=== PATIENT | male | born 1960 | race Two or more races ===

== ENCOUNTER 2019-08-02 19:23 | Inpatient (IN) | payer OTHER ==
[~2019-08-02] VITALS: Ht 180.3 cm; Wt 71.7 kg
[2019-08-02 19:27] VITALS: BP 115/65
[2019-08-02] MEDS ORDERED: CALCIUM + VITA1 EAC1 PO (19:33)
[2019-08-02] MEDS ORDERED: DOCUSATE SODIU100 M2 ORAL (19:33)
[2019-08-02] MEDS ORDERED: ASPIRIN81 MG ORAL (19:33)
[2019-08-02] MEDS ORDERED: CRANBERRY450 M5 PO (19:33)
[2019-08-02] MEDS ORDERED: ATORVASTATIN CA20 MG ORAL (19:33)
[2019-08-02] MEDS ORDERED: UNISOM SLEEP AI25 MG PO (19:33)
--- NOTE | 2019-08-02 19:33 | NUR ---
ED Nurse Note: Patient was BIBA from [facility] due to fever and abd pain radiating to the left and right flank area x 2 days. Oral temp 99.7, other VSS at this time, AAO x4, skin is warm to touch. Patient has preassure ulcer on his right buttoks, presented with suprapubic catheter. Patient has bilateral lower extrimety amputation.
[2019-08-02] MEDS ORDERED: NORCO 10-325 T1 EACH ORAL (19:38)
[2019-08-02] MEDS ORDERED: DULCOLAX10 MG RC (19:38)
[2019-08-02] MEDS ORDERED: METOPROLOL TART50 MG ORAL (19:38)
[2019-08-02] MEDS ORDERED: MILK OF MA400 MG/51 ORAL (19:38)
[2019-08-02] MEDS ORDERED: FERROUS SULFAT325 M2 ORAL (19:38)
[2019-08-02] MEDS ORDERED: MULTIVITAMINS1 EAC8 ORAL (19:38)
[2019-08-02] MEDS ORDERED: OXYCODONE HCL20 M1 ORAL (19:38)
[2019-08-02] MEDS ORDERED: LISINOPRIL20 MG ORAL (19:38)
[2019-08-02] MEDS ORDERED: LOPERAMIDE2 M1 PO (19:38)
[2019-08-02] MEDS ORDERED: VITAMIN C500 M1 ORAL (19:41)
[2019-08-02] MEDS ORDERED: VITAMIN C250 M1 ORAL (19:41)
[2019-08-02] MEDS ORDERED: PANTOPRAZOLE SO40 MG ORAL (19:41)
[2019-08-02] MEDS ORDERED: TYLENOL325 M1 PO (19:41)
[2019-08-02] MEDS ORDERED: Acetaminophen 500mg (ES) tab ORAL ONE (19:45)
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
[2019-08-02] MEDS ORDERED: Zosyn 3.375gm inj ONE (19:57)
[2019-08-02 20:05] LABS: BASOPHILS % (AUTO) 0.3 % (0.0-2.0); EOSINOPHILS % (AUTO) 0.6 % (0.0-3.0); HEMATOCRIT 28.5 % (42.0-52.0); HEMOGLOBIN 9.4 G/DL (14.2-18.0); LYMPHOCYTES % (AUTO) 15.2 % (20.0-45.0); MEAN CORPUSCULAR VOLUME 81 FL (80-99); MONOCYTES % (AUTO) 4.2 % (1.0-10.0); NEUTROPHILS % (AUTO) 79.7 % (45.0-75.0); PLATELET COUNT 287 K/UL (150-450); RED CELL DISTRIBUTION WIDTH 16.5 % (11.6-14.8)
[2019-08-02] MEDS ORDERED: Morphine Sulfate 4mg/ml Inj (IV USE ONLY) IVP ONE (20:15)
[2019-08-02 20:26] LABS: APPEARANCE,URINE VERY CLOUDY; BILIRUBIN, URINE NEGATIVE (NEGATIVE); COLOR,URINE YELLOW; GLUCOSE, URINE (UA) NEGATIVE (NEGATIVE); KETONES,URINE NEGATIVE (NEGATIVE); LEUKOCYTE ESTERASE ,URINE 3+ (NEGATIVE); NITRITE,URINE NEGATIVE (NEGATIVE); PH,URINE 6 (4.5-8.0); PROTEIN,URINE 2+ (NEGATIVE); UROBILINOGEN,URINE NORMAL MG/DL (0.0-1.0)
[2019-08-02 20:30] LABS: ANION GAP 10 mmol/L (5-15); BLOOD UREA NITROGEN 14 mg/dL (7-18); CALCIUM 8.8 MG/DL (8.5-10.1); CARBON DIOXIDE 28 MMOL/L (21-32); CHLORIDE 99 MMOL/L (98-107); CREATININE 0.8 MG/DL (0.55-1.30); POTASSIUM 4.2 MMOL/L (3.5-5.1); SODIUM 137 MMOL/L (136-145)
[2019-08-02 20:38] LABS: ALANINE AMINOTRANSFERASE 9 U/L (12-78); ALBUMIN 2.5 G/DL (3.4-5.0); ALBUMIN/GLOBULIN RATIO 0.5 (1.0-2.7); ALKALINE PHOSPHATASE 116 U/L (46-116); ASPARTATE AMINO TRANSFERASE 9 U/L (15-37); BILIRUBIN,TOTAL 0.4 MG/DL (0.2-1.0); PHOSPHORUS 3.8 MG/DL (2.5-4.9)
[2019-08-02] MEDS ORDERED: Mylanta II UD 30ml ORAL PRN (21:30)
[2019-08-02] MEDS ORDERED: LORazepam 1mg tab ORAL PRN (21:30)
[2019-08-02] MEDS ORDERED: Acetaminophen 650 MG SUPP RECTAL PRN ×2 (21:30)
[2019-08-02] MEDS ORDERED: Albuterol/Ipratropium 3ml neb HHN PRN (21:30)
[2019-08-02] MEDS ORDERED: Nitroglycerin Subl 0.4mg tab SL PRN (21:30)
[2019-08-02] MEDS ORDERED: Milk of Magnesia 30ml Ud ORAL PRN (21:30)
[2019-08-02] MEDS ORDERED: Miralax 17gm pkt ORAL PRN (21:30)
[2019-08-02] MEDS ORDERED: Metoclopramide 10mg/2ml Inj IVP PRN (21:30)
[2019-08-02] MEDS ORDERED: Methocarbamol 750mg tab ORAL PRN (21:33)
[2019-08-02] MEDS ORDERED: HydrALAZINE 25mg tab ORAL PRN (21:33)
[2019-08-02] MEDS: HYDROmorphone 1mg/ml Carpuject IVP PRN (21:40)
[2019-08-02] MEDS ORDERED: Hydromorphone 0.5mg/0.5ml inj IVP ONE (21:45)
[2019-08-02] MEDS ORDERED: Piperacillin/Tazobactam 3.375 GM in D5W 110 ML IV SCH (22:00)
--- NOTE | 2019-08-02 22:17 | Diagnostic Imaging Report ---
EXAM: XR Chest, 1 View CLINICAL HISTORY: FLANK TECHNIQUE: Frontal view of the chest. COMPARISON: No relevant prior studies available. FINDINGS: Lungs: No consolidation or mass. Pleural space: No acute findings Heart: No cardiomegaly. Mediastinum: Unremarkable. Bones/joints: No acute findings. Median sternotomy wires are in place. IMPRESSION: No acute cardiopulmonary process.
[2019-08-02 23:41] VITALS: BP 115/65
[2019-08-03] VITALS (7 sets, daily range): BP systolic 104–122; BP diastolic 51–75
--- NOTE | 2019-08-03 00:30 | NUR ---
NURSE NOTES: Pt transferred to the unit via gurney. Belonging checked with RN. Skin noted, s4 on R buttocks, cleaned and packed with guaze and covered with Opitfoam. picture uploaded. A/O x4, c/o pain at right back, aching 10/10. prn med will be given. ST on professor of apologetics. On room air with no sob. Abd soft and round. noted suprapubic catheter on LLQ. IV on R AC 20G, running NS at 75cc/hr. Bed in the lowest position. Side rails up x3. Will continue to monitor.
[2019-08-03] MEDS: HYDROcodone/Acetamin 5/325 tab ORAL PRN ×4 (01:10→20:20)
[2019-08-03] MEDS ORDERED: Piperacillin/Tazobactam 3.375 GM in NS 110 ML IVPB SCH (02:00)
--- NOTE | 2019-08-03 02:20 | NUR ---
ED Nurse Note: Patient was admited to Tele due to pyeloneohritis. Patient was transfered to the unit via gurney, by ACLS protocol, with all belongings. AAO x4, VSS at this time, skin is dry warm to touch.
[2019-08-03] MEDS: HYDROmorphone 1mg/ml Carpuject IVP PRN ×5 (04:05→22:40)
[2019-08-03 04:20] LABS: HEMATOCRIT 27.1 % (42.0-52.0); HEMOGLOBIN 8.3 G/DL (14.2-18.0); MEAN CORPUSCULAR VOLUME 86 FL (80-99); PLATELET COUNT 272 K/UL (150-450); RED BLOOD COUNT 3.17 M/UL (4.70-6.10); RED CELL DISTRIBUTION WIDTH 17.1 % (11.6-14.8); WHITE BLOOD COUNT 18.2 K/UL (4.8-10.8)
[2019-08-03 05:03] LABS: ALANINE AMINOTRANSFERASE 7 U/L (12-78); ALBUMIN 1.8 G/DL (3.4-5.0); ALBUMIN/GLOBULIN RATIO 0.3 (1.0-2.7); ALKALINE PHOSPHATASE 95 U/L (46-116); ANION GAP 8 mmol/L (5-15); ASPARTATE AMINO TRANSFERASE 13 U/L (15-37); BILIRUBIN,TOTAL 0.3 MG/DL (0.2-1.0); BLOOD UREA NITROGEN 11 mg/dL (7-18); CALCIUM 8.3 MG/DL (8.5-10.1); CARBON DIOXIDE 24 MMOL/L (21-32); CHLORIDE 104 MMOL/L (98-107); CREATININE 0.8 MG/DL (0.55-1.30); POTASSIUM 3.8 MMOL/L (3.5-5.1); SODIUM 136 MMOL/L (136-145)
--- NOTE | 2019-08-03 07:20 | NUR ---
HAND-OFF: Report given to RUBEN Bee. No acute distress noted at this time.
[2019-08-03] MEDS: Zosyn 3.375gm q8h **Extended infusion IVPB SCH ×6 (09:01→22:11)
[2019-08-03] MEDS: Docusate 100mg cap ORAL SCH ×2 (09:02→20:22)
[2019-08-03] MEDS: traMADol 50mg tab ORAL PRN (09:02)
[2019-08-03] MEDS: Enoxaparin 40mg Inj SUBQ SCH (09:03)
--- NOTE | 2019-08-03 09:58 | NUR ---
NURSE NOTES: Call placed to [facility] regarding abnormal labs: magnesium 1.7. Told by call-gasoline engine inspector that message will be relayed to . :Pt is currently in Sinus Rhythm with rate of 90 bpm per last rhythm strip.
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
--- NOTE | 2019-08-03 10:15 | NUR ---
NURSE NOTES: Dr. Cook covering for Dr. Tomlinson retuned call and ordered 2g of magnesium.
--- NOTE | 2019-08-03 10:30 | NUR ---
NURSE NOTES: Pt refused air mattress. Pt is A&O name, time, place, and situation, able to make needs known, no slurred speech noted, follows commands, able to use TV remote, can reposition self, assist in ADLs, answers questions appropriately. Pt educated on indications of air mattress for wound management, but pt refused. Charge nurse RUBEN Torres, also educated pt on indications rt mattress for wound management, but pt still refused. ZOIE Cook, notified of refusal and gave no new orders.
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
--- NOTE | 2019-08-03 11:46 | NUR ---
NURSE NOTES: Pt refused physical and occupational therapies. States he "doesn't need any",
--- NOTE | 2019-08-03 13:15 | NUR ---
NURSE NOTES: Dr. Friedman updated on patient WBC count of 18.2 and Lactic acid of 0.80. Will place orders for additional antibiotics after reviewing chart.
--- NOTE | 2019-08-03 13:18 | Infectious Diseases Prog Note ---
Assessment/Plan Assessment/Plan Full consult dictated: A) 1) sepsis, lactic acidosis, sirs, leukocytosis, fevers 2) pyelonephritis/uti, + ua, chest x-ray negative 3) sacral wound clean - unlikely sepsis source 4) pmh noted 5) allergies - nkda P) 1) zosyn and amikacin 2) check cultures 3) monitor labs 4) local wound care 5) thank you Subjective Allergies: Coded Allergies: No Known Allergies (Unverified , 08/02/19) Objective Vital Signs Last 24 Hour Vital Signs Date Time Temp Pulse Resp B/P (MAP) Pulse Ox O2 Delivery O2 Flow Rate FiO2 08/03/19 08:00 Room Air 08/03/19 08:00 99.3 81 18 119/68 (85) 97 08/03/19 07:41 98.1 08/03/19 07:40 90 08/03/19 06:35 100 19 96 Room Air 21 08/03/19 04:00 98.1 96 20 104/51 (68) 94 08/03/19 04:00 93 08/03/19 01:29 Room Air 08/03/19 00:30 98.4 103 20 121/57 (78) 96 08/03/19 00:20 99.8 87 20 115/65 97 Room Air 08/03/19 00:20 99.8 87 20 115/65 97 Room Air 08/03/19 00:00 95 08/02/19 23:41 99.8 87 20 115/65 97 Room Air 08/02/19 22:10 99.8 08/02/19 20:50 99.8 08/02/19 20:29 99.8 08/02/19 19:27 99.7 87 20 115/65 97 Room Air 08/02/19 19:27 104 20 Room Air 08/02/19 19:20 101.8 104 20 115/65 (82) 97 Room Air Height (Feet): 5 Height (Inches): 11.00 Weight (Pounds): 158 Microbiology Date/Time Source Procedure Growth Status 08/02/19 19:45 Urine,Clean Catch Urine Culture - Preliminary Resulted 08/02/19 20:40 Rectum Received Laboratory Tests Test 08/02/19 19:45 08/02/19 23:05 08/03/19 03:05 08/03/19 08:40 White Blood Count 16.0 K/UL (4.8-10.8) H 18.2 K/UL (4.8-10.8) H Red Blood Count 3.50 M/UL (4.70-6.10) L 3.17 M/UL (4.70-6.10) L Hemoglobin 9.4 G/DL (14.2-18.0) L 8.3 G/DL (14.2-18.0) L Hematocrit 28.5 % (42.0-52.0) L 27.1 % (42.0-52.0) L Mean Corpuscular Volume 81 FL (80-99) 86 FL (80-99) Mean Corpuscular Hemoglobin 26.8 PG (27.0-31.0) L 26.3 PG (27.0-31.0) L Mean Corpuscular Hemoglobin Concent 32.9 G/DL (32.0-36.0) 30.8 G/DL (32.0-36.0) L Red Cell Distribution Width 16.5 % (11.6-14.8) H 17.1 % (11.6-14.8) H Platelet Count 287 K/UL (150-450) 272 K/UL (150-450) Mean Platelet Volume 5.7 FL (6.5-10.1) L 5.6 FL (6.5-10.1) L Neutrophils (%) (Auto) 79.7 % (45.0-75.0) H % (45.0-75.0) Lymphocytes (%) (Auto) 15.2 % (20.0-45.0) L % (20.0-45.0) Monocytes (%) (Auto) 4.2 % (1.0-10.0) % (1.0-10.0) Eosinophils (%) (Auto) 0.6 % (0.0-3.0) % (0.0-3.0) Basophils (%) (Auto) 0.3 % (0.0-2.0) % (0.0-2.0) Urine Color Yellow Urine Appearance Very cloudy Urine pH 6 (4.5-8.0) Urine Specific [place] 1.015 (1.005-1.035) Urine Protein 2+ (NEGATIVE) H Urine Glucose (UA) Negative (NEGATIVE) Urine Ketones Negative (NEGATIVE) Urine Blood 2+ (NEGATIVE) H Urine Nitrite Negative (NEGATIVE) Urine Bilirubin Negative (NEGATIVE) Urine Urobilinogen Normal MG/DL (0.0-1.0) Urine Leukocyte Esterase 3+ (NEGATIVE) H Urine RBC 2-4 /HPF (0 - 0) H Urine WBC Tntc /HPF (0 - 0) H Urine Squamous Epithelial Cells Few /LPF (NONE/OCC) Urine Bacteria Many /HPF (NONE) H Sodium Level 137 MMOL/L (136-145) 136 MMOL/L (136-145) Potassium Level 4.2 MMOL/L (3.5-5.1) 3.8 MMOL/L (3.5-5.1) Chloride Level 99 MMOL/L (98-107) 104 MMOL/L (98-107) Carbon Dioxide Level 28 MMOL/L (21-32) 24 MMOL/L (21-32) Anion Gap 10 mmol/L (5-15) 8 mmol/L (5-15) Blood Urea Nitrogen 14 mg/dL (7-18) 11 mg/dL (7-18) Creatinine 0.8 MG/DL (0.55-1.30) 0.8 MG/DL (0.55-1.30) Estimat Glomerular Filtration Rate > 60 mL/min (>60) > 60 mL/min (>60) Glucose Level 118 MG/DL (74-106) H 104 MG/DL (74-106) Lactic Acid Level 2.40 mmol/L (0.4-2.0) H 3.20 mmol/L (0.66-2.22) H 0.80 mmol/L (0.4-2.0) Calcium Level 8.8 MG/DL (8.5-10.1) 8.3 MG/DL (8.5-10.1) L Phosphorus Level 3.8 MG/DL (2.5-4.9) Magnesium Level 1.7 MG/DL (1.8-2.4) L 1.7 MG/DL (1.8-2.4) L Total Bilirubin 0.4 MG/DL (0.2-1.0) 0.3 MG/DL (0.2-1.0) Aspartate Amino Transf (AST/SGOT) 9 U/L (15-37) L 13 U/L (15-37) L Alanine Aminotransferase (ALT/SGPT) 9 U/L (12-78) L 7 U/L (12-78) L Alkaline Phosphatase 116 U/L (46-116) 95 U/L (46-116) Troponin I 0.000 ng/mL (0.000-0.056) Pro-B-Type Natriuretic Peptide 509 pg/mL (0-125) H Total Protein 7.9 G/DL (6.4-8.2) 7.2 G/DL (6.4-8.2) Albumin 2.5 G/DL (3.4-5.0) L 1.8 G/DL (3.4-5.0) L Globulin 5.4 g/dL 5.4 g/dL Albumin/Globulin Ratio 0.5 (1.0-2.7) L 0.3 (1.0-2.7) L Thyroid Stimulating Hormone (TSH) 0.743 uiU/mL (0.358-3.740) Differential Total Cells Counted 100 Neutrophils % (Manual) 78 % (45-75) H Lymphocytes % (Manual) 18 % (20-45) L Monocytes % (Manual) 4 % (1-10) Eosinophils % (Manual) 0 % (0-3) Basophils % (Manual) 0 % (0-2) Band Neutrophils 0 % (0-8) Platelet Estimate Adequate Platelet Morphology Normal Anisocytosis 1+ Current Medications Medications (Trade) Dose Ordered Sig/Nayely Route PRN Reason Start Time Stop Time Status Last Admin Dose Admin Acetaminophen (Tylenol) 650 mg Q4H PRN ORAL Mild Pain (Pain Scale 1-3) 08/02/19 21:30 09/01/19 21:29 Acetaminophen (Tylenol) 650 mg Q4H PRN ORAL fever 08/02/19 21:30 09/01/19 21:29 Acetaminophen (Tylenol) 650 mg Q4H PRN RECTAL Mild Pain (Pain Scale 1-3) 08/02/19 21:30 09/01/19 21:29 Acetaminophen (Tylenol) 650 mg Q4H PRN RECTAL fever 08/02/19 21:30 09/01/19 21:29 Acetaminophen/ Hydrocodone Bitart ([place] 5/325) 1 tab Q6H PRN ORAL severe pain 08/02/19 21:30 08/09/19 21:29 08/03/19 07:11 Al Hydroxide/Mg Hydroxide (Mylanta II) 30 ml Q6H PRN ORAL dyspepsia 08/02/19 21:30 09/01/19 21:29 Albuterol/ Ipratropium (Albuterol/ Ipratropium) 3 ml Q6H PRN HHN Shortness of Breath 08/02/19 21:30 08/07/19 21:29 Bisacodyl (Dulcolax) 10 mg HSPRN PRN RECTAL Constipation 08/02/19 21:30 09/01/19 21:29 Dextrose (Dextrose 50%) 25 ml Q30M PRN IV Hypoglycemia 08/02/19 21:30 09/01/19 21:29 Dextrose (Dextrose 50%) 50 ml Q30M PRN IV Hypoglycemia 08/02/19 21:30 09/01/19 21:29 Diphenhydramine HCl (Benadryl) 25 mg Q6H PRN ORAL Itching/Pruritis 08/02/19 21:30 09/01/19 21:29 Docusate Sodium (Colace) 200 mg EVERY 12 HOURS ORAL 08/03/19 09:00 09/02/19 08:59 08/03/19 09:02 Enoxaparin Sodium (Lovenox) 40 mg DAILY SUBQ 08/03/19 09:00 09/02/19 08:59 08/03/19 09:03 Hydralazine HCl (Apresoline) 25 mg Q6H PRN ORAL hypertension see note 08/02/19 21:33 09/01/19 21:32 Hydromorphone HCl (Dilaudid) 1 mg Q4H PRN IVP breakthrough pain 08/03/19 11:45 08/09/19 21:29 Lorazepam (Ativan) 1 mg Q4H PRN ORAL For Anxiety 08/02/19 21:30 08/09/19 21:29 Magnesium Hydroxide (Mom) 30 ml HSPRN PRN ORAL Constipation 08/02/19 21:30 09/01/19 21:29 Methocarbamol (Robaxin) 750 mg Q6H PRN ORAL muscle spasm 08/02/19 21:33 09/01/19 21:32 Metoclopramide HCl (Reglan) 10 mg Q6H PRN IVP Nausea & Vomiting 08/02/19 21:30 09/01/19 21:29 Nitroglycerin (Ntg) 0.4 mg Q5M X 3 DOSES PRN SL Prn Chest Pain 08/02/19 21:30 09/01/19 21:29 Ondansetron HCl (Zofran) 4 mg Q6H PRN IVP Nausea & Vomiting 08/02/19 21:30 09/01/19 21:29 Pantoprazole (Protonix) 40 mg DAILY ORAL 08/03/19 09:00 09/02/19 08:59 08/03/19 09:02 Piperacillin Sod/ Tazobactam Sod 3.375 gm/Sodium Chloride 110 ml @ 27.5 mls/hr EVERY 8 HOURS IVPB 08/03/19 08:00 08/08/19 07:59 08/03/19 09:01 Polyethylene Glycol (Miralax) 17 gm HSPRN PRN ORAL Constipation 08/02/19 21:30 09/01/19 21:29 Prochlorperazine (Compazine) 10 mg Q6H PRN IVP Nausea & Vomiting 08/02/19 21:30 09/01/19 21:29 Sodium Chloride 1,000 ml @ 75 mls/hr [id number] IVLG 08/02/19 22:16 09/01/19 22:15 08/03/19 12:19 Temazepam (Restoril) 7.5 mg HSPRN PRN ORAL insomnia 08/02/19 21:45 08/09/19 21:44 Tramadol HCl (Ultram) 50 mg Q6H PRN ORAL moderate pain 08/02/19 21:30 08/09/19 21:29 08/03/19 09:02 Jose M Gonzales MD Aug 03, 2019 13:18
[2019-08-03] MEDS ORDERED: Amikacin Rx to dose MISC PRN (13:30)
--- NOTE | 2019-08-03 14:18 | NUR ---
PT Note PT gregg completed. Patient is at baseline level of function. Patient states, "I don't knee physical therapy." No f/u PT tx recommended at this time. Addendum: 08/03/19 at 1419 by ASHLIE COSTA PT Amended: Links added.
--- NOTE | 2019-08-03 15:15 | Cardiology Report ---
APPROVED REPORT EKG Measurement Heart [id number] 116P1 [id number] Sinus tachycardia Otherwise normal ECG
[2019-08-03] MEDS: Amikacin 1,000 MG in NS 110 ML IV SCH (15:30)
[2019-08-03] MEDS ORDERED: Tubing IV Secondary IV ONE (16:42)
[2019-08-03] MEDS ORDERED: NS 275ml ONE (16:42)
--- NOTE | 2019-08-03 17:45 | Consultation ---
DATE OF CONSULTATION: 08/03/2019 INFECTIOUS DISEASE CONSULTATION CONSULTING PHYSICIAN: Jose M Gonzales M.D. ATTENDING PHYSICIAN: Delta Tomlinson M.D. REFERRING PHYSICIAN: Frederick Cook M.D. REASON FOR CONSULTATION: Sepsis, pyelonephritis, UTI, leukocytosis, fevers, possible sacral wound infection. CHIEF COMPLAINT: The patient's chief complaint coming into the hospital is sepsis, pyelonephritis, fevers, leukocytosis, UTI. HISTORY OF PRESENT ILLNESS: This is a 58-year-old male who has history of bilateral leg amputation, paraplegia, sacral wound who has also suprapubic catheter. The patient comes in with elevated white count, fevers, elevated lactic acid level, and likely is septic. Likely source is UTI and pyelonephritis with sepsis. Infectious Disease consultation requested. The patient is on Zosyn. I am adding amikacin. Cultures pending. REVIEW OF SYSTEMS: CONSTITUTIONAL: The patient has weakness, but is alert and responsive. HEAD AND NECK: No head pain or neck pain. CARDIAC: No chest pain. GASTROINTESTINAL: No nausea, vomiting, or diarrhea. GENITOURINARY: He has suprapubic catheter. PULMONARY: No shortness of breath or cough. He came in with fevers. PAST MEDICAL HISTORY: The patient includes history of following. The patient has a past medical history of right BKA, left AKA, suprapubic catheter, weakness, paraplegia. The patient has history of CAD, history of COPD. No history of diabetes, hypertension. ALLERGIES: No known drug allergies. SOCIAL HISTORY: Negative for smoking, alcohol, drug abuse. FAMILY HISTORY: Noncontributory. MEDICATIONS: Upon reviewing the MAR, he is on following medications: Amikacin, Zosyn, enoxaparin, pantoprazole, docusate, IV fluids, sodium chloride. He is on albuterol treatment. He is on hydralazine, temazepam. He is on acetaminophen. He is on Compazine, Reglan, Zofran, lorazepam, nitroglycerin, IV fluids. Outside medications were noted and reconciliated. PHYSICAL EXAMINATION: VITAL SIGNS: Temperature is 99.3, pulse rate 81, respiratory rate 18, saturation 97%, blood pressure 119/68, T-max was 101.8, heart rate was as high is 104 on admission. GENERAL: Alert, responsive. He is oriented x3. HEAD AND NECK: Oral exam, no thrush. Eye exam, no icterus. Neck is supple. No JVD. Normocephalic. CARDIAC: Regular. No gallop or murmur. ABDOMEN: Soft. Positive bowel sounds. Nontender. LUNGS: Clear bilaterally. No rhonchi or rales. SKIN: No rash. MUSCULOSKELETAL: He has bilateral leg amputation. Leg exam, bilateral leg amputation. PERIPHERAL VASCULAR: Bilateral leg amputation. SKIN: Sacral wound looks clean. GENITOURINARY: He has suprapubic catheter. Urine is cloudy. LINE SITES: Without phlebitis. NEUROLOGIC: Nonfocal, but he is paraplegic. LABORATORY DATA: White count 18.2, hemoglobin 9.3. Creatinine 0.8. Urinalysis had 3+ leukocyte esterase, too many to count white blood cells. Cultures are pending. Chest x-ray was negative. ASSESSMENT AND PLAN: 1. The patient has sepsis, elevated lactic acid level. His lactic acid has been as high as 3.2. The patient has fevers, leukocytosis, SIRS criteria. The patient likely has pyelonephritis/UTI with sepsis and complicated UTI with fevers, leukocytosis. Continue Zosyn and amikacin for pyelonephritis, sepsis. Check cultures, laboratories. Chest x-ray is negative. Unlikely wound as source of sepsis, it looks fairly clean. Continue Zosyn and amikacin for sepsis and pyelonephritis pending cultures. 2. The patient has history of paraplegia. 3. Wound care per Surgery and protocol. 4. Weakness. 5. COPD. 6. CAD. 7. pmh noted 8. Left AKA, right BKA. 9. Continue treatment per primary consultants. 10. No known allergies. 11. Social history negative. 12. Family history noncontributory. 13. MAR was noted. 14. Case was discussed with RN. 15. Notes were reviewed and noted. Orders were entered. Jose M Gonzales M.D. DR: ALFREDITO JOB#: [id number] CC: CASSY
--- NOTE | 2019-08-03 19:20 | NUR ---
HAND-OFF: Report given to RUBEN Schmid.
--- NOTE | 2019-08-03 19:21 | NUR ---
NURSE NOTES: Report received from RUBEN Bee. Observed pt lying in the bed, awake, A/O x4, denies any pain at this time. SR on wood technologist. On room air with no sob. Abd soft and round. Noted suprapubic cath and urine bag. IV on R AC 20G, SL. Bed in the lowest position. Side rails up x3. Call light within reach. Will continue to monitor.
[2019-08-03] MEDS ORDERED: OXYCODONE HCL10 MG ORAL (19:49)
[2019-08-03] MEDS ORDERED: PRO-STAT LIQUID30 ML ORAL (19:49)
[2019-08-03] MEDS ORDERED: OXYCODONE HCL5 M2 ORAL (19:49)
[2019-08-03] MEDS: Metoprolol Tartrate 50mg tab ORAL SCH (20:22)
[2019-08-03] MEDS: Atorvastatin 20mg tab ORAL SCH (20:22)
--- NOTE | 2019-08-03 21:00 | NUR ---
NURSE NOTES: pt refused lipitor and colace 2100 meds, explained benefits and risks, and still refused. Will continue to monitor.
--- NOTE | 2019-08-03 22:30 | NUR ---
NURSE NOTES: pt c/o pain at the wound, radiating to back, 09/04. prn pain med given. urine bag emptied. VS WNL. Will continue to monitor.
[2019-08-04] VITALS: BP 147/75
--- NOTE | 2019-08-04 00:30 | NUR ---
NURSE NOTES: Observe pt sleeping in the bed, appears calm. SR on hazardous material technician. Will continue to monitor.
[2019-08-04] MEDS: HYDROmorphone 1mg/ml Carpuject IVP PRN ×2 (03:09→07:01)
[2019-08-04 03:35] LABS: HEMATOCRIT 26.9 % (42.0-52.0); HEMOGLOBIN 8.5 G/DL (14.2-18.0); MEAN CORPUSCULAR VOLUME 86 FL (80-99); PLATELET COUNT 274 K/UL (150-450); RED BLOOD COUNT 3.14 M/UL (4.70-6.10); RED CELL DISTRIBUTION WIDTH 17.9 % (11.6-14.8); WHITE BLOOD COUNT 18.1 K/UL (4.8-10.8)
[2019-08-04 03:49] LABS: ALANINE AMINOTRANSFERASE 10 U/L (12-78); ALBUMIN 2.4 G/DL (3.4-5.0); ALBUMIN/GLOBULIN RATIO 0.4 (1.0-2.7); ALKALINE PHOSPHATASE 118 U/L (46-116); ANION GAP 10 mmol/L (5-15); ASPARTATE AMINO TRANSFERASE 12 U/L (15-37); BILIRUBIN,TOTAL 0.4 MG/DL (0.2-1.0); BLOOD UREA NITROGEN 16 mg/dL (7-18); CALCIUM 8.6 MG/DL (8.5-10.1); CARBON DIOXIDE 26 MMOL/L (21-32); CHLORIDE 97 MMOL/L (98-107); CREATININE 0.8 MG/DL (0.55-1.30); POTASSIUM 5.3 MMOL/L (3.5-5.1); SODIUM 133 MMOL/L (136-145)
--- NOTE | 2019-08-04 04:00 | NUR ---
NURSE NOTES: Pt refused to take V/S. Per pt, "Not now. I want to sleep." Explained benefits and risks, still refused. SR on youth nutritional monitor noted.
[2019-08-04] MEDS: HYDROcodone/Acetamin 5/325 tab ORAL PRN ×3 (04:49→22:01)
[2019-08-04] MEDS: Zosyn 3.375gm q8h **Extended infusion IVPB SCH ×6 (05:58→21:51)
--- NOTE | 2019-08-04 07:10 | NUR ---
NURSE NOTES: Pt c/o flank pain. 08/05, aching. Took out dilaudid from pyxis and after scan the med, tried pull out the med from the seal. but the back part of the seal was popped after putting air in. Called pharmacy and was told okay to take another out. Brought the broken seal back to pharmacy and explained it to pharmacists.
--- NOTE | 2019-08-04 07:30 | NUR ---
HAND-OFF: Report given to RUBEN De Santiago. No acute distress noted.
--- NOTE | 2019-08-04 07:31 | NUR ---
NURSE NOTES: PT received from RUBEN Rice. PT received sleeping in bed, VS stable, on RA no respiratory distress noted. RUBEN Rice endorsed PT refused air mattress, AM CN aware of PT refusal. During morning rounds PT asking for PRN pain meds, but not currently due. Will continue to monitor PT and follow plan of care.
[2019-08-04 08:00] VITALS: BP 131/74
[2019-08-04] MEDS: Enoxaparin 40mg Inj SUBQ SCH (09:00)
[2019-08-04] MEDS ORDERED: Docusate 100mg cap ORAL SCH (09:00)
[2019-08-04] MEDS: Milk of Magnesia 30ml Ud ORAL SCH ×2 (09:00→09:41)
[2019-08-04] MEDS: traMADol 50mg tab ORAL PRN (09:40)
[2019-08-04] MEDS: Docusate 100mg cap ORAL SCH ×2 (09:41→20:08)
[2019-08-04] MEDS: Metoprolol Tartrate 50mg tab ORAL SCH ×2 (09:41→20:14)
[2019-08-04] MEDS: Ascorbic Acid 500mg tab ORAL SCH (09:41)
[2019-08-04] MEDS: Aspirin Baby 81mg ORAL SCH (09:45)
--- NOTE | 2019-08-04 10:03 | NUR ---
*-* INSURANCE *-* ALL AVAILABLE CLINICALS HAVE BEEN FAXED TO: WAYNE MAURER ([facility]) BAO: COLLEEN F: [phone]
--- NOTE | 2019-08-04 10:23 | NUR ---
NURSE NOTES: PT A/O x 3; not in a good mood, no signs of respiratory distress, VS stable, asking for pain meds, advised PT PRN pain meds Realitos / Dilaudid not due; gave PRN Tramadol; after PT ingested Tramadol, he said he didn't want pain meds especially not Tramadol since he gets nightmares when he take its. Advised of this side efx after asking for pain meds and after specifically given Tramadol, but PT still took it. Student RN Jacey present when given meds. PT refused mattress, Miko HYDE made aware, PT says it gives him anxiety; CN also made aware of situation. PT wants D/C and wants to sign AMA; Miko HYDE made aware of PT request also. Will continue to monitor PT and follow with plan of care.
[2019-08-04] MEDS ORDERED: Sodium Chloride 2,200 ML IVLG ONE (10:45)
--- NOTE | 2019-08-04 10:50 | NUR ---
NURSE NOTES: Tamera Chief Knowledge Officer here to do venous duplex on PT as ordered, PT refused, CN made aware that PT refused v-duplex. PT not cooperative. Will continue with plan of care and monitor PT further.
--- NOTE | 2019-08-04 11:05 | CDS Physician Query ---
PLEASE COMPLETE THE QUESTION BEFORE SIGNING Dear Dr. Gonzales Date: 08-04-19 CDS Name: Terri Mclain Phone No. [phone] Exercise your independent professional judgment when responding to the query. Questions asked do not imply a particular answer is desired or expected. We greatly appreciate your clarification on this issue. CLINICAL DOCUMENTATION STATES: pyelonephritis/uti, + ua, (pt has indwelling suprapubic catheter) Please respond to the following question: Is there a causal relationship between the pyelonephritis and the indwelling suprapubic catheter? PHYSICIAN RESPONSE: [x ] YES [ ] NO Condition Present on admission [ ] Yes [ ] No [ ]Clinically Undeterminable Please also document in your Progress Notes and/or Discharge summary and indicate if the condition was present on admission. Lucy SCHMITTD
--- NOTE | 2019-08-04 11:09 | NUR ---
NURSE NOTES: MD Joyce made rounds, made aware of PT situation and multiple refusals to procedure that is ordered. MD Joyce addressed issues, made ordered to change dosage to Dialudid from 1mg to 2mg Q4H, D/C Tramadol, add Oxy 15mg Q4H for severe pain. Will place orders per MD, will continue with plan of care and monitor PT.
--- NOTE | 2019-08-04 11:20 | Surgery Progress Note ---
Surgery Progress Note Subjective Additional Comments Patient seen and examined bedside. States he is doing well. States he wants to go back to [facility]. Continues to have leukocytosis. Lactic acidosis resolved. Patient noncompliant with all care plans. States he does not want air mattress. asks for IV Dilaudid. Objective Last 24 Hour Vital Signs Date Time Temp Pulse Resp B/P (MAP) Pulse Ox O2 Delivery O2 Flow Rate FiO2 08/04/19 10:22 97.7 08/04/19 09:41 74 131/74 08/04/19 09:00 Room Air 08/04/19 08:00 73 08/04/19 08:00 97.7 74 16 131/74 (93) 98 08/04/19 03:20 73 08/04/19 00:00 98.3 77 16 147/75 (99) 97 08/04/19 00:00 71 08/03/19 21:00 Room Air 08/03/19 20:22 80 122/68 08/03/19 20:00 81 08/03/19 20:00 98.1 80 16 122/68 (86) 96 08/03/19 16:00 96.8 89 18 120/75 (90) 97 08/03/19 16:00 83 08/03/19 15:17 96.6 08/03/19 14:03 96.6 08/03/19 12:00 99.6 85 20 112/69 (83) 97 08/03/19 11:41 87 I&O Intake and Output 08/03/19 08/04/19 19:00 07:00 Intake Total 1714.0 ml 1130.0 ml Output Total 1700 ml 950 ml Balance 14.0 ml 180.0 ml Intake Oral 480 ml 120 ml IV Total 1234.0 ml 1010.0 ml Output Urine Total 1700 ml 950 ml # Bowel Movements 1 1 Dressing: saturated Wound: clean Cardiovascular: RSR Respiratory: clear Abdomen: soft, flat, non-tender, present bowel sounds Extremities: other Laboratory Tests Test 08/04/19 03:00 White Blood Count 18.1 K/UL (4.8-10.8) H Red Blood Count 3.14 M/UL (4.70-6.10) L Hemoglobin 8.5 G/DL (14.2-18.0) L Hematocrit 26.9 % (42.0-52.0) L Mean Corpuscular Volume 86 FL (80-99) Mean Corpuscular Hemoglobin 27.0 PG (27.0-31.0) Mean Corpuscular Hemoglobin Concent 31.6 G/DL (32.0-36.0) L Red Cell Distribution Width 17.9 % (11.6-14.8) H Platelet Count 274 K/UL (150-450) Mean Platelet Volume 5.0 FL (6.5-10.1) L Neutrophils (%) (Auto) % (45.0-75.0) Lymphocytes (%) (Auto) % (20.0-45.0) Monocytes (%) (Auto) % (1.0-10.0) Eosinophils (%) (Auto) % (0.0-3.0) Basophils (%) (Auto) % (0.0-2.0) Differential Total Cells Counted 100 Neutrophils % (Manual) 77 % (45-75) H Lymphocytes % (Manual) 17 % (20-45) L Monocytes % (Manual) 6 % (1-10) Eosinophils % (Manual) 0 % (0-3) Basophils % (Manual) 0 % (0-2) Band Neutrophils 0 % (0-8) Platelet Estimate Adequate Platelet Morphology Normal Red Blood Cell Morphology Normal Sodium Level 133 MMOL/L (136-145) L Potassium Level 5.3 MMOL/L (3.5-5.1) H Chloride Level 97 MMOL/L (98-107) L Carbon Dioxide Level 26 MMOL/L (21-32) Anion Gap 10 mmol/L (5-15) Blood Urea Nitrogen 16 mg/dL (7-18) Creatinine 0.8 MG/DL (0.55-1.30) Estimat Glomerular Filtration Rate > 60 mL/min (>60) Glucose Level 110 MG/DL (74-106) H Calcium Level 8.6 MG/DL (8.5-10.1) Total Bilirubin 0.4 MG/DL (0.2-1.0) Aspartate Amino Transf (AST/SGOT) 12 U/L (15-37) L Alanine Aminotransferase (ALT/SGPT) 10 U/L (12-78) L Alkaline Phosphatase 118 U/L (46-116) H Total Protein 7.9 G/DL (6.4-8.2) Albumin 2.4 G/DL (3.4-5.0) L Globulin 5.5 g/dL Albumin/Globulin Ratio 0.4 (1.0-2.7) L Random Amikacin Level < 2.5 ug/mL Plan Problems: (1) Stage 4 decubitus ulcer Assessment & Plan: Patient presents with multiple decubitus ulcers requiring care and management. Patient identified to have a full-thickness stage IV sacral decubitus ulcer which has had debridement in the past. There is some granulation in the ulcer bed with 10 to 20% slough. Periwound is intact and okay. No signs of active infection. Bone is palpable. Seems to have been receiving care. Does have a layer of biofilm. Patient with bilateral lower extremity amputations. Amputation flap is well- healed without dehiscence or abnormality. Patient mainly wheelchair-bound at this time. Tx Plan: Cleanse Sacral wound with NS. Loosely pack wound with hydrogel moistened Kerlix gauze. Apply Moisture Barrier periwound. Cover with Optifoam drsg. Daily and prn. Off load AKA stump with pillow Apply Cavilon Skin Barrier to both heels. Cover each heel with Optifoam drsg. Change every 7 days and prn. Air Fluidized mattress. Reposition at least every 2hours or as tolerated. Off-load heels with pillow. An air mattress was ordered for the patient and patient refused. Patient states he does not want air mattress. She expressed understanding that he knows that can potentially worsen wound that he needs to offload pressure but states he does not want air mattress and states he will turn as much as possible but does not seem to do so. Unfortunately with such noncompliance can be difficult to allow wound healing and proper care. We will continue to remind patient importance of wound healing given the location and the decubitus he presents with. (2) Sepsis Assessment & Plan: Patient presented with leukocytosis, lactic acidosis, anemia. Wounds and likely etiology of sepsis. Patient with UTI. We will continue to manage and monitor wounds to ensure proper care Continue with IV antibiotics as per infectious disease Appreciate ID input Trend labs (3) UTI (urinary tract infection) Baron Crouch Aug 04, 2019 11:20
--- NOTE | 2019-08-04 11:57 | NUR ---
SIDE LASTERUPPER TRIMMER 58 YO MALE MARIAMA FROM [facility] TO ER CC PAIN AND FEVER TIMES 2 DAYS SI: PYELONEPHRITIS T. 101.8 HR 104 RR 20 B/P 115/65 WBC 18.2 LACTID ACID 3.20 BNP 507 CXR= NO ACUTE DISTRESS IS: ZOSYN IV TYLENOL PO MORPHINE SULFATE IV IV BOLUS NS X 1 LITER ADMITTED TO STEP DOWN @ 0020 STEP DOWN STATUS 08/04/19 SI: PYELONEPHRITIS T. 97.7 HR 74 RR 16 B/P 131/74 NA 133 K 5.3 ALK PHOS 118 IS: IVF NS 3% @ 20ML/HR AMIKACIN IV ZOSYN IV IVF NS @ 75ML/HR PROTONIX STEP DOWN STATUS Addendum: 08/04/19 at 1625 by DK ROMERO LVN LVN INTERQUAL CRITERIA MET
[2019-08-04 12:00] VITALS: BP 153/72
[2019-08-04] MEDS ORDERED: oxyCONTIN 10mg tab ORAL SCH (13:00)
--- NOTE | 2019-08-04 13:00 | NUR ---
NURSE NOTES: PT VS stable, no respiratory distress on RA, PT asking for PRN pain meds, provided PRN as scheduled/alotted. Wound care done, PT kept clean and dry, linens changed. Lunch provided. PT A/O x 3. Will continue to monitor PT.
--- NOTE | 2019-08-04 13:44 | NUR ---
RD ASSESSMENT & RECOMMENDATIONS SEE CARE ACTIVITY FOR COMPLETE ASSESSMENT DAILY ESTIMATED NEEDS: Needs based on Wound healing/ 70kg 25-30 kcals/kg 0765-2194 total kcals 1.5-2.0 g protein/kg 105-140 g total protein 25-30 mL/kg 7915-1673 total fluid mLs NUTRITION DIAGNOSIS: Increased kcal/prot/micronutrients needs R/T wound healing as evidenced by pt admitted w/ sacral stage 4 wound. CURRENT DIET:REGULAR PO DIET RECOMMENDATIONS: REGULAR, DOUBLE PROTEIN PORTIONS ADDITIONAL RECOMMENDATIONS: * Calibrated bedscale wt for accurate CBW * Wound healing: add MVI w/ mineral 1 tab QD, add Vit C 500mg BID : add ZnSO4 220mg QD x 10 days : Chay 1pkt BID -> pt refused * Monitor lytes, replete as needed (low Mag)
--- NOTE | 2019-08-04 14:10 | General Progress Note ---
Assessment/Plan Problem List: (1) Sepsis ICD Codes: A41.9 - Sepsis, unspecified organism SNOMED: 32943750 (2) UTI (urinary tract infection) ICD Codes: N39.0 - Urinary tract infection, site not specified SNOMED: 88409711 (3) Stage 4 decubitus ulcer ICD Codes: L89.94 - Pressure ulcer of unspecified site, stage 4 SNOMED: 036241326 Status: stable Assessment/Plan: 58 year old male with sepsis secondary to pyelonephritis/complicated UTI. 1. Sepsis secondary to pyelonephritis/complicated UTI. Zosyn and Amikacin ID consult with Dr. Hawk. Appreciated f/u urine and blood cultures VRE colonizer 2. stage 4 sacral wound. Doubt the source. Surgical consult wound care wound mattress - refusing Pain control with Dilaudid and oxycodone 3.history of paraplegia. Pain control 4. COPD Duonebs 5.CAD ASA, Atorvastatin, metoprolol, Hold Lisinopril 6 Left AKA, right BKA 7. Severe iron deficiency anemia- on PO iron at SNF.Continue same I spent 40 minutes during this encounter. 50% spent on counselling and care coordination Time of this note may not reflect time of encounter Subjective Date patient seen: Aug 04, 2019 ROS Limited/Unobtainable: No Constitutional: Denies: no symptoms, chills, diaphoresis, fever, malaise, weakness, other - pain in the R kidney HEENT: Denies: no symptoms, eye pain, blurred vision, tearing, double vision, ear pain, ear discharge, nose pain, nose congestion, throat pain, throat swelling, mouth pain, mouth swelling, other Cardiovascular: Denies: no symptoms, chest pain, edema, irregular heart rate, lightheadedness, palpitations, syncope, other Respiratory: Denies: no symptoms, cough, orthopnea, shortness of breath, SOB with excertion, SOB at rest, sputum, stridor, wheezing, other Gastrointestinal/Abdominal: Denies: no symptoms, abdomen distended, abdominal pain, black stools, tarry stools, blood in stool, constipated, diarrhea, difficulty swallowing, nausea, poor appetite, poor fluid intake, rectal bleeding , vomiting, other Genitourinary: Denies: no symptoms, burning, discharge, frequency, flank pain, hematuria, incontinence, pain, urgency, other Neurologic/Psychiatric: Denies: no symptoms, anxiety, depressed, emotional problems, headache, numbness, paresthesia, pre-existing deficit, seizure, tingling, tremors, weakness, other Endocrine: Denies: no symptoms, excessive sweating, flushing, intolerance to cold, intolerance to heat, increased hunger, increased thirst, increased urine, unexplained weight gain, unexplained weight loss, other Hematologic/Lymphatic: Denies: no symptoms, anemia, easy bleeding, easy bruising, other Allergies: Coded Allergies: No Known Allergies (Unverified , 08/02/19) Subjective seen and examined at bedside. comfortable without distress Refusing air mattress Asking every 2 hours for pain medications Giving staff a difficult time Objective Last 24 Hour Vital Signs Date Time Temp Pulse Resp B/P (MAP) Pulse Ox O2 Delivery O2 Flow Rate FiO2 08/04/19 12:20 97.7 08/04/19 12:00 97.3 75 16 153/72 (99) 98 08/04/19 12:00 67 08/04/19 10:22 97.7 08/04/19 09:41 74 131/74 08/04/19 09:00 Room Air 08/04/19 08:00 73 08/04/19 08:00 97.7 74 16 131/74 (93) 98 08/04/19 03:20 73 08/04/19 00:00 98.3 77 16 147/75 (99) 97 08/04/19 00:00 71 08/03/19 21:00 Room Air 08/03/19 20:22 80 122/68 08/03/19 20:00 81 08/03/19 20:00 98.1 80 16 122/68 (86) 96 08/03/19 16:00 96.8 89 18 120/75 (90) 97 08/03/19 16:00 83 08/03/19 15:17 96.6 Intake and Output 08/03/19 08/04/19 19:00 07:00 Intake Total 1714.0 ml 1130.0 ml Output Total 1700 ml 950 ml Balance 14.0 ml 180.0 ml Intake Oral 480 ml 120 ml IV Total 1234.0 ml 1010.0 ml Output Urine Total 1700 ml 950 ml # Bowel Movements 1 1 Laboratory Tests 08/04/19 03:00: White Blood Count 18.1H, Red Blood Count 3.14L, Hemoglobin 8.5L, Hematocrit 26.9L, Mean Corpuscular Volume 86, Mean Corpuscular Hemoglobin 27.0, Mean Corpuscular Hemoglobin Concent 31.6L, Red Cell Distribution Width 17.9H, Platelet Count 274, Mean Platelet Volume 5.0L, Neutrophils (%) (Auto) , Lymphocytes (%) (Auto) , Monocytes (%) (Auto) , Eosinophils (%) (Auto) , Basophils (%) (Auto) , Differential Total Cells Counted 100, Neutrophils % ( Manual) 77H, Lymphocytes % (Manual) 17L, Monocytes % (Manual) 6, Eosinophils % ( Manual) 0, Basophils % (Manual) 0, Band Neutrophils 0, Platelet Estimate Adequate, Platelet Morphology Normal, Red Blood Cell Morphology Normal, Sodium Level 133L, Potassium Level 5.3H, Chloride Level 97L, Carbon Dioxide Level 26, Anion Gap 10, Blood Urea Nitrogen 16, Creatinine 0.8, Estimat Glomerular Filtration Rate > 60, Glucose Level 110H, Calcium Level 8.6, Total Bilirubin 0.4 , Aspartate Amino Transf (AST/SGOT) 12L, Alanine Aminotransferase (ALT/SGPT) 10L , Alkaline Phosphatase 118H, Total Protein 7.9, Albumin 2.4L, Globulin 5.5, Albumin/Globulin Ratio 0.4L, Random Amikacin Level < 2.5 Height (Feet): 5 Height (Inches): 11.00 Weight (Pounds): 158 Objective GENERAL: Alert, responsive. He is oriented x3 HEENT: PERRL Neck: supple. No JVD. CARDIAC: Regular. No gallop or murmur. LUNGS: Clear bilaterally. No rhonchi or rales. ABDOMEN: Soft. Positive bowel sounds. Nontender. MUSCULOSKELETAL: He has bilateral leg amputation. Leg exam, bilateral BKA GENITOURINARY: He has suprapubic catheter. Urine is cloudy. NEUROLOGIC: Nonfocal, but he is paraplegic SKIN: No rash. clean sacral ulcers Frederick Cook M.D. Aug 04, 2019 14:10
--- NOTE | 2019-08-04 15:03 | NUR ---
NURSE NOTES:WOUND CARE NOTES:Pt presented on admission with full thickness pressure injury with undermining R buttocks/R ischium. Beefy red granulation at base of wound. Bone is palpable. No odor noted .(L)6cm x (W)6.5cm x (D)6.3cm ,undermining 10-2 by 8.2cm @1o'clock. No odor noted. Small amt serous exudate noted. Periwound without erythema or induration. No other skin concerns noted. Staff reported Pt decline APM/ANDREA mattress. This was confirmed by pt who stated that APM mattress gives pt anxiety. Pt educated of risks vs benefits to APM/ANDREA therapyis therapeutic for wound healing by relieving and off-loading pressure . Pt encouraged to frequently turn at least hourly or as tolerated . Pt observed to be able to freely reposition self in bed. Tx.Plan: Cleanse wound with Saline. Loosely pack wound with Hydrogel impregnated Kerlix packing. Apply Moisture Barrier periwound.Cover with Optifoam drsg Daily and prn. Encourage pt to reposition at least hourly.Assist as needed.
[2019-08-04] MEDS: Amikacin 1,000 MG in NS 110 ML IV SCH (15:09)
--- NOTE | 2019-08-04 15:15 | NUR ---
NURSE NOTES: PT is angry and argumentative about pain meds. Advised PT, tried to de-escalate, but still very argumentative. MARSHAL Torrse made aware. Will continue with plan of care for PT.
--- NOTE | 2019-08-04 15:30 | NUR ---
NURSE NOTES: PT had BM, cleaned, changed linens, redid wound care because it was soiled. Will continue with plan of care.
[2019-08-04 16:00] VITALS: BP 125/60
[2019-08-04] MEDS: oxyCODONE 15mg IR tab ORAL PRN (17:35)
--- NOTE | 2019-08-04 18:00 | NUR ---
NURSE NOTES: PT provided dinner, ate 75%, PT clean, linens are clean, PT provided PRN Oxy as requested. PT still aggravated over pain meds, VS stable, no S/S of respiratory distress. CN made aware, will continue to monitor PT, and follow plan of care.
--- NOTE | 2019-08-04 19:34 | NUR ---
HAND-OFF: Report given to RUBEN Bradford. PT asked for pain meds when doing hand-off. PT VS stable, no respiratory distress noted during hand-off report.
--- NOTE | 2019-08-04 19:35 | NUR ---
NURSE NOTES: Received report and pt from RUBEN De Santiago. Observed pt lying in the bed, awake, A/O x4, denies any pain at this time. SR on phototypesetting equipment monitor. On room air with no sob. Abd soft and round. Noted suprapubic cath and urine bag. IV on R AC 20G. Bed in the lowest position. Side rails up x3. Call light within reach. Will continue to monitor.
[2019-08-04 20:00] VITALS: BP 138/77
[2019-08-04] MEDS: Atorvastatin 20mg tab ORAL SCH (20:14)
--- NOTE | 2019-08-04 23:00 | NUR ---
NURSE NOTES: Pt's resting in bed, asleep with eyes closed. VS stable. Will continue to monitor.
[2019-08-05] VITALS: BP 128/77
[2019-08-05 04:00] VITALS: BP 124/74
[2019-08-05] MEDS: Zosyn 3.375gm q8h **Extended infusion IVPB SCH ×4 (05:49→14:38)
[2019-08-05] MEDS: HYDROcodone/Acetamin 5/325 tab ORAL PRN ×2 (05:49→18:00)
--- NOTE | 2019-08-05 06:47 | NUR ---
NURSE NOTES: Received report and pt from RUBEN De Santiago. Observed pt lying in the bed, awake, A/O x4, denies any pain at this time. SR on air sampling and monitoring. On room air with no sob. Abd soft and round. Noted suprapubic cath and urine bag. IV on R AC 20G. Bed in the lowest position. Side rails up x3. Call light within reach. Will continue to monitor.
--- NOTE | 2019-08-05 07:30 | NUR ---
NURSE NOTES: Received report from Damion Sheridan RN. Patient alert and oriented x 4, able to make needs known. On room air, respirations even and unlabored. Suprapubic catheter patent and draining well. Right AC 20g IV site infusing NS @ 75 cc/hr and Zosyn 3.375g @ 27.5 cc/hr, asymptomatic. Bed locked in lowest position with side rails up x 3. All needs attended to. Call light within reach. Will continue to monitor.
--- NOTE | 2019-08-05 07:31 | NUR ---
HAND-OFF: Report given to RUBEN Blake.
[2019-08-05 08:00] VITALS: BP 121/58
[2019-08-05] MEDS: Aspirin Baby 81mg ORAL SCH (08:55)
[2019-08-05] MEDS: Metoprolol Tartrate 50mg tab ORAL SCH ×2 (08:55→20:25)
[2019-08-05] MEDS: Ascorbic Acid 500mg tab ORAL SCH (08:55)
[2019-08-05] MEDS: Milk of Magnesia 30ml Ud ORAL SCH (09:00)
[2019-08-05] MEDS: Enoxaparin 40mg Inj SUBQ SCH (09:00)
[2019-08-05] MEDS: Docusate 100mg cap ORAL SCH ×2 (09:00→21:00)
--- NOTE | 2019-08-05 09:28 | General Progress Note ---
Assessment/Plan Problem List: (1) Sepsis ICD Codes: A41.9 - Sepsis, unspecified organism SNOMED: 01707283 (2) UTI (urinary tract infection) ICD Codes: N39.0 - Urinary tract infection, site not specified SNOMED: 49115167 (3) Stage 4 decubitus ulcer ICD Codes: L89.94 - Pressure ulcer of unspecified site, stage 4 SNOMED: 116352625 Status: stable Assessment/Plan: 58 year old male with sepsis secondary to pyelonephritis/complicated UTI. 1. Sepsis secondary to pyelonephritis/complicated UTI. Afebrile, WBC normalized. Down grade to med surge Zosyn and Amikacin ID consult with Dr. Hawk. 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 stage 4 sacral wound. Doubt the source. Surgical consult wound care wound mattress - refusing Pain control with Dilaudid and oxycodone 3.history of paraplegia. Pain control 4. COPD Duonebs 5.CAD ASA, Atorvastatin, metoprolol, Hold Lisinopril 6 Left AKA, right BKA 7. Severe iron deficiency anemia- on PO iron at SNF.Continue same I spent 40 minutes during this encounter. 50% spent on counselling and care coordination Time of this note may not reflect time of encounter Subjective Date patient seen: Aug 05, 2019 ROS Limited/Unobtainable: No Constitutional: Denies: no symptoms, chills, diaphoresis, fever, malaise, weakness, other HEENT: Denies: no symptoms, eye pain, blurred vision, tearing, double vision, ear pain, ear discharge, nose pain, nose congestion, throat pain, throat swelling, mouth pain, mouth swelling, other Cardiovascular: Denies: no symptoms, chest pain, edema, irregular heart rate, lightheadedness, palpitations, syncope, other Respiratory: Denies: no symptoms, cough, orthopnea, shortness of breath, SOB with excertion, SOB at rest, sputum, stridor, wheezing, other Gastrointestinal/Abdominal: Denies: no symptoms, abdomen distended, abdominal pain, black stools, tarry stools, blood in stool, constipated, diarrhea, difficulty swallowing, nausea, poor appetite, poor fluid intake, rectal bleeding , vomiting, other Genitourinary: Reports: flank pain; Denies: no symptoms, burning, discharge, frequency, hematuria, incontinence, pain, urgency, other Neurologic/Psychiatric: Denies: no symptoms, anxiety, depressed, emotional problems, headache, numbness, paresthesia, pre-existing deficit, seizure, tingling, tremors, weakness, other Endocrine: Denies: no symptoms, excessive sweating, flushing, intolerance to cold, intolerance to heat, increased hunger, increased thirst, increased urine, unexplained weight gain, unexplained weight loss, other Allergies: Coded Allergies: No Known Allergies (Unverified , 08/02/19) Subjective seen and examined at bedside. comfortable without distress Pain is under better control He is happy and pleased Objective Last 24 Hour Vital Signs Date Time Temp Pulse Resp B/P (MAP) Pulse Ox O2 Delivery O2 Flow Rate FiO2 08/05/19 08:55 63 121/58 08/05/19 08:46 96.8 08/05/19 08:00 96.8 63 18 121/58 (79) 97 08/05/19 04:00 66 08/05/19 04:00 98.0 80 18 124/74 (91) 98 08/05/19 00:00 63 08/05/19 00:00 97.8 80 18 128/77 (94) 98 08/04/19 21:00 Room Air 08/04/19 20:14 80 138/77 08/04/19 20:00 73 08/04/19 20:00 97.5 80 18 138/77 (97) 98 08/04/19 16:00 75 08/04/19 16:00 97.5 70 18 125/60 (81) 98 08/04/19 14:31 97.7 08/04/19 12:00 97.3 75 16 153/72 (99) 98 08/04/19 12:00 67 08/04/19 10:22 97.7 08/04/19 09:41 74 131/74 Intake and Output 08/04/19 08/05/19 19:00 07:00 Intake Total 512.0 ml 1262.0 ml Output Total 900 ml 1600 ml Balance -388.0 ml -338.0 ml Intake Oral 220 ml IV Total 512.0 ml 1042.0 ml Output Urine Total 900 ml 1600 ml # Bowel Movements 2 1 Height (Feet): 5 Height (Inches): 11.00 Weight (Pounds): 158 Objective GENERAL: Alert, responsive. He is oriented x3 HEENT: PERRL Neck: supple. No JVD. CARDIAC: Regular. No gallop or murmur. LUNGS: Clear bilaterally. No rhonchi or rales. ABDOMEN: Soft. Positive bowel sounds. Nontender. MUSCULOSKELETAL: He has bilateral leg amputation. Leg exam, bilateral BKA GENITOURINARY: He has suprapubic catheter. Urine is cloudy. NEUROLOGIC: Nonfocal, but he is paraplegic SKIN: No rash. clean sacral ulcers Freedrick Cook M.D. Aug 05, 2019 09:28
[2019-08-05 09:55] LABS: BASOPHILS % (AUTO) 0.8 % (0.0-2.0); EOSINOPHILS % (AUTO) 3.3 % (0.0-3.0); HEMATOCRIT 27.7 % (42.0-52.0); HEMOGLOBIN 8.4 G/DL (14.2-18.0); LYMPHOCYTES % (AUTO) 26.7 % (20.0-45.0); MEAN CORPUSCULAR VOLUME 86 FL (80-99); MONOCYTES % (AUTO) 5.3 % (1.0-10.0); NEUTROPHILS % (AUTO) 63.9 % (45.0-75.0); PLATELET COUNT 274 K/UL (150-450); RED BLOOD COUNT 3.24 M/UL (4.70-6.10); RED CELL DISTRIBUTION WIDTH 17.4 % (11.6-14.8); WHITE BLOOD COUNT 6.5 K/UL (4.8-10.8)
[2019-08-05 10:13] LABS: ALANINE AMINOTRANSFERASE 10 U/L (12-78); ALBUMIN 1.9 G/DL (3.4-5.0); ALBUMIN/GLOBULIN RATIO 0.4 (1.0-2.7); ALKALINE PHOSPHATASE 89 U/L (46-116); ANION GAP 7 mmol/L (5-15); ASPARTATE AMINO TRANSFERASE 12 U/L (15-37); BILIRUBIN,TOTAL 0.2 MG/DL (0.2-1.0); BLOOD UREA NITROGEN 9 mg/dL (7-18); CALCIUM 8.3 MG/DL (8.5-10.1); CARBON DIOXIDE 26 MMOL/L (21-32); CHLORIDE 106 MMOL/L (98-107); CREATININE 0.8 MG/DL (0.55-1.30); POTASSIUM 3.6 MMOL/L (3.5-5.1); SODIUM 139 MMOL/L (136-145)
[2019-08-05] MEDS: oxyCODONE 15mg IR tab ORAL PRN ×2 (10:29→22:22)
--- NOTE | 2019-08-05 10:54 | NUR ---
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 96.8 HR 63 RR 18 B/P 121/58 WBC 6.5 ALB 1.5 IS: AMIKACIN IV ZOSYN IV IVF NS @ 75ML/HR LOVENOX SUBC STEP DOWN STATUS
--- NOTE | 2019-08-05 11:12 | NUR ---
*-* INSURANCE *-* ALL AVAILABLE CLINICALS AND REVIEWS HAVE BEEN FAXED TO: [facility] (LOC[facility] WITHIN [facility]) BAO: COLLEEN F: [phone] Addendum: 08/06/19 at 1059 by LUCERO ALBERTS [facility] LINM:MAX P: [phone] F: [phone] REF# [id number]
--- NOTE | 2019-08-05 11:35 | Surgery Progress Note ---
Surgery Progress Note Subjective Additional Comments Patient seen and examined bedside. Leukocytosis resolved. Labs improved. Overall stable. No acute events. Objective Last 24 Hour Vital Signs Date Time Temp Pulse Resp B/P (MAP) Pulse Ox O2 Delivery O2 Flow Rate FiO2 08/05/19 08:55 63 121/58 08/05/19 08:46 96.8 08/05/19 08:00 96.8 63 18 121/58 (79) 97 08/05/19 07:57 66 08/05/19 04:00 66 08/05/19 04:00 98.0 80 18 124/74 (91) 98 08/05/19 00:00 63 08/05/19 00:00 97.8 80 18 128/77 (94) 98 08/04/19 21:00 Room Air 08/04/19 20:14 80 138/77 08/04/19 20:00 73 08/04/19 20:00 97.5 80 18 138/77 (97) 98 08/04/19 16:00 75 08/04/19 16:00 97.5 70 18 125/60 (81) 98 08/04/19 14:31 97.7 08/04/19 12:00 97.3 75 16 153/72 (99) 98 08/04/19 12:00 67 I&O Intake and Output 08/04/19 08/05/19 19:00 07:00 Intake Total 512.0 ml 1262.0 ml Output Total 900 ml 1600 ml Balance -388.0 ml -338.0 ml Intake Oral 220 ml IV Total 512.0 ml 1042.0 ml Output Urine Total 900 ml 1600 ml # Bowel Movements 2 1 Dressing: saturated Wound: clean Cardiovascular: RSR Respiratory: clear Abdomen: soft, non-tender, present bowel sounds, non-distended Extremities: other Laboratory Tests Test 08/05/19 09:35 White Blood Count 6.5 K/UL (4.8-10.8) # Red Blood Count 3.24 M/UL (4.70-6.10) L Hemoglobin 8.4 G/DL (14.2-18.0) L Hematocrit 27.7 % (42.0-52.0) L Mean Corpuscular Volume 86 FL (80-99) Mean Corpuscular Hemoglobin 25.9 PG (27.0-31.0) L Mean Corpuscular Hemoglobin Concent 30.3 G/DL (32.0-36.0) L Red Cell Distribution Width 17.4 % (11.6-14.8) H Platelet Count 274 K/UL (150-450) Mean Platelet Volume 6.0 FL (6.5-10.1) L Neutrophils (%) (Auto) 63.9 % (45.0-75.0) Lymphocytes (%) (Auto) 26.7 % (20.0-45.0) Monocytes (%) (Auto) 5.3 % (1.0-10.0) Eosinophils (%) (Auto) 3.3 % (0.0-3.0) H Basophils (%) (Auto) 0.8 % (0.0-2.0) Sodium Level 139 MMOL/L (136-145) Potassium Level 3.6 MMOL/L (3.5-5.1) Chloride Level 106 MMOL/L (98-107) Carbon Dioxide Level 26 MMOL/L (21-32) Anion Gap 7 mmol/L (5-15) Blood Urea Nitrogen 9 mg/dL (7-18) Creatinine 0.8 MG/DL (0.55-1.30) Estimat Glomerular Filtration Rate > 60 mL/min (>60) Glucose Level 117 MG/DL (74-106) H Calcium Level 8.3 MG/DL (8.5-10.1) L Total Bilirubin 0.2 MG/DL (0.2-1.0) Aspartate Amino Transf (AST/SGOT) 12 U/L (15-37) L Alanine Aminotransferase (ALT/SGPT) 10 U/L (12-78) L Alkaline Phosphatase 89 U/L (46-116) Total Protein 7.2 G/DL (6.4-8.2) Albumin 1.9 G/DL (3.4-5.0) L Globulin 5.3 g/dL Albumin/Globulin Ratio 0.4 (1.0-2.7) L Plan Problems: (1) Stage 4 decubitus ulcer Assessment & Plan: Patient presents with multiple decubitus ulcers requiring care and management. Patient identified to have a full-thickness stage IV sacral decubitus ulcer which has had debridement in the past. There is some granulation in the ulcer bed with 10 to 20% slough. Periwound is intact and okay. No signs of active infection. Bone is palpable. Seems to have been receiving care. Does have a layer of biofilm. Patient with bilateral lower extremity amputations. Amputation flap is well- healed without dehiscence or abnormality. Patient mainly wheelchair-bound at this time. Tx Plan: Cleanse Sacral wound with NS. Loosely pack wound with hydrogel moistened Kerlix gauze. Apply Moisture Barrier periwound. Cover with Optifoam drsg. Daily and prn. Off load AKA stump with pillow Apply Cavilon Skin Barrier to both heels. Cover each heel with Optifoam drsg. Change every 7 days and prn. Air Fluidized mattress. Reposition at least every 2hours or as tolerated. Off-load heels with pillow. An air mattress was ordered for the patient and patient refused. Patient states he does not want air mattress. She expressed understanding that he knows that can potentially worsen wound that he needs to offload pressure but states he does not want air mattress and states he will turn as much as possible but does not seem to do so. Unfortunately with such noncompliance can be difficult to allow wound healing and proper care. We will continue to remind patient importance of wound healing given the location and the decubitus he presents with. (2) Sepsis Assessment & Plan: Patient presented with leukocytosis, lactic acidosis, anemia. Wounds and likely etiology of sepsis. Patient with UTI. We will continue to manage and monitor wounds to ensure proper care Continue with IV antibiotics as per infectious disease Appreciate ID input Trend labs (3) UTI (urinary tract infection) Baron Crouch Aug 05, 2019 11:35
--- NOTE | 2019-08-05 11:56 | Infectious Diseases Prog Note ---
Assessment/Plan Assessment/Plan ASSESSMENT AND PLAN: 1. gram neg pyelonephritis/uti, sepsis, leukocytosis, fevers, vre colonization, chest x-ray negative - zosyn and amikacin - check urine cultures final - monitor labs and temperatures - clinically improved, leukocytosis and fevers resolved 2. The patient has history of paraplegia. 3. Wound care per Surgery and protocol. 4. Weakness. 5. COPD. 6. CAD. 7. pmh noted 8. Left AKA, right BKA. 9. Continue treatment per primary consultants. 10. No known allergies. 11. Social history negative. 12. Family history noncontributory. 13. MAR was noted. 14. Case was discussed with RN. 15. Notes were reviewed and noted. Orders were entered. Subjective Constitutional: Denies: fever HEENT: Denies: congestion Respiratory: Denies: shortness of breath Cardiovascular: Denies: chest pain Gastrointestinal/Abdominal: Denies: nausea, vomiting, diarrhea Genitourinary: Reports: other - + sp catheter Neurologic: Reports: weakness Psychiatric: Denies: depression Skin: Denies: rash Hematologic: Denies: bleeding Musculoskeletal: Denies: pain Allergies: Coded Allergies: No Known Allergies (Unverified , 08/02/19) Objective Vital Signs Last 24 Hour Vital Signs Date Time Temp Pulse Resp B/P (MAP) Pulse Ox O2 Delivery O2 Flow Rate FiO2 08/05/19 08:55 63 121/58 08/05/19 08:46 96.8 08/05/19 08:00 96.8 63 18 121/58 (79) 97 08/05/19 07:57 66 08/05/19 04:00 66 08/05/19 04:00 98.0 80 18 124/74 (91) 98 08/05/19 00:00 63 08/05/19 00:00 97.8 80 18 128/77 (94) 98 08/04/19 21:00 Room Air 08/04/19 20:14 80 138/77 08/04/19 20:00 73 08/04/19 20:00 97.5 80 18 138/77 (97) 98 08/04/19 16:00 75 08/04/19 16:00 97.5 70 18 125/60 (81) 98 08/04/19 14:31 97.7 08/04/19 12:00 97.3 75 16 153/72 (99) 98 08/04/19 12:00 67 Height (Feet): 5 Height (Inches): 11.00 Weight (Pounds): 158 General Appearance: no acute distress HEENT: normocephalic, atraumatic, anicteric, mucous membranes moist Respiratory/Chest: lungs clear, normal breath sounds, no respiratory distress, no accessory muscle use Cardiovascular: normal rate, regular rhythm, no gallop/murmur, no JVD Abdomen: normal bowel sounds, soft, non tender, no organomegaly, non distended Genitourinary: other - + sp catheter Extremities: other - bilateral leg amputation Skin: no rash Neurologic/Psychiatric: it senior analyst II-XII grossly normal, alert, responsive Lymphatic: no neck adenopathy Musculoskeletal: other - bilateral leg amputation Objective Chest x-ray - 08/05/19 - FINDINGS: Lungs: No consolidation or mass. Pleural space: No acute findings Heart: No cardiomegaly. Mediastinum: Unremarkable. Bones/joints: No acute findings. Median sternotomy wires are in place. IMPRESSION: No acute cardiopulmonary process. Microbiology Date/Time Source Procedure Growth Status 08/02/19 20:00 Blood Blood Culture - Preliminary NO GROWTH AFTER 48 HOURS Resulted 08/02/19 19:45 Blood Blood Culture - Preliminary NO GROWTH AFTER 48 HOURS Resulted 08/02/19 20:40 Nasal Nares MRSA Culture - Final NO METHICILLIN RESISTANT STAPH AUREUS... Complete 08/02/19 19:45 Urine,Clean Catch Urine Culture - Preliminary Gram Negative Bacillus 1 Gram Negative Bacillus 2 Resulted 08/02/19 20:45 Rectum - Final NO CARBAPENEM-RESISTANT ENTEROBACTERI... Complete 08/02/19 20:40 Rectum VRE Culture - Final Enterococcus Faecium - Vre Enterococcus Faecalis - Vre Complete Laboratory Tests Test 08/05/19 09:35 White Blood Count 6.5 K/UL (4.8-10.8) # Red Blood Count 3.24 M/UL (4.70-6.10) L Hemoglobin 8.4 G/DL (14.2-18.0) L Hematocrit 27.7 % (42.0-52.0) L Mean Corpuscular Volume 86 FL (80-99) Mean Corpuscular Hemoglobin 25.9 PG (27.0-31.0) L Mean Corpuscular Hemoglobin Concent 30.3 G/DL (32.0-36.0) L Red Cell Distribution Width 17.4 % (11.6-14.8) H Platelet Count 274 K/UL (150-450) Mean Platelet Volume 6.0 FL (6.5-10.1) L Neutrophils (%) (Auto) 63.9 % (45.0-75.0) Lymphocytes (%) (Auto) 26.7 % (20.0-45.0) Monocytes (%) (Auto) 5.3 % (1.0-10.0) Eosinophils (%) (Auto) 3.3 % (0.0-3.0) H Basophils (%) (Auto) 0.8 % (0.0-2.0) Sodium Level 139 MMOL/L (136-145) Potassium Level 3.6 MMOL/L (3.5-5.1) Chloride Level 106 MMOL/L (98-107) Carbon Dioxide Level 26 MMOL/L (21-32) Anion Gap 7 mmol/L (5-15) Blood Urea Nitrogen 9 mg/dL (7-18) Creatinine 0.8 MG/DL (0.55-1.30) Estimat Glomerular Filtration Rate > 60 mL/min (>60) Glucose Level 117 MG/DL (74-106) H Calcium Level 8.3 MG/DL (8.5-10.1) L Total Bilirubin 0.2 MG/DL (0.2-1.0) Aspartate Amino Transf (AST/SGOT) 12 U/L (15-37) L Alanine Aminotransferase (ALT/SGPT) 10 U/L (12-78) L Alkaline Phosphatase 89 U/L (46-116) Total Protein 7.2 G/DL (6.4-8.2) Albumin 1.9 G/DL (3.4-5.0) L Globulin 5.3 g/dL Albumin/Globulin Ratio 0.4 (1.0-2.7) L Current Medications Medications (Trade) Dose Ordered Sig/Nayely Route PRN Reason Start Time Stop Time Status Last Admin Dose Admin Acetaminophen (Tylenol) 650 mg Q4H PRN ORAL Mild Pain (Pain Scale 1-3) 08/02/19 21:30 09/01/19 21:29 Acetaminophen (Tylenol) 650 mg Q4H PRN ORAL fever 08/02/19 21:30 09/01/19 21:29 Acetaminophen (Tylenol) 650 mg Q4H PRN RECTAL Mild Pain (Pain Scale 1-3) 08/02/19 21:30 09/01/19 21:29 Acetaminophen (Tylenol) 650 mg Q4H PRN RECTAL fever 08/02/19 21:30 09/01/19 21:29 Acetaminophen/ Hydrocodone Bitart ([place] 5/325) 1 tab Q6H PRN ORAL severe pain 08/02/19 21:30 08/09/19 21:29 08/05/19 05:49 Al Hydroxide/Mg Hydroxide (Mylanta II) 30 ml Q6H PRN ORAL dyspepsia 08/02/19 21:30 09/01/19 21:29 Albuterol/ Ipratropium (Albuterol/ Ipratropium) 3 ml Q6H PRN HHN Shortness of Breath 08/02/19 21:30 08/07/19 21:29 Amikacin Protocol (Amikacin pharmacy to dose) 1 ea DAILY PRN MISC Per rx protocol 08/03/19 13:30 09/02/19 13:29 Amikacin Sulfate 1000 mg/Sodium Chloride 114 ml @ 114 mls/hr Q24H IV 08/03/19 15:00 08/10/19 14:59 08/04/19 15:09 Ascorbic Acid (Vitamin C) 500 mg DAILY ORAL 08/04/19 09:00 09/03/19 08:59 08/05/19 08:55 Aspirin (ASA) 81 mg DAILY ORAL 08/04/19 09:00 09/03/19 08:59 08/05/19 08:55 Atorvastatin Calcium (Lipitor) 20 mg BEDTIME ORAL 08/03/19 21:00 09/02/19 20:59 08/04/19 20:14 Bisacodyl (Dulcolax) 10 mg HSPRN PRN RECTAL Constipation 08/02/19 21:30 09/01/19 21:29 Dextrose (Dextrose 50%) 25 ml Q30M PRN IV Hypoglycemia 08/02/19 21:30 09/01/19 21:29 Dextrose (Dextrose 50%) 50 ml Q30M PRN IV Hypoglycemia 08/02/19 21:30 09/01/19 21:29 Diphenhydramine HCl (Benadryl) 25 mg Q6H PRN ORAL Itching/Pruritis 08/02/19 21:30 09/01/19 21:29 Docusate Sodium (Colace) 200 mg EVERY 12 HOURS ORAL 08/03/19 09:00 09/02/19 08:59 08/04/19 09:41 Enoxaparin Sodium (Lovenox) 40 mg DAILY SUBQ 08/03/19 09:00 09/02/19 08:59 08/03/19 09:03 Ferrous Sulfate (Feosol) 325 mg THREE TIMES A DAY ORAL 08/04/19 09:00 09/03/19 08:59 08/05/19 09:37 Hydralazine HCl (Apresoline) 25 mg Q6H PRN ORAL hypertension see note 08/02/19 21:33 09/01/19 21:32 Hydromorphone HCl (Dilaudid) 2 mg Q4H PRN IVP SEVERE BREAKTHROUGH PAIN 08/04/19 11:45 08/09/19 21:29 08/05/19 08:16 Lorazepam (Ativan) 1 mg Q4H PRN ORAL For Anxiety 08/02/19 21:30 08/09/19 21:29 Magnesium Hydroxide (Mom) 30 ml DAILY ORAL 08/04/19 09:00 09/03/19 08:59 Magnesium Hydroxide (Mom) 30 ml HSPRN PRN ORAL Constipation 08/02/19 21:30 09/01/19 21:29 Methocarbamol (Robaxin) 750 mg Q6H PRN ORAL muscle spasm 08/02/19 21:33 09/01/19 21:32 Metoclopramide HCl (Reglan) 10 mg Q6H PRN IVP Nausea & Vomiting 08/02/19 21:30 09/01/19 21:29 Metoprolol Tartrate (Lopressor) 50 mg EVERY 12 HOURS ORAL 08/03/19 21:00 09/02/19 20:59 08/05/19 08:55 Nitroglycerin (Ntg) 0.4 mg Q5M X 3 DOSES PRN SL Prn Chest Pain 08/02/19 21:30 09/01/19 21:29 Ondansetron HCl (Zofran) 4 mg Q6H PRN IVP Nausea & Vomiting 08/02/19 21:30 09/01/19 21:29 Oxycodone HCl (Roxicodone) 15 mg Q4H PRN ORAL MODERATE BREAKTHROUGH PAIN 08/04/19 11:15 08/11/19 11:14 08/05/19 10:29 Pantoprazole (Protonix) 40 mg DAILY ORAL 08/04/19 09:00 09/03/19 08:59 08/05/19 08:55 Piperacillin Sod/ Tazobactam Sod 3.375 gm/Sodium Chloride 110 ml @ 27.5 mls/hr EVERY 8 HOURS IVPB 08/03/19 08:00 08/08/19 07:59 08/05/19 05:49 Polyethylene Glycol (Miralax) 17 gm HSPRN PRN ORAL Constipation 08/02/19 21:30 09/01/19 21:29 Prochlorperazine (Compazine) 10 mg Q6H PRN IVP Nausea & Vomiting 08/02/19 21:30 09/01/19 21:29 Sodium Chloride 1,000 ml @ 75 mls/hr [id number] IVLG 08/02/19 22:16 09/01/19 22:15 08/05/19 04:02 Temazepam (Restoril) 7.5 mg HSPRN PRN ORAL insomnia 08/02/19 21:45 08/09/19 21:44 08/04/19 22:02 Jose M Gonzales MD Aug 05, 2019 11:56
[2019-08-05 12:00] VITALS: BP 156/77
[2019-08-05] MEDS: Amikacin 1,000 MG in NS 110 ML IV SCH (14:45)
[2019-08-05] MEDS ORDERED: LORazepam 1mg tab ORAL PRN (15:00)
[2019-08-05] MEDS ORDERED: Albuterol/Ipratropium 3ml neb HHN PRN (15:00)
[2019-08-05] MEDS ORDERED: Amikacin Rx to dose MISC PRN (15:00)
[2019-08-05] MEDS ORDERED: Methocarbamol 750mg tab ORAL PRN (15:00)
[2019-08-05] MEDS ORDERED: Acetaminophen 650 MG SUPP RECTAL PRN ×2 (15:00)
[2019-08-05] MEDS ORDERED: Metoclopramide 10mg/2ml Inj IVP PRN (15:00)
[2019-08-05] MEDS ORDERED: Nitroglycerin Subl 0.4mg tab SL PRN (15:00)
[2019-08-05] MEDS ORDERED: HydrALAZINE 25mg tab ORAL PRN (15:00)
--- NOTE | 2019-08-05 15:12 | NUR ---
TRANSFER TO FLOOR: Patient transferred to med-surg room 404-2, per Dr. Cook. Report given to Norbert Underwood RN. Belongings and medications given to receiving nurse.
--- NOTE | 2019-08-05 15:20 | NUR ---
NURSE NOTES: pt was transferred from [facility] by [facility]. Room air. AO x 4. IV on R AC 20g noted. C/O of pain /10 and offered norco, but pt said he'll wait for dilaudid. Vital sign T 97.8, NC 59, RR 17, BP 135/67, SpO2 98. Picture on the sacral and R buttocks stage IV taken. Orientation was given on the new unit. Belongings were accounted for. Side rails x2. Bed in the lowest, locked, and alarm on. Call light within reach. Will continue to monitor
[2019-08-05] MEDS ORDERED: Mylanta II UD 30ml ORAL PRN (15:30)
[2019-08-05 16:00] VITALS: BP 135/67
--- NOTE | 2019-08-05 19:22 | NUR ---
HAND-OFF: Report given to RUBEN Martin.
--- NOTE | 2019-08-05 19:38 | NUR ---
NURSE NOTES: Per Pharmacy Amikacin afternoon dose was not administered 08/05/2019, dose will be re timed for a later time.
--- NOTE | 2019-08-05 19:42 | NUR ---
NURSE NOTES: Received patient in bed, awake, alert, oriented, on room air, on regular diet, patient has a suprapubic catheter in place, IV site is clean dry and intact, no acute distress noted. Call light is within reach, bed is lowered, locked and alarm is on, will continue to monitor for comfort and safety.
[2019-08-05 20:00] VITALS: BP 155/80
[2019-08-05] MEDS ORDERED: Amikacin 1,000 MG in NS 110 ML IV ONE (20:00)
[2019-08-05] MEDS: Atorvastatin 20mg tab ORAL SCH (20:24)
[2019-08-05] MEDS ORDERED: Milk of Magnesia 30ml Ud ORAL PRN (21:00)
[2019-08-05] MEDS ORDERED: Miralax 17gm pkt ORAL PRN (21:00)
[2019-08-05] MEDS: Piperacillin/Tazobactam 3.375 GM in NS 110 ML IVPB SCH (22:23)
[2019-08-06] VITALS: BP 154/77
[2019-08-06 04:00] VITALS: BP 139/72
[2019-08-06] MEDS: Piperacillin/Tazobactam 3.375 GM in NS 110 ML IVPB SCH (05:23)
[2019-08-06] MEDS: HYDROcodone/Acetamin 5/325 tab ORAL PRN ×3 (05:47→21:01)
[2019-08-06 06:18] LABS: BASOPHILS % (AUTO) 0.6 % (0.0-2.0); EOSINOPHILS % (AUTO) 2.7 % (0.0-3.0); HEMATOCRIT 28.3 % (42.0-52.0); HEMOGLOBIN 8.5 G/DL (14.2-18.0); LYMPHOCYTES % (AUTO) 28.8 % (20.0-45.0); MEAN CORPUSCULAR VOLUME 86 FL (80-99); MONOCYTES % (AUTO) 5.7 % (1.0-10.0); NEUTROPHILS % (AUTO) 62.3 % (45.0-75.0); PLATELET COUNT 282 K/UL (150-450); RED BLOOD COUNT 3.31 M/UL (4.70-6.10); RED CELL DISTRIBUTION WIDTH 16.7 % (11.6-14.8); WHITE BLOOD COUNT 6.9 K/UL (4.8-10.8)
[2019-08-06 07:04] LABS: ANION GAP 8 mmol/L (5-15); CARBON DIOXIDE 27 MMOL/L (21-32); CHLORIDE 107 MMOL/L (98-107); POTASSIUM 3.5 MMOL/L (3.5-5.1); SODIUM 142 MMOL/L (136-145)
[2019-08-06 07:05] LABS: BLOOD UREA NITROGEN 4 mg/dL (7-18); CALCIUM 8.4 MG/DL (8.5-10.1); CREATININE 0.9 MG/DL (0.55-1.30)
--- NOTE | 2019-08-06 07:36 | NUR ---
HAND-OFF: Report given to Lalo MIRANDA.
--- NOTE | 2019-08-06 07:38 | NUR ---
NURSE NOTES: Received pt in bed, AAO x 4. Room air. No c/o of distress. IV on R FA 24 g intact and patent, running zosyn. Bed in the lowest, locked, and alarm on. Call light within reach. Will continue to monitor
[2019-08-06 08:00] VITALS: BP 147/63
[2019-08-06] MEDS: Docusate 100mg cap ORAL SCH ×3 (08:03→21:00)
[2019-08-06] MEDS: Enoxaparin 40mg Inj SUBQ SCH (08:12)
[2019-08-06] MEDS: Aspirin Baby 81mg ORAL SCH (08:13)
[2019-08-06] MEDS: Ascorbic Acid 500mg tab ORAL SCH (08:13)
[2019-08-06] MEDS: Metoprolol Tartrate 50mg tab ORAL SCH ×2 (08:13→20:59)
[2019-08-06] MEDS: Milk of Magnesia 30ml Ud ORAL SCH (08:14)
--- NOTE | 2019-08-06 09:32 | General Progress Note ---
Assessment/Plan Problem List: (1) Sepsis ICD Codes: A41.9 - Sepsis, unspecified organism SNOMED: 60665399 (2) UTI (urinary tract infection) ICD Codes: N39.0 - Urinary tract infection, site not specified SNOMED: 32351562 (3) Stage 4 decubitus ulcer ICD Codes: L89.94 - Pressure ulcer of unspecified site, stage 4 SNOMED: 848628066 Status: stable Assessment/Plan: 58 year old male with sepsis secondary to pyelonephritis/complicated UTI. 1. Sepsis secondary to pyelonephritis/complicated UTI. Afebrile, WBC normalized. Down grade to med surge Zosyn and Amikacin ID consult with Dr. Hawk. 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 stage 4 sacral wound. Doubt the source. Surgical consult wound care wound mattress - refusing Pain control with Dilaudid and oxycodone 3.history of paraplegia. Pain control 4. COPD Duonebs 5.CAD ASA, Atorvastatin, metoprolol, Hold Lisinopril 6 Left AKA, right BKA 7. Severe iron deficiency anemia- on PO iron at SNF.Continue same I spent 40 minutes during this encounter. 50% spent on counselling and care coordination Time of this note may not reflect time of encounter Subjective Allergies: Coded Allergies: No Known Allergies (Unverified , 08/02/19) Subjective seen and examined at bedside. comfortable without distress Pain is under better control He is happy and pleased Objective Last 24 Hour Vital Signs Date Time Temp Pulse Resp B/P (MAP) Pulse Ox O2 Delivery O2 Flow Rate FiO2 08/06/19 08:13 66 139/72 08/06/19 08:00 97.2 73 21 147/63 (91) 98 08/06/19 04:00 97.9 66 20 139/72 (94) 08/06/19 00:00 97.7 65 18 154/77 (102) 08/05/19 21:00 Room Air 08/05/19 20:25 72 155/80 08/05/19 20:00 98.3 72 18 155/80 (105) 08/05/19 16:00 97.8 59 17 135/67 (89) 98 08/05/19 12:51 96.8 08/05/19 12:00 59 18 156/77 (103) 98 08/05/19 12:00 Room Air 08/05/19 11:42 56 Intake and Output 08/05/19 08/06/19 19:00 07:00 Intake Total 1057.83 ml Output Total 800 ml Balance 257.83 ml Intake Oral 360 ml IV Total 697.83 ml Output Urine Total 800 ml # Bowel Movements 1 1 Laboratory Tests 08/05/19 09:35: White Blood Count 6.5#, Red Blood Count 3.24L, Hemoglobin 8.4L, Hematocrit 27.7L , Mean Corpuscular Volume 86, Mean Corpuscular Hemoglobin 25.9L, Mean Corpuscular Hemoglobin Concent 30.3L, Red Cell Distribution Width 17.4H, Platelet Count 274, Mean Platelet Volume 6.0L, Neutrophils (%) (Auto) 63.9, Lymphocytes (%) (Auto) 26.7, Monocytes (%) (Auto) 5.3, Eosinophils (%) (Auto) 3.3H, Basophils (%) (Auto) 0.8, Sodium Level 139, Potassium Level 3.6, Chloride Level 106, Carbon Dioxide Level 26, Anion Gap 7, Blood Urea Nitrogen 9, Creatinine 0.8, Estimat Glomerular Filtration Rate > 60, Glucose Level 117H, Calcium Level 8.3L, Total Bilirubin 0.2, Aspartate Amino Transf (AST/SGOT) 12L, Alanine Aminotransferase (ALT/SGPT) 10L, Alkaline Phosphatase 89, Total Protein 7.2, Albumin 1.9L, Globulin 5.3, Albumin/Globulin Ratio 0.4L 08/06/19 05:45: White Blood Count 6.9, Red Blood Count 3.31L, Hemoglobin 8.5L, Hematocrit 28.3L , Mean Corpuscular Volume 86, Mean Corpuscular Hemoglobin 25.6L, Mean Corpuscular Hemoglobin Concent 29.9L, Red Cell Distribution Width 16.7H, Platelet Count 282, Mean Platelet Volume 5.8L, Neutrophils (%) (Auto) 62.3, Lymphocytes (%) (Auto) 28.8, Monocytes (%) (Auto) 5.7, Eosinophils (%) (Auto) 2.7, Basophils (%) (Auto) 0.6, Sodium Level 142, Potassium Level 3.5, Chloride Level 107, Carbon Dioxide Level 27, Anion Gap 8, Blood Urea Nitrogen 4L, Creatinine 0.9, Estimat Glomerular Filtration Rate > 60, Glucose Level 89, Calcium Level 8.4L Height (Feet): 5 Height (Inches): 11.00 Weight (Pounds): 158 Objective GENERAL: Alert, responsive. He is oriented x3 HEENT: PERRL Neck: supple. No JVD. CARDIAC: Regular. No gallop or murmur. LUNGS: Clear bilaterally. No rhonchi or rales. ABDOMEN: Soft. Positive bowel sounds. Nontender. MUSCULOSKELETAL: He has bilateral leg amputation. Leg exam, bilateral BKA GENITOURINARY: He has suprapubic catheter. Urine is cloudy. NEUROLOGIC: Nonfocal, but he is paraplegic SKIN: No rash. clean sacral ulcers Frederick Cook M.D. Aug 06, 2019 09:32
[2019-08-06] MEDS: oxyCODONE 15mg IR tab ORAL PRN (10:20)
--- NOTE | 2019-08-06 10:49 | Surgery Progress Note ---
Surgery Progress Note Subjective Additional Comments no acute events comfortable stable Objective Last 24 Hour Vital Signs Date Time Temp Pulse Resp B/P (MAP) Pulse Ox O2 Delivery O2 Flow Rate FiO2 08/06/19 09:00 Room Air 08/06/19 08:13 66 139/72 08/06/19 08:00 97.2 73 21 147/63 (91) 98 08/06/19 04:00 97.9 66 20 139/72 (94) 08/06/19 00:00 97.7 65 18 154/77 (102) 08/05/19 21:00 Room Air 08/05/19 20:25 72 155/80 08/05/19 20:00 98.3 72 18 155/80 (105) 08/05/19 16:00 97.8 59 17 135/67 (89) 98 08/05/19 12:51 96.8 08/05/19 12:00 59 18 156/77 (103) 98 08/05/19 12:00 Room Air 08/05/19 11:42 56 I&O Intake and Output 08/05/19 08/06/19 19:00 07:00 Intake Total 1057.83 ml 102.5 ml Output Total 800 ml Balance 257.83 ml 102.5 ml Intake Oral 360 ml IV Total 697.83 ml 102.5 ml Output Urine Total 800 ml # Bowel Movements 1 1 Dressing: saturated Wound: other Drains: other Cardiovascular: RSR Respiratory: clear Abdomen: soft, non-tender, present bowel sounds Extremities: no cyanosis, other Laboratory Tests Test 08/06/19 05:45 White Blood Count 6.9 K/UL (4.8-10.8) Red Blood Count 3.31 M/UL (4.70-6.10) L Hemoglobin 8.5 G/DL (14.2-18.0) L Hematocrit 28.3 % (42.0-52.0) L Mean Corpuscular Volume 86 FL (80-99) Mean Corpuscular Hemoglobin 25.6 PG (27.0-31.0) L Mean Corpuscular Hemoglobin Concent 29.9 G/DL (32.0-36.0) L Red Cell Distribution Width 16.7 % (11.6-14.8) H Platelet Count 282 K/UL (150-450) Mean Platelet Volume 5.8 FL (6.5-10.1) L Neutrophils (%) (Auto) 62.3 % (45.0-75.0) Lymphocytes (%) (Auto) 28.8 % (20.0-45.0) Monocytes (%) (Auto) 5.7 % (1.0-10.0) Eosinophils (%) (Auto) 2.7 % (0.0-3.0) Basophils (%) (Auto) 0.6 % (0.0-2.0) Sodium Level 142 MMOL/L (136-145) Potassium Level 3.5 MMOL/L (3.5-5.1) Chloride Level 107 MMOL/L (98-107) Carbon Dioxide Level 27 MMOL/L (21-32) Anion Gap 8 mmol/L (5-15) Blood Urea Nitrogen 4 mg/dL (7-18) L Creatinine 0.9 MG/DL (0.55-1.30) Estimat Glomerular Filtration Rate > 60 mL/min (>60) Glucose Level 89 MG/DL (74-106) Calcium Level 8.4 MG/DL (8.5-10.1) L Plan Problems: (1) Stage 4 decubitus ulcer Assessment & Plan: Patient presents with multiple decubitus ulcers requiring care and management. Patient identified to have a full-thickness stage IV sacral decubitus ulcer which has had debridement in the past. There is some granulation in the ulcer bed with 10 to 20% slough. Periwound is intact and okay. No signs of active infection. Bone is palpable. Seems to have been receiving care. Does have a layer of biofilm. Patient with bilateral lower extremity amputations. Amputation flap is well- healed without dehiscence or abnormality. Patient mainly wheelchair-bound at this time. Tx Plan: Cleanse Sacral wound with NS. Loosely pack wound with hydrogel moistened Kerlix gauze. Apply Moisture Barrier periwound. Cover with Optifoam drsg. Daily and prn. Off load AKA stump with pillow Apply Cavilon Skin Barrier to both heels. Cover each heel with Optifoam drsg. Change every 7 days and prn. Air Fluidized mattress. Reposition at least every 2hours or as tolerated. Off-load heels with pillow. An air mattress was ordered for the patient and patient refused. Patient states he does not want air mattress. She expressed understanding that he knows that can potentially worsen wound that he needs to offload pressure but states he does not want air mattress and states he will turn as much as possible but does not seem to do so. Unfortunately with such noncompliance can be difficult to allow wound healing and proper care. We will continue to remind patient importance of wound healing given the location and the decubitus he presents with. (2) Sepsis Assessment & Plan: Patient presented with leukocytosis, lactic acidosis, anemia. Wounds and likely etiology of sepsis. Patient with UTI. We will continue to manage and monitor wounds to ensure proper care Continue with IV antibiotics as per infectious disease Appreciate ID input Trend labs (3) UTI (urinary tract infection) Baron Crouch Aug 06, 2019 10:49
--- NOTE | 2019-08-06 11:01 | NUR ---
*-* INSURANCE *-* ALL CLINICALS AND REVIEWS HAVE BEEN FAXED TO: WAYNE GORE:MAX P: [phone] F: [phone] REF# [id number]
[2019-08-06] MEDS ORDERED: MEROPENEM1 GM IV (11:42)
--- NOTE | 2019-08-06 11:42 | Discharge Summary ---
Discharge Summary Hospital Course Date of Admission Aug 02, 2019 at 23:32 Date of Discharge 08/06/19 Admitting Diagnosis pyelonephritis HPI Julio Cutler is a 58 year old male who was admitted on Aug 02, 2019 at 23:32 for Pyelonephritis Consultations ID: Dr. Hawk Surgery: Dr. Crouch Procedures EKG, CXR, Hospital Course 58 year old male with sepsis secondary to pyelonephritis/complicated UTI. 1. Sepsis secondary to pyelonephritis/complicated UTI. Afebrile, WBC normalized. Down grade to med surge Zosyn and Amikacin, now switched to Meropenem 1g Q 8hr ID consult with Dr. Hawk. 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 stage 4 sacral wound. Doubt the source. Surgical consult wound care wound mattress - refusing Pain control with Dilaudid and oxycodone 3.history of paraplegia. Pain control 4. COPD Duonebs 5.CAD ASA, Atorvastatin, metoprolol, Hold Lisinopril 6 Left AKA, right BKA 7. Severe iron deficiency anemia- on PO iron at SNF.Continue same I spent 35 minutes during this encounter. Patient will be discharged back to SNF where he will continue IV Meropenem 1g every 8 hours for 7 more days. Needs daily CMP while on IV meropenem. Discharge Medications New Medications: Meropenem (Meropenem) 1 Gm Vial 1 GM IV Q8HR for 7 Days, #10 VIAL Continued Medications: Acetaminophen (Tylenol) 325 Mg Capsule 650 MG PO Q6HR PRN for MILD PAIN/TEMP > 101, CAP Amino Acids/Protein Hydrolys (Pro-Stat Liquid) 30 Ml Liquid.pkt 30 ML ORAL TWICE A DAY, ML SUGAR-FREE FORMULATION Ascorbic Acid (Vitamin C) 250 Mg Tab.chew 250 MG ORAL BID for SUPPLEMENT, #30 TAB 0 Refills Ascorbic Acid* (Vitamin C*) 500 Mg Tablet 500 MG ORAL DAILY for wound healing, #30 TAB 0 Refills Aspirin* (Aspirin*) 81 Mg Tab.chew 81 MG ORAL DAILY, TAB Atorvastatin Calcium* (Atorvastatin Calcium*) 20 Mg Tablet 20 MG ORAL BEDTIME, TAB Bisacodyl (Dulcolax) 10 Mg Supp.rect 10 MG RC for CONSTIPATION, SUPP IF MILK OF MAGNESIA INEFFECTIVE Calcium Carbonate/Vitamin D3 (Calcium + Vitamin D Tablet) 1 Each Tablet 1 EACH PO, TAB Cranberry Fruit (Cranberry) 450 Mg Tablet 450 MG PO, TAB Docusate Sodium (Docusate Sodium) 100 Mg Tablet 100 MG ORAL DAILY, #30 TAB 0 Refills HOLD FOR WITH DIARRHEA Doxylamine Succinate (Unisom Sleep Aid) 25 Mg Tablet 25 MG PO QHS PRN for INSOMNIA, TAB Ferrous Sulfate (Ferrous Sulfate) 325 Mg Tablet.dr 325 MG ORAL, #30 TAB 0 Refills Hydrocodone Bit/Acetaminophen 10-325* (Rippey 10-325*) 1 Each Tablet 1 TAB ORAL Q4H PRN for Moderate Pain (Pain Scale 4-6), #10 TAB 0 Refills PRN PAIN Lisinopril (Lisinopril*) 20 Mg Tablet 20 MG ORAL DAILY for HTN, TAB HOLD FOR SBP<110, DBP<60, HR<60 Loperamide Hcl (Loperamide) 2 Mg Tablet 2 MG PO EVERY 6 HOURS PRN for LOOSE BOWEL MOVEMENT, TAB Magnesium Hydroxide* (Milk Of Magnesia*) 400 Mg/5 Ml Oral.susp 30 ML ORAL DAILY PRN for Constipation, ML Metoprolol Tartrate* (Metoprolol Tartrate*) 50 Mg Tablet 50 MG ORAL EVERY 12 HOURS, TAB 0 Refills Multivitamin With Minerals (Multivitamins With Minerals*) 1 Each Tablet 1 TAB ORAL DAILY, TAB Oxycodone Hcl* (Oxycodone Hcl*) 10 Mg Tablet 10 MG ORAL Q4H PRN for MODERATE TO SEVERE PAIN, #10 TAB 0 Refills Oxycodone Hcl* (Oxycodone Hcl*) 5 Mg Capsule 10 MG ORAL Q4H PRN for Severe Pain (Pain Scale 7-10), CAP 0 Refills Pantoprazole* (Pantoprazole*) 40 Mg Tablet.dr 40 MG ORAL DAILY, TAB TAKE IN THE MORNING Discharge Condition Upon Discharge: stable Discharge Disposition Patient was discharged to SNF Discharge Diagnoses: (1) UTI due to extended-spectrum beta lactamase (ESBL) producing Escherichia coli (2) Severe protein-calorie malnutrition (3) Stage 4 decubitus ulcer (4) UTI (urinary tract infection) (5) Sepsis Frederick Cook M.D. Aug 06, 2019 11:42
--- NOTE | 2019-08-06 11:43 | Infectious Diseases Prog Note ---
Assessment/Plan Assessment/Plan ASSESSMENT AND PLAN: 1. esbl e.coli/morganella pyelonephritis/uti, sepsis, leukocytosis, fevers, vre colonization, chest x-ray negative - meropenem x 1 week - check urine cultures final - monitor labs and temperatures - clinically improved, leukocytosis and fevers resolved - stable ID standpoint for discharge, d/w Dr. Cook 2. The patient has history of paraplegia. 3. Wound care per Surgery and protocol. 4. Weakness. 5. COPD. 6. CAD. 7. pmh noted 8. Left AKA, right BKA. 9. Continue treatment per primary consultants. 10. No known allergies. 11. Social history negative. 12. Family history noncontributory. 13. MAR was noted. 14. Case was discussed with RN. 15. Notes were reviewed and noted. Orders were entered. Subjective Constitutional: Denies: fever HEENT: Denies: congestion Respiratory: Denies: shortness of breath Cardiovascular: Denies: chest pain Gastrointestinal/Abdominal: Denies: nausea, vomiting Genitourinary: Denies: dysuria Neurologic: Denies: headache Allergies: Coded Allergies: No Known Allergies (Unverified , 08/02/19) Objective Vital Signs Last 24 Hour Vital Signs Date Time Temp Pulse Resp B/P (MAP) Pulse Ox O2 Delivery O2 Flow Rate FiO2 08/06/19 09:00 Room Air 08/06/19 08:13 66 139/72 08/06/19 08:00 97.2 73 21 147/63 (91) 98 08/06/19 04:00 97.9 66 20 139/72 (94) 08/06/19 00:00 97.7 65 18 154/77 (102) 08/05/19 21:00 Room Air 08/05/19 20:25 72 155/80 08/05/19 20:00 98.3 72 18 155/80 (105) 08/05/19 16:00 97.8 59 17 135/67 (89) 98 08/05/19 12:51 96.8 08/05/19 12:00 59 18 156/77 (103) 98 08/05/19 12:00 Room Air Height (Feet): 5 Height (Inches): 11.00 Weight (Pounds): 158 General Appearance: no acute distress HEENT: normocephalic, atraumatic, anicteric Respiratory/Chest: lungs clear, normal breath sounds, no respiratory distress Cardiovascular: normal rate, regular rhythm, no gallop/murmur Abdomen: normal bowel sounds, soft, non tender, no organomegaly Objective Chest x-ray - 08/05/19 - FINDINGS: Lungs: No consolidation or mass. Pleural space: No acute findings Heart: No cardiomegaly. Mediastinum: Unremarkable. Bones/joints: No acute findings. Median sternotomy wires are in place. IMPRESSION: No acute cardiopulmonary process. Laboratory Tests Test 08/06/19 05:45 White Blood Count 6.9 K/UL (4.8-10.8) Red Blood Count 3.31 M/UL (4.70-6.10) L Hemoglobin 8.5 G/DL (14.2-18.0) L Hematocrit 28.3 % (42.0-52.0) L Mean Corpuscular Volume 86 FL (80-99) Mean Corpuscular Hemoglobin 25.6 PG (27.0-31.0) L Mean Corpuscular Hemoglobin Concent 29.9 G/DL (32.0-36.0) L Red Cell Distribution Width 16.7 % (11.6-14.8) H Platelet Count 282 K/UL (150-450) Mean Platelet Volume 5.8 FL (6.5-10.1) L Neutrophils (%) (Auto) 62.3 % (45.0-75.0) Lymphocytes (%) (Auto) 28.8 % (20.0-45.0) Monocytes (%) (Auto) 5.7 % (1.0-10.0) Eosinophils (%) (Auto) 2.7 % (0.0-3.0) Basophils (%) (Auto) 0.6 % (0.0-2.0) Sodium Level 142 MMOL/L (136-145) Potassium Level 3.5 MMOL/L (3.5-5.1) Chloride Level 107 MMOL/L (98-107) Carbon Dioxide Level 27 MMOL/L (21-32) Anion Gap 8 mmol/L (5-15) Blood Urea Nitrogen 4 mg/dL (7-18) L Creatinine 0.9 MG/DL (0.55-1.30) Estimat Glomerular Filtration Rate > 60 mL/min (>60) Glucose Level 89 MG/DL (74-106) Calcium Level 8.4 MG/DL (8.5-10.1) L Current Medications Medications (Trade) Dose Ordered Sig/Nayely Route PRN Reason Start Time Stop Time Status Last Admin Dose Admin Acetaminophen (Tylenol) 650 mg Q4H PRN ORAL fever (temp>100.5F) 08/05/19 15:00 09/04/19 14:59 Acetaminophen (Tylenol) 650 mg Q4H PRN ORAL Mild Pain (Pain Scale 1-3) 08/05/19 15:00 09/01/19 14:59 Acetaminophen (Tylenol) 650 mg Q4H PRN RECTAL Mild Pain (Pain Scale 1-3) 08/05/19 15:00 09/01/19 14:59 Acetaminophen (Tylenol) 650 mg Q4H PRN RECTAL fever (temp>100.5F) 08/05/19 15:00 09/01/19 14:59 Acetaminophen/ Hydrocodone Bitart (Lasara 5/325) 1 tab Q6H PRN ORAL severe pain 08/05/19 15:00 08/09/19 14:59 08/06/19 05:47 Al Hydroxide/Mg Hydroxide (Mylanta II) 30 ml Q6H PRN ORAL dyspepsia 08/05/19 15:30 09/01/19 21:29 Albuterol/ Ipratropium (Albuterol/ Ipratropium) 3 ml Q6H PRN HHN Shortness of Breath 08/05/19 15:00 08/07/19 14:59 Ascorbic Acid (Vitamin C) 500 mg DAILY ORAL 08/06/19 09:00 09/03/19 08:59 08/06/19 08:13 Aspirin (ASA) 81 mg DAILY ORAL 08/06/19 09:00 09/03/19 08:59 08/06/19 08:13 Atorvastatin Calcium (Lipitor) 20 mg BEDTIME ORAL 08/05/19 21:00 09/02/19 20:59 08/05/19 20:24 Bisacodyl (Dulcolax) 10 mg HSPRN PRN RECTAL Constipation 08/05/19 21:00 09/01/19 20:59 Dextrose (Dextrose 50%) 25 ml Q30M PRN IV Hypoglycemia 08/05/19 15:00 09/01/19 21:29 Dextrose (Dextrose 50%) 50 ml Q30M PRN IV Hypoglycemia 08/05/19 15:00 09/01/19 21:29 Diphenhydramine HCl (Benadryl) 25 mg Q6H PRN ORAL Itching/Pruritis 08/05/19 15:00 09/01/19 14:59 Docusate Sodium (Colace) 200 mg EVERY 12 HOURS ORAL 08/05/19 21:00 09/02/19 08:59 Enoxaparin Sodium (Lovenox) 40 mg DAILY SUBQ 08/06/19 09:00 09/02/19 08:59 Ferrous Sulfate (Feosol) 325 mg THREE TIMES A DAY ORAL 08/05/19 18:00 09/03/19 08:59 08/06/19 08:02 Hydralazine HCl (Apresoline) 25 mg Q6H PRN ORAL hypertension see note 08/05/19 15:00 09/01/19 14:59 Hydromorphone HCl (Dilaudid) 2 mg Q4H PRN IVP SEVERE BREAKTHROUGH PAIN 08/05/19 16:00 08/09/19 15:59 08/06/19 08:03 Lorazepam (Ativan) 1 mg Q4H PRN ORAL For Anxiety 08/05/19 15:00 08/09/19 14:59 Magnesium Hydroxide (Mom) 30 ml DAILY ORAL 08/06/19 09:00 09/03/19 08:59 Magnesium Hydroxide (Mom) 30 ml HSPRN PRN ORAL Constipation 08/05/19 21:00 09/01/19 20:59 Meropenem 1 gm/ Sodium Chloride 100 ml @ 200 mls/hr Q8HR IVPB 08/06/19 14:00 08/11/19 13:59 Methocarbamol (Robaxin) 750 mg Q6H PRN ORAL muscle spasm 08/05/19 15:00 09/01/19 14:59 Metoclopramide HCl (Reglan) 10 mg Q6H PRN IVP Nausea & Vomiting 08/05/19 15:00 09/01/19 14:59 Metoprolol Tartrate (Lopressor) 50 mg EVERY 12 HOURS ORAL 08/05/19 21:00 09/02/19 20:59 08/06/19 08:13 Nitroglycerin (Ntg) 0.4 mg Q5M X 3 DOSES PRN SL Prn Chest Pain 08/05/19 15:00 09/01/19 21:29 Ondansetron HCl (Zofran) 4 mg Q6H PRN IVP Nausea & Vomiting 08/05/19 15:00 09/01/19 14:59 Oxycodone HCl (Roxicodone) 15 mg Q4H PRN ORAL MODERATE BREAKTHROUGH PAIN 08/05/19 15:15 08/11/19 11:14 08/06/19 10:20 Pantoprazole (Protonix) 40 mg ACBREAKFAST ORAL 08/06/19 06:30 09/05/19 06:29 Polyethylene Glycol (Miralax) 17 gm HSPRN PRN ORAL Constipation 08/05/19 21:00 09/01/19 20:59 Prochlorperazine (Compazine) 10 mg Q6H PRN IVP Nausea & Vomiting 08/05/19 15:00 09/01/19 14:59 Sodium Chloride 1,000 ml @ 75 mls/hr [id number] IVLG 08/05/19 15:00 09/01/19 22:15 08/06/19 04:00 Temazepam (Restoril) 7.5 mg HSPRN PRN ORAL insomnia 08/05/19 21:00 08/09/19 20:59 08/05/19 22:22 Jose M Gonzales MD Aug 06, 2019 11:43
[2019-08-06 12:00] VITALS: BP 158/75
[2019-08-06] MEDS ORDERED: NS 275ml ONE (13:36)
[2019-08-06] MEDS ORDERED: Amikacin 1,000 MG in NS 110 ML IV SCH ×2 (15:00→20:00)
[2019-08-06 16:00] VITALS: BP 141/83
--- NOTE | 2019-08-06 17:10 | NUR ---
DYE RANGE FEEDER NOTES PT ACCEPTED BACK TO [facility] IN AM @ 0900. ROOM 205 BED C. NURSE TO CALL REPORT TO [phone].
--- NOTE | 2019-08-06 19:23 | NUR ---
HAND-OFF: Report given to RUBEN Crawford.
--- NOTE | 2019-08-06 19:30 | NUR ---
NURSE NOTES: Patient asleep in bed. Call light in reach. Bed in lowest lock engaged and alarm on. Will continue to monitor.
[2019-08-06 20:00] VITALS: BP 153/73
[2019-08-06] MEDS: Atorvastatin 20mg tab ORAL SCH (20:59)
[2019-08-07] VITALS: BP 157/74
--- NOTE | 2019-08-07 01:03 | NUR ---
NURSE NOTES: Needs attended. Medicated as ordered.
[2019-08-07] MEDS: oxyCODONE 15mg IR tab ORAL PRN (02:02)
[2019-08-07 04:30] VITALS: BP 152/87
[2019-08-07] MEDS: HYDROcodone/Acetamin 5/325 tab ORAL PRN (06:07)
--- NOTE | 2019-08-07 06:30 | NUR ---
NURSE NOTES: Wound care photo taken and uploaded. Dressing changed.
--- NOTE | 2019-08-07 07:33 | NUR ---
NURSE NOTES: Patient awake, alert x4; on room air, no sign of distress and shortness of breath; no sing of chest pain; IV RFA 22G flushes well; patient had LAKA and RBKA; patient is quadriplegic; patient is going to be discharge shift, will follow up on that; side rails up x2, breaks engaged, bed at lowest position; call light within reach; will keep monitoring.
--- NOTE | 2019-08-07 07:44 | NUR ---
NURSE NOTES: Called [facility] but they said this is insurance authorized orange picker. Charge nurses made aware and RUBEN Dick.
--- NOTE | 2019-08-07 07:46 | NUR ---
HAND-OFF: Report given to RUBEN Dick.
[2019-08-07 08:00] VITALS: BP 144/82
[2019-08-07] MEDS: Aspirin Baby 81mg ORAL SCH (08:20)
[2019-08-07] MEDS: Ascorbic Acid 500mg tab ORAL SCH (08:21)
[2019-08-07 08:22] VITALS: BP 144/82
[2019-08-07] MEDS: Metoprolol Tartrate 50mg tab ORAL SCH (08:22)
[2019-08-07] MEDS: Docusate 100mg cap ORAL SCH (08:23)
[2019-08-07] MEDS: Milk of Magnesia 30ml Ud ORAL SCH (08:23)
[2019-08-07] MEDS: Enoxaparin 40mg Inj SUBQ SCH (08:24)
--- NOTE | 2019-08-07 10:30 | NUR ---
NURSE NOTES: Patient picked up around 0920; wound care provided and picture uploaded by PM nurse, Ronnie. IV access and name tag removed. package given to ambulance personnel. Tried to give report to [facility], said they don't receive report before [id number] and also they don't accept patient's before 0500 pm. I called to case management regarding the matter and social psychologist Lacie came to the floor and said she spoke to the facility and I can discharge patient. Belonging list signed by patient and discharging nurse. Patient is stable upon discharge. Patient left with supra-pubic catheter.
--- NOTE | 2019-08-07 13:48 | NUR ---
*-* INSURANCE *-* ALL CLINICALS AND REVIEWS HAVE BEEN FAXED TO: WAYNE GORE:MAX P: [phone] F: [phone] REF# [id number]
--- NOTE | 2019-08-07 14:31 | Surgery Progress Note ---
Surgery Progress Note Subjective Symptoms: improved, pain absent, tolerating diet, passing flatus Objective Last 24 Hour Vital Signs Date Time Temp Pulse Resp B/P (MAP) Pulse Ox O2 Delivery O2 Flow Rate FiO2 08/07/19 09:00 Room Air 08/07/19 08:53 97.9 08/07/19 08:22 74 144/82 08/07/19 08:00 97.9 74 20 144/82 (102) 98 08/07/19 04:30 97.7 72 19 152/87 (108) 97 08/07/19 00:00 98.1 72 20 157/74 (101) 99 08/06/19 21:00 Room Air 08/06/19 20:59 72 153/73 08/06/19 20:00 97.9 72 20 153/73 (99) 97 08/06/19 16:00 98.2 68 22 141/83 (102) 98 I&O Intake and Output 08/06/19 08/07/19 19:00 07:00 Intake Total 1220.0 ml 1100 ml Output Total 700 ml 2100 ml Balance 520.0 ml -1000 ml Intake Oral 240 ml 900 ml IV Total 980.0 ml 200 ml Output Urine Total 700 ml 2100 ml # Bowel Movements 1 Dressing: saturated Wound: other Drains: other Cardiovascular: RSR Respiratory: clear Abdomen: soft, non-tender, present bowel sounds Extremities: no edema, no tenderness, no cyanosis, other Plan Problems: (1) Stage 4 decubitus ulcer Assessment & Plan: Patient presents with multiple decubitus ulcers requiring care and management. Patient identified to have a full-thickness stage IV sacral decubitus ulcer which has had debridement in the past. There is some granulation in the ulcer bed with 10 to 20% slough. Periwound is intact and okay. No signs of active infection. Bone is palpable. Seems to have been receiving care. Does have a layer of biofilm. Patient with bilateral lower extremity amputations. Amputation flap is well- healed without dehiscence or abnormality. Patient mainly wheelchair-bound at this time. Tx Plan: Cleanse Sacral wound with NS. Loosely pack wound with hydrogel moistened Kerlix gauze. Apply Moisture Barrier periwound. Cover with Optifoam drsg. Daily and prn. Off load AKA stump with pillow Apply Cavilon Skin Barrier to both heels. Cover each heel with Optifoam drsg. Change every 7 days and prn. Air Fluidized mattress. Reposition at least every 2hours or as tolerated. Off-load heels with pillow. An air mattress was ordered for the patient and patient refused. Patient states he does not want air mattress. She expressed understanding that he knows that can potentially worsen wound that he needs to offload pressure but states he does not want air mattress and states he will turn as much as possible but does not seem to do so. Unfortunately with such noncompliance can be difficult to allow wound healing and proper care. We will continue to remind patient importance of wound healing given the location and the decubitus he presents with. (2) Sepsis Assessment & Plan: Patient presented with leukocytosis, lactic acidosis, anemia. Wounds and likely etiology of sepsis. Patient with UTI. We will continue to manage and monitor wounds to ensure proper care Continue with IV antibiotics as per infectious disease Appreciate ID input Trend labs (3) UTI (urinary tract infection) Additional Comments okay to d/c from surgical standpoint d/c plan for this AM cont with wound care as above upon d/c thank you Baron Crouch Aug 07, 2019 14:31
--- NOTE | 2019-08-07 16:33 | NUR ---
NURSE NOTES: I was told by the charge nurse, Rachel to give report to Dulce Ford. Patient already discharge this morning around 0930 and clerk Yue said they don't accept repot by that time. Now I gave report to Ajit Thakur. Charge nurse is aware.
== END 2019-08-07 10:30 | DRG 466 ==
LOC: EDBD 19:23 → EMR 19:55 → EDBEDREQ 23:06 → 2W 23:32 → 4E 08-05 15:20
DX: T83.518A Infection and inflammatory reaction due to other urinary catheter, initial encounter (principal); A41.9 Sepsis, unspecified organism; L89.154 Pressure ulcer of sacral region, stage 4; N12 Tubulo-interstitial nephritis, not specified as acute or chronic; D50.9 Iron deficiency anemia, unspecified; J44.9 Chronic obstructive pulmonary disease, unspecified; I25.10 Atherosclerotic heart disease of native coronary artery without angina pectoris; Z89.612 Acquired absence of left leg above knee; Z89.611 Acquired absence of right leg above knee; B96.20 Unspecified Escherichia coli [E. coli] as the cause of diseases classified elsewhere; B96.89 Other specified bacterial agents as the cause of diseases classified elsewhere; Z16.12 Extended spectrum beta lactamase (ESBL) resistance; G82.20 Paraplegia, unspecified; V89.2XXS Person injured in unspecified motor-vehicle accident, traffic, sequela
CPT/HCPCS: 36415; 71045; 80048; 80053; 80150; 81003; 83605; 83735; 83880; 84100; 84443; 84484; 85007; 85025; 87040; 87081; 87086; 87181; 93005; 94664; 96361; 96374; 99285

== ENCOUNTER 2019-08-24 22:00 | Inpatient (IN) | payer OTHER ==
[~2019-08-24] VITALS: Ht 162.6 cm; Wt 68.9 kg
[~2019-08-24 22:00] MED LIST: ASPIRIN81 MG ORAL; ATORVASTATIN CA20 MG ORAL; CALCIUM + VITA1 EAC1 PO; CRANBERRY450 M5 PO; DOCUSATE SODIU100 M2 ORAL; DULCOLAX10 MG RC; FERROUS SULFAT325 M2 ORAL; LISINOPRIL20 MG ORAL; LOPERAMIDE2 M1 PO; MEROPENEM1 GM IV; METOPROLOL TART50 MG ORAL; MILK OF MA400 MG/51 ORAL; MULTIVITAMINS1 EAC8 ORAL; NORCO 10-325 T1 EACH ORAL; OXYCODONE HCL10 MG ORAL; OXYCODONE HCL20 M1 ORAL; OXYCODONE HCL5 M2 ORAL; PANTOPRAZOLE SO40 MG ORAL; PRO-STAT LIQUID30 ML ORAL; TYLENOL325 M1 PO; UNISOM SLEEP AI25 MG PO; VITAMIN C250 M1 ORAL; VITAMIN C500 M1 ORAL
--- NOTE | 2019-08-24 22:09 | Emergency Room Report ---
History of Present Illness General Source: Patient, Medical Record, EMS Present Illness HPI This is a 58-year-old male with a history of diabetes with previous osteomyelitis. He has left AKA and a right BKA. He presents with chief complaint of fever. Onset yesterday. Fever up to 101. No nausea no vomiting. No abdominal pain. No coughing. He has a rash and redness to the right leg area. No urinary complaint. Given Tylenol at the intermediate prior to arrival. He also has chronic pain. Complaint of pain of 9 out of 10. Allergies: Coded Allergies: No Known Allergies (Unverified , 08/02/19) Patient History Past Medical History: see triage record, old chart reviewed, DM, HTN Past Surgical History: other Pertinent Family History: none Social History: Denies: smoking Immunizations: other Reviewed Nursing Documentation: PMH: Agreed; PSxH: Agreed Nursing Documentation-PMH Hx Cardiac Problems: Yes - hyperlipidemia Hx Hypertension: Yes Hx Cancer: No Hx Gastrointestinal Problems: No Hx Neurological Problems: Yes - paraplegia Review of Systems Constitutional: Reports: fever Eye: Denies: eye pain, blurred vision ENT: Denies: ear pain, nose congestion, throat swelling Respiratory: Denies: cough, shortness of breath Cardiovascular: Denies: chest pain, palpitations Gastrointestinal: Denies: abdominal pain, diarrhea, nausea, vomiting Musculoskeletal: Denies: back pain, joint pain Skin: Denies: rash Neurological: Denies: headache, numbness Endocrine: Denies: increased thirst, increased urine Hematologic/Lymphatic: Denies: easy bruising All Other Systems: negative except mentioned in HPI Physical Exam Vitals unremarkable Sp02 EP Interpretation: reviewed, normal General Appearance: well appearing, no apparent distress, alert Head: normocephalic, atraumatic Eyes: bilateral eye PERRL, bilateral eye EOMI ENT: hearing grossly normal, normal pharynx Neck: full range of motion, supple, no meningismus Respiratory: chest non-tender, lungs clear, normal breath sounds Cardiovascular #1: regular rate, rhythm, no murmur Gastrointestinal: normal bowel sounds, non tender, no mass, no organomegaly, no bruit, non-distended Musculoskeletal: back normal, other - Right leg: He has large area of erythema and warmth to the lateral thigh area. He has a BKA. The stumps both legs looks clean without any drainage. Psychiatric: mood/affect normal Medical Decision Making Diagnostic Impression: Primary Impression: Sepsis Qualified Codes: A41.9 - Sepsis, unspecified organism Additional Impressions: Cellulitis of right thigh UTI (urinary tract infection) Qualified Codes: N30.00 - Acute cystitis without hematuria Chronic pain Qualified Codes: G89.4 - Chronic pain syndrome Anemia Qualified Codes: D64.9 - Anemia, unspecified ER Course Patient with fever. Most likely source is cellulitis of his right thigh area. No evidence of any abscess. He has a history of osteomyelitis and MRSA. He has a chronic indwelling suprapubic catheter. I could also be another source. He has no cough or congestion. He has no abdominal pain. Zosyn and vancomycin given. I discussed the case with Dr. Tomlinson who will admit. Lab Results Impression Labs with elevated WBC Rhythm Strip Diag. Results EP Interpretation: yes Rate: 92 Rhythm: NSR, no PVC's, no ectopy Status: improved Disposition: ADMITTED INPATIENT Condition: Serious Edwin Mccullough MD Aug 24, 2019 22:09
[2019-08-24] MEDS ORDERED: Vancomycin 1 GM in NS 275 ML IV ONE (22:15)
[2019-08-24] MEDS ORDERED: Piperacillin/Tazobactam 3.375 GM in NS 110 ML IVPB ONE (22:15)
[2019-08-24] MEDS ORDERED: HYDROmorphone 1mg/ml Carpuject IVP ONE (22:15)
--- NOTE | 2019-08-24 22:15 | NUR ---
ED Nurse Note: Recieved pt BIBA from SNF with c/o nausea and vomiting x 2 days, pt has BLE AKA and is wheelchair bound, tp is awake, alert and orientd x 4, denies abdominal pain, states he can not feel his abdomen but is complaining of severe, chronic back pain at 9/10 and immediately asking for filomena meds, pt placed on cardiac monitoring, started on sepsis work-up, iv line placed, labs drawn and fluids started immediately per protocol, will medicate pt as ordered and continue to closely monitor.
[2019-08-24 23:07] LABS: HEMATOCRIT 35.7 % (42.0-52.0); HEMOGLOBIN 11.5 G/DL (14.2-18.0); MEAN CORPUSCULAR VOLUME 83 FL (80-99); PLATELET COUNT 313 K/UL (150-450); RED BLOOD COUNT 4.31 M/UL (4.70-6.10); RED CELL DISTRIBUTION WIDTH 15.4 % (11.6-14.8)
[2019-08-24 23:09] LABS: APPEARANCE,URINE CLOUDY; BILIRUBIN, URINE NEGATIVE (NEGATIVE); GLUCOSE, URINE (UA) NEGATIVE (NEGATIVE); KETONES,URINE 2+ (NEGATIVE); LEUKOCYTE ESTERASE ,URINE 3+ (NEGATIVE); NITRITE,URINE POSITIVE (NEGATIVE); PH,URINE 5 (4.5-8.0); PROTEIN,URINE 2+ (NEGATIVE); UROBILINOGEN,URINE NORMAL MG/DL (0.0-1.0)
[2019-08-24 23:11] LABS: COLOR,URINE YELLOW
[2019-08-24 23:12] LABS: INR 1.1 (0.9-1.1)
[2019-08-24 23:15] VITALS: BP 122/60
[2019-08-24 23:15] LABS: ANION GAP 11 mmol/L (5-15); BLOOD UREA NITROGEN 18 mg/dL (7-18); CALCIUM 8.8 MG/DL (8.5-10.1); CARBON DIOXIDE 27 MMOL/L (21-32); CHLORIDE 97 MMOL/L (98-107); CREATININE 0.9 MG/DL (0.55-1.30); POTASSIUM 3.6 MMOL/L (3.5-5.1); SODIUM 135 MMOL/L (136-145)
[2019-08-24 23:20] LABS: ALANINE AMINOTRANSFERASE 6 U/L (12-78); ALBUMIN 2.2 G/DL (3.4-5.0); ALBUMIN/GLOBULIN RATIO 0.4 (1.0-2.7); ALKALINE PHOSPHATASE 107 U/L (46-116); ASPARTATE AMINO TRANSFERASE 11 U/L (15-37); BILIRUBIN,TOTAL 0.3 MG/DL (0.2-1.0)
--- NOTE | 2019-08-24 23:30 | NUR ---
ED Nurse Note: Pt being admitted to hospital, pt has large, open, pressure wound on right hip / sacry area, very large with severe tunnelling, photos taken, pt swabbed for admission, med rec completed, pt constantly asking for dilaudid medication, md informed, pt angry stating he needs more than 1mg doses and wants more, v/s stable, will medicate pt as ordered and prepare for admission.
[2019-08-25] VITALS (7 sets, daily range): BP systolic 126–156; BP diastolic 58–84
[2019-08-25] MEDS ORDERED: Milk of Magnesia 30ml Ud ORAL PRN (00:15)
[2019-08-25] MEDS ORDERED: Hydromorphone 0.5mg/0.5ml inj IVP PRN (00:15)
[2019-08-25] MEDS ORDERED: Piperacillin/Tazobactam 3.375 GM in NS 110 ML IVPB ONE (00:15)
[2019-08-25] MEDS ORDERED: HYDROmorphone 1mg/ml Carpuject IVP ONE (00:15)
[2019-08-25] MEDS ORDERED: Albuterol/Ipratropium 3ml neb HHN PRN (00:15)
[2019-08-25] MEDS ORDERED: Mylanta II UD 30ml ORAL PRN (00:15)
[2019-08-25] MEDS ORDERED: Miralax 17gm pkt ORAL PRN (00:15)
--- NOTE | 2019-08-25 00:15 | History & Physical ---
History and Physical History & Physicial Case discussed with ED physician. Chart, labs, vitals, flowsheets reviewed. 58 y/o man with diabetes and PVD with hx of L AKA, and R BKA in the past, presenting with fevers at his SNF, along with R prox lower extremity cellulitis. Pt also with hx of osteomyelitis. Pt will be admitted for broad spectrum IV abx, IV fluids, and supp care Delta Tomlinson MD Aug 25, 2019 00:15
--- NOTE | 2019-08-25 00:50 | NUR ---
ED Nurse Note: Pt has room for admission, report called to floor nurse, pt in bed awake and alert, iv site patent, no s/s of adverse reaction noted from iv antivbiotic given, tolerated well, pt continues to ask for more dilaudid medication, md aware, pt medicated x 2 with dilaudid, sleeping after med given, pt being taken to floor bed via gurney with er-tech, all belongings with pt, nad noted during transport.
--- NOTE | 2019-08-25 01:30 | NUR ---
NURSE NOTES: RECEIVED REPORT FROM RUBEN KEANE. PT WAS SAFETY TRANSFERRED TO UNIT VIA GURNEY. PT IS AWAKE,AAOX4, ON ROOM AIR, NO RESPIRATORY DISTRESS NOTED. BELONGINGS LIST REVIEWED AND SIGNED WITH PT. PT'S OWN WHEEL CHAIR IS AT BEDSIDE. SUPRAPUBIC CATH NOTED INTACT AND DRAINING WELL. IV ON RIGHT AC 20G IS INTACT AND PATENT. PT C/O 10/10 BACK PAIN UPON ARRIVAL, DEMANDED PRN DILAUDID. RN INFORMED PT THAT PRN DILAUDID WAS JUST GIVEN 10 MINUTES IN THE ER PRIOR TO TRANSFER TO UNIT AND WILL NEED TIME IN BETWEEN THE NEXT DOSE. PT GOT VERBALLY AGGRESSIVE AND YELLED AT STAFF. PT REFUSED TO TO HAVE RN ASSESSED WOUND SITES AND STUMP SITES. CHART NURSE AWARE. BED IS LOCKED AND LOW, BED ALARMS ACTIVE, SIDE RAILS UP X2 AND CALL LIGHT IS WITHIN REACH.
--- NOTE | 2019-08-25 02:00 | NUR ---
NURSE NOTES: PRN TYLENOL 650MG GIVEN FOR FEVER 100.4. WILL CONTINUE TO MONITOR.
--- NOTE | 2019-08-25 03:00 | NUR ---
NURSE NOTES: UNABLE TO COMPLETE INITIAL WOUND ASSESSMENT. PT REFUSED.
[2019-08-25] MEDS: HYDROmorphone 1mg/ml Carpuject IVP PRN ×2 (04:00→07:56)
[2019-08-25] MEDS: Heparin 5000 units/ml inj SUBQ SCH ×3 (06:00→21:02)
--- NOTE | 2019-08-25 06:03 | NUR ---
NURSE NOTES: SENT PT'S MEDICATION DOWN TO PHARMACY. RECEIPT # [id number].
[2019-08-25] MEDS: NovoLOG Insulin Flexpen SUBQ SCH ×4 (06:30→20:40)
--- NOTE | 2019-08-25 07:10 | NUR ---
NURSE NOTES: PT REFUSED ACCUCHECK AND NOVOLOG. PT STATED THAT HE IS "NOT DIABETIC AND DOESN'T NEED IT". PT ALSO REFUSED HEPARIN. REINFORCED TEACHING ON BOTH MEDICATIONS, PT STILL REFUSED.
--- NOTE | 2019-08-25 07:49 | NUR ---
NURSE NOTES: Received report from Nathalie, RN. Pt in bed, awake, talkative, complaining of 10/10 pain in lower back and sacral area, Sacral stage 4 wound noted, open with tunneling, wound being cleaned and dressing applied by Nathalie, RN. Pt has pain medication due at 0800 and will be given for pain, no respiratory distress noted, bed in lowest position, call light within reach, water provided to pt.
--- NOTE | 2019-08-25 07:54 | NUR ---
HAND-OFF: Report given to RUBEN Coe.
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
[2019-08-25] MEDS: Docusate 100mg cap ORAL SCH ×2 (09:00→20:40)
[2019-08-25] MEDS: Vancomycin 750mg/D5W 275ml IVPB SCH ×4 (09:47→21:35)
--- NOTE | 2019-08-25 11:27 | NUR ---
NURSE NOTES: Pt refused blood sugar check. Dr. Cook made aware.
[2019-08-25] MEDS: Meropenem 1 GM in NS 55 ML IVPB SCH ×2 (13:43→21:02)
--- NOTE | 2019-08-25 15:14 | NUR ---
*-* INSURANCE *-* ALL AVAILABLE CLINICALS AND REVIEWS HAVE BEEN FAXED TO: [facility]: MAX P- [phone] F- [phone]....REVIEW/CLINICAL
--- NOTE | 2019-08-25 15:20 | NUR ---
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 97.9 HR 93 RR 18 B/P 112/65 WBC 15.0 NA 135 UA+ PROTEIN,RBC,WBC,BLOOD,NITRITES,LEUKOCYTE ESTERASE,BACTERIA AND YEAST URINE TOX+ THC OPIATES IS: VANCO IV ZOSYN IV IV BOLUS X 2 LITERS DILAUDID IV ADMITTED TO MED/SURG @ 0105 MED/SURG STATUS DCP RETURN TO [facility]
--- NOTE | 2019-08-25 15:49 | NUR ---
NURSE NOTES:WOUND CARE NOTES:Pt presented no admission with R BKA,L AKA.Full thickness pressure injury with undermining R ischium. [place] granulation at base of wound .Bone is palpable. Edges adherent and flat. Erythema periwound. No odor noted Small amt serous exudate.(L)4.5cm x (W)6.5cm x (D)6.3cm, undermining clockwise 9-1by 7.3cm @12o'clock. Multiple scarring noted to R trochanter,harvest graft site R thigh. No other skin concerns noted. Tx.plan: Cleanse wound with Saline. Loosely pack wound with Hydrogel impregnated Kerlix. Apply Cavilon periwound. Cover with Optifoam drsg Daily and prn. Apply Triad Paste to buttocks and groin with each incontinence care. Reposition at least every 2hours or as tolerated.(Encourage pt to frequently reposition self ).
--- NOTE | 2019-08-25 16:38 | NUR ---
NURSE NOTES: Pt refused blood sugar check. Pt stated, "I'm not diabetic!"
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
--- NOTE | 2019-08-25 18:23 | Infectious Diseases Prog Note ---
Assessment/Plan Assessment/Plan Full consult dictated; A) 1) sepsis, leukocytosis, fevers, right thigh cellulitis, uti/pyelonephritis, sirs 2) bilateral LE amputation 3) pmh noted 4) allergies - nkda P) 1) vancomycin and meropenem 2) check cultures 3) monitor cellulitis 4) monitor labs 50 thank you Subjective Allergies: Coded Allergies: No Known Allergies (Unverified , 08/02/19) Objective Vital Signs Last 24 Hour Vital Signs Date Time Temp Pulse Resp B/P (MAP) Pulse Ox O2 Delivery O2 Flow Rate FiO2 08/25/19 16:00 98.2 91 17 127/67 (87) 99 08/25/19 12:00 98.4 89 16 151/81 (104) 100 08/25/19 12:00 98.4 89 16 151/81 (104) 100 08/25/19 08:07 Room Air 08/25/19 08:00 98.1 87 16 133/69 (90) 99 08/25/19 04:00 99.3 92 18 126/70 (88) 98 08/25/19 03:02 Room Air 08/25/19 02:11 99.7 08/25/19 01:30 100.4 98 18 148/70 (96) 97 08/25/19 01:05 98.1 16 122/60 98 Room Air 08/25/19 00:30 98.4 78 16 128/58 99 Room Air 08/24/19 23:20 98.1 08/24/19 23:15 98.1 16 122/60 98 Room Air 08/24/19 22:15 93 18 Room Air 08/24/19 22:03 97.9 93 18 112/65 (81) 94 Room Air Height (Feet): 5 Height (Inches): 4.00 Weight (Pounds): 150 Laboratory Tests Test 08/24/19 22:20 08/24/19 22:40 08/25/19 01:30 White Blood Count 15.0 K/UL (4.8-10.8) H Red Blood Count 4.31 M/UL (4.70-6.10) L Hemoglobin 11.5 G/DL (14.2-18.0) L Hematocrit 35.7 % (42.0-52.0) L Mean Corpuscular Volume 83 FL (80-99) Mean Corpuscular Hemoglobin 26.6 PG (27.0-31.0) L Mean Corpuscular Hemoglobin Concent 32.1 G/DL (32.0-36.0) Red Cell Distribution Width 15.4 % (11.6-14.8) H Platelet Count 313 K/UL (150-450) Mean Platelet Volume 5.9 FL (6.5-10.1) L Neutrophils (%) (Auto) % (45.0-75.0) Lymphocytes (%) (Auto) % (20.0-45.0) Monocytes (%) (Auto) % (1.0-10.0) Eosinophils (%) (Auto) % (0.0-3.0) Basophils (%) (Auto) % (0.0-2.0) Differential Total Cells Counted 100 Neutrophils % (Manual) 86 % (45-75) H Lymphocytes % (Manual) 9 % (20-45) L Monocytes % (Manual) 5 % (1-10) Eosinophils % (Manual) 0 % (0-3) Basophils % (Manual) 0 % (0-2) Band Neutrophils 0 % (0-8) Platelet Estimate Adequate Platelet Morphology Normal Prothrombin Time 11.3 SEC (9.30-11.50) Prothromb Time International Ratio 1.1 (0.9-1.1) Activated Partial Thromboplast Time 37 SEC (23-33) H Sodium Level 135 MMOL/L (136-145) L Potassium Level 3.6 MMOL/L (3.5-5.1) Chloride Level 97 MMOL/L (98-107) L Carbon Dioxide Level 27 MMOL/L (21-32) Anion Gap 11 mmol/L (5-15) Blood Urea Nitrogen 18 mg/dL (7-18) Creatinine 0.9 MG/DL (0.55-1.30) Estimat Glomerular Filtration Rate > 60 mL/min (>60) Glucose Level 98 MG/DL (74-106) Lactic Acid Level 0.90 mmol/L (0.4-2.0) Calcium Level 8.8 MG/DL (8.5-10.1) Total Bilirubin 0.3 MG/DL (0.2-1.0) Aspartate Amino Transf (AST/SGOT) 11 U/L (15-37) L Alanine Aminotransferase (ALT/SGPT) 6 U/L (12-78) L Alkaline Phosphatase 107 U/L (46-116) Total Protein 8.2 G/DL (6.4-8.2) Albumin 2.2 G/DL (3.4-5.0) L Globulin 6.0 g/dL Albumin/Globulin Ratio 0.4 (1.0-2.7) L Urine Color Yellow Urine Appearance Cloudy Urine pH 5 (4.5-8.0) Urine Specific [place] 1.025 (1.005-1.035) Urine Protein 2+ (NEGATIVE) H Urine Glucose (UA) Negative (NEGATIVE) Urine Ketones 2+ (NEGATIVE) H Urine Blood 3+ (NEGATIVE) H Urine Nitrite Positive (NEGATIVE) H Urine Bilirubin Negative (NEGATIVE) Urine Urobilinogen Normal MG/DL (0.0-1.0) Urine Leukocyte Esterase 3+ (NEGATIVE) H Urine RBC 15-20 /HPF (0 - 0) H Urine WBC 60-80 /HPF (0 - 0) H Urine Squamous Epithelial Cells Few /LPF (NONE/OCC) Urine Bacteria Many /HPF (NONE) H Urine Yeast Moderate /HPF (NONE) H Urine Opiates Screen Positive (NEGATIVE) H Urine Barbiturates Screen Negative (NEGATIVE) Phencyclidine (PCP) Screen Negative (NEGATIVE) Urine Amphetamines Screen Negative (NEGATIVE) Urine Benzodiazepines Screen Negative (NEGATIVE) Urine Cocaine Screen Negative (NEGATIVE) Urine Marijuana (THC) Screen Positive (NEGATIVE) H Current Medications Medications (Trade) Dose Ordered Sig/Nayely Route PRN Reason Start Time Stop Time Status Last Admin Dose Admin Acetaminophen (Tylenol) 650 mg Q4H PRN ORAL fever 08/25/19 00:15 09/24/19 00:14 08/25/19 01:41 Acetaminophen (Tylenol) 650 mg Q4H PRN ORAL Mild Pain (Pain Scale 1-3) 08/25/19 00:15 09/24/19 00:14 Al Hydroxide/Mg Hydroxide (Mylanta II) 30 ml Q6H PRN ORAL dyspepsia 08/25/19 00:15 09/24/19 00:14 Albuterol/ Ipratropium (Albuterol/ Ipratropium) 3 ml Q6H PRN HHN Shortness of Breath 08/25/19 00:15 08/30/19 00:14 Bisacodyl (Dulcolax) 10 mg HSPRN PRN RECTAL Constipation 08/25/19 00:15 09/24/19 00:14 Dextrose (Dextrose 50%) 25 ml Q30M PRN IV Hypoglycemia 08/25/19 00:15 09/24/19 00:14 Dextrose (Dextrose 50%) 50 ml Q30M PRN IV Hypoglycemia 08/25/19 00:15 09/24/19 00:14 Diphenhydramine HCl (Benadryl) 25 mg Q6H PRN ORAL Itching/Pruritis 08/25/19 00:15 09/24/19 00:14 Docusate Sodium (Colace) 100 mg EVERY 12 HOURS ORAL 08/25/19 09:00 09/24/19 08:59 Heparin Sodium (Porcine) (Heparin 5000 units/ml) 5,000 units EVERY 8 HOURS SUBQ 08/25/19 06:00 09/24/19 05:59 Hydromorphone HCl (Dilaudid) 0.5 mg Q4H PRN IVP Pain Scale (3-5) 08/25/19 00:15 09/01/19 00:14 Hydromorphone HCl (Dilaudid) 2 mg Q4H PRN IVP Severe Pain (Pain Scale 7-10) 08/25/19 11:34 09/01/19 11:33 08/25/19 15:42 Insulin Aspart (NovoLOG) BEFORE MEALS AND HS SUBQ 08/25/19 06:30 09/24/19 06:29 Lorazepam (Ativan 2mg/ml 1ml) 0.5 mg Q4H PRN IV For Anxiety 08/25/19 00:15 09/01/19 00:14 Magnesium Hydroxide (Mom) 30 ml HSPRN PRN ORAL Constipation 08/25/19 00:15 09/24/19 00:14 Meropenem 1 gm/ Sodium Chloride 55 ml @ 110 mls/hr Q8HR IVPB 08/25/19 14:00 08/30/19 13:59 08/25/19 13:43 Ondansetron HCl (Zofran) 4 mg Q6H PRN IVP Nausea & Vomiting 08/25/19 00:15 09/24/19 00:14 Polyethylene Glycol (Miralax) 17 gm HSPRN PRN ORAL Constipation 08/25/19 00:15 09/24/19 00:14 Sodium Chloride 1,000 ml @ 100 mls/hr Q10H IVLG 08/25/19 01:03 09/24/19 01:02 08/25/19 01:46 Temazepam (Restoril) 15 mg HSPRN PRN ORAL Insomnia 08/25/19 00:15 09/01/19 00:14 Vancomycin HCl (Vanco rx to dose) 1 ea DAILY PRN MISC Per rx protocol 08/25/19 00:15 09/24/19 00:14 Vancomycin HCl 750 mg/Dextrose 275 ml @ 183.333 mls/hr Q12H IVPB 08/25/19 10:00 08/30/19 09:59 08/25/19 09:47 Jose M Gonzales MD Aug 25, 2019 18:23
--- NOTE | 2019-08-25 19:19 | NUR ---
HAND-OFF: Report given to RUBEN Granados.
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
[2019-08-26 00:09] VITALS: BP 138/79
[2019-08-26 04:00] VITALS: BP 147/85
--- NOTE | 2019-08-26 04:20 | NUR ---
NURSE NOTES:reported from lani terrazas, blood cx 1 bottles, gram positive cocci in clusters, mk will call Dr Gonzales
[2019-08-26] MEDS: Meropenem 1 GM in NS 55 ML IVPB SCH ×3 (05:02→21:13)
[2019-08-26] MEDS: Heparin 5000 units/ml inj SUBQ SCH ×3 (06:00→22:00)
[2019-08-26] MEDS: NovoLOG Insulin Flexpen SUBQ SCH ×4 (06:05→21:00)
--- NOTE | 2019-08-26 07:00 | NUR ---
NURSE NOTES: HANDOFF RECEIVED FROM RUBEN LOCKWOOD. PATIENT RECEIVED AWAKE AND ALERT AND ABLE TO MAKE NEEDS KNOWN. PATIENT HAS LEFT HAND IV RUNNING PRESCRIBED FLUIDS, NO OBVIOUS SIGNS OF DISTRESS. PATIENT COMPLAINING OF 10/10 PAIN IN THE LOWER BACK, WILL GIVE PAIN MEDICATION WHEN AVAILABLE IN THE [facility]. BED IN THE LOW AND LOCKED POSITION, WHEELCHAIR AT BEDSIDE.
--- NOTE | 2019-08-26 07:19 | NUR ---
HAND-OFF: Report given to Aime Bhat RN.
[2019-08-26 08:00] VITALS: BP 110/81
[2019-08-26] MEDS: Docusate 100mg cap ORAL SCH ×2 (08:35→21:00)
[2019-08-26 09:12] LABS: BASOPHILS % (AUTO) 0.2 % (0.0-2.0); EOSINOPHILS % (AUTO) 0.9 % (0.0-3.0); HEMATOCRIT 28.1 % (42.0-52.0); HEMOGLOBIN 8.9 G/DL (14.2-18.0); MEAN CORPUSCULAR VOLUME 81 FL (80-99); MONOCYTES % (AUTO) 4.8 % (1.0-10.0); PLATELET COUNT 270 K/UL (150-450); RED BLOOD COUNT 3.46 M/UL (4.70-6.10); RED CELL DISTRIBUTION WIDTH 16.7 % (11.6-14.8); WHITE BLOOD COUNT 14.1 K/UL (4.8-10.8)
[2019-08-26 09:24] LABS: ANION GAP 7 mmol/L (5-15); BLOOD UREA NITROGEN 12 mg/dL (7-18); CARBON DIOXIDE 28 MMOL/L (21-32); CHLORIDE 101 MMOL/L (98-107); CREATININE 0.6 MG/DL (0.55-1.30); POTASSIUM 2.9 MMOL/L (3.5-5.1); SODIUM 136 MMOL/L (136-145)
[2019-08-26 09:36] LABS: INR 1.1 (0.9-1.1)
[2019-08-26] MEDS ORDERED: Vancomycin 1.25gm/NS Premix IVPB SCH (10:00)
--- NOTE | 2019-08-26 10:20 | NUR ---
NURSE NOTES: PATIENT LEFT THE FLOOR FOR DIAGNOSTIC EXAM.
--- NOTE | 2019-08-26 10:54 | Surgery Progress Note ---
Surgery Progress Note Subjective Additional Comments afebrile, HD stable, wbc improved ERS and CRP noted pending imaging Objective Last 24 Hour Vital Signs Date Time Temp Pulse Resp B/P (MAP) Pulse Ox O2 Delivery O2 Flow Rate FiO2 08/26/19 09:00 Room Air 08/26/19 08:00 97.0 87 14 110/81 (91) 99 08/26/19 04:16 98.7 08/26/19 04:00 98.6 81 18 147/85 (105) 97 08/26/19 00:09 98.7 85 18 138/79 (98) 98 08/25/19 20:18 Room Air 08/25/19 20:10 98.6 95 17 156/84 (108) 98 08/25/19 16:00 98.2 91 17 127/67 (87) 99 08/25/19 12:00 98.4 89 16 151/81 (104) 100 08/25/19 12:00 98.4 89 16 151/81 (104) 100 I&O Intake and Output 08/25/19 08/26/19 19:00 07:00 Intake Total 1000 ml 1085.000 ml Output Total 800 ml 700 ml Balance 200 ml 385.000 ml Intake Oral 1000 ml IV Total 1085.000 ml Output Urine Total 800 ml 700 ml # Bowel Movements 3 Wound: clean Cardiovascular: RSR Respiratory: clear Abdomen: soft, flat, non-tender, present bowel sounds Extremities: edema, no tenderness, no cyanosis, other Laboratory Tests Test 08/26/19 08:55 White Blood Count 14.1 K/UL (4.8-10.8) H Red Blood Count 3.46 M/UL (4.70-6.10) L Hemoglobin 8.9 G/DL (14.2-18.0) L Hematocrit 28.1 % (42.0-52.0) L Mean Corpuscular Volume 81 FL (80-99) Mean Corpuscular Hemoglobin 25.7 PG (27.0-31.0) L Mean Corpuscular Hemoglobin Concent 31.7 G/DL (32.0-36.0) L Red Cell Distribution Width 16.7 % (11.6-14.8) H Platelet Count 270 K/UL (150-450) Mean Platelet Volume 5.5 FL (6.5-10.1) L Neutrophils (%) (Auto) 84.0 % (45.0-75.0) H Lymphocytes (%) (Auto) 10.0 % (20.0-45.0) L Monocytes (%) (Auto) 4.8 % (1.0-10.0) Eosinophils (%) (Auto) 0.9 % (0.0-3.0) Basophils (%) (Auto) 0.2 % (0.0-2.0) Erythrocyte Sedimentation Rate 113 MM/HR (0-20) H Prothrombin Time 11.4 SEC (9.30-11.50) Prothromb Time International Ratio 1.1 (0.9-1.1) Activated Partial Thromboplast Time 39 SEC (23-33) H Sodium Level 136 MMOL/L (136-145) Potassium Level 2.9 MMOL/L (3.5-5.1) L Chloride Level 101 MMOL/L (98-107) Carbon Dioxide Level 28 MMOL/L (21-32) Anion Gap 7 mmol/L (5-15) Blood Urea Nitrogen 12 mg/dL (7-18) Creatinine 0.6 MG/DL (0.55-1.30) Estimat Glomerular Filtration Rate > 60 mL/min (>60) Glucose Level 123 MG/DL (74-106) H Calcium Level 8.0 MG/DL (8.5-10.1) L Magnesium Level 1.4 MG/DL (1.8-2.4) L C-Reactive Protein, Quantitative 38.6 mg/dL (0.00-0.90) H Vancomycin Level Trough 7.2 ug/mL (5.0-12.0) Plan Problems: (1) Cellulitis of right thigh Assessment & Plan: 58-year-old male with acute cellulitis of the right thigh and near hip. 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 At the level of the hip the femur is loose and question of underlying issues states his been like this for a while. On the left side he has a AKA which is otherwise stable. He has motor on the left side but no motor on the right given the above described abnormality. Plain films ordered of the right hip and lower extremity. No abscess palpable on examination at this time. Etiology of cellulitis unknown but no wound identified. Recommend IV antibiotics Await plain films May consider MRI we will follow clinically for now We will follow with serial exams and recommendations Thank you for allowing me to participate in patient's care (2) Stage 4 decubitus ulcer Assessment & Plan: Pt presented no admission with R BKA,L AKA.Full thickness pressure injury with undermining R ischium. Tolley granulation at base of wound .Bone is palpable. Edges adherent and flat. Erythema periwound. No odor noted Small amt serous exudate.(L)4.5cm x (W)6.5cm x (D)6.3cm, undermining clockwise 9 -1by 7.3cm @12o'clock. Multiple scarring noted to R trochanter,harvest graft site R thigh. No other skin concerns noted. Tx.plan: Cleanse wound with Saline. Loosely pack wound with Hydrogel impregnated Kerlix. Apply Cavilon periwound. Cover with Optifoam drsg Daily and prn. Apply Triad Paste to buttocks and groin with each incontinence care. Reposition at least every 2hours or as tolerated.(Encourage pt to frequently reposition self ). Baron Crouch Aug 26, 2019 10:54
--- NOTE | 2019-08-26 11:28 | NUR ---
NURSE NOTES: PATIENT RETURNED TO THE FLOOR.
[2019-08-26] MEDS: Vancomycin 1.25 GM in NS 275 ML IVPB SCH ×2 (11:35→21:58)
[2019-08-26 12:00] VITALS: BP 135/75
--- NOTE | 2019-08-26 12:02 | Diagnostic Imaging Report ---
Indication: Right hip pain Technique: 2 views of the right hip Comparison: none Findings: Patient is status post resection femoral head, neck, and proximal shaft. The resection margins of the residual femur appear clean. There is dysplasia of the acetabulum. There is marked thinning of the right ischium and lateral inferior pubic ramus. There are severe degenerative changes and proliferative changes of the left hip. Surgical clips are seen in the right upper pelvis. There are severe degenerative changes of the lumbosacral junction Impression: Evidence of prior right proximal femoral resection Abnormality of the right acetabulum, ischium, and lateral pubic ramus. Probably related to the above and probably chronic. However, acute erosive changes of the ischium and pubic ramus cannot be excluded. Consider MRI for better characterization if there is clinical suspicion for osteomyelitis Severe degenerative changes of the left hip Other findings as noted
--- NOTE | 2019-08-26 12:55 | Diagnostic Imaging Report ---
Indications: Pain Technique: Two views of the right femur Comparison: None Findings: The femoral head, neck, and proximal shaft have been resected. Patient is also status post amputation at the level of the knee joint. There appears to been resection of the medial epicondyles well. The resection margins of the distal bone are clean. The bones are osteoporotic. There are vascular calcifications. Impression: Posterior to changes, as described No acute bony trauma
--- NOTE | 2019-08-26 14:47 | NUR ---
P.T NOTE: P.T EVALUATION COMPLETED. PRESENT FUNCTIONAL STATUS DOES NOT WARRANT SKILLED P.T SERVICES PATIENT IS CURRENTLY AT BASELINE FUNCTION AT W/C LEVEL. D/C P.T SERVICES. Addendum: 08/26/19 at 1448 by LONNIE MOORE PT Amended: Links added.
--- NOTE | 2019-08-26 15:53 | NUR ---
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 97.0 HR 87 RR 14 B/P 110/87 RA 98% WBC 14.1 ESR 113 K 2.9 MG 1.4 IS: VANCO IV MEROPENEM IV MG IV IVF NS @ 100ML/HR MED/SURG
[2019-08-26 16:00] VITALS: BP 138/71
[2019-08-26] MEDS ORDERED: Tubing IV Secondary IV ONE ×2 (17:22)
[2019-08-26] MEDS: Lisinopril 10mg tab ORAL SCH (18:46)
--- NOTE | 2019-08-26 19:17 | NUR ---
HAND-OFF: Report given to RUBEN LOCKWOOD.
--- NOTE | 2019-08-26 19:45 | NUR ---
NURSE NOTES: received patient awake,alert,verbal,resting in bed complaining that his Percocet medication is not relieving his pain.Left message to attending MD regarding this matter.
[2019-08-26 20:00] VITALS: BP 150/82
[2019-08-26] MEDS ORDERED: Hydromorphone 0.5mg/0.5ml inj IVP PRN (20:15)
[2019-08-26] MEDS: Atorvastatin 20mg tab ORAL SCH (21:13)
[2019-08-26] MEDS: HYDROmorphone 1mg/ml Carpuject IVP PRN (21:58)
--- NOTE | 2019-08-26 22:06 | General Progress Note ---
Assessment/Plan Problem List: (1) Chronic pain ICD Codes: G89.29 - Other chronic pain SNOMED: 94294065 Qualifiers: Qualified Codes: G89.4 - Chronic pain syndrome (2) Cellulitis of right thigh ICD Codes: L03.115 - Cellulitis of right lower limb SNOMED: 39500905171728018 (3) Anemia ICD Codes: D64.9 - Anemia, unspecified SNOMED: 373366753 Qualifiers: Qualified Codes: D64.9 - Anemia, unspecified (4) Sepsis ICD Codes: A41.9 - Sepsis, unspecified organism SNOMED: 98135642 Qualifiers: Qualified Codes: A41.9 - Sepsis, unspecified organism (5) UTI (urinary tract infection) ICD Codes: N39.0 - Urinary tract infection, site not specified SNOMED: 32586076 Qualifiers: Qualified Codes: N30.00 - Acute cystitis without hematuria (6) Cellulitis ICD Codes: L03.90 - Cellulitis, unspecified SNOMED: 519108774 (7) Stage 4 decubitus ulcer ICD Codes: L89.94 - Pressure ulcer of unspecified site, stage 4 SNOMED: 723068724 (8) Severe protein-calorie malnutrition ICD Codes: E43 - Unspecified severe protein-calorie malnutrition SNOMED: 856498701, 072556505, 364232948 (9) UTI due to extended-spectrum beta lactamase (ESBL) producing Escherichia coli ICD Codes: N39.0 - Urinary tract infection, site not specified; B96.29 - Other Escherichia coli [E. coli] as the cause of diseases classified elsewhere; Z16.12 - Extended spectrum beta lactamase (ESBL) resistance SNOMED: 061898677, 611460944 Status: stable Assessment/Plan: 58 year old male with R BKA, L AKA and history of ESBL UTI, now with sepsis secondary to right lower extremity cellulitis vs. UTI. Also has stage 4 decubitus ulcer. doubt infected. #Sepsis secondary to right thigh/hip cellulitis, doubt necrotizing fascitis ( suspect possible osteomyelitis?) vs ESBL UTI - Improving #gram positive cocci bacteremia > 10/1 ESR 113, CRP 38.6 - Continue Vancomycin and Merrem - Appreciate ID consult: Dr. Hawk- Follow up repeat blood cultures, continue antibiotics - Appreciate surgery consult: Dr. Benyamini- Follow up on x-ray femur. Elevated ESR and CRp. Consider MRI # stage 4 decubitus. Doubt the source. Surgical consult. wound care #suprapubic catheter - last changed 2 months ago - will ask urology to exchange if possible #.history of paraplegia #Chronic pain. - Pain control: percocet 5mg/325 Q6hr PRN moderate, Percocet 10mg PO q6hr PRn severe # COPD Duonebs PRN # CAD #HTN ASA, Atorvastatin, -Continue decreased dose of lisinopril 10mg PO daily - holding metoprolol due to borderline BP # h/o Left AKA, right BKA # Severe iron deficiency anemia- on PO iron at [facility]. - holding for now due to presence of infection Discussed wt RN and patient. I spent 33 minutes during this encounter. > 50% spent on counselling and care coordination. I spent an additional 35 minutes reviewing medical records including labs, prior notes, imaging, consultants notes. Subjective Date patient seen: Aug 26, 2019 Constitutional: Denies: no symptoms, chills, diaphoresis, fever, malaise, weakness, other HEENT: Denies: eye pain, blurred vision, tearing, double vision, ear pain, ear discharge, nose pain, nose congestion, throat pain, throat swelling, mouth pain , mouth swelling, other Cardiovascular: Denies: chest pain, edema, irregular heart rate, lightheadedness, palpitations, syncope, other Respiratory: Denies: cough, orthopnea, shortness of breath, SOB with excertion , SOB at rest, sputum, stridor, wheezing, other Gastrointestinal/Abdominal: Denies: abdomen distended, abdominal pain, black stools, tarry stools, blood in stool, constipated, diarrhea, difficulty swallowing, nausea, poor appetite, poor fluid intake, rectal bleeding, vomiting , other Genitourinary: Denies: burning, discharge, frequency, flank pain, hematuria, incontinence, pain, urgency, other Neurologic/Psychiatric: Denies: anxiety, depressed, emotional problems, headache, numbness, paresthesia, pre-existing deficit, seizure, tingling, tremors, weakness, other Endocrine: Denies: excessive sweating, flushing, intolerance to cold, intolerance to heat, increased hunger, increased thirst, increased urine, unexplained weight gain, unexplained weight loss, other Hematologic/Lymphatic: Denies: anemia, easy bleeding, easy bruising, other Allergies: Coded Allergies: No Known Allergies (Unverified , 08/02/19) Subjective No acute events overnight. Vitals stable. Right leg cellulitis: patient has no feeling. Unable to state if has pain. Believes redness has improved. No more fevers. Pending repeat right femur x ray today Objective Last 24 Hour Vital Signs Date Time Temp Pulse Resp B/P (MAP) Pulse Ox O2 Delivery O2 Flow Rate FiO2 08/26/19 20:05 Room Air 08/26/19 20:00 97.6 85 20 150/82 (104) 99 08/26/19 19:30 97.5 08/26/19 18:46 138/71 08/26/19 16:00 97.5 77 17 138/71 (93) 97 08/26/19 12:00 98.7 79 17 135/75 (95) 98 08/26/19 09:00 Room Air 08/26/19 08:00 97.0 87 14 110/81 (91) 99 08/26/19 04:16 98.7 08/26/19 04:00 98.6 81 18 147/85 (105) 97 08/26/19 00:09 98.7 85 18 138/79 (98) 98 Intake and Output 08/25/19 08/26/19 19:00 07:00 Intake Total 1000 ml 1085.000 ml Output Total 800 ml 700 ml Balance 200 ml 385.000 ml Intake Oral 1000 ml IV Total 1085.000 ml Output Urine Total 800 ml 700 ml # Bowel Movements 3 Laboratory Tests 08/26/19 08:55: White Blood Count 14.1H, Red Blood Count 3.46L, Hemoglobin 8.9L, Hematocrit 28.1L, Mean Corpuscular Volume 81, Mean Corpuscular Hemoglobin 25.7L, Mean Corpuscular Hemoglobin Concent 31.7L, Red Cell Distribution Width 16.7H, Platelet Count 270, Mean Platelet Volume 5.5L, Neutrophils (%) (Auto) 84.0H, Lymphocytes (%) (Auto) 10.0L, Monocytes (%) (Auto) 4.8, Eosinophils (%) (Auto) 0.9, Basophils (%) (Auto) 0.2, Erythrocyte Sedimentation Rate 113H, Prothrombin Time 11.4, Prothromb Time International Ratio 1.1, Activated Partial Thromboplast Time 39H, Sodium Level 136, Potassium Level 2.9L, Chloride Level 101, Carbon Dioxide Level 28, Anion Gap 7, Blood Urea Nitrogen 12, Creatinine 0.6, Estimat Glomerular Filtration Rate > 60, Glucose Level 123H, Calcium Level 8.0L, Magnesium Level 1.4L, C-Reactive Protein, Quantitative 38.6H, Vancomycin Level Trough 7.2 MICRO Blood culture 08/24/19: Gram + cocci Height (Feet): 5 Height (Inches): 4.00 Weight (Pounds): 150 General Appearance: WD/WN, no apparent distress, alert EENT: PERRL/EOMI, normal ENT inspection Neck: non-tender, normal alignment, supple Cardiovascular: normal peripheral pulses, normal rate, regular rhythm Respiratory/Chest: chest wall non-tender, lungs clear, normal breath sounds Abdomen: normal bowel sounds, non tender, soft Extremities: other - Bilateral AKA. Right thigh with erythema, warmth surrounding entire lateral side. no fluctuance or crepitus. No mass identified. 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 Aug 26, 2019 22:06
[2019-08-27] VITALS: BP 140/77
[2019-08-27] MEDS: HYDROmorphone 1mg/ml Carpuject IVP PRN ×6 (02:00→21:59)
[2019-08-27 04:00] VITALS: BP 146/78
[2019-08-27 05:56] LABS: BASOPHILS % (AUTO) 0.3 % (0.0-2.0); EOSINOPHILS % (AUTO) 1.3 % (0.0-3.0); HEMOGLOBIN 9.8 G/DL (14.2-18.0); LYMPHOCYTES % (AUTO) 17.6 % (20.0-45.0); MEAN CORPUSCULAR VOLUME 82 FL (80-99); MONOCYTES % (AUTO) 3.9 % (1.0-10.0); NEUTROPHILS % (AUTO) 76.8 % (45.0-75.0); PLATELET COUNT 277 K/UL (150-450); RED BLOOD COUNT 3.76 M/UL (4.70-6.10); RED CELL DISTRIBUTION WIDTH 16.5 % (11.6-14.8); WHITE BLOOD COUNT 13.1 K/UL (4.8-10.8)
[2019-08-27] MEDS: Heparin 5000 units/ml inj SUBQ SCH ×3 (05:59→21:45)
[2019-08-27] MEDS: Meropenem 1 GM in NS 55 ML IVPB SCH ×3 (05:59→21:59)
[2019-08-27] MEDS: NovoLOG Insulin Flexpen SUBQ SCH ×4 (05:59→20:16)
[2019-08-27 06:08] LABS: ANION GAP 9 mmol/L (5-15); BLOOD UREA NITROGEN 8 mg/dL (7-18); CALCIUM 7.9 MG/DL (8.5-10.1); CARBON DIOXIDE 26 MMOL/L (21-32); CHLORIDE 104 MMOL/L (98-107); CREATININE 0.6 MG/DL (0.55-1.30); PHOSPHORUS 1.9 MG/DL (2.5-4.9); POTASSIUM 3.3 MMOL/L (3.5-5.1); SODIUM 139 MMOL/L (136-145)
--- NOTE | 2019-08-27 07:13 | NUR ---
HAND-OFF: Report given to Aime Bhat RN.
--- NOTE | 2019-08-27 07:19 | NUR ---
NURSE NOTES: HANDOFF RECEIVED FROM RUBEN LOCKWOOD. PATIENT AWAKE AND ALERT AND ABLE TO MAKE NEEDS KNOWN. IV SITE IS CLEAN DRY AND INTACT AND RUNNING NS@100. BED IN THE LOW AND LOCKED POSITION, CALL LIGHT WITHIN REACH. WHEELCHAIR AT BEDSIDE. WILL CONTINUE TO MONITOR PATIENT.
[2019-08-27 08:00] VITALS: BP 135/72
[2019-08-27] MEDS: Lisinopril 10mg tab ORAL SCH (08:16)
[2019-08-27] MEDS: Docusate 100mg cap ORAL SCH ×2 (08:17→20:15)
[2019-08-27] MEDS ORDERED: Sodium Phosphate 30 MM in NS 275 ML IVPB ONE (10:00)
--- NOTE | 2019-08-27 10:45 | NUR ---
RD ASSESSMENT & RECOMMENDATIONS SEE CARE ACTIVITY FOR COMPLETE ASSESSMENT DAILY ESTIMATED NEEDS: Needs based on Stage 4 wound, bed bound/ 67kg 25-35 kcals/kg 1873-1682 total kcals 1.5-2.0 g protein/kg 101-134 g total protein 25-30 mL/kg 1465-9042 total fluid mLs NUTRITION DIAGNOSIS: Increased kcal/prot/micronutrients needs R/T wound healing as evidenced by pt admitted w/ sacral stage 4 wound. [facility] DI[facility] RECOMMENDATIONS: REGULAR, DOUBLE PROTEIN PORTIONS ADDITIONAL RECOMMENDATIONS: * Snacks in b/w meals + Glucerna daily w/ current [facility] diet * Wound healing: add MVI w/ mineral 1 tab qdaily + ZnSO4 220mg QD x 10 days + Chay 1pkt BID -> pt refused + Vit C 500mg BID * Monitor lytes, replete as needed (low Mag, K) * A1C for eval/ pt denies h/o DM and refusing accuchecks
[2019-08-27] MEDS: Vancomycin 1.25 GM in NS 275 ML IVPB SCH ×2 (10:56→23:00)
[2019-08-27 12:00] VITALS: BP 137/64
--- NOTE | 2019-08-27 15:22 | NUR ---
*-* INSURANCE *-* ALL AVAILABLE CLINICALS AND REVIEWS HAVE BEEN FAXED TO: [facility]: MAX P- [phone] F- [phone]....REVIEW/CLINICAL
--- NOTE | 2019-08-27 16:26 | General Progress Note ---
Assessment/Plan Problem List: (1) Chronic pain ICD Codes: G89.29 - Other chronic pain SNOMED: 39464181 Qualifiers: Qualified Codes: G89.4 - Chronic pain syndrome (2) Cellulitis of right thigh ICD Codes: L03.115 - Cellulitis of right lower limb SNOMED: 40941797193311374 (3) Anemia ICD Codes: D64.9 - Anemia, unspecified SNOMED: 500421300 Qualifiers: Qualified Codes: D64.9 - Anemia, unspecified (4) Sepsis ICD Codes: A41.9 - Sepsis, unspecified organism SNOMED: 97571105 Qualifiers: Qualified Codes: A41.9 - Sepsis, unspecified organism (5) UTI (urinary tract infection) ICD Codes: N39.0 - Urinary tract infection, site not specified SNOMED: 01860998 Qualifiers: Qualified Codes: N30.00 - Acute cystitis without hematuria (6) Cellulitis ICD Codes: L03.90 - Cellulitis, unspecified SNOMED: 541251647 (7) Stage 4 decubitus ulcer ICD Codes: L89.94 - Pressure ulcer of unspecified site, stage 4 SNOMED: 108074507 (8) Severe protein-calorie malnutrition ICD Codes: E43 - Unspecified severe protein-calorie malnutrition SNOMED: 897237611, 497296079, 313917273 (9) UTI due to extended-spectrum beta lactamase (ESBL) producing Escherichia coli ICD Codes: N39.0 - Urinary tract infection, site not specified; B96.29 - Other Escherichia coli [E. coli] as the cause of diseases classified elsewhere; Z16.12 - Extended spectrum beta lactamase (ESBL) resistance SNOMED: 798988412, 599684264 Status: stable Assessment/Plan: 58 year old male with R BKA, L AKA and history of ESBL UTI, now with sepsis secondary to right lower extremity cellulitis vs. UTI. Also has stage 4 decubitus ulcer. doubt infected. #Sepsis secondary to right thigh/hip cellulitis, doubt necrotizing fascitis ( suspect possible osteomyelitis?) vs ESBL UTI - Improving #gram positive cocci bacteremia- Coag Negative Staph: likely contaminant per ID > 10/1 ESR 113, CRP 38.6 - Continue Vancomycin and Merrem - Appreciate ID consult: Dr. Hawk- Follow up repeat blood cultures, continue antibiotics- Recommending MRI given elevated ESR/CRP - Appreciate surgery consult: Dr. Crouch- Follow up on x-ray femur. Elevated ESR and CRp. Agrees with MRI # stage 4 decubitus. Doubt the source. Surgical consult. wound care #suprapubic catheter - last changed 2 months ago - Urology: Dr. Barriga to replace - send UA and culture #.history of paraplegia #Chronic pain. - Pain control: percocet 5mg/325 Q6hr PRN moderate, Percocet 10mg PO q6hr PRn severe # COPD Duonebs PRN # CAD #HTN ASA, Atorvastatin, -Continue decreased dose of lisinopril 10mg PO daily - holding metoprolol due to borderline BP # h/o Left AKA, right BKA # Severe iron deficiency anemia- on PO iron at [facility]. - holding for now due to presence of infection Discussed wt RN, patient, general surgery and infectious disease. I spent 37 minutes during this encounter. > 50% spent on counselling and care coordination. Time of note may not reflect time patient was seen Subjective Constitutional: Denies: chills, diaphoresis, fever, malaise, weakness, other HEENT: Denies: eye pain, blurred vision, tearing, double vision, ear pain, ear discharge, nose pain, nose congestion, throat pain, throat swelling, mouth pain , mouth swelling, other Cardiovascular: Denies: chest pain, edema, irregular heart rate, lightheadedness, palpitations, syncope, other Respiratory: Denies: no symptoms, cough, orthopnea, shortness of breath, SOB with excertion, SOB at rest, sputum, stridor, wheezing, other Gastrointestinal/Abdominal: Denies: abdomen distended, abdominal pain, black stools, tarry stools, blood in stool, constipated, diarrhea, difficulty swallowing, nausea, poor appetite, poor fluid intake, rectal bleeding, vomiting , other Genitourinary: Denies: burning, discharge, frequency, flank pain, hematuria, incontinence, pain, urgency, other Neurologic/Psychiatric: Denies: anxiety, depressed, emotional problems, headache, numbness, paresthesia, pre-existing deficit, seizure, tingling, tremors, weakness, other Endocrine: Denies: excessive sweating, flushing, intolerance to cold, intolerance to heat, increased hunger, increased thirst, increased urine, unexplained weight gain, unexplained weight loss, other Hematologic/Lymphatic: Denies: anemia, easy bleeding, easy bruising, other Allergies: Coded Allergies: No Known Allergies (Unverified , 08/02/19) Subjective No acute events overnight per nursing. Vitals stable. Right leg cellulitis: patient still has pain at the hip area. Constant, sharp, 8 /10. Believes redness has improved. No more fevers. Objective Last 24 Hour Vital Signs Date Time Temp Pulse Resp B/P (MAP) Pulse Ox O2 Delivery O2 Flow Rate FiO2 08/27/19 12:00 97.2 64 14 137/64 (88) 98 08/27/19 08:23 Room Air 08/27/19 08:16 135/72 08/27/19 08:00 97.5 76 14 135/72 (93) 98 08/27/19 06:30 97.7 08/27/19 04:00 98.0 71 18 146/78 (100) 99 08/27/19 00:00 97.7 82 20 140/77 (98) 97 08/26/19 20:05 Room Air 08/26/19 20:00 97.6 85 20 150/82 (104) 99 08/26/19 19:30 97.5 08/26/19 18:46 138/71 Intake and Output 08/26/19 08/27/19 19:00 07:00 Intake Total 480 ml 2005.000 ml Output Total 750 ml 1500 ml Balance -270 ml 505.000 ml Intake Oral 480 ml 770 ml IV Total 1235.000 ml Output Urine Total 750 ml 1500 ml # Voids 2 Laboratory Tests 08/27/19 05:37: White Blood Count 13.1H, Red Blood Count 3.76L, Hemoglobin 9.8L, Hematocrit 31.0L, Mean Corpuscular Volume 82, Mean Corpuscular Hemoglobin 25.9L, Mean Corpuscular Hemoglobin Concent 31.4L, Red Cell Distribution Width 16.5H, Platelet Count 277, Mean Platelet Volume 5.8L, Neutrophils (%) (Auto) 76.8H, Lymphocytes (%) (Auto) 17.6L, Monocytes (%) (Auto) 3.9, Eosinophils (%) (Auto) 1.3, Basophils (%) (Auto) 0.3, Sodium Level 139, Potassium Level 3.3L, Chloride Level 104, Carbon Dioxide Level 26, Anion Gap 9, Blood Urea Nitrogen 8, Creatinine 0.6, Estimat Glomerular Filtration Rate > 60, Glucose Level 96, Calcium Level 7.9L, Phosphorus Level 1.9L, Magnesium Level 1.9 Height (Feet): 5 Height (Inches): 4.00 Weight (Pounds): 152 General Appearance: WD/WN, no apparent distress, alert EENT: PERRL/EOMI, normal ENT inspection Neck: non-tender, normal alignment Cardiovascular: normal peripheral pulses, normal rate, regular rhythm, no JVD Respiratory/Chest: chest wall non-tender, lungs clear, normal breath sounds Abdomen: normal bowel sounds, non tender, soft, no mass Extremities: other - bilateral AKA. Right thigh with patchy erythema and warmth (improved), still TTP Edema: other - no LE edema bilaterally Skin: normal pigmentation, warm/dry Jarvis Hall D.O. Aug 27, 2019 16:26
[2019-08-27 16:30] VITALS: BP 141/84
--- NOTE | 2019-08-27 19:04 | NUR ---
HAND-OFF: Report given to RUBEN LOCKWOOD.
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
--- NOTE | 2019-08-27 19:40 | NUR ---
NURSE NOTES: Received patient awake,alert,verbal,resting in bed watching television.
[2019-08-27 20:00] VITALS: BP 143/72
--- NOTE | 2019-08-27 20:03 | Surgery Progress Note ---
Surgery Progress Note Subjective Additional Comments labs noted exam stable pending MRI plain films noted Objective Last 24 Hour Vital Signs Date Time Temp Pulse Resp B/P (MAP) Pulse Ox O2 Delivery O2 Flow Rate FiO2 08/27/19 16:30 97.6 76 17 141/84 (103) 96 08/27/19 12:00 97.2 64 14 137/64 (88) 98 08/27/19 08:23 Room Air 08/27/19 08:16 135/72 08/27/19 08:00 97.5 76 14 135/72 (93) 98 08/27/19 06:30 97.7 08/27/19 04:00 98.0 71 18 146/78 (100) 99 08/27/19 00:00 97.7 82 20 140/77 (98) 97 08/26/19 20:05 Room Air I&O Intake and Output 08/26/19 08/27/19 19:00 07:00 Intake Total 480 ml 2005.000 ml Output Total 750 ml 1500 ml Balance -270 ml 505.000 ml Intake Oral 480 ml 770 ml IV Total 1235.000 ml Output Urine Total 750 ml 1500 ml # Voids 2 Cardiovascular: RSR Respiratory: clear Abdomen: soft, non-tender, present bowel sounds Extremities: other Laboratory Tests Test 08/27/19 05:37 White Blood Count 13.1 K/UL (4.8-10.8) H Red Blood Count 3.76 M/UL (4.70-6.10) L Hemoglobin 9.8 G/DL (14.2-18.0) L Hematocrit 31.0 % (42.0-52.0) L Mean Corpuscular Volume 82 FL (80-99) Mean Corpuscular Hemoglobin 25.9 PG (27.0-31.0) L Mean Corpuscular Hemoglobin Concent 31.4 G/DL (32.0-36.0) L Red Cell Distribution Width 16.5 % (11.6-14.8) H Platelet Count 277 K/UL (150-450) Mean Platelet Volume 5.8 FL (6.5-10.1) L Neutrophils (%) (Auto) 76.8 % (45.0-75.0) H Lymphocytes (%) (Auto) 17.6 % (20.0-45.0) L Monocytes (%) (Auto) 3.9 % (1.0-10.0) Eosinophils (%) (Auto) 1.3 % (0.0-3.0) Basophils (%) (Auto) 0.3 % (0.0-2.0) Sodium Level 139 MMOL/L (136-145) Potassium Level 3.3 MMOL/L (3.5-5.1) L Chloride Level 104 MMOL/L (98-107) Carbon Dioxide Level 26 MMOL/L (21-32) Anion Gap 9 mmol/L (5-15) Blood Urea Nitrogen 8 mg/dL (7-18) Creatinine 0.6 MG/DL (0.55-1.30) Estimat Glomerular Filtration Rate > 60 mL/min (>60) Glucose Level 96 MG/DL (74-106) Calcium Level 7.9 MG/DL (8.5-10.1) L Phosphorus Level 1.9 MG/DL (2.5-4.9) L Magnesium Level 1.9 MG/DL (1.8-2.4) Plan Problems: (1) Cellulitis of right thigh Assessment & Plan: 58-year-old male with acute cellulitis of the right thigh and near hip. 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 At the level of the hip the femur is loose and question of underlying issues states his been like this for a while. On the left side he has a AKA which is otherwise stable. He has motor on the left side but no motor on the right given the above described abnormality. Plain films ordered of the right hip and lower extremity. No abscess palpable on examination at this time. Etiology of cellulitis unknown but no wound identified. Recommend IV antibiotics May consider MRI we will follow clinically for now We will follow with serial exams and recommendations Evidence of prior right proximal femoral resection Abnormality of the right acetabulum, ischium, and lateral pubic ramus. Probably related to the above and probably chronic. However, acute erosive changes of the ischium and pubic ramus cannot be excluded. Consider MRI for better characterization if there is clinical suspicion for osteomyelitis Severe degenerative changes of the left hip Other findings as noted Thank you for allowing me to participate in patient's care (2) Stage 4 decubitus ulcer Assessment & Plan: Pt presented no admission with R BKA,L AKA.Full thickness pressure injury with undermining R ischium. Pinole granulation at base of wound .Bone is palpable. Edges adherent and flat. Erythema periwound. No odor noted Small amt serous exudate.(L)4.5cm x (W)6.5cm x (D)6.3cm, undermining clockwise 9 -1by 7.3cm @12o'clock. Multiple scarring noted to R trochanter,harvest graft site R thigh. No other skin concerns noted. Tx.plan: Cleanse wound with Saline. Loosely pack wound with Hydrogel impregnated Kerlix. Apply Cavilon periwound. Cover with Optifoam drsg Daily and prn. Apply Triad Paste to buttocks and groin with each incontinence care. Reposition at least every 2hours or as tolerated.(Encourage pt to frequently reposition self ). Baron Crouch Aug 27, 2019 20:03
[2019-08-27] MEDS: Atorvastatin 20mg tab ORAL SCH (20:15)
[2019-08-28 00:08] VITALS: BP 129/59
[2019-08-28] MEDS: HYDROmorphone 1mg/ml Carpuject IVP PRN ×5 (02:34→20:27)
[2019-08-28 02:56] LABS: BILIRUBIN, URINE NEGATIVE (NEGATIVE); COLOR,URINE PALE YELLOW; GLUCOSE, URINE (UA) NEGATIVE (NEGATIVE); KETONES,URINE 1+ (NEGATIVE); LEUKOCYTE ESTERASE ,URINE 2+ (NEGATIVE); NITRITE,URINE POSITIVE (NEGATIVE); PH,URINE 7 (4.5-8.0); PROTEIN,URINE 1+ (NEGATIVE); UROBILINOGEN,URINE NORMAL MG/DL (0.0-1.0)
[2019-08-28 03:04] LABS: APPEARANCE,URINE SLIGHTLY CLOUDY
[2019-08-28 04:10] VITALS: BP 115/55
[2019-08-28] MEDS: Meropenem 1 GM in NS 55 ML IVPB SCH ×3 (05:21→22:41)
[2019-08-28] MEDS: Heparin 5000 units/ml inj SUBQ SCH ×3 (06:00→22:00)
[2019-08-28] MEDS: NovoLOG Insulin Flexpen SUBQ SCH ×4 (06:07→20:29)
--- NOTE | 2019-08-28 07:00 | Consultation ---
DATE OF CONSULTATION: 08/27/2019 CONSULTING PHYSICIAN: Reji Barriga M.D. REFERRING PHYSICIAN: . REASON FOR CONSULTATION: Evaluation of suprapubic tube. HISTORY OF PRESENT ILLNESS: This is a 58-year-old male who was admitted to the emergency room because of osteomyelitis and weakness. He has had bacteremia. He has a chronic suprapubic tube. Urology evaluation is requested for exchange of the tube. PAST MEDICAL HISTORY: In chart as noted. MEDICATIONS: His medication list was noted. ALLERGIES: No known drug allergies. PHYSICAL EXAMINATION: VITAL SIGNS: Temperature is , blood pressure 143/73. ABDOMEN: Soft . LABORATORY STUDIES: White count 13.1 and hemoglobin 9.8. BUN is 8 and creatinine 0.6. UA showed bacteria and yeast, positive for protein. Blood culture, Staph species. Coag-negative. DIAGNOSTIC IMAGING STUDIES: . IMPRESSION: 1. Urinary retention history with suprapubic tube. 2. neurogenic bladder. 3. Hematuria. 4. Pyuria and probably colonized. 5. Proteinuria. PLAN AND DISCUSSION: The patient is to continue antibiotics as ordered. We will plan to change the suprapubic tube during this admission. Try to get his old records if possible. Thank you for this consultation. Reji Barriga M.D. DR: CLEM JOB#: [id number] CC:
--- NOTE | 2019-08-28 07:32 | NUR ---
HAND-OFF: Report given to Mayelin Crane RN.
--- NOTE | 2019-08-28 07:50 | NUR ---
NURSE NOTES: Patient alert x4; on room air, no sing of distress and shortness of breath; no sing of chest pain; IV LFA 24G NS 100cc running; Supra-Cath changed by MD Barriga at the bed side drains yellow urine; patient Right BKA and Left AKA; patient's own wheel chair at the bed side; bed at lowest position, side rails up x2, breaks engaged. call light within reach; will keep monitoring.
--- NOTE | 2019-08-28 07:54 | Urology Progress Note ---
Assessment/Plan Status: stable Assessment/Plan: 1. Urinary retention history with suprapubic tube. 2. Probable neurogenic bladder. 3. Hematuria. 4. Pyuria and probably colonized. 5. Proteinuria. old SP tube removed I personally placed new 26f cath hand irrigated and position is satisfactory abx as ordered f/u on last blood cx consider renal imaging Subjective Allergies: Coded Allergies: No Known Allergies (Unverified , 08/02/19) Subjective all noted, feels fair Objective Last 24 Hour Vital Signs Date Time Temp Pulse Resp B/P (MAP) Pulse Ox O2 Delivery O2 Flow Rate FiO2 08/28/19 07:04 97.8 08/28/19 04:10 97.8 65 18 115/55 (75) 96 08/28/19 01:12 97.7 08/28/19 00:08 97.7 81 20 129/59 (82) 99 08/27/19 20:51 Room Air 08/27/19 20:00 97.2 72 17 143/72 (95) 97 08/27/19 16:30 97.6 76 17 141/84 (103) 96 08/27/19 12:00 97.2 64 14 137/64 (88) 98 08/27/19 08:23 Room Air 08/27/19 08:16 135/72 08/27/19 08:00 97.5 76 14 135/72 (93) 98 Intake and Output 08/27/19 08/28/19 18:59 06:59 Intake Total 1335.000 ml Output Total 900 ml 800 ml Balance -900 ml 535.000 ml IV Total 1335.000 ml Output Urine Total 900 ml 800 ml # Voids 1 2 # Bowel Movements 1 Microbiology Date/Time Source Procedure Growth Status 08/26/19 14:15 Blood Blood Culture - Preliminary NO GROWTH AFTER 24 HOURS Resulted 08/25/19 00:15 Nasal Nares MRSA Culture - Final Staphylococcus Aureus - Mrsa Complete 08/27/19 18:20 Stool Clostridium difficile Toxin Assay - Final Complete 08/25/19 00:15 Rectum VRE Culture - Final Enterococcus Faecium - Vre Complete Current Medications Medications (Trade) Dose Ordered Sig/Nayely Route PRN Reason Start Time Stop Time Status Last Admin Dose Admin Acetaminophen (Tylenol) 650 mg Q4H PRN ORAL fever 08/25/19 00:15 09/24/19 00:14 08/25/19 01:41 Acetaminophen (Tylenol) 650 mg Q4H PRN ORAL Mild Pain (Pain Scale 1-3) 08/25/19 00:15 09/24/19 00:14 Al Hydroxide/Mg Hydroxide (Mylanta II) 30 ml Q6H PRN ORAL dyspepsia 08/25/19 00:15 09/24/19 00:14 Albuterol/ Ipratropium (Albuterol/ Ipratropium) 3 ml Q6H PRN HHN Shortness of Breath 08/25/19 00:15 08/30/19 00:14 Atorvastatin Calcium (Lipitor) 20 mg BEDTIME ORAL 08/26/19 21:00 09/25/19 20:59 08/27/19 20:15 Bisacodyl (Dulcolax) 10 mg HSPRN PRN RECTAL Constipation 08/25/19 00:15 09/24/19 00:14 Dextrose (Dextrose 50%) 25 ml Q30M PRN IV Hypoglycemia 08/25/19 00:15 09/24/19 00:14 Dextrose (Dextrose 50%) 50 ml Q30M PRN IV Hypoglycemia 08/25/19 00:15 09/24/19 00:14 Diphenhydramine HCl (Benadryl) 25 mg Q6H PRN ORAL Itching/Pruritis 08/25/19 00:15 09/24/19 00:14 Docusate Sodium (Colace) 100 mg EVERY 12 HOURS ORAL 08/25/19 09:00 09/24/19 08:59 08/26/19 08:35 Heparin Sodium (Porcine) (Heparin 5000 units/ml) 5,000 units EVERY 8 HOURS SUBQ 08/25/19 06:00 09/24/19 05:59 Hydromorphone HCl (Dilaudid) 1 mg Q4H PRN IVP Severe Breakthru Pain (>7) 08/26/19 20:33 09/02/19 20:32 08/28/19 06:34 Insulin Aspart (NovoLOG) BEFORE MEALS AND HS SUBQ 08/25/19 06:30 09/24/19 06:29 Lisinopril (Zestril) 10 mg DAILY ORAL 08/26/19 18:22 09/25/19 18:21 08/27/19 08:16 Lorazepam (Ativan 2mg/ml 1ml) 0.5 mg Q4H PRN IV For Anxiety 08/25/19 00:15 09/01/19 00:14 Magnesium Hydroxide (Mom) 30 ml HSPRN PRN ORAL Constipation 08/25/19 00:15 09/24/19 00:14 Meropenem 1 gm/ Sodium Chloride 55 ml @ 110 mls/hr Q8HR IVPB 08/25/19 14:00 08/30/19 13:59 08/28/19 05:21 Ondansetron HCl (Zofran) 4 mg Q6H PRN IVP Nausea & Vomiting 08/25/19 00:15 09/24/19 00:14 Oxycodone/ Acetaminophen (Percocet 10/325) 1 tab Q4H PRN ORAL Severe Pain (Pain Scale 7-10) 08/26/19 18:15 09/02/19 18:14 08/28/19 00:42 Oxycodone/ Acetaminophen (Percocet 5-325) 1 tab Q4H PRN ORAL Moderate Pain (Pain Scale 4-6) 08/26/19 18:15 09/02/19 18:14 Polyethylene Glycol (Miralax) 17 gm HSPRN PRN ORAL Constipation 08/25/19 00:15 09/24/19 00:14 Sodium Chloride 1,000 ml @ 100 mls/hr Q10H IVLG 08/25/19 01:03 09/24/19 01:02 08/27/19 20:16 Temazepam (Restoril) 15 mg HSPRN PRN ORAL Insomnia 08/25/19 00:15 09/01/19 00:14 08/27/19 22:59 Vancomycin HCl (Vanco rx to dose) 1 ea DAILY PRN MISC Per rx protocol 08/25/19 00:15 09/24/19 00:14 Vancomycin HCl 1.25 gm/Sodium Chloride 275 ml @ 183.333 mls/hr Q12H IVPB 08/26/19 11:00 08/31/19 10:59 08/27/19 23:00 Laboratory Tests 08/27/19 21:55: Vancomycin Level Trough 13.8H 08/28/19 02:45: Urine Color Pale yellow, Urine Appearance Slightly cloudy, Urine pH 7, Urine Specific [place] 1.015, Urine Protein 1+H, Urine Glucose (UA) Negative, Urine Ketones 1+H, Urine Blood 2+H, Urine Nitrite PositiveH, Urine Bilirubin Negative , Urine Urobilinogen Normal, Urine Leukocyte Esterase 2+H, Urine RBC 2-4H, Urine WBC 40-60H, Urine Squamous Epithelial Cells Few, Urine Bacteria ModerateH , Urine Yeast ManyH Height (Feet): 5 Height (Inches): 4.00 Weight (Pounds): 152 Objective exam stable Reji Barriga MD Aug 28, 2019 07:54
[2019-08-28 08:00] VITALS: BP 118/68
[2019-08-28] MEDS: oxyCODONE HCL/Acetaminophen 5/325mg ORAL PRN (08:49)
[2019-08-28] MEDS: Lisinopril 10mg tab ORAL SCH (08:49)
[2019-08-28] MEDS: Docusate 100mg cap ORAL SCH ×2 (08:50→20:28)
[2019-08-28 08:58] LABS: BASOPHILS % (AUTO) 0.3 % (0.0-2.0); EOSINOPHILS % (AUTO) 1.2 % (0.0-3.0); HEMATOCRIT 31.2 % (42.0-52.0); HEMOGLOBIN 9.6 G/DL (14.2-18.0); LYMPHOCYTES % (AUTO) 18.3 % (20.0-45.0); MEAN CORPUSCULAR VOLUME 83 FL (80-99); MONOCYTES % (AUTO) 3.9 % (1.0-10.0); NEUTROPHILS % (AUTO) 76.4 % (45.0-75.0); PLATELET COUNT 267 K/UL (150-450); RED BLOOD COUNT 3.76 M/UL (4.70-6.10); RED CELL DISTRIBUTION WIDTH 17.5 % (11.6-14.8); WHITE BLOOD COUNT 10.5 K/UL (4.8-10.8)
[2019-08-28 09:18] LABS: ANION GAP 6 mmol/L (5-15); BLOOD UREA NITROGEN 7 mg/dL (7-18); CALCIUM 8.2 MG/DL (8.5-10.1); CARBON DIOXIDE 28 MMOL/L (21-32); CHLORIDE 106 MMOL/L (98-107); CREATININE 0.6 MG/DL (0.55-1.30); POTASSIUM 3.9 MMOL/L (3.5-5.1); SODIUM 140 MMOL/L (136-145)
--- NOTE | 2019-08-28 10:51 | NUR ---
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 97.5 HR 70 RR 18 B/P 118/68 UA+ KETONES,BLOOD,NITRITES,LEUKOCYTE ESTERASE,RBC,WBC,YEAST IS: IVF NS @ 100ML/HR VANCO IV MEROPENEM IV HEPARIN SUBC MRI PELVIS,SACRUM MED/SURGE STATUS
[2019-08-28] MEDS: Vancomycin 1.25 GM in NS 275 ML IVPB SCH (11:24)
[2019-08-28 12:00] VITALS: BP 149/75
--- NOTE | 2019-08-28 15:19 | NUR ---
MRI PELVIS AND RIGHT THIGH COMPLETED
--- NOTE | 2019-08-28 16:13 | Diagnostic Imaging Report ---
Indication: Hip and pelvis pain. Decubitus ulcer on the right. UTI. Sepsis. Technique: MRI examination of the pelvis and right hip/thigh was performed in a 1.5 Cinthia magnet. Sequences obtained include multiplanar T1 and T2 fast spin echo, and STIR. Comparison: none Findings: Posterior to the right ischium, there is a grade 4 decubitus ulcer demonstrated seen as a low T1/high T2 linear signal tract obliquely oriented from the skin to the subcutaneous fat extending deep to the right ischium. The right ischium is abnormal in signal with low T1/high T2 signal consistent with acute osteomyelitis. Osteomyelitis also involves the inferior pubic ramus and posterior acetabulum. The pubic symphysis and the adjacent bone at the pubic symphysis, the superior pubic ramus and remainder of the osseous structures visualized on this study appear normal in signal. The sacrum shows no evidence of osteomyelitis. In the area of the right inferior pubic ramus/ischium osteomyelitis, there is a moderate degree of cellulitis with surrounding T2 hyperintense edema involving both subcutaneous fat as well as the surrounding musculature which mainly involves the right adductor group. The right femoral head and neck are absent. The proximal femoral shaft at the resected end is noted with the right femur normal in signal intensity without evidence of osteomyelitis. There is a moderate degree of surrounding subcutaneous/muscle fatty T2 hyperintense edema mainly along the lateral aspect of the thigh with some subcutaneous edema in the medial part of the thigh as well. Above the knee amputation noted on the right as well. There is no drainable abscess identified on this examination. The visualized part of the lower lumbar spine is unremarkable except for some mild degenerative disc disease at L5-S1. There is a osteophytes arthritis of the left hip with extensive heterotopic bone anterior to the left hip. There is a suprapubic catheter noted. There is a trace amount of intrapelvic free fluid. IMPRESSION: Evidence of acute osteomyelitis involving the right ischium, posterior wall of the acetabulum and inferior pubic ramus. Moderate degree of adjacent surrounding cellulitis/myositis. Status post previous resection of the right femoral head and neck. Status post right [id number] amputation. No evidence of acute osteomyelitis involving the right femur. Moderate cellulitis of the thigh noted. No drainable abscess. Suprapubic catheter
--- NOTE | 2019-08-28 16:27 | General Progress Note ---
Assessment/Plan Problem List: (1) Chronic pain ICD Codes: G89.29 - Other chronic pain SNOMED: 34415525 Qualifiers: Qualified Codes: G89.4 - Chronic pain syndrome (2) Cellulitis of right thigh ICD Codes: L03.115 - Cellulitis of right lower limb SNOMED: 34542830716412845 (3) Anemia ICD Codes: D64.9 - Anemia, unspecified SNOMED: 591536699 Qualifiers: Qualified Codes: D64.9 - Anemia, unspecified (4) Sepsis ICD Codes: A41.9 - Sepsis, unspecified organism SNOMED: 18282588 Qualifiers: Qualified Codes: A41.9 - Sepsis, unspecified organism (5) UTI (urinary tract infection) ICD Codes: N39.0 - Urinary tract infection, site not specified SNOMED: 16340466 Qualifiers: Qualified Codes: N30.00 - Acute cystitis without hematuria (6) Cellulitis ICD Codes: L03.90 - Cellulitis, unspecified SNOMED: 067827678 (7) Stage 4 decubitus ulcer ICD Codes: L89.94 - Pressure ulcer of unspecified site, stage 4 SNOMED: 732967749 (8) Severe protein-calorie malnutrition ICD Codes: E43 - Unspecified severe protein-calorie malnutrition SNOMED: 862454151, 565953084, 790656551 (9) UTI due to extended-spectrum beta lactamase (ESBL) producing Escherichia coli ICD Codes: N39.0 - Urinary tract infection, site not specified; B96.29 - Other Escherichia coli [E. coli] as the cause of diseases classified elsewhere; Z16.12 - Extended spectrum beta lactamase (ESBL) resistance SNOMED: 850568113, 479925299 Status: stable Assessment/Plan: 58 year old male with R BKA, L AKA and history of ESBL UTI, now with sepsis secondary to right lower extremity cellulitis vs. UTI. Also has stage 4 decubitus ulcer. doubt infected. #Sepsis secondary to right thigh/hip cellulitis, doubt necrotizing fascitis ( suspect possible osteomyelitis?) - rule out with MRI #ESBL UTI - Improving #gram positive cocci bacteremia- Coag Negative Staph: likely contaminant per ID > 10/1 ESR 113, CRP 38.6 - Continue Vancomycin and Merrem - Appreciate ID consult: Dr. Hawk- Follow up repeat blood cultures, continue antibiotics- Recommending MRI given elevated ESR/CRP - Appreciate surgery consult: Dr. Crouch- Follow up on x-ray femur. Elevated ESR and CRp. Agrees with MRI # stage 4 decubitus. Doubt the source. Surgical consult. wound care #suprapubic catheter - exchanged by Dr. Barriga 08/27/19 - follow up urine culture - continue abx as above - Urology: Dr. Barriga to replace #.history of paraplegia #Chronic pain. - Pain control: percocet 5mg/325 Q6hr PRN moderate, Percocet 10mg PO q6hr PRn severe # COPD Duonebs PRN # CAD #HTN ASA, Atorvastatin, -Continue decreased dose of lisinopril 10mg PO daily - holding metoprolol due to borderline BP # h/o Left AKA, right BKA # Severe iron deficiency anemia- on PO iron at SNF. - holding for now due to presence of infection Discussed wt RN, patient, general surgery and infectious disease. I spent 36 minutes during this encounter. > 50% spent on counselling and care coordination. Time of note may not reflect time patient was seen Subjective Date patient seen: Aug 28, 2019 Constitutional: Denies: chills, diaphoresis, fever, malaise, weakness, other HEENT: Denies: eye pain, blurred vision, tearing, double vision, ear pain, ear discharge, nose pain, nose congestion, throat pain, throat swelling, mouth pain , mouth swelling, other Cardiovascular: Denies: chest pain, edema, irregular heart rate, lightheadedness, palpitations, syncope, other Respiratory: Denies: cough, orthopnea, shortness of breath, SOB with excertion , SOB at rest, sputum, stridor, wheezing, other Gastrointestinal/Abdominal: Denies: abdomen distended, abdominal pain, black stools, tarry stools, blood in stool, constipated, diarrhea, difficulty swallowing, nausea, poor appetite, poor fluid intake, rectal bleeding, vomiting , other Genitourinary: Denies: burning, discharge, frequency, flank pain, hematuria, incontinence, pain, urgency, other Neurologic/Psychiatric: Denies: anxiety, depressed, emotional problems, headache, numbness, paresthesia, pre-existing deficit, seizure, tingling, tremors, weakness, other Endocrine: Denies: excessive sweating, flushing, intolerance to cold, intolerance to heat, increased hunger, increased thirst, increased urine, unexplained weight gain, unexplained weight loss, other Hematologic/Lymphatic: Denies: anemia, easy bleeding, easy bruising, other Allergies: Coded Allergies: No Known Allergies (Unverified , 08/02/19) Subjective No acute events overnight per nursing. Vitals stable. Right leg cellulitis: Continuing to improve. Pain is controlled. Constant, sharp , 5/10. Believes redness has improved. No more fevers. Pending MRI today Objective Last 24 Hour Vital Signs Date Time Temp Pulse Resp B/P (MAP) Pulse Ox O2 Delivery O2 Flow Rate FiO2 08/28/19 13:59 97.6 08/28/19 12:00 97.6 70 18 149/75 (99) 99 08/28/19 11:57 97.5 08/28/19 09:19 97.5 08/28/19 09:00 Room Air 08/28/19 08:49 118/68 08/28/19 08:00 97.5 70 18 118/68 (85) 97 08/28/19 04:10 97.8 65 18 115/55 (75) 96 08/28/19 00:08 97.7 81 20 129/59 (82) 99 08/27/19 20:51 Room Air 08/27/19 20:00 97.2 72 17 143/72 (95) 97 08/27/19 16:30 97.6 76 17 141/84 (103) 96 Intake and Output 08/27/19 08/28/19 19:00 07:00 Intake Total 100 ml 1335.000 ml Output Total 900 ml 800 ml Balance -800 ml 535.000 ml IV Total 100 ml 1335.000 ml Output Urine Total 900 ml 800 ml # Voids 1 2 # Bowel Movements 1 Laboratory Tests 08/27/19 21:55: Vancomycin Level Trough 13.8H 08/28/19 02:45: Urine Color Pale yellow, Urine Appearance Slightly cloudy, Urine pH 7, Urine Specific [place] 1.015, Urine Protein 1+H, Urine Glucose (UA) Negative, Urine Ketones 1+H, Urine Blood 2+H, Urine Nitrite PositiveH, Urine Bilirubin Negative , Urine Urobilinogen Normal, Urine Leukocyte Esterase 2+H, Urine RBC 2-4H, Urine WBC 40-60H, Urine Squamous Epithelial Cells Few, Urine Bacteria ModerateH , Urine Yeast ManyH 08/28/19 08:45: White Blood Count 10.5, Red Blood Count 3.76L, Hemoglobin 9.6L, Hematocrit 31.2L , Mean Corpuscular Volume 83, Mean Corpuscular Hemoglobin 25.6L, Mean Corpuscular Hemoglobin Concent 30.9L, Red Cell Distribution Width 17.5H, Platelet Count 267, Mean Platelet Volume 6.0L, Neutrophils (%) (Auto) 76.4H, Lymphocytes (%) (Auto) 18.3L, Monocytes (%) (Auto) 3.9, Eosinophils (%) (Auto) 1.2, Basophils (%) (Auto) 0.3, Sodium Level 140, Potassium Level 3.9, Chloride Level 106, Carbon Dioxide Level 28, Anion Gap 6, Blood Urea Nitrogen 7, Creatinine 0.6, Estimat Glomerular Filtration Rate > 60, Glucose Level 119H, Calcium Level 8.2L Height (Feet): 5 Height (Inches): 4.00 Weight (Pounds): 152 General Appearance: WD/WN, no apparent distress, alert EENT: PERRL/EOMI, normal ENT inspection Neck: non-tender, normal alignment, supple Cardiovascular: normal peripheral pulses, normal rate, regular rhythm, no JVD Respiratory/Chest: chest wall non-tender, lungs clear, normal breath sounds Abdomen: normal bowel sounds, non tender, soft Extremities: normal range of motion, other - bilateral AKA, improving right leg erythema/warmth Neurologic: field spec II-XII grossly normal, no motor/sensory deficits, alert, oriented x 3 Jarvsi Hall D.O. Aug 28, 2019 16:27
--- NOTE | 2019-08-28 19:30 | NUR ---
HAND-OFF: Report given to RUBEN Read.
--- NOTE | 2019-08-28 19:32 | Surgery Progress Note ---
Surgery Progress Note Subjective Additional Comments leukocytosis resolved erythema and edema improved MRI noted Objective Last 24 Hour Vital Signs Date Time Temp Pulse Resp B/P (MAP) Pulse Ox O2 Delivery O2 Flow Rate FiO2 08/28/19 18:11 97.6 08/28/19 16:04 97.6 08/28/19 12:00 97.6 70 18 149/75 (99) 99 08/28/19 09:19 97.5 08/28/19 09:00 Room Air 08/28/19 08:49 118/68 08/28/19 08:00 97.5 70 18 118/68 (85) 97 08/28/19 04:10 97.8 65 18 115/55 (75) 96 08/28/19 00:08 97.7 81 20 129/59 (82) 99 08/27/19 20:51 Room Air 08/27/19 20:00 97.2 72 17 143/72 (95) 97 I&O Intake and Output 08/27/19 08/28/19 19:00 07:00 Intake Total 100 ml 1335.000 ml Output Total 900 ml 800 ml Balance -800 ml 535.000 ml IV Total 100 ml 1335.000 ml Output Urine Total 900 ml 800 ml # Voids 1 2 # Bowel Movements 1 Dressing: dry Wound: clean Drains: none Cardiovascular: RSR Respiratory: clear Abdomen: soft, flat, non-tender, present bowel sounds Extremities: edema, no tenderness, no cyanosis, other Laboratory Tests Test 08/27/19 21:55 08/28/19 02:45 08/28/19 08:45 Vancomycin Level Trough 13.8 ug/mL (5.0-12.0) H Urine Color Pale yellow Urine Appearance Slightly cloudy Urine pH 7 (4.5-8.0) Urine Specific [place] 1.015 (1.005-1.035) Urine Protein 1+ (NEGATIVE) H Urine Glucose (UA) Negative (NEGATIVE) Urine Ketones 1+ (NEGATIVE) H Urine Blood 2+ (NEGATIVE) H Urine Nitrite Positive (NEGATIVE) H Urine Bilirubin Negative (NEGATIVE) Urine Urobilinogen Normal MG/DL (0.0-1.0) Urine Leukocyte Esterase 2+ (NEGATIVE) H Urine RBC 2-4 /HPF (0 - 0) H Urine WBC 40-60 /HPF (0 - 0) H Urine Squamous Epithelial Cells Few /LPF (NONE/OCC) Urine Bacteria Moderate /HPF (NONE) H Urine Yeast Many /HPF (NONE) H White Blood Count 10.5 K/UL (4.8-10.8) Red Blood Count 3.76 M/UL (4.70-6.10) L Hemoglobin 9.6 G/DL (14.2-18.0) L Hematocrit 31.2 % (42.0-52.0) L Mean Corpuscular Volume 83 FL (80-99) Mean Corpuscular Hemoglobin 25.6 PG (27.0-31.0) L Mean Corpuscular Hemoglobin Concent 30.9 G/DL (32.0-36.0) L Red Cell Distribution Width 17.5 % (11.6-14.8) H Platelet Count 267 K/UL (150-450) Mean Platelet Volume 6.0 FL (6.5-10.1) L Neutrophils (%) (Auto) 76.4 % (45.0-75.0) H Lymphocytes (%) (Auto) 18.3 % (20.0-45.0) L Monocytes (%) (Auto) 3.9 % (1.0-10.0) Eosinophils (%) (Auto) 1.2 % (0.0-3.0) Basophils (%) (Auto) 0.3 % (0.0-2.0) Sodium Level 140 MMOL/L (136-145) Potassium Level 3.9 MMOL/L (3.5-5.1) Chloride Level 106 MMOL/L (98-107) Carbon Dioxide Level 28 MMOL/L (21-32) Anion Gap 6 mmol/L (5-15) Blood Urea Nitrogen 7 mg/dL (7-18) Creatinine 0.6 MG/DL (0.55-1.30) Estimat Glomerular Filtration Rate > 60 mL/min (>60) Glucose Level 119 MG/DL (74-106) H Calcium Level 8.2 MG/DL (8.5-10.1) L Plan Problems: (1) Cellulitis of right thigh Assessment & Plan: 58-year-old male with acute cellulitis of the right thigh and near hip. 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 At the level of the hip the femur is loose and question of underlying issues states his been like this for a while. On the left side he has a AKA which is otherwise stable. He has motor on the left side but no motor on the right given the above described abnormality. Plain films ordered of the right hip and lower extremity. No abscess palpable on examination at this time. Etiology of cellulitis unknown but no wound identified. Cont IV antibiotics We will follow with serial exams and recommendations Evidence of prior right proximal femoral resection Abnormality of the right acetabulum, ischium, and lateral pubic ramus. Probably related to the above and probably chronic. However, acute erosive changes of the ischium and pubic ramus cannot be excluded. Consider MRI for better characterization if there is clinical suspicion for osteomyelitis Severe degenerative changes of the left hip Evidence of acute osteomyelitis involving the right ischium, posterior wall of the acetabulum and inferior pubic ramus. Moderate degree of adjacent surrounding cellulitis/myositis. Status post previous resection of the right femoral head and neck. Status post right [id number] amputation. No evidence of acute osteomyelitis involving the right femur. Moderate cellulitis of the thigh noted. No drainable abscess. Suprapubic catheter Thank you for allowing me to participate in patient's care (2) Stage 4 decubitus ulcer Assessment & Plan: Pt presented no admission with R BKA,L AKA.Full thickness pressure injury with undermining R ischium. [place] granulation at base of wound .Bone is palpable. Edges adherent and flat. Erythema periwound. No odor noted Small amt serous exudate.(L)4.5cm x (W)6.5cm x (D)6.3cm, undermining clockwise 9 -1by 7.3cm @12o'clock. Multiple scarring noted to R trochanter,harvest graft site R thigh. No other skin concerns noted. Tx.plan: Cleanse wound with Saline. Loosely pack wound with Hydrogel impregnated Kerlix. Apply Cavilon periwound. Cover with Optifoam drsg Daily and prn. Apply Triad Paste to buttocks and groin with each incontinence care. Reposition at least every 2hours or as tolerated.(Encourage pt to frequently reposition self ). Baron Crouch Aug 28, 2019 19:32
[2019-08-28 20:00] VITALS: BP 155/81
[2019-08-28] MEDS: Atorvastatin 20mg tab ORAL SCH (20:28)
[2019-08-29] VITALS: BP 164/100
--- NOTE | 2019-08-29 00:15 | NUR ---
NURSE NOTES: RECEIVED PT FROM RUBEN GONZALEZ. PT IS AWAKE, AAOX4, ON ROOM AIR, NO ACUTE DISTRESS NOTED. IV ON LEFT FA 24G IS INTACT AND PATENT. SUPRAPUBIC CATH IS INTACT AND DRAINING WELL. DRESSING ON SACRAL IS INTACT AND DRY. BED IS LOCKED AND LOW, BED ALARMS ACTIVE, SIDE RAILS UP X2, AND CALL LIGHT IS WITHIN REACH.
[2019-08-29] MEDS: Vancomycin 1.25 GM in NS 275 ML IVPB SCH ×3 (00:55→23:59)
[2019-08-29] MEDS: HYDROmorphone 1mg/ml Carpuject IVP PRN ×4 (00:55→20:05)
[2019-08-29 04:00] VITALS: BP 137/83
[2019-08-29] MEDS: Heparin 5000 units/ml inj SUBQ SCH ×3 (05:21→22:00)
[2019-08-29] MEDS: Meropenem 1 GM in NS 55 ML IVPB SCH ×3 (05:21→22:00)
[2019-08-29] MEDS: NovoLOG Insulin Flexpen SUBQ SCH ×4 (05:39→21:00)
[2019-08-29 06:44] LABS: ANION GAP 6 mmol/L (5-15); BLOOD UREA NITROGEN 10 mg/dL (7-18); CALCIUM 8.1 MG/DL (8.5-10.1); CARBON DIOXIDE 28 MMOL/L (21-32); CHLORIDE 107 MMOL/L (98-107); CREATININE 0.7 MG/DL (0.55-1.30); POTASSIUM 3.5 MMOL/L (3.5-5.1); SODIUM 141 MMOL/L (136-145)
[2019-08-29 06:52] LABS: BASOPHILS % (AUTO) 0.3 % (0.0-2.0); EOSINOPHILS % (AUTO) 1.4 % (0.0-3.0); HEMATOCRIT 30.3 % (42.0-52.0); HEMOGLOBIN 9.5 G/DL (14.2-18.0); LYMPHOCYTES % (AUTO) 22.4 % (20.0-45.0); MEAN CORPUSCULAR VOLUME 82 FL (80-99); MONOCYTES % (AUTO) 4.5 % (1.0-10.0); NEUTROPHILS % (AUTO) 71.4 % (45.0-75.0); PLATELET COUNT 290 K/UL (150-450); RED BLOOD COUNT 3.69 M/UL (4.70-6.10); RED CELL DISTRIBUTION WIDTH 16.8 % (11.6-14.8); WHITE BLOOD COUNT 8.7 K/UL (4.8-10.8)
--- NOTE | 2019-08-29 07:25 | NUR ---
NURSE NOTES: Patient received in stable condition, resting in bed. Alert and oriented. Breathing unlabored on room air, denies SOB. IV site on left arm patent and intact running fluids at 100cc/hr. Patient's suprapubic catheter is patent and intact, draining yellow urine. Bed locked in lowest position, wheelchair by the bedside. Call light placed within reach, will continue to monitor.
--- NOTE | 2019-08-29 07:53 | NUR ---
HAND-OFF: Report given to RUBEN Beyer.
[2019-08-29 08:00] VITALS: BP 146/87
[2019-08-29] MEDS: Docusate 100mg cap ORAL SCH ×2 (08:59→21:00)
[2019-08-29] MEDS: Lisinopril 10mg tab ORAL SCH (08:59)
[2019-08-29] MEDS: LORazepam Inj 2mg/ml 1ml IV PRN ×4 (09:06→22:19)
--- NOTE | 2019-08-29 11:39 | Urology Progress Note ---
Assessment/Plan Status: stable Assessment/Plan: 1. Urinary retention history with suprapubic tube. 2. Probable neurogenic bladder. 3. Hematuria. 4. Pyuria and probably colonized. 5. Proteinuria. cont SP tube, last exchanged 08/28 hand irrigated and position is satisfactory abx as ordered f/u on last blood cx consider renal imaging Subjective Allergies: Coded Allergies: No Known Allergies (Unverified , 08/02/19) Subjective all noted, new SP tube draining OK Objective Last 24 Hour Vital Signs Date Time Temp Pulse Resp B/P (MAP) Pulse Ox O2 Delivery O2 Flow Rate FiO2 08/29/19 09:00 Room Air 08/29/19 08:59 146/87 08/29/19 08:00 97.0 74 18 146/87 (106) 97 08/29/19 04:00 97.7 83 18 137/83 (101) 97 08/29/19 00:00 98.4 82 18 164/100 (121) 96 08/28/19 21:00 Room Air 08/28/19 20:00 98.6 81 24 155/81 (105) 96 08/28/19 18:11 97.6 08/28/19 16:04 97.6 08/28/19 12:00 97.6 70 18 149/75 (99) 99 Intake and Output 08/28/19 08/29/19 19:00 07:00 Intake Total 1976.666 ml 1476.666 ml Output Total 1600 ml 1300 ml Balance 376.666 ml 176.666 ml Intake Oral 800 ml IV Total 1176.666 ml 1476.666 ml Output Urine Total 1600 ml 1300 ml # Bowel Movements 4 2 Microbiology Date/Time Source Procedure Growth Status 08/26/19 14:15 Blood Blood Culture - Preliminary NO GROWTH AFTER 48 HOURS Resulted 08/25/19 00:15 Nasal Nares MRSA Culture - Final Staphylococcus Aureus - Mrsa Complete 08/27/19 18:20 Stool Clostridium difficile Toxin Assay - Final Complete 08/28/19 02:45 Indwelling Cath Urine Culture - Preliminary Yeast Species Resulted 08/25/19 00:15 Rectum - Final NO CARBAPENEM-RESISTANT ENTEROBACTERI... Complete Current Medications Medications (Trade) Dose Ordered Sig/Nayely Route PRN Reason Start Time Stop Time Status Last Admin Dose Admin Acetaminophen (Tylenol) 650 mg Q4H PRN ORAL fever 08/25/19 00:15 10/30/19 00:14 08/25/19 01:41 Acetaminophen (Tylenol) 650 mg Q4H PRN ORAL Mild Pain (Pain Scale 1-3) 08/25/19 00:15 09/24/19 00:14 Al Hydroxide/Mg Hydroxide (Mylanta II) 30 ml Q6H PRN ORAL dyspepsia 08/25/19 00:15 09/24/19 00:14 Albuterol/ Ipratropium (Albuterol/ Ipratropium) 3 ml Q6H PRN HHN Shortness of Breath 08/25/19 00:15 08/30/19 00:14 Atorvastatin Calcium (Lipitor) 20 mg BEDTIME ORAL 08/26/19 21:00 09/25/19 20:59 08/28/19 20:28 Bisacodyl (Dulcolax) 10 mg HSPRN PRN RECTAL Constipation 08/25/19 00:15 09/24/19 00:14 Dextrose (Dextrose 50%) 25 ml Q30M PRN IV Hypoglycemia 08/25/19 00:15 09/24/19 00:14 Dextrose (Dextrose 50%) 50 ml Q30M PRN IV Hypoglycemia 08/25/19 00:15 09/24/19 00:14 Diphenhydramine HCl (Benadryl) 25 mg Q6H PRN ORAL Itching/Pruritis 08/25/19 00:15 09/24/19 00:14 Docusate Sodium (Colace) 100 mg EVERY 12 HOURS ORAL 08/25/19 09:00 09/24/19 08:59 08/29/19 08:59 Heparin Sodium (Porcine) (Heparin 5000 units/ml) 5,000 units EVERY 8 HOURS SUBQ 08/25/19 06:00 09/24/19 05:59 Hydromorphone HCl (Dilaudid) 1 mg Q4H PRN IVP Severe Breakthru Pain (>7) 08/26/19 20:33 09/02/19 20:32 08/29/19 05:21 Insulin Aspart (NovoLOG) BEFORE MEALS AND HS SUBQ 08/25/19 06:30 09/24/19 06:29 Lisinopril (Zestril) 10 mg DAILY ORAL 08/26/19 18:22 09/25/19 18:21 08/29/19 08:59 Lorazepam (Ativan 2mg/ml 1ml) 0.5 mg Q4H PRN IV For Anxiety 08/25/19 00:15 09/01/19 00:14 08/29/19 09:06 Magnesium Hydroxide (Mom) 30 ml HSPRN PRN ORAL Constipation 08/25/19 00:15 09/24/19 00:14 Meropenem 1 gm/ Sodium Chloride 55 ml @ 110 mls/hr Q8HR IVPB 08/25/19 14:00 08/30/19 13:59 08/29/19 05:21 Ondansetron HCl (Zofran) 4 mg Q6H PRN IVP Nausea & Vomiting 08/25/19 00:15 09/24/19 00:14 Oxycodone/ Acetaminophen (Percocet 10/325) 1 tab Q4H PRN ORAL Severe Pain (Pain Scale 7-10) 08/26/19 18:15 09/02/19 18:14 08/29/19 08:59 Oxycodone/ Acetaminophen (Percocet 5-325) 1 tab Q4H PRN ORAL Moderate Pain (Pain Scale 4-6) 08/26/19 18:15 09/02/19 18:14 08/28/19 08:49 Polyethylene Glycol (Miralax) 17 gm HSPRN PRN ORAL Constipation 08/25/19 00:15 09/24/19 00:14 Sodium Chloride 1,000 ml @ 100 mls/hr Q10H IVLG 08/25/19 01:03 09/24/19 01:02 08/29/19 05:39 Temazepam (Restoril) 15 mg HSPRN PRN ORAL Insomnia 08/25/19 00:15 09/01/19 00:14 08/28/19 23:34 Vancomycin HCl (Vanco rx to dose) 1 ea DAILY PRN MISC Per rx protocol 08/25/19 00:15 09/24/19 00:14 Vancomycin HCl 1.25 gm/Sodium Chloride 275 ml @ 183.333 mls/hr Q12H IVPB 08/26/19 11:00 08/31/19 10:59 08/29/19 00:55 Laboratory Tests 08/29/19 05:45: White Blood Count 8.7, Red Blood Count 3.69L, Hemoglobin 9.5L, Hematocrit 30.3L , Mean Corpuscular Volume 82, Mean Corpuscular Hemoglobin 25.7L, Mean Corpuscular Hemoglobin Concent 31.3L, Red Cell Distribution Width 16.8H, Platelet Count 290, Mean Platelet Volume 5.9L, Neutrophils (%) (Auto) 71.4, Lymphocytes (%) (Auto) 22.4, Monocytes (%) (Auto) 4.5, Eosinophils (%) (Auto) 1.4, Basophils (%) (Auto) 0.3, Sodium Level 141, Potassium Level 3.5, Chloride Level 107, Carbon Dioxide Level 28, Anion Gap 6, Blood Urea Nitrogen 10, Creatinine 0.7, Estimat Glomerular Filtration Rate > 60, Glucose Level 105, Calcium Level 8.1L Height (Feet): 5 Height (Inches): 4.00 Weight (Pounds): 152 Objective exam stable Reji Barriga MD Aug 29, 2019 11:39
[2019-08-29 12:00] VITALS: BP 137/79
--- NOTE | 2019-08-29 12:58 | Surgery Progress Note ---
Surgery Progress Note Subjective Additional Comments no acute events comfortable stable. labs noted Objective Last 24 Hour Vital Signs Date Time Temp Pulse Resp B/P (MAP) Pulse Ox O2 Delivery O2 Flow Rate FiO2 08/29/19 09:00 Room Air 08/29/19 08:59 146/87 08/29/19 08:00 97.0 74 18 146/87 (106) 97 08/29/19 04:00 97.7 83 18 137/83 (101) 97 08/29/19 00:00 98.4 82 18 164/100 (121) 96 08/28/19 21:00 Room Air 08/28/19 20:00 98.6 81 24 155/81 (105) 96 08/28/19 18:11 97.6 08/28/19 16:04 97.6 I&O Intake and Output 08/28/19 08/29/19 18:59 06:59 Intake Total 2076.666 ml 1476.666 ml Output Total 1600 ml 1300 ml Balance 476.666 ml 176.666 ml Intake Oral 800 ml IV Total 1276.666 ml 1476.666 ml Output Urine Total 1600 ml 1300 ml # Bowel Movements 4 2 Wound: clean Cardiovascular: RSR Respiratory: clear Abdomen: soft, non-tender, present bowel sounds, non-distended Extremities: no cyanosis, other Laboratory Tests Test 08/29/19 05:45 White Blood Count 8.7 K/UL (4.8-10.8) Red Blood Count 3.69 M/UL (4.70-6.10) L Hemoglobin 9.5 G/DL (14.2-18.0) L Hematocrit 30.3 % (42.0-52.0) L Mean Corpuscular Volume 82 FL (80-99) Mean Corpuscular Hemoglobin 25.7 PG (27.0-31.0) L Mean Corpuscular Hemoglobin Concent 31.3 G/DL (32.0-36.0) L Red Cell Distribution Width 16.8 % (11.6-14.8) H Platelet Count 290 K/UL (150-450) Mean Platelet Volume 5.9 FL (6.5-10.1) L Neutrophils (%) (Auto) 71.4 % (45.0-75.0) Lymphocytes (%) (Auto) 22.4 % (20.0-45.0) Monocytes (%) (Auto) 4.5 % (1.0-10.0) Eosinophils (%) (Auto) 1.4 % (0.0-3.0) Basophils (%) (Auto) 0.3 % (0.0-2.0) Sodium Level 141 MMOL/L (136-145) Potassium Level 3.5 MMOL/L (3.5-5.1) Chloride Level 107 MMOL/L (98-107) Carbon Dioxide Level 28 MMOL/L (21-32) Anion Gap 6 mmol/L (5-15) Blood Urea Nitrogen 10 mg/dL (7-18) Creatinine 0.7 MG/DL (0.55-1.30) Estimat Glomerular Filtration Rate > 60 mL/min (>60) Glucose Level 105 MG/DL (74-106) Calcium Level 8.1 MG/DL (8.5-10.1) L Plan Problems: (1) Cellulitis of right thigh Assessment & Plan: 58-year-old male with acute cellulitis of the right thigh and near hip. 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 At the level of the hip the femur is loose and question of underlying issues states his been like this for a while. On the left side he has a AKA which is otherwise stable. He has motor on the left side but no motor on the right given the above described abnormality. Plain films ordered of the right hip and lower extremity. No abscess palpable on examination at this time. Etiology of cellulitis unknown but no wound identified. Cont IV antibiotics We will follow with serial exams and recommendations Evidence of prior right proximal femoral resection Abnormality of the right acetabulum, ischium, and lateral pubic ramus. Probably related to the above and probably chronic. However, acute erosive changes of the ischium and pubic ramus cannot be excluded. Consider MRI for better characterization if there is clinical suspicion for osteomyelitis Severe degenerative changes of the left hip Evidence of acute osteomyelitis involving the right ischium, posterior wall of the acetabulum and inferior pubic ramus. Moderate degree of adjacent surrounding cellulitis/myositis. Status post previous resection of the right femoral head and neck. Status post right [id number] amputation. No evidence of acute osteomyelitis involving the right femur. Moderate cellulitis of the thigh noted. No drainable abscess. Suprapubic catheter Thank you for allowing me to participate in patient's care (2) Stage 4 decubitus ulcer Assessment & Plan: Pt presented no admission with R BKA,L AKA.Full thickness pressure injury with undermining R ischium. [place] granulation at base of wound .Bone is palpable. Edges adherent and flat. Erythema periwound. No odor noted Small amt serous exudate.(L)4.5cm x (W)6.5cm x (D)6.3cm, undermining clockwise 9 -1by 7.3cm @12o'clock. Multiple scarring noted to R trochanter,harvest graft site R thigh. No other skin concerns noted. Tx.plan: Cleanse wound with Saline. Loosely pack wound with Hydrogel impregnated Kerlix. Apply Cavilon periwound. Cover with Optifoam drsg Daily and prn. Apply Triad Paste to buttocks and groin with each incontinence care. Reposition at least every 2hours or as tolerated.(Encourage pt to frequently reposition self ). Baron Crouch Aug 29, 2019 12:58
[2019-08-29 16:00] VITALS: BP 131/81
--- NOTE | 2019-08-29 17:41 | General Progress Note ---
Assessment/Plan Problem List: (1) Chronic pain ICD Codes: G89.29 - Other chronic pain SNOMED: 28581418 Qualifiers: Qualified Codes: G89.4 - Chronic pain syndrome (2) Cellulitis of right thigh ICD Codes: L03.115 - Cellulitis of right lower limb SNOMED: 44944182935454217 (3) Anemia ICD Codes: D64.9 - Anemia, unspecified SNOMED: 710931624 Qualifiers: Qualified Codes: D64.9 - Anemia, unspecified (4) Sepsis ICD Codes: A41.9 - Sepsis, unspecified organism SNOMED: 01522174 Qualifiers: Qualified Codes: A41.9 - Sepsis, unspecified organism (5) UTI (urinary tract infection) ICD Codes: N39.0 - Urinary tract infection, site not specified SNOMED: 65243009 Qualifiers: Qualified Codes: N30.00 - Acute cystitis without hematuria (6) Cellulitis ICD Codes: L03.90 - Cellulitis, unspecified SNOMED: 854330762 (7) Stage 4 decubitus ulcer ICD Codes: L89.94 - Pressure ulcer of unspecified site, stage 4 SNOMED: 131808212 (8) Severe protein-calorie malnutrition ICD Codes: E43 - Unspecified severe protein-calorie malnutrition SNOMED: 821594494, 958440915, 212996777 (9) UTI due to extended-spectrum beta lactamase (ESBL) producing Escherichia coli ICD Codes: N39.0 - Urinary tract infection, site not specified; B96.29 - Other Escherichia coli [E. coli] as the cause of diseases classified elsewhere; Z16.12 - Extended spectrum beta lactamase (ESBL) resistance SNOMED: 916573021, 148701538 Status: stable Assessment/Plan: 58 year old male with R BKA, L AKA and history of ESBL UTI, now with sepsis secondary to right lower extremity cellulitis vs. UTI. Also has stage 4 decubitus ulcer. doubt infected. #Sepsis secondary to right thigh/hip cellulitis and right ischium osteomyelitis , no drainable abscess #ESBL UTI - Improving #gram positive cocci bacteremia- Coag Negative Staph: likely contaminant per ID > 10/ ESR 113, CRP 38.6 > MRI positive for osteo of right ischium - Continue Vancomycin and Merrem - Appreciate ID consult: Dr. Alkaspooles- Follow up repeat blood cultures, continue antibiotics - Appreciate surgery consult: Dr. Crouch- Follow up on x-ray femur. Elevated ESR and CRp. - will need PICC line and 6 weeks IV antibiotics. #diarrhea - check C Diff # stage 4 decubitus. Doubt the source. Surgical consult. wound care #suprapubic catheter - exchanged by Dr. Barriga 08/27/19 - follow up urine culture - continue abx as above - Urology: Dr. Barriga to replace #.history of paraplegia #Chronic pain. - Pain control: percocet 5mg/325 Q6hr PRN moderate, Percocet 10mg PO q6hr PRn severe # COPD Duonebs PRN # CAD #HTN ASA, Atorvastatin, -Continue decreased dose of lisinopril 10mg PO daily - holding metoprolol due to borderline BP # h/o Left AKA, right BKA # Severe iron deficiency anemia- on PO iron at SNF. - holding for now due to presence of infection Discussed wt RN, patient, general surgery and infectious disease. I spent 37 minutes during this encounter. > 50% spent on counselling and care coordination. Time of note may not reflect time patient was seen Subjective Date patient seen: Aug 29, 2019 Constitutional: Denies: chills, diaphoresis, fever, malaise, weakness, other HEENT: Denies: eye pain, blurred vision, tearing, double vision, ear pain, ear discharge, nose pain, nose congestion, throat pain, throat swelling, mouth pain , mouth swelling, other Cardiovascular: Denies: chest pain, edema, irregular heart rate, lightheadedness, palpitations, syncope, other Respiratory: Denies: cough, orthopnea, shortness of breath, SOB with excertion , SOB at rest, sputum, stridor, wheezing, other Gastrointestinal/Abdominal: Denies: abdomen distended, abdominal pain, black stools, tarry stools, blood in stool, constipated, diarrhea, difficulty swallowing, nausea, poor appetite, poor fluid intake, rectal bleeding, vomiting , other Genitourinary: Denies: burning, discharge, frequency, flank pain, hematuria, incontinence, pain, urgency, other Neurologic/Psychiatric: Denies: anxiety, depressed, emotional problems, headache, numbness, paresthesia, pre-existing deficit, seizure, tingling, tremors, weakness, other Endocrine: Denies: excessive sweating, flushing, intolerance to cold, intolerance to heat, increased hunger, increased thirst, increased urine, unexplained weight gain, unexplained weight loss, other Hematologic/Lymphatic: Denies: anemia, easy bleeding, easy bruising, other Allergies: Coded Allergies: No Known Allergies (Unverified , 08/02/19) Subjective No acute events overnight per nursing. Vitals stable. Right leg cellulitis: Continuing to improve. Patient has no pain. MRI reviewed. Shows osteomyelitis of right pelvis. No more fevers Objective Last 24 Hour Vital Signs Date Time Temp Pulse Resp B/P (MAP) Pulse Ox O2 Delivery O2 Flow Rate FiO2 08/29/19 16:00 97.5 83 18 131/81 (98) 96 08/29/19 12:00 98.4 79 18 137/79 (98) 97 08/29/19 09:00 Room Air 08/29/19 08:59 146/87 08/29/19 08:00 97.0 74 18 146/87 (106) 97 08/29/19 04:00 97.7 83 18 137/83 (101) 97 08/29/19 00:00 98.4 82 18 164/100 (121) 96 08/28/19 21:00 Room Air 08/28/19 20:00 98.6 81 24 155/81 (105) 96 08/28/19 18:11 97.6 Intake and Output 08/28/19 08/29/19 18:59 06:59 Intake Total 2076.666 ml 1476.666 ml Output Total 1600 ml 1300 ml Balance 476.666 ml 176.666 ml Intake Oral 800 ml IV Total 1276.666 ml 1476.666 ml Output Urine Total 1600 ml 1300 ml # Bowel Movements 4 2 Laboratory Tests 08/29/19 05:45: White Blood Count 8.7, Red Blood Count 3.69L, Hemoglobin 9.5L, Hematocrit 30.3L , Mean Corpuscular Volume 82, Mean Corpuscular Hemoglobin 25.7L, Mean Corpuscular Hemoglobin Concent 31.3L, Red Cell Distribution Width 16.8H, Platelet Count 290, Mean Platelet Volume 5.9L, Neutrophils (%) (Auto) 71.4, Lymphocytes (%) (Auto) 22.4, Monocytes (%) (Auto) 4.5, Eosinophils (%) (Auto) 1.4, Basophils (%) (Auto) 0.3, Sodium Level 141, Potassium Level 3.5, Chloride Level 107, Carbon Dioxide Level 28, Anion Gap 6, Blood Urea Nitrogen 10, Creatinine 0.7, Estimat Glomerular Filtration Rate > 60, Glucose Level 105, Calcium Level 8.1L Height (Feet): 5 Height (Inches): 4.00 Weight (Pounds): 152 General Appearance: WD/WN, no apparent distress, alert EENT: PERRL/EOMI, normal ENT inspection Neck: non-tender, normal alignment Cardiovascular: normal peripheral pulses, normal rate, regular rhythm Respiratory/Chest: chest wall non-tender, lungs clear, normal breath sounds Abdomen: normal bowel sounds, non tender, soft Extremities: other - bilateral AKA, right leg less erythema/warmth compared to yesterday 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 Aug 29, 2019 17:41
--- NOTE | 2019-08-29 19:37 | NUR ---
HAND-OFF: Report given to Nathalie RN.
--- NOTE | 2019-08-29 19:41 | NUR ---
NURSE NOTES: RECEIVED PT FROM RUBEN WINSTON. PT IS AWAKE, AAOX4, ON ROOM AIR, NO ACUTE DISTRESS NOTED. IV ON LEFT FA 20G IS INTACT AND PATENT. WOUND DRESSINGS ON SACRAL IS DRY AND INTACT. SUPRABUPIC CATH IS INTACT AND DRAINING WELL. BED IS LOCKED AND LOW, BED ALARMS ACTIVE, SIDE RAILS UP X2, AND CALL LIGHT IS WITHIN REACH. WILL CONTINUE TO MONITOR.
[2019-08-29 20:00] VITALS: BP 149/86
[2019-08-29] MEDS: Atorvastatin 20mg tab ORAL SCH (20:05)
--- NOTE | 2019-08-29 20:17 | NUR ---
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 SEPSIS T 97.0 HR 74 RR 18 BP 146/87 SAT 97% ROOM AIR H/H 9.5/30.3 IS: VANCO IV Q 12HR MEROPENEM IV Q Q8HR IVF NS @ 100ML/HR MED/SURG STATUS DCP: PATIENT IS FROM [facility]
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
--- NOTE | 2019-08-29 21:00 | NUR ---
NURSE NOTES: PT REFUSED GLUCOSE CHECK AND NOVOLOG. PT STATED THAT HE DOES NOT HAVE DIABETES AND DOESN'T NEED IT. PT ALSO REFUSED HEPARIN. 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 STILL REFUSED.
--- NOTE | 2019-08-29 22:00 | NUR ---
NURSE NOTES: CHANGED WOUND DRESSINGS ON SACRAL.
--- NOTE | 2019-08-29 22:30 | NUR ---
NURSE NOTES: D/C OLD IV DUE TO LEAKING. INSERTED NEW IV ON LEFT FA 24G.
[2019-08-29] MEDS ORDERED: Vancomycin 1.25 GM in NS 275 ML IVPB SCH (23:00)
[2019-08-30] VITALS: BP 164/87
[2019-08-30] MEDS: HYDROmorphone 1mg/ml Carpuject IVP PRN ×3 (00:02→10:23)
[2019-08-30] MEDS: LORazepam Inj 2mg/ml 1ml IV PRN ×4 (02:22→20:01)
[2019-08-30 04:00] VITALS: BP 142/72
[2019-08-30] MEDS: Heparin 5000 units/ml inj SUBQ SCH ×3 (06:00→22:00)
[2019-08-30] MEDS: Meropenem 1 GM in NS 55 ML IVPB SCH ×3 (06:06→22:53)
[2019-08-30] MEDS: NovoLOG Insulin Flexpen SUBQ SCH ×4 (06:07→20:21)
[2019-08-30 06:54] LABS: ANION GAP 6 mmol/L (5-15); BLOOD UREA NITROGEN 10 mg/dL (7-18); CALCIUM 8.4 MG/DL (8.5-10.1); CARBON DIOXIDE 29 MMOL/L (21-32); CHLORIDE 107 MMOL/L (98-107); CREATININE 0.6 MG/DL (0.55-1.30); POTASSIUM 3.8 MMOL/L (3.5-5.1); SODIUM 142 MMOL/L (136-145)
[2019-08-30 07:01] LABS: BASOPHILS % (AUTO) 0.4 % (0.0-2.0); EOSINOPHILS % (AUTO) 1.5 % (0.0-3.0); HEMOGLOBIN 9.7 G/DL (14.2-18.0); LYMPHOCYTES % (AUTO) 29.8 % (20.0-45.0); MEAN CORPUSCULAR VOLUME 82 FL (80-99); MONOCYTES % (AUTO) 5.7 % (1.0-10.0); NEUTROPHILS % (AUTO) 62.6 % (45.0-75.0); PLATELET COUNT 295 K/UL (150-450); RED BLOOD COUNT 3.78 M/UL (4.70-6.10); WHITE BLOOD COUNT 8.6 K/UL (4.8-10.8)
--- NOTE | 2019-08-30 07:10 | NUR ---
NURSE NOTES: Patient received in stable condition, sleeping in bed. No signs of apparent distress observed. IV fluid running. Suprapubic catheter patent and intact. Bed locked in lowest position, call light placed within reach. Wheelchair by the bedside. Will continue to monitor.
--- NOTE | 2019-08-30 07:39 | NUR ---
HAND-OFF: Report given to RUBEN Beyer.
[2019-08-30 08:00] VITALS: BP 143/84
[2019-08-30] MEDS: Docusate 100mg cap ORAL SCH ×4 (08:25→21:00)
[2019-08-30] MEDS: Lisinopril 10mg tab ORAL SCH (08:25)
[2019-08-30] MEDS: Fluconazole 100mg tab ORAL SCH (08:25)
[2019-08-30] MEDS: Vancomycin 1.25 GM in NS 275 ML IVPB SCH (10:49)
[2019-08-30] MEDS ORDERED: Vancomycin 1 GM in NS 275 ML IVPB SCH (11:00)
[2019-08-30 11:39] VITALS: BP 150/82
--- NOTE | 2019-08-30 11:51 | Urology Progress Note ---
Assessment/Plan Status: stable Assessment/Plan: 1. Urinary retention history with suprapubic tube. 2. Probable neurogenic bladder. 3. Hematuria. 4. Pyuria and probably colonized. 5. Proteinuria. cont SP tube, last exchanged 08/28 hand irrigated and position is satisfactory abx as ordered f/u on last blood cx consider renal imaging Subjective Allergies: Coded Allergies: No Known Allergies (Unverified , 08/02/19) Subjective all noted, new SP tube draining OK Objective Last 24 Hour Vital Signs Date Time Temp Pulse Resp B/P (MAP) Pulse Ox O2 Delivery O2 Flow Rate FiO2 08/30/19 11:39 98.6 79 19 150/82 (104) 96 08/30/19 09:00 Room Air 08/30/19 08:25 143/84 08/30/19 08:00 97.5 85 18 143/84 (103) 99 08/30/19 04:00 98.7 63 20 142/72 (95) 98 08/30/19 00:00 97.4 100 18 164/87 (112) 97 08/29/19 21:00 Room Air 08/29/19 20:00 97.7 83 20 149/86 (107) 97 08/29/19 16:00 97.5 83 18 131/81 (98) 96 08/29/19 12:00 98.4 79 18 137/79 (98) 97 Intake and Output 08/29/19 08/30/19 19:00 07:00 Intake Total 700 ml 1676.663 ml Output Total 2100 ml 1450 ml Balance -1400 ml 226.663 ml IV Total 1676.663 ml Other 700 ml Output Urine Total 2100 ml 1450 ml # Bowel Movements 2 1 Microbiology Date/Time Source Procedure Growth Status 08/26/19 14:15 Blood Blood Culture - Preliminary NO GROWTH AFTER 72 HOURS Resulted 08/25/19 00:15 Nasal Nares MRSA Culture - Final Staphylococcus Aureus - Mrsa Complete 08/27/19 18:20 Stool Clostridium difficile Toxin Assay - Final Complete 08/28/19 02:45 Indwelling Cath Urine Culture - Final Haritha Tropicalis Complete 08/25/19 00:15 Rectum - Final NO CARBAPENEM-RESISTANT ENTEROBACTERI... Complete Current Medications Medications (Trade) Dose Ordered Sig/Nayely Route PRN Reason Start Time Stop Time Status Last Admin Dose Admin Acetaminophen (Tylenol) 650 mg Q4H PRN ORAL fever 08/25/19 00:15 09/24/19 00:14 08/25/19 01:41 Acetaminophen (Tylenol) 650 mg Q4H PRN ORAL Mild Pain (Pain Scale 1-3) 08/25/19 00:15 09/24/19 00:14 Al Hydroxide/Mg Hydroxide (Mylanta II) 30 ml Q6H PRN ORAL dyspepsia 08/25/19 00:15 09/24/19 00:14 Atorvastatin Calcium (Lipitor) 20 mg BEDTIME ORAL 08/26/19 21:00 09/25/19 20:59 08/29/19 20:05 Bisacodyl (Dulcolax) 10 mg HSPRN PRN RECTAL Constipation 08/25/19 00:15 09/24/19 00:14 Dextrose (Dextrose 50%) 25 ml Q30M PRN IV Hypoglycemia 08/25/19 00:15 09/24/19 00:14 Dextrose (Dextrose 50%) 50 ml Q30M PRN IV Hypoglycemia 08/25/19 00:15 09/24/19 00:14 Diphenhydramine HCl (Benadryl) 25 mg Q6H PRN ORAL Itching/Pruritis 08/25/19 00:15 09/24/19 00:14 Docusate Sodium (Colace) 100 mg EVERY 12 HOURS ORAL 08/25/19 09:00 09/24/19 08:59 08/30/19 08:25 Fluconazole (Diflucan) 100 mg DAILY ORAL 08/30/19 09:00 09/06/19 08:59 08/30/19 08:25 Heparin Sodium (Porcine) (Heparin 5000 units/ml) 5,000 units EVERY 8 HOURS SUBQ 08/25/19 06:00 09/24/19 05:59 Hydromorphone HCl (Dilaudid) 1 mg Q4H PRN IVP Severe Breakthru Pain (>7) 08/26/19 20:33 09/02/19 20:32 08/30/19 10:23 Insulin Aspart (NovoLOG) BEFORE MEALS AND HS SUBQ 08/25/19 06:30 09/24/19 06:29 Lisinopril (Zestril) 10 mg DAILY ORAL 08/26/19 18:22 09/25/19 18:21 08/30/19 08:25 Lorazepam (Ativan 2mg/ml 1ml) 0.5 mg Q4H PRN IV For Anxiety 08/25/19 00:15 09/01/19 00:14 08/30/19 08:26 Magnesium Hydroxide (Mom) 30 ml HSPRN PRN ORAL Constipation 08/25/19 00:15 09/24/19 00:14 Meropenem 1 gm/ Sodium Chloride 55 ml @ 110 mls/hr Q8HR IVPB 08/25/19 14:00 09/03/19 13:59 08/30/19 06:06 Ondansetron HCl (Zofran) 4 mg Q6H PRN IVP Nausea & Vomiting 08/25/19 00:15 09/24/19 00:14 Oxycodone/ Acetaminophen (Percocet 10/325) 1 tab Q4H PRN ORAL Severe Pain (Pain Scale 7-10) 08/26/19 18:15 09/02/19 18:14 08/30/19 08:30 Oxycodone/ Acetaminophen (Percocet 5-325) 1 tab Q4H PRN ORAL Moderate Pain (Pain Scale 4-6) 08/26/19 18:15 09/02/19 18:14 08/28/19 08:49 Polyethylene Glycol (Miralax) 17 gm HSPRN PRN ORAL Constipation 08/25/19 00:15 09/24/19 00:14 Sodium Chloride 1,000 ml @ 100 mls/hr Q10H IVLG 08/25/19 01:03 09/24/19 01:02 08/30/19 02:16 Temazepam (Restoril) 15 mg HSPRN PRN ORAL Insomnia 08/25/19 00:15 09/01/19 00:14 08/28/19 23:34 Vancomycin HCl (Vanco rx to dose) 1 ea DAILY PRN MISC Per rx protocol 08/25/19 00:15 09/24/19 00:14 Vancomycin HCl 1.25 gm/Sodium Chloride 275 ml @ 183.333 mls/hr Q12H IVPB 08/29/19 23:00 09/03/19 22:59 08/30/19 10:49 Laboratory Tests 08/29/19 21:45: Vancomycin Level Trough 18.0H 10/5/19 05:50: White Blood Count 8.6, Red Blood Count 3.78L, Hemoglobin 9.7L, Hematocrit 31.0L , Mean Corpuscular Volume 82, Mean Corpuscular Hemoglobin 25.5L, Mean Corpuscular Hemoglobin Concent 31.2L, Red Cell Distribution Width 17.0H, Platelet Count 295, Mean Platelet Volume 6.2L, Neutrophils (%) (Auto) 62.6, Lymphocytes (%) (Auto) 29.8, Monocytes (%) (Auto) 5.7, Eosinophils (%) (Auto) 1.5, Basophils (%) (Auto) 0.4, Sodium Level 142, Potassium Level 3.8, Chloride Level 107, Carbon Dioxide Level 29, Anion Gap 6, Blood Urea Nitrogen 10, Creatinine 0.6, Estimat Glomerular Filtration Rate > 60, Glucose Level 93, Calcium Level 8.4L Height (Feet): 5 Height (Inches): 4.00 Weight (Pounds): 152 Objective exam stable Reji Barriga MD Aug 30, 2019 11:51
[2019-08-30] MEDS ORDERED: Heparin1,000 units/500ml Premix(Conc:2 units/ml) IV PRN (12:30)
[2019-08-30] MEDS ORDERED: Lidocaine 1% Plain 30 ml INJ PRN (12:30)
--- NOTE | 2019-08-30 13:24 | Surgery Progress Note ---
Surgery Progress Note Subjective Additional Comments Patient seen and examined bedside. No acute events. States he feels well. No pain. Erythema improving. Labs improved. Objective Last 24 Hour Vital Signs Date Time Temp Pulse Resp B/P (MAP) Pulse Ox O2 Delivery O2 Flow Rate FiO2 08/30/19 11:39 98.6 79 19 150/82 (104) 96 08/30/19 09:00 Room Air 08/30/19 08:25 143/84 08/30/19 08:00 97.5 85 18 143/84 (103) 99 08/30/19 04:00 98.7 63 20 142/72 (95) 98 08/30/19 00:00 97.4 100 18 164/87 (112) 97 08/29/19 21:00 Room Air 08/29/19 20:00 97.7 83 20 149/86 (107) 97 08/29/19 16:00 97.5 83 18 131/81 (98) 96 I&O Intake and Output 08/29/19 08/30/19 19:00 07:00 Intake Total 700 ml 1676.663 ml Output Total 2100 ml 1450 ml Balance -1400 ml 226.663 ml IV Total 1676.663 ml Other 700 ml Output Urine Total 2100 ml 1450 ml # Bowel Movements 2 1 Cardiovascular: RSR Respiratory: clear Abdomen: soft, flat, non-tender, present bowel sounds Extremities: edema, no tenderness, no cyanosis Laboratory Tests Test 08/29/19 21:45 08/30/19 05:50 Vancomycin Level Trough 18.0 ug/mL (5.0-12.0) H White Blood Count 8.6 K/UL (4.8-10.8) Red Blood Count 3.78 M/UL (4.70-6.10) L Hemoglobin 9.7 G/DL (14.2-18.0) L Hematocrit 31.0 % (42.0-52.0) L Mean Corpuscular Volume 82 FL (80-99) Mean Corpuscular Hemoglobin 25.5 PG (27.0-31.0) L Mean Corpuscular Hemoglobin Concent 31.2 G/DL (32.0-36.0) L Red Cell Distribution Width 17.0 % (11.6-14.8) H Platelet Count 295 K/UL (150-450) Mean Platelet Volume 6.2 FL (6.5-10.1) L Neutrophils (%) (Auto) 62.6 % (45.0-75.0) Lymphocytes (%) (Auto) 29.8 % (20.0-45.0) Monocytes (%) (Auto) 5.7 % (1.0-10.0) Eosinophils (%) (Auto) 1.5 % (0.0-3.0) Basophils (%) (Auto) 0.4 % (0.0-2.0) Sodium Level 142 MMOL/L (136-145) Potassium Level 3.8 MMOL/L (3.5-5.1) Chloride Level 107 MMOL/L (98-107) Carbon Dioxide Level 29 MMOL/L (21-32) Anion Gap 6 mmol/L (5-15) Blood Urea Nitrogen 10 mg/dL (7-18) Creatinine 0.6 MG/DL (0.55-1.30) Estimat Glomerular Filtration Rate > 60 mL/min (>60) Glucose Level 93 MG/DL (74-106) Calcium Level 8.4 MG/DL (8.5-10.1) L Plan Problems: (1) Cellulitis of right thigh Assessment & Plan: 58-year-old male with acute cellulitis of the right thigh and near hip. 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 At the level of the hip the femur is loose and question of underlying issues states his been like this for a while. On the left side he has a AKA which is otherwise stable. He has motor on the left side but no motor on the right given the above described abnormality. Plain films ordered of the right hip and lower extremity. No abscess palpable on examination at this time. Etiology of cellulitis unknown but no wound identified. Cont IV antibiotics We will follow with serial exams and recommendations Evidence of prior right proximal femoral resection Abnormality of the right acetabulum, ischium, and lateral pubic ramus. Probably related to the above and probably chronic. However, acute erosive changes of the ischium and pubic ramus cannot be excluded. Consider MRI for better characterization if there is clinical suspicion for osteomyelitis Severe degenerative changes of the left hip Evidence of acute osteomyelitis involving the right ischium, posterior wall of the acetabulum and inferior pubic ramus. Moderate degree of adjacent surrounding cellulitis/myositis. Status post previous resection of the right femoral head and neck. Status post right [id number] amputation. No evidence of acute osteomyelitis involving the right femur. Moderate cellulitis of the thigh noted. No drainable abscess. Suprapubic catheter Thank you for allowing me to participate in patient's care (2) Stage 4 decubitus ulcer Assessment & Plan: Pt presented no admission with R BKA,L AKA.Full thickness pressure injury with undermining R ischium. [place] granulation at base of wound .Bone is palpable. Edges adherent and flat. Erythema periwound. No odor noted Small amt serous exudate.(L)4.5cm x (W)6.5cm x (D)6.3cm, undermining clockwise 9 -1by 7.3cm @12o'clock. Multiple scarring noted to R trochanter,harvest graft site R thigh. No other skin concerns noted. Tx.plan: Cleanse wound with Saline. Loosely pack wound with Hydrogel impregnated Kerlix. Apply Cavilon periwound. Cover with Optifoam drsg Daily and prn. Apply Triad Paste to buttocks and groin with each incontinence care. Reposition at least every 2hours or as tolerated.(Encourage pt to frequently reposition self ). Additional Comments Plan for PICC line on Sunday for long-term antibiotics giving MRI findings Baron Crouch Aug 30, 2019 13:24
--- NOTE | 2019-08-30 13:35 | General Progress Note ---
Assessment/Plan Problem List: (1) Chronic pain ICD Codes: G89.29 - Other chronic pain SNOMED: 12529082 Qualifiers: Qualified Codes: G89.4 - Chronic pain syndrome (2) Cellulitis of right thigh ICD Codes: L03.115 - Cellulitis of right lower limb SNOMED: 92952935539144972 (3) Anemia ICD Codes: D64.9 - Anemia, unspecified SNOMED: 483994378 Qualifiers: Qualified Codes: D64.9 - Anemia, unspecified (4) Sepsis ICD Codes: A41.9 - Sepsis, unspecified organism SNOMED: 80404973 Qualifiers: Qualified Codes: A41.9 - Sepsis, unspecified organism (5) UTI (urinary tract infection) ICD Codes: N39.0 - Urinary tract infection, site not specified SNOMED: 42631802 Qualifiers: Qualified Codes: N30.00 - Acute cystitis without hematuria (6) Cellulitis ICD Codes: L03.90 - Cellulitis, unspecified SNOMED: 816368958 (7) Stage 4 decubitus ulcer ICD Codes: L89.94 - Pressure ulcer of unspecified site, stage 4 SNOMED: 467205004 (8) Severe protein-calorie malnutrition ICD Codes: E43 - Unspecified severe protein-calorie malnutrition SNOMED: 992380876, 560536773, 089985365 (9) UTI due to extended-spectrum beta lactamase (ESBL) producing Escherichia coli ICD Codes: N39.0 - Urinary tract infection, site not specified; B96.29 - Other Escherichia coli [E. coli] as the cause of diseases classified elsewhere; Z16.12 - Extended spectrum beta lactamase (ESBL) resistance SNOMED: 638539305, 327598634 Status: stable Assessment/Plan: 58 year old male with R BKA, L AKA and history of ESBL UTI, now with sepsis secondary to right lower extremity cellulitis vs. UTI. Also has stage 4 decubitus ulcer. doubt infected. #Sepsis secondary to right thigh/hip cellulitis and right ischium osteomyelitis , no drainable abscess #Fungal UTI - Improving #gram positive cocci bacteremia- Coag Negative Staph: likely contaminant per ID > 10/ ESR 113, CRP 38.6 > MRI positive for osteo of right ischium - Continue Vancomycin and Merrem. Will need a total of 6 weeks. - Per ID will also treat with 10 days of diflucan for kamilah UTI given patient will have PICC line and risk of fungemia. - Patient consented for PICC line - Appreciate ID consult: Dr. Hawk- Follow up repeat blood cultures, continue antibiotics - Appreciate surgery consult: Dr. Crouch- Follow up on x-ray femur. Elevated ESR and CRp. - will need PICC line and 6 weeks IV antibiotics. - D/C iV pain meds. Patient agreeable. Change to dilaudid 2mg PO Q4hr PRN breakthrough pain #diarrhea, improving > C. Diff negative - continue to monitor # stage 4 decubitus. Doubt the source. Surgical consult. wound care #suprapubic catheter - exchanged by Dr. Barriga 08/27/19 - continue abx as above - Urology: Dr. Barriga to replace #.history of paraplegia #Chronic pain. - Pain control: percocet 5mg/325 Q6hr PRN moderate, Percocet 10mg PO q6hr PRn severe # COPD Duonebs PRN # CAD #HTN ASA, Atorvastatin, -Continue decreased dose of lisinopril 10mg PO daily - holding metoprolol due to borderline BP # h/o Left AKA, right BKA # Severe iron deficiency anemia- on PO iron at [facility]. - holding for now due to presence of infection Discussed [facility] RN, patient, general surgery and infectious disease. I spent 36 minutes during this encounter. > 50% spent on counselling and care coordination. Time of note may not reflect time patient was seen Subjective Date patient seen: Aug 30, 2019 Constitutional: Denies: chills, diaphoresis, fever, malaise, weakness, other HEENT: Denies: eye pain, blurred vision, tearing, double vision, ear pain, ear discharge, nose pain, nose congestion, throat pain, throat swelling, mouth pain , mouth swelling, other Cardiovascular: Denies: chest pain, edema, irregular heart rate, lightheadedness, palpitations, syncope, other Respiratory: Denies: cough, orthopnea, shortness of breath, SOB with excertion , SOB at rest, sputum, stridor, wheezing, other Gastrointestinal/Abdominal: Denies: abdomen distended, abdominal pain, black stools, tarry stools, blood in stool, constipated, diarrhea, difficulty swallowing, nausea, poor appetite, poor fluid intake, rectal bleeding, vomiting , other Genitourinary: Denies: burning, discharge, frequency, flank pain, hematuria, incontinence, pain, urgency, other Neurologic/Psychiatric: Denies: anxiety, depressed, emotional problems, headache, numbness, paresthesia, pre-existing deficit, seizure, tingling, tremors, weakness, other Endocrine: Denies: excessive sweating, flushing, intolerance to cold, intolerance to heat, increased hunger, increased thirst, increased urine, unexplained weight gain, unexplained weight loss, other Hematologic/Lymphatic: Denies: anemia, easy bleeding, easy bruising, other Allergies: Coded Allergies: No Known Allergies (Unverified , 08/02/19) Subjective No acute events overnight per nursing. Vitals stable. Right leg cellulitis: Continues to improve. No more erythema or warmth. no fevers. Pain is much better. Updated about MRI results regarding osteomyelitis. Objective Last 24 Hour Vital Signs Date Time Temp Pulse Resp B/P (MAP) Pulse Ox O2 Delivery O2 Flow Rate FiO2 08/30/19 11:39 98.6 79 19 150/82 (104) 96 08/30/19 09:00 Room Air 08/30/19 08:25 143/84 08/30/19 08:00 97.5 85 18 143/84 (103) 99 08/30/19 04:00 98.7 63 20 142/72 (95) 98 08/30/19 00:00 97.4 100 18 164/87 (112) 97 08/29/19 21:00 Room Air 08/29/19 20:00 97.7 83 20 149/86 (107) 97 08/29/19 16:00 97.5 83 18 131/81 (98) 96 Intake and Output 08/29/19 08/30/19 19:00 07:00 Intake Total 700 ml 1676.663 ml Output Total 2100 ml 1450 ml Balance -1400 ml 226.663 ml IV Total 1676.663 ml Other 700 ml Output Urine Total 2100 ml 1450 ml # Bowel Movements 2 1 Laboratory Tests 08/29/19 21:45: Vancomycin Level Trough 18.0H 08/30/19 05:50: White Blood Count 8.6, Red Blood Count 3.78L, Hemoglobin 9.7L, Hematocrit 31.0L , Mean Corpuscular Volume 82, Mean Corpuscular Hemoglobin 25.5L, Mean Corpuscular Hemoglobin Concent 31.2L, Red Cell Distribution Width 17.0H, Platelet Count 295, Mean Platelet Volume 6.2L, Neutrophils (%) (Auto) 62.6, Lymphocytes (%) (Auto) 29.8, Monocytes (%) (Auto) 5.7, Eosinophils (%) (Auto) 1.5, Basophils (%) (Auto) 0.4, Sodium Level 142, Potassium Level 3.8, Chloride Level 107, Carbon Dioxide Level 29, Anion Gap 6, Blood Urea Nitrogen 10, Creatinine 0.6, Estimat Glomerular Filtration Rate > 60, Glucose Level 93, Calcium Level 8.4L Height (Feet): 5 Height (Inches): 4.00 Weight (Pounds): 152 General Appearance: WD/WN, no apparent distress, alert EENT: PERRL/EOMI, normal ENT inspection Neck: non-tender, normal alignment Cardiovascular: normal peripheral pulses, normal rate, regular rhythm Respiratory/Chest: chest wall non-tender, lungs clear, normal breath sounds Abdomen: normal bowel sounds, non tender, soft Extremities: other - Bilateral AKA, redness and erythema resolved Neurologic: flare man II-XII grossly normal, no motor/sensory deficits, alert, oriented x 3 Skin: normal pigmentation, warm/dry Jarvis Hall D.O. Aug 30, 2019 13:35
[2019-08-30 16:00] VITALS: BP 136/75
[2019-08-30] MEDS: HYDROmorphone 2mg tab ORAL PRN ×2 (16:48→22:33)
--- NOTE | 2019-08-30 17:14 | NUR ---
CASE MANAGEMENT: REVIEW 08/30/2019 SI:SEPSIS. CELLULITIS. T 97.8 HR 76 RR 19 B/P 136/75 SATS 99% ON RA CA 8.4 IS:IVF @ 100 mL/HR LIPITOR PO QHS DIFLUCAN PO QD INSULIN ASPART SUBQ AC/HS VANCO IV Q12H MEROPENEM IV Q8H MED/SURG
--- NOTE | 2019-08-30 19:15 | NUR ---
NURSE NOTES: Received pt in resting in bed. AAO x 4, on room air. IV infiltrate noted. Will insert new IV. Wound dressing on sacral intact and dry. Suprapubic cath intact and draining well. Bed locked, lowest position, alarm on, side rails up x 2, call light within reach. Will continue to monitor.
--- NOTE | 2019-08-30 19:21 | NUR ---
HAND-OFF: Report given to Ksenia MIRANDA.
[2019-08-30 20:00] VITALS: BP 149/83
[2019-08-30] MEDS: Atorvastatin 20mg tab ORAL SCH (20:19)
--- NOTE | 2019-08-30 21:20 | NUR ---
NURSE NOTES: Pt refused blood sugar check. Stated I am not diabetic. Refused Heparin injection. Reinforced pt education.
[2019-08-30] MEDS: Dyna-Hex 2% Top Sol 2oz TOPIC SCH (22:31)
--- NOTE | 2019-08-30 23:00 | NUR ---
NURSE NOTES: Wound pic taken. Wound dressing changed. New IV inserted R ANDRES 24G.
[2019-08-31] VITALS: BP 140/83
[2019-08-31] MEDS: Vancomycin 1.25gm/NS Premix IVPB SCH ×3 (00:20→23:08)
[2019-08-31] MEDS: LORazepam Inj 2mg/ml 1ml IV PRN ×5 (00:20→21:46)
[2019-08-31] MEDS: HYDROmorphone 2mg tab ORAL PRN ×4 (02:51→19:52)
[2019-08-31 04:00] VITALS: BP 115/68
[2019-08-31] MEDS: Heparin 5000 units/ml inj SUBQ SCH ×3 (05:35→21:54)
[2019-08-31] MEDS: Meropenem 1 GM in NS 55 ML IVPB SCH ×3 (05:41→21:47)
[2019-08-31] MEDS: NovoLOG Insulin Flexpen SUBQ SCH ×4 (05:45→20:52)
[2019-08-31 06:26] LABS: BASOPHILS % (AUTO) 0.6 % (0.0-2.0); EOSINOPHILS % (AUTO) 2.4 % (0.0-3.0); HEMATOCRIT 30.2 % (42.0-52.0); HEMOGLOBIN 9.5 G/DL (14.2-18.0); LYMPHOCYTES % (AUTO) 30.5 % (20.0-45.0); MEAN CORPUSCULAR VOLUME 81 FL (80-99); MONOCYTES % (AUTO) 6.2 % (1.0-10.0); NEUTROPHILS % (AUTO) 60.4 % (45.0-75.0); PLATELET COUNT 305 K/UL (150-450); RED BLOOD COUNT 3.71 M/UL (4.70-6.10); WHITE BLOOD COUNT 8.4 K/UL (4.8-10.8)
[2019-08-31 06:37] LABS: ANION GAP 4 mmol/L (5-15); BLOOD UREA NITROGEN 12 mg/dL (7-18); CALCIUM 8.6 MG/DL (8.5-10.1); CARBON DIOXIDE 33 MMOL/L (21-32); CHLORIDE 104 MMOL/L (98-107); CREATININE 0.7 MG/DL (0.55-1.30); SODIUM 141 MMOL/L (136-145)
--- NOTE | 2019-08-31 07:41 | NUR ---
HAND-OFF: Report given to RUBEN Holt.
[2019-08-31 08:00] VITALS: BP 131/76
--- NOTE | 2019-08-31 08:00 | NUR ---
NURSE NOTES: received pt in bed, no complaint of pain or discomfort. Pt receives IVF through right hand, no sign of infiltration noted. Suprapubic catheter in place, draining yellow urine to gravity. Call light within easy reach, siderails up x2, bed locked at the lowest position possible. Will continue to monitor patient and follow up with the plan of care.
--- NOTE | 2019-08-31 08:58 | Urology Progress Note ---
Assessment/Plan Status: stable Assessment/Plan: 1. Urinary retention history with suprapubic tube. 2. Probable neurogenic bladder. 3. Hematuria. 4. Pyuria and probably colonized. 5. Proteinuria. cont SP tube, last exchanged 08/28 hand irrigated and position is satisfactory abx as ordered f/u on last blood cx consider renal imaging Subjective Allergies: Coded Allergies: No Known Allergies (Unverified , 08/02/19) Subjective all noted, new SP tube draining OK Objective Last 24 Hour Vital Signs Date Time Temp Pulse Resp B/P (MAP) Pulse Ox O2 Delivery O2 Flow Rate FiO2 08/31/19 08:00 98.0 79 19 131/76 (94) 96 08/31/19 04:00 97.9 80 18 115/68 (84) 100 08/31/19 00:00 97.0 78 18 140/83 (102) 96 08/30/19 21:00 Room Air 08/30/19 20:00 97.7 74 18 149/83 (105) 96 08/30/19 16:00 97.8 76 19 136/75 (95) 99 08/30/19 11:39 98.6 79 19 150/82 (104) 96 08/30/19 09:00 Room Air Intake and Output 08/30/19 08/31/19 19:00 07:00 Intake Total 1110 ml 1221.6 ml Output Total 1500 ml 900 ml Balance -390 ml 321.6 ml IV Total 210 ml 1221.6 ml Other 900 ml Output Urine Total 1500 ml 900 ml # Voids 1 # Bowel Movements 1 Microbiology Date/Time Source Procedure Growth Status 08/26/19 14:15 Blood Blood Culture - Preliminary NO GROWTH AFTER 4 DAYS Resulted 08/25/19 00:15 Nasal Nares MRSA Culture - Final Staphylococcus Aureus - Mrsa Complete 08/27/19 18:20 Stool Clostridium difficile Toxin Assay - Final Complete 08/28/19 02:45 Indwelling Cath Urine Culture - Final Haritha Tropicalis Complete 08/25/19 00:15 Rectum - Final NO CARBAPENEM-RESISTANT ENTEROBACTERI... Complete Current Medications Medications (Trade) Dose Ordered Sig/Nayely Route PRN Reason Start Time Stop Time Status Last Admin Dose Admin Acetaminophen (Tylenol) 650 mg Q4H PRN ORAL fever 08/25/19 00:15 09/24/19 00:14 08/25/19 01:41 Acetaminophen (Tylenol) 650 mg Q4H PRN ORAL Mild Pain (Pain Scale 1-3) 08/25/19 00:15 09/24/19 00:14 Al Hydroxide/Mg Hydroxide (Mylanta II) 30 ml Q6H PRN ORAL dyspepsia 08/25/19 00:15 09/24/19 00:14 Atorvastatin Calcium (Lipitor) 20 mg BEDTIME ORAL 08/26/19 21:00 09/25/19 20:59 08/30/19 20:19 Bisacodyl (Dulcolax) 10 mg HSPRN PRN RECTAL Constipation 08/25/19 00:15 09/24/19 00:14 Chlorhexidine Gluconate (Krissy-Hex 2%) 1 applic DAILY@1999 TOPIC 08/30/19 20:00 09/29/19 19:59 08/30/19 22:31 Dextrose (Dextrose 50%) 25 ml Q30M PRN IV Hypoglycemia 08/25/19 00:15 09/24/19 00:14 Dextrose (Dextrose 50%) 50 ml Q30M PRN IV Hypoglycemia 08/25/19 00:15 09/24/19 00:14 Diphenhydramine HCl (Benadryl) 25 mg Q6H PRN ORAL Itching/Pruritis 08/25/19 00:15 09/24/19 00:14 Docusate Sodium (Colace) 100 mg EVERY 12 HOURS ORAL 08/25/19 09:00 09/24/19 08:59 08/30/19 08:25 Fluconazole (Diflucan) 100 mg DAILY ORAL 08/30/19 09:00 09/06/19 08:59 08/30/19 08:25 Heparin Sodium (Porcine) (Heparin 5000 units/ml) 5,000 units EVERY 8 HOURS SUBQ 08/25/19 06:00 09/24/19 05:59 Heparin Sodium/ Sodium Chloride (Heparin 1000 units/500ml Premix) 1,000 unit ONCE PRN IV PICC LINE PLACEMENT 08/30/19 12:30 09/01/19 23:59 Hydromorphone HCl (Dilaudid) 2 mg Q4H PRN ORAL Breakthrough Pain 08/30/19 12:30 09/06/19 12:29 08/31/19 02:51 Insulin Aspart (NovoLOG) BEFORE MEALS AND HS SUBQ 08/25/19 06:30 09/24/19 06:29 Lidocaine HCl (Xylocaine 1% 30ml) 30 ml ONCE PRN INJ PICC PLACEMENT 08/30/19 12:30 09/01/19 23:59 Lisinopril (Zestril) 10 mg DAILY ORAL 08/26/19 18:22 09/25/19 18:21 08/30/19 08:25 Lorazepam (Ativan 2mg/ml 1ml) 0.5 mg Q4H PRN IV For Anxiety 08/25/19 00:15 09/01/19 00:14 08/31/19 04:51 Magnesium Hydroxide (Mom) 30 ml HSPRN PRN ORAL Constipation 08/25/19 00:15 09/24/19 00:14 Meropenem 1 gm/ Sodium Chloride 55 ml @ 110 mls/hr Q8HR IVPB 08/25/19 14:00 09/03/19 13:59 08/31/19 05:41 Ondansetron HCl (Zofran) 4 mg Q6H PRN IVP Nausea & Vomiting 08/25/19 00:15 09/24/19 00:14 Oxycodone/ Acetaminophen (Percocet 10/325) 1 tab Q4H PRN ORAL Severe Pain (Pain Scale 7-10) 08/26/19 18:15 09/02/19 18:14 08/31/19 04:51 Oxycodone/ Acetaminophen (Percocet 5-325) 1 tab Q4H PRN ORAL Moderate Pain (Pain Scale 4-6) 08/26/19 18:15 09/02/19 18:14 08/28/19 08:49 Polyethylene Glycol (Miralax) 17 gm HSPRN PRN ORAL Constipation 08/25/19 00:15 09/24/19 00:14 Sodium Chloride 1,000 ml @ 100 mls/hr Q10H IVLG 08/25/19 01:03 09/24/19 01:02 08/31/19 05:41 Temazepam (Restoril) 15 mg HSPRN PRN ORAL Insomnia 08/25/19 00:15 09/01/19 00:14 08/30/19 22:32 Vancomycin HCl (Vanco rx to dose) 1 ea DAILY PRN MISC Per rx protocol 08/25/19 00:15 09/24/19 00:14 Vancomycin/Sodium Chloride 275 ml @ 183.333 mls/hr Q12HR@1100,2300 IVPB 08/30/19 23:00 09/04/19 22:59 08/31/19 00:20 Laboratory Tests 08/31/19 05:50: White Blood Count 8.4, Red Blood Count 3.71L, Hemoglobin 9.5L, Hematocrit 30.2L , Mean Corpuscular Volume 81, Mean Corpuscular Hemoglobin 25.7L, Mean Corpuscular Hemoglobin Concent 31.6L, Red Cell Distribution Width 17.0H, Platelet Count 305, Mean Platelet Volume 5.5L, Neutrophils (%) (Auto) 60.4, Lymphocytes (%) (Auto) 30.5, Monocytes (%) (Auto) 6.2, Eosinophils (%) (Auto) 2.4, Basophils (%) (Auto) 0.6, Sodium Level 141, Potassium Level 4.0, Chloride Level 104, Carbon Dioxide Level 33H, Anion Gap 4L, Blood Urea Nitrogen 12, Creatinine 0.7, Estimat Glomerular Filtration Rate > 60, Glucose Level 101, Calcium Level 8.6 Height (Feet): 5 Height (Inches): 4.00 Weight (Pounds): 152 Objective exam stable Reji Barriga MD Aug 31, 2019 08:58
[2019-08-31] MEDS: Fluconazole 100mg tab ORAL SCH (09:25)
[2019-08-31] MEDS: Lisinopril 10mg tab ORAL SCH (09:25)
--- NOTE | 2019-08-31 09:52 | NUR ---
CASE MANAGEMENT: REVIEW 08/31/2019 SI:SEPSIS. CELLULITIS. T 98 HR 79 RR 19 B/P 131/76 SATS 96% ON RA CO2 33 IS:IVF @ 100 mL/HR LIPITOR PO QHS DIFLUCAN PO QD INSULIN ASPART SUBQ AC/HS VANCO IV Q12H MEROPENEM IV Q8H MED/SURG
[2019-08-31] MEDS ORDERED: Lidocaine 1% Plain 30 ml INJ PRN (11:30)
[2019-08-31] MEDS ORDERED: Heparin1,000 units/500ml Premix(Conc:2 units/ml) IV PRN (11:30)
[2019-08-31 12:00] VITALS: BP 149/83
--- NOTE | 2019-08-31 12:01 | General Progress Note ---
Assessment/Plan Problem List: (1) Chronic pain ICD Codes: G89.29 - Other chronic pain SNOMED: 83444167 Qualifiers: Qualified Codes: G89.4 - Chronic pain syndrome (2) Cellulitis of right thigh ICD Codes: L03.115 - Cellulitis of right lower limb SNOMED: 37278881922318557 (3) Anemia ICD Codes: D64.9 - Anemia, unspecified SNOMED: 731920996 Qualifiers: Qualified Codes: D64.9 - Anemia, unspecified (4) Sepsis ICD Codes: A41.9 - Sepsis, unspecified organism SNOMED: 84139870 Qualifiers: Qualified Codes: A41.9 - Sepsis, unspecified organism (5) UTI (urinary tract infection) ICD Codes: N39.0 - Urinary tract infection, site not specified SNOMED: 57974862 Qualifiers: Qualified Codes: N30.00 - Acute cystitis without hematuria (6) Cellulitis ICD Codes: L03.90 - Cellulitis, unspecified SNOMED: 559589066 (7) Stage 4 decubitus ulcer ICD Codes: L89.94 - Pressure ulcer of unspecified site, stage 4 SNOMED: 542896038 (8) Severe protein-calorie malnutrition ICD Codes: E43 - Unspecified severe protein-calorie malnutrition SNOMED: 178029143, 099645781, 563716606 (9) UTI due to extended-spectrum beta lactamase (ESBL) producing Escherichia coli ICD Codes: N39.0 - Urinary tract infection, site not specified; B96.29 - Other Escherichia coli [E. coli] as the cause of diseases classified elsewhere; Z16.12 - Extended spectrum beta lactamase (ESBL) resistance SNOMED: 994264012, 814393948 Status: stable Assessment/Plan: 58 year old male with R BKA, L AKA and history of ESBL UTI, now with sepsis secondary to right lower extremity cellulitis vs. UTI. Also has stage 4 decubitus ulcer. doubt infected. #Sepsis secondary to right thigh/hip cellulitis and right ischium osteomyelitis , no drainable abscess #Fungal UTI - Improving #gram positive cocci bacteremia- Coag Negative Staph: likely contaminant per ID > 10/ ESR 113, CRP 38.6 > MRI positive for osteo of right ischium - Continue Vancomycin and Merrem. Will need a total of 6 weeks. (end date ) - Per ID will also treat with 10 days of diflucan (end date 09/09/19) for kamilah UTI given patient will have PICC line and risk of fungemia. - Patient consented for PICC line. To be placed tomorrow. - Appreciate ID consult: Dr. Hawk- Follow up repeat blood cultures, continue antibiotics - Appreciate surgery consult: Dr. Crouch- Follow up on x-ray femur. Elevated ESR and CRp. - will need PICC line and 6 weeks IV antibiotics. - D/C iV pain meds. Patient agreeable. Change to dilaudid 2mg PO Q4hr PRN breakthrough pain #diarrhea, resolved > C. Diff negative - continue to monitor # stage 4 decubitus. Doubt the source. Surgical consult. wound care Appreicate surgery recommendations: Dr. Crouch #suprapubic catheter - exchanged by Dr. Barriga 08/27/19 - continue abx as above -Appreciate Urology recommendations: Dr. Barriga #.history of paraplegia #Chronic pain. - Pain control: percocet 5mg/325 Q6hr PRN moderate, Percocet 10mg PO q6hr PRn severe - Dilaudid 2mg q4hr PRN PO breakthrough # COPD Duonebs PRN # CAD #HTN ASA, Atorvastatin, -Continue decreased dose of lisinopril 10mg PO daily - holding metoprolol due to borderline BP # h/o Left AKA, right BKA # Severe iron deficiency anemia- on PO iron at SNF. - holding for now due to presence of infection Discussed [facility] RN, patient, general surgery and infectious disease. I spent 37 minutes during this encounter. > 50% spent on counselling and care coordination. Time of note may not reflect time patient was seen Subjective Date patient seen: Aug 31, 2019 Constitutional: Denies: chills, diaphoresis, fever, malaise, weakness, other HEENT: Denies: eye pain, blurred vision, tearing, double vision, ear pain, ear discharge, nose pain, nose congestion, throat pain, throat swelling, mouth pain , mouth swelling, other Cardiovascular: Denies: chest pain, edema, irregular heart rate, lightheadedness, palpitations, syncope, other Respiratory: Denies: cough, orthopnea, shortness of breath, SOB with excertion , SOB at rest, sputum, stridor, wheezing, other Gastrointestinal/Abdominal: Denies: abdomen distended, abdominal pain, black stools, tarry stools, blood in stool, constipated, diarrhea, difficulty swallowing, nausea, poor appetite, poor fluid intake, rectal bleeding, vomiting , other Genitourinary: Denies: burning, discharge, frequency, flank pain, hematuria, incontinence, pain, urgency, other Neurologic/Psychiatric: Denies: anxiety, depressed, emotional problems, headache, numbness, paresthesia, pre-existing deficit, seizure, tingling, tremors, weakness, other Endocrine: Denies: excessive sweating, flushing, intolerance to cold, intolerance to heat, increased hunger, increased thirst, increased urine, unexplained weight gain, unexplained weight loss, other Hematologic/Lymphatic: Denies: anemia, easy bleeding, easy bruising, other Allergies: Coded Allergies: No Known Allergies (Unverified , 08/02/19) Subjective No acute events overnight per nursing. Vitals stable. no PICC time on weekend. Unable to place. Waiting for PICC line Right leg cellulitis: Continues to improve. Did not require any more IV pain meds. No more erythema or warmth. no fevers. Pain is much better. Objective Last 24 Hour Vital Signs Date Time Temp Pulse Resp B/P (MAP) Pulse Ox O2 Delivery O2 Flow Rate FiO2 08/31/19 09:54 98.0 08/31/19 09:25 131/76 08/31/19 09:00 Room Air 08/31/19 08:00 98.0 79 19 131/76 (94) 96 08/31/19 04:00 97.9 80 18 115/68 (84) 100 08/31/19 00:00 97.0 78 18 140/83 (102) 96 08/30/19 21:00 Room Air 08/30/19 20:00 97.7 74 18 149/83 (105) 96 08/30/19 16:00 97.8 76 19 136/75 (95) 99 Intake and Output 08/30/19 08/31/19 19:00 07:00 Intake Total 1110 ml 1221.6 ml Output Total 1500 ml 900 ml Balance -390 ml 321.6 ml IV Total 210 ml 1221.6 ml Other 900 ml Output Urine Total 1500 ml 900 ml # Voids 1 # Bowel Movements 1 Laboratory Tests 08/31/19 05:50: White Blood Count 8.4, Red Blood Count 3.71L, Hemoglobin 9.5L, Hematocrit 30.2L , Mean Corpuscular Volume 81, Mean Corpuscular Hemoglobin 25.7L, Mean Corpuscular Hemoglobin Concent 31.6L, Red Cell Distribution Width 17.0H, Platelet Count 305, Mean Platelet Volume 5.5L, Neutrophils (%) (Auto) 60.4, Lymphocytes (%) (Auto) 30.5, Monocytes (%) (Auto) 6.2, Eosinophils (%) (Auto) 2.4, Basophils (%) (Auto) 0.6, Sodium Level 141, Potassium Level 4.0, Chloride Level 104, Carbon Dioxide Level 33H, Anion Gap 4L, Blood Urea Nitrogen 12, Creatinine 0.7, Estimat Glomerular Filtration Rate > 60, Glucose Level 101, Calcium Level 8.6 Height (Feet): 5 Height (Inches): 4.00 Weight (Pounds): 152 General Appearance: WD/WN, no apparent distress, alert EENT: PERRL/EOMI, normal ENT inspection Neck: non-tender, normal alignment, supple Cardiovascular: normal peripheral pulses, normal rate, regular rhythm, no JVD Respiratory/Chest: chest wall non-tender, lungs clear, normal breath sounds, no respiratory distress Abdomen: normal bowel sounds, non tender, soft Extremities: other - bilatearl AKA, no edema bilatearlly 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 Aug 31, 2019 12:00
[2019-08-31 16:00] VITALS: BP 142/67
--- NOTE | 2019-08-31 16:06 | Surgery Progress Note ---
Surgery Progress Note Subjective Symptoms: improved, tolerating diet, voiding well, passing flatus Objective Last 24 Hour Vital Signs Date Time Temp Pulse Resp B/P (MAP) Pulse Ox O2 Delivery O2 Flow Rate FiO2 08/31/19 12:00 97.5 77 18 149/83 (105) 99 08/31/19 11:55 97.5 08/31/19 09:54 98.0 08/31/19 09:25 131/76 08/31/19 09:00 Room Air 08/31/19 08:00 98.0 79 19 131/76 (94) 96 08/31/19 04:00 97.9 80 18 115/68 (84) 100 08/31/19 00:00 97.0 78 18 140/83 (102) 96 08/30/19 21:00 Room Air 08/30/19 20:00 97.7 74 18 149/83 (105) 96 I&O Intake and Output 08/30/19 08/31/19 19:00 07:00 Intake Total 1110 ml 1221.6 ml Output Total 1500 ml 900 ml Balance -390 ml 321.6 ml IV Total 210 ml 1221.6 ml Other 900 ml Output Urine Total 1500 ml 900 ml # Voids 1 # Bowel Movements 1 Dressing: dry Wound: clean Drains: none Cardiovascular: RSR Respiratory: clear Abdomen: soft, flat, non-tender Extremities: edema, no tenderness, no cyanosis Laboratory Tests Test 08/31/19 05:50 White Blood Count 8.4 K/UL (4.8-10.8) Red Blood Count 3.71 M/UL (4.70-6.10) L Hemoglobin 9.5 G/DL (14.2-18.0) L Hematocrit 30.2 % (42.0-52.0) L Mean Corpuscular Volume 81 FL (80-99) Mean Corpuscular Hemoglobin 25.7 PG (27.0-31.0) L Mean Corpuscular Hemoglobin Concent 31.6 G/DL (32.0-36.0) L Red Cell Distribution Width 17.0 % (11.6-14.8) H Platelet Count 305 K/UL (150-450) Mean Platelet Volume 5.5 FL (6.5-10.1) L Neutrophils (%) (Auto) 60.4 % (45.0-75.0) Lymphocytes (%) (Auto) 30.5 % (20.0-45.0) Monocytes (%) (Auto) 6.2 % (1.0-10.0) Eosinophils (%) (Auto) 2.4 % (0.0-3.0) Basophils (%) (Auto) 0.6 % (0.0-2.0) Sodium Level 141 MMOL/L (136-145) Potassium Level 4.0 MMOL/L (3.5-5.1) Chloride Level 104 MMOL/L (98-107) Carbon Dioxide Level 33 MMOL/L (21-32) H Anion Gap 4 mmol/L (5-15) L Blood Urea Nitrogen 12 mg/dL (7-18) Creatinine 0.7 MG/DL (0.55-1.30) Estimat Glomerular Filtration Rate > 60 mL/min (>60) Glucose Level 101 MG/DL (74-106) Calcium Level 8.6 MG/DL (8.5-10.1) Plan Problems: (1) Cellulitis of right thigh Assessment & Plan: 58-year-old male with acute cellulitis of the right thigh and near hip. 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 At the level of the hip the femur is loose and question of underlying issues states his been like this for a while. On the left side he has a AKA which is otherwise stable. He has motor on the left side but no motor on the right given the above described abnormality. Plain films ordered of the right hip and lower extremity. No abscess palpable on examination at this time. Etiology of cellulitis unknown but no wound identified. Cont IV antibiotics We will follow with serial exams and recommendations Evidence of prior right proximal femoral resection Abnormality of the right acetabulum, ischium, and lateral pubic ramus. Probably related to the above and probably chronic. However, acute erosive changes of the ischium and pubic ramus cannot be excluded. Consider MRI for better characterization if there is clinical suspicion for osteomyelitis Severe degenerative changes of the left hip Evidence of acute osteomyelitis involving the right ischium, posterior wall of the acetabulum and inferior pubic ramus. Moderate degree of adjacent surrounding cellulitis/myositis. Status post previous resection of the right femoral head and neck. Status post right [id number] amputation. No evidence of acute osteomyelitis involving the right femur. Moderate cellulitis of the thigh noted. No drainable abscess. Suprapubic catheter Thank you for allowing me to participate in patient's care (2) Stage 4 decubitus ulcer Assessment & Plan: Pt presented no admission with R BKA,L AKA.Full thickness pressure injury with undermining R ischium. [place] granulation at base of wound .Bone is palpable. Edges adherent and flat. Erythema periwound. No odor noted Small amt serous exudate.(L)4.5cm x (W)6.5cm x (D)6.3cm, undermining clockwise 9 -1by 7.3cm @12o'clock. Multiple scarring noted to R trochanter,harvest graft site R thigh. No other skin concerns noted. Tx.plan: Cleanse wound with Saline. Loosely pack wound with Hydrogel impregnated Kerlix. Apply Cavilon periwound. Cover with Optifoam drsg Daily and prn. Apply Triad Paste to buttocks and groin with each incontinence care. Reposition at least every 2hours or as tolerated.(Encourage pt to frequently reposition self ). Baron Crouch Aug 31, 2019 16:06
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
--- NOTE | 2019-08-31 18:30 | NUR ---
NURSE NOTES: changed sacral/right buttock dressing with NS, Hydrogel impregnated Kerlix Ellen, applied Cavilon to the periwound and covered with Optifoam. No odor or secretion noted at wound site. Wound with moist pink color.
--- NOTE | 2019-08-31 19:16 | NUR ---
NURSE NOTES: Received pt in resting in bed. AAO x 4, on room air. IV intact and patent. Wound dressing on sacral intact and dry. Suprapubic cath intact and draining well. Bed locked, lowest position, alarm on, side rails up x 2, call light within reach. Will continue to monitor.
--- NOTE | 2019-08-31 19:16 | NUR ---
HAND-OFF: Report given to RUBEN Yu.
[2019-08-31 20:00] VITALS: BP 130/78
[2019-08-31] MEDS: Dyna-Hex 2% Top Sol 2oz TOPIC SCH (20:50)
[2019-08-31] MEDS: Docusate 100mg cap ORAL SCH ×2 (20:50→20:51)
[2019-08-31] MEDS: Atorvastatin 20mg tab ORAL SCH (20:50)
[2019-08-31] MEDS: oxyCODONE HCL/Acetaminophen 5/325mg ORAL PRN (21:46)
[2019-09-01] VITALS: BP 125/72
[2019-09-01] MEDS: HYDROmorphone 2mg tab ORAL PRN ×4 (00:07→22:03)
[2019-09-01] MEDS: LORazepam Inj 2mg/ml 1ml IV PRN ×4 (03:06→20:05)
--- NOTE | 2019-09-01 03:27 | NUR ---
NURSE NOTES: IV infiltrate noted. RN tried to insert new IV but pt refused new IV insertion. Stated I will wait PICC line insertion. Reinforced pt education. Addendum: 09/01/19 at 0603 by SADIA CANCINO RN RN NURSE NOTES: Left message Dr. Tomlinson.
[2019-09-01 04:00] VITALS: BP 103/61
[2019-09-01] MEDS: Meropenem 1 GM in NS 55 ML IVPB SCH ×3 (05:16→21:55)
[2019-09-01] MEDS: Heparin 5000 units/ml inj SUBQ SCH ×3 (05:25→21:14)
[2019-09-01] MEDS: NovoLOG Insulin Flexpen SUBQ SCH ×4 (05:51→20:07)
--- NOTE | 2019-09-01 07:30 | NUR ---
NURSE NOTES: Pt refused lab test.
--- NOTE | 2019-09-01 07:38 | NUR ---
HAND-OFF: Report given to RUBEN Holt.
--- NOTE | 2019-09-01 07:49 | NUR ---
NURSE NOTES: received pt in bed, asleep, no sign of pain or discomfort. No IV access, patient refused to be assessed after previous one was infiltrated, per NOC nurse. Suprapubic catheter in place, draining yellow urine to gravity. Call light within easy reach, siderails up x2, bed locked at the lowest position possible. Will continue to monitor patient and follow up with the plan of care.
[2019-09-01 08:00] VITALS: BP 130/68
[2019-09-01] MEDS: Fluconazole 100mg tab ORAL SCH (08:34)
[2019-09-01] MEDS: Lisinopril 10mg tab ORAL SCH (08:34)
[2019-09-01] MEDS: Docusate 100mg cap ORAL SCH ×2 (08:34→20:06)
[2019-09-01 08:43] LABS: BASOPHILS % (AUTO) 0.8 % (0.0-2.0); EOSINOPHILS % (AUTO) 2.5 % (0.0-3.0); HEMOGLOBIN 10.9 G/DL (14.2-18.0); LYMPHOCYTES % (AUTO) 38.5 % (20.0-45.0); MEAN CORPUSCULAR VOLUME 82 FL (80-99); MONOCYTES % (AUTO) 5.9 % (1.0-10.0); NEUTROPHILS % (AUTO) 52.3 % (45.0-75.0); PLATELET COUNT 345 K/UL (150-450); RED BLOOD COUNT 4.25 M/UL (4.70-6.10); RED CELL DISTRIBUTION WIDTH 16.9 % (11.6-14.8); WHITE BLOOD COUNT 10.4 K/UL (4.8-10.8)
--- NOTE | 2019-09-01 08:56 | Urology Progress Note ---
Assessment/Plan Status: stable Assessment/Plan: 1. Urinary retention history with suprapubic tube. 2. Probable neurogenic bladder. 3. Hematuria. 4. Pyuria and probably colonized. 5. Proteinuria. cont SP tube, last exchanged 08/28 hand irrigated and position is satisfactory abx as ordered consider renal imaging cysto at some point, can be done electively Subjective Allergies: Coded Allergies: No Known Allergies (Unverified , 08/02/19) Subjective all noted, new SP tube draining OK Objective Last 24 Hour Vital Signs Date Time Temp Pulse Resp B/P (MAP) Pulse Ox O2 Delivery O2 Flow Rate FiO2 09/01/19 08:34 130/68 09/01/19 08:00 99.0 79 18 130/68 (88) 96 09/01/19 04:00 98.5 79 18 103/61 (75) 97 09/01/19 00:00 98.0 80 18 125/72 (89) 96 08/31/19 21:00 Room Air 08/31/19 20:00 98.2 89 18 130/78 (95) 97 08/31/19 18:11 98.5 08/31/19 16:19 98.5 08/31/19 16:00 98.5 79 19 142/67 (92) 96 08/31/19 12:00 97.5 77 18 149/83 (105) 99 08/31/19 09:25 131/76 08/31/19 09:00 Room Air Intake and Output 08/31/19 09/01/19 19:00 07:00 Intake Total 1530.000 ml 2030.0 ml Output Total 1500 ml 1350 ml Balance 30.000 ml 680.0 ml Intake Oral 800 ml IV Total 630.000 ml 330.0 ml Other 900 ml 900 ml Output Urine Total 1500 ml 1350 ml # Voids 1 # Bowel Movements 1 Microbiology Date/Time Source Procedure Growth Status 08/26/19 14:15 Blood Blood Culture - Final NO GROWTH AFTER 5 DAYS Complete 08/25/19 00:15 Nasal Nares MRSA Culture - Final Staphylococcus Aureus - Mrsa Complete 08/27/19 18:20 Stool Clostridium difficile Toxin Assay - Final Complete 08/28/19 02:45 Indwelling Cath Urine Culture - Final Haritha Tropicalis Complete 08/25/19 00:15 Rectum - Final NO CARBAPENEM-RESISTANT ENTEROBACTERI... Complete Current Medications Medications (Trade) Dose Ordered Sig/Nayely Route PRN Reason Start Time Stop Time Status Last Admin Dose Admin Acetaminophen (Tylenol) 650 mg Q4H PRN ORAL fever 08/25/19 00:15 09/24/19 00:14 08/25/19 01:41 Acetaminophen (Tylenol) 650 mg Q4H PRN ORAL Mild Pain (Pain Scale 1-3) 08/25/19 00:15 09/24/19 00:14 Al Hydroxide/Mg Hydroxide (Mylanta II) 30 ml Q6H PRN ORAL dyspepsia 08/25/19 00:15 09/24/19 00:14 Atorvastatin Calcium (Lipitor) 20 mg BEDTIME ORAL 08/26/19 21:00 09/25/19 20:59 08/31/19 20:50 Bisacodyl (Dulcolax) 10 mg HSPRN PRN RECTAL Constipation 08/25/19 00:15 09/24/19 00:14 Chlorhexidine Gluconate (Krissy-Hex 2%) 1 applic DAILY@2000 TOPIC 08/30/19 20:00 09/29/19 19:59 08/31/19 20:50 Dextrose (Dextrose 50%) 25 ml Q30M PRN IV Hypoglycemia 08/25/19 00:15 09/24/19 00:14 Dextrose (Dextrose 50%) 50 ml Q30M PRN IV Hypoglycemia 08/25/19 00:15 09/24/19 00:14 Diphenhydramine HCl (Benadryl) 25 mg Q6H PRN ORAL Itching/Pruritis 08/25/19 00:15 09/24/19 00:14 Docusate Sodium (Colace) 100 mg EVERY 12 HOURS ORAL 08/25/19 09:00 09/24/19 08:59 08/30/19 08:25 Fluconazole (Diflucan) 100 mg DAILY ORAL 08/30/19 09:00 09/06/19 08:59 09/01/19 08:34 Heparin Sodium (Porcine) (Heparin 5000 units/ml) 5,000 units EVERY 8 HOURS SUBQ 08/25/19 06:00 09/24/19 05:59 Heparin Sodium/ Sodium Chloride (Heparin 1000 units/500ml Premix) 1,000 unit ONCE PRN IV PICC line placement 08/31/19 11:30 09/02/19 11:30 Hydromorphone HCl (Dilaudid) 2 mg Q4H PRN ORAL Breakthrough Pain 08/30/19 12:30 09/06/19 12:29 09/01/19 08:33 Insulin Aspart (NovoLOG) BEFORE MEALS AND HS SUBQ 08/25/19 06:30 09/24/19 06:29 Lidocaine HCl (Xylocaine 1% 30ml) 30 ml ONCE PRN INJ PICC PLACEMENT 08/31/19 11:30 09/02/19 11:30 Lisinopril (Zestril) 10 mg DAILY ORAL 08/26/19 18:22 09/25/19 18:21 09/01/19 08:34 Lorazepam (Ativan 2mg/ml 1ml) 0.5 mg Q4H PRN IV For Anxiety 08/31/19 12:15 09/07/19 12:14 09/01/19 03:06 Magnesium Hydroxide (Mom) 30 ml HSPRN PRN ORAL Constipation 08/25/19 00:15 09/24/19 00:14 Meropenem 1 gm/ Sodium Chloride 55 ml @ 110 mls/hr Q8HR IVPB 08/25/19 14:00 09/03/19 13:59 08/31/19 21:47 Ondansetron HCl (Zofran) 4 mg Q6H PRN IVP Nausea & Vomiting 08/25/19 00:15 09/24/19 00:14 Oxycodone/ Acetaminophen (Percocet 10/325) 1 tab Q4H PRN ORAL Severe Pain (Pain Scale 7-10) 08/26/19 18:15 09/02/19 18:14 09/01/19 03:07 Oxycodone/ Acetaminophen (Percocet 5-325) 1 tab Q4H PRN ORAL Moderate Pain (Pain Scale 4-6) 08/26/19 18:15 09/02/19 18:14 08/31/19 21:46 Polyethylene Glycol (Miralax) 17 gm HSPRN PRN ORAL Constipation 08/25/19 00:15 09/24/19 00:14 Temazepam (Restoril) 15 mg HSPRN PRN ORAL Insomnia 08/31/19 11:30 09/07/19 11:29 08/31/19 21:46 Vancomycin HCl (Vanco rx to dose) 1 ea DAILY PRN MISC Per rx protocol 08/25/19 00:15 09/24/19 00:14 Vancomycin/Sodium Chloride 275 ml @ 183.333 mls/hr Q12HR@1100,2300 IVPB 08/30/19 23:00 09/04/19 22:59 08/31/19 23:08 Laboratory Tests 09/01/19 08:10: White Blood Count 10.4, Red Blood Count 4.25L, Hemoglobin 10.9L, Hematocrit 35.0L, Mean Corpuscular Volume 82, Mean Corpuscular Hemoglobin 25.7L, Mean Corpuscular Hemoglobin Concent 31.2L, Red Cell Distribution Width 16.9H, Platelet Count 345, Mean Platelet Volume 5.8L, Neutrophils (%) (Auto) 52.3, Lymphocytes (%) (Auto) 38.5, Monocytes (%) (Auto) 5.9, Eosinophils (%) (Auto) 2.5, Basophils (%) (Auto) 0.8, Sodium Level [Pending], Potassium Level [Pending] , Chloride Level [Pending], Carbon Dioxide Level [Pending], Blood Urea Nitrogen [Pending], Creatinine [Pending], Estimat Glomerular Filtration Rate [Pending], Glucose Level [Pending], Calcium Level [Pending] Height (Feet): 5 Height (Inches): 4.00 Weight (Pounds): 152 Objective exam stable Reji Barriga MD Sep 01, 2019 08:56
[2019-09-01 08:57] LABS: ANION GAP 7 mmol/L (5-15); BLOOD UREA NITROGEN 14 mg/dL (7-18); CALCIUM 8.8 MG/DL (8.5-10.1); CARBON DIOXIDE 29 MMOL/L (21-32); CHLORIDE 103 MMOL/L (98-107); CREATININE 0.5 MG/DL (0.55-1.30); POTASSIUM 4.6 MMOL/L (3.5-5.1); SODIUM 139 MMOL/L (136-145)
--- NOTE | 2019-09-01 09:46 | Surgery Progress Note ---
Surgery Progress Note Subjective Additional Comments no acute events comfortable wants picc so he can be discharged back to facility Objective Last 24 Hour Vital Signs Date Time Temp Pulse Resp B/P (MAP) Pulse Ox O2 Delivery O2 Flow Rate FiO2 09/01/19 08:34 130/68 09/01/19 08:00 99.0 79 18 130/68 (88) 96 09/01/19 04:00 98.5 79 18 103/61 (75) 97 09/01/19 00:00 98.0 80 18 125/72 (89) 96 08/31/19 21:00 Room Air 08/31/19 20:00 98.2 89 18 130/78 (95) 97 08/31/19 18:11 98.5 08/31/19 16:19 98.5 08/31/19 16:00 98.5 79 19 142/67 (92) 96 08/31/19 12:00 97.5 77 18 149/83 (105) 99 I&O Intake and Output 08/31/19 09/01/19 19:00 07:00 Intake Total 1530.000 ml 2030.0 ml Output Total 1500 ml 1350 ml Balance 30.000 ml 680.0 ml Intake Oral 800 ml IV Total 630.000 ml 330.0 ml Other 900 ml 900 ml Output Urine Total 1500 ml 1350 ml # Voids 1 # Bowel Movements 1 Dressing: dry Wound: clean Cardiovascular: RSR Respiratory: clear Abdomen: soft, flat, non-tender, present bowel sounds Extremities: edema, no tenderness, no cyanosis Laboratory Tests Test 09/01/19 08:10 White Blood Count 10.4 K/UL (4.8-10.8) Red Blood Count 4.25 M/UL (4.70-6.10) L Hemoglobin 10.9 G/DL (14.2-18.0) L Hematocrit 35.0 % (42.0-52.0) L Mean Corpuscular Volume 82 FL (80-99) Mean Corpuscular Hemoglobin 25.7 PG (27.0-31.0) L Mean Corpuscular Hemoglobin Concent 31.2 G/DL (32.0-36.0) L Red Cell Distribution Width 16.9 % (11.6-14.8) H Platelet Count 345 K/UL (150-450) Mean Platelet Volume 5.8 FL (6.5-10.1) L Neutrophils (%) (Auto) 52.3 % (45.0-75.0) Lymphocytes (%) (Auto) 38.5 % (20.0-45.0) Monocytes (%) (Auto) 5.9 % (1.0-10.0) Eosinophils (%) (Auto) 2.5 % (0.0-3.0) Basophils (%) (Auto) 0.8 % (0.0-2.0) Sodium Level 139 MMOL/L (136-145) Potassium Level 4.6 MMOL/L (3.5-5.1) Chloride Level 103 MMOL/L (98-107) Carbon Dioxide Level 29 MMOL/L (21-32) Anion Gap 7 mmol/L (5-15) Blood Urea Nitrogen 14 mg/dL (7-18) Creatinine 0.5 MG/DL (0.55-1.30) L Estimat Glomerular Filtration Rate > 60 mL/min (>60) Glucose Level 95 MG/DL (74-106) Calcium Level 8.8 MG/DL (8.5-10.1) Plan Problems: (1) Cellulitis of right thigh Assessment & Plan: 58-year-old male with acute cellulitis of the right thigh and near hip. 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 At the level of the hip the femur is loose and question of underlying issues states his been like this for a while. On the left side he has a AKA which is otherwise stable. He has motor on the left side but no motor on the right given the above described abnormality. Plain films ordered of the right hip and lower extremity. No abscess palpable on examination at this time. Etiology of cellulitis unknown but no wound identified. Cont IV antibiotics We will follow with serial exams and recommendations Evidence of prior right proximal femoral resection Abnormality of the right acetabulum, ischium, and lateral pubic ramus. Probably related to the above and probably chronic. However, acute erosive changes of the ischium and pubic ramus cannot be excluded. Consider MRI for better characterization if there is clinical suspicion for osteomyelitis Severe degenerative changes of the left hip Evidence of acute osteomyelitis involving the right ischium, posterior wall of the acetabulum and inferior pubic ramus. Moderate degree of adjacent surrounding cellulitis/myositis. Status post previous resection of the right femoral head and neck. Status post right [id number] amputation. No evidence of acute osteomyelitis involving the right femur. Moderate cellulitis of the thigh noted. No drainable abscess. Suprapubic catheter Thank you for allowing me to participate in patient's care (2) Stage 4 decubitus ulcer Assessment & Plan: Pt presented no admission with R BKA,L AKA.Full thickness pressure injury with undermining R ischium. [place] granulation at base of wound .Bone is palpable. Edges adherent and flat. Erythema periwound. No odor noted Small amt serous exudate.(L)4.5cm x (W)6.5cm x (D)6.3cm, undermining clockwise 9 -1by 7.3cm @12o'clock. Multiple scarring noted to R trochanter,harvest graft site R thigh. No other skin concerns noted. Tx.plan: Cleanse wound with Saline. Loosely pack wound with Hydrogel impregnated Kerlix. Apply Cavilon periwound. Cover with Optifoam drsg Daily and prn. Apply Triad Paste to buttocks and groin with each incontinence care. Reposition at least every 2hours or as tolerated.(Encourage pt to frequently reposition self ). Additional Comments PICC cont abx d/c planning after picc Baron Crouch Sep 01, 2019 09:46
[2019-09-01] MEDS: Vancomycin 1.25gm/NS Premix IVPB SCH ×2 (10:47→23:15)
--- NOTE | 2019-09-01 11:13 | Pre-Procedure Note/Attestation ---
Pre-Procedure Note/Attestation Complete Prior to Procedure Planned Procedure: not applicable Procedure Narrative: PICC Indications for Procedure Pre-Operative Diagnosis: sepsis Attestation I attest that I discussed the nature of the procedure; its benefits; risks and complications; and alternatives (and the risks and benefits of such alternatives ), prior to the procedure, with the patient (or the patient's legal sales donor recruitment representative). I attest that, if there was a reasonable possibility of needing a blood transfusion, the patient (or the patient's legal sales donor recruitment representative) was given the [facility] standardized written summary, pursuant to the [place] Blood Safety Act ([place] Health and Safety Code # 1645, as amended). I attest that I re-evaluated the patient just prior to the surgery and that there has been no change in the patient's H&P, except as documented below: Demian Lobo MD Sep 01, 2019 11:13
--- NOTE | 2019-09-01 11:14 | Brief Operative Note ---
Immediate Post Operative Note Operative Note Pre-op Diagnosis: sepsis Procedure: PICC Post-op Diagnosis: same as pre-op Surgeon: Allegra Nicole Anesthesia: local Specimen: none Complications: none Fluids: none Implant(s) used?: No Demian Nicole MD Sep 01, 2019 11:14
--- NOTE | 2019-09-01 11:31 | Diagnostic Imaging Report ---
Indications: Needs long-term IV access Technique: Ultrasound confirms patent compressible right basilic vein. Total sterile technique, including sterile probe cover and sterile gel, hat, mask, sterile gown, large sterile drape, and preparation with 2% chlorhexidine utilized. Local anesthesia with 1% lidocaine. Under real-time ultrasound guidance, puncture basilic vein using 21-gauge needle, documented and archived, passage 0.018 guidewire under direct fluoroscopy, which was used to determine appropriate catheter length, exchange for 4 Kinyarwanda peel-away sheath. 4 Kinyarwanda Bard dual-lumen power PICC cut to 41 cm. It was inserted through the peel-away sheath. Peel-away sheath and guidewire removed. Catheter fixed to the skin. Both catheter ports aspirated and flushed. Patient tolerated procedure well, without immediate complication. Digital radiograph documents satisfactory catheter tip position, at the cavoatrial junction. Total fluoroscopy time 30.3 seconds. Total dose area product 0.35918 mGym2 Total number of images: 1 Impression: Successful placement of right arm PICC under sonographic and fluoroscopic guidance, as described above.
[2019-09-01 12:00] VITALS: BP 121/73
--- NOTE | 2019-09-01 12:46 | NUR ---
*-* DISCHARGE PLANNING *-* PATIENT HAS BEEN REFERRED BACK TO: [facility] P:[phone] F: [phone]
--- NOTE | 2019-09-01 15:15 | NUR ---
NURSE NOTES: checked with pharmacist Vicki, she ok'd to give pt percocet 10 and Ativan IV 0/5mg.
--- NOTE | 2019-09-01 15:35 | NUR ---
RD ASSESSMENT & RECOMMENDATIONS SEE CARE ACTIVITY FOR COMPLETE ASSESSMENT DAILY ESTIMATED NEEDS: Needs based on Stage 4 wound, bed bound/ 67kg 25-35 kcals/kg 5654-5126 total kcals 1.5-2.0 g protein/kg 101-134 g total protein 25-30 mL/kg 7805-3668 total fluid mLs NUTRITION DIAGNOSIS: Increased kcal/prot/micronutrients needs R/T wound healing as evidenced by pt admitted w/ sacral stage 4 wound. CURRENT DIET: CCHO LOW PO DIET RECOMMENDATIONS: REGULAR, DOUBLE PROTEIN PORTIONS ADDITIONAL RECOMMENDATIONS: * Snacks in b/w meals * Wound healing: add MVI w/ mineral 1 tab qdaily + ZnSO4 220mg QD x 10 days + Vit C 500mg BID + Chay 1pkt BID -> pt refused * Monitor lytes, replete as needed * A1C for eval/ pt denies h/o DM and refusing accuchecks
[2019-09-01 16:30] VITALS: BP 130/74
--- NOTE | 2019-09-01 16:54 | NUR ---
PRICE CLERK NOTES PT ACCEPTED TO [facility] ROOM 203 BED A. PT TO TRANSFER IN AM WITH AN ETA OF 9AM. NURSE TO CALL REPORT TO [phone]. NURSE MADE AWARE.
--- NOTE | 2019-09-01 18:42 | General Progress Note ---
Assessment/Plan Problem List: (1) Chronic pain ICD Codes: G89.29 - Other chronic pain SNOMED: 65641650 Qualifiers: Qualified Codes: G89.4 - Chronic pain syndrome (2) Cellulitis of right thigh ICD Codes: L03.115 - Cellulitis of right lower limb SNOMED: 11957987628970778 (3) Anemia ICD Codes: D64.9 - Anemia, unspecified SNOMED: 981037529 Qualifiers: Qualified Codes: D64.9 - Anemia, unspecified (4) Sepsis ICD Codes: A41.9 - Sepsis, unspecified organism SNOMED: 96643489 Qualifiers: Qualified Codes: A41.9 - Sepsis, unspecified organism (5) UTI (urinary tract infection) ICD Codes: N39.0 - Urinary tract infection, site not specified SNOMED: 07953945 Qualifiers: Qualified Codes: N30.00 - Acute cystitis without hematuria (6) Cellulitis ICD Codes: L03.90 - Cellulitis, unspecified SNOMED: 317282734 (7) Stage 4 decubitus ulcer ICD Codes: L89.94 - Pressure ulcer of unspecified site, stage 4 SNOMED: 113242870 (8) Severe protein-calorie malnutrition ICD Codes: E43 - Unspecified severe protein-calorie malnutrition SNOMED: 367388731, 116241939, 566203440 (9) UTI due to extended-spectrum beta lactamase (ESBL) producing Escherichia coli ICD Codes: N39.0 - Urinary tract infection, site not specified; B96.29 - Other Escherichia coli [E. coli] as the cause of diseases classified elsewhere; Z16.12 - Extended spectrum beta lactamase (ESBL) resistance SNOMED: 192867626, 265722733 Status: stable Assessment/Plan: 58 year old male with R BKA, L AKA and history of ESBL UTI, now with sepsis secondary to right lower extremity cellulitis vs. UTI. Also has stage 4 decubitus ulcer. doubt infected. #S/p Sepsis secondary to right thigh/hip cellulitis and right ischium osteomyelitis, no drainable abscess #right ischium osteomyelitis #Fungal UTI - Improving #gram positive cocci bacteremia- Coag Negative Staph: likely contaminant per ID > 10/ ESR 113, CRP 38.6 > MRI positive for osteo of right ischium - Continue Vancomycin and Merrem. Will need a total of 6 weeks. (end date ) - Per ID will also treat with 10 days of diflucan (end date 09/09/19) for kamil[place] UTI given patient will have PICC line and risk of fungemia. - PICC line placed 09/01/19 - Appreciate ID consult: Dr. Hawk- Follow up repeat blood cultures, continue antibiotics - Appreciate surgery consult: Dr. Crouch - will need PICC line and 6 weeks IV antibiotics - D/C iV pain meds. Patient agreeable. Change to dilaudid 2mg PO Q4hr PRN breakthrough pain #diarrhea, resolved > C. Diff negative - continue to monitor # stage 4 decubitus. Doubt the source. Surgical consult. wound care Appreicate surgery recommendations: Dr. Crouch #suprapubic catheter - exchanged by Dr. Barriga 08/27/19 - continue abx as above -Appreciate Urology recommendations: Dr. Barriga #.history of paraplegia #Chronic pain. - Pain control: percocet 5mg/325 Q6hr PRN moderate, Percocet 10mg PO q6hr PRn severe - Dilaudid 2mg q4hr PRN PO breakthrough # COPD Duonebs PRN # CAD #HTN ASA, Atorvastatin, -Continue decreased dose of lisinopril 10mg PO daily - holding metoprolol due to borderline BP # h/o Left AKA, right BKA # Severe iron deficiency anemia- on PO iron at [facility]. - holding for now due to presence of infection Dispo - discharge to [facility] tomorrow AM Discussed [facility] RN, patient, and infectious disease. I spent 27 minutes during this encounter. > 50% spent on counselling and care coordination. Time of note may not reflect time patient was seen Subjective Date patient seen: Sep 01, 2019 Constitutional: Denies: chills, diaphoresis, fever, malaise, weakness, other HEENT: Denies: eye pain, blurred vision, tearing, double vision, ear pain, ear discharge, nose pain, nose congestion, throat pain, throat swelling, mouth pain , mouth swelling, other Cardiovascular: Denies: chest pain, edema, irregular heart rate, lightheadedness, palpitations, syncope, other Respiratory: Denies: cough, orthopnea, shortness of breath, SOB with excertion , SOB at rest, sputum, stridor, wheezing, other Gastrointestinal/Abdominal: Denies: abdomen distended, abdominal pain, black stools, tarry stools, blood in stool, constipated, diarrhea, difficulty swallowing, nausea, poor appetite, poor fluid intake, rectal bleeding, vomiting , other Genitourinary: Denies: burning, discharge, frequency, flank pain, hematuria, incontinence, pain, urgency, other Neurologic/Psychiatric: Denies: anxiety, depressed, emotional problems, headache, numbness, paresthesia, pre-existing deficit, seizure, tingling, tremors, weakness, other Endocrine: Denies: excessive sweating, flushing, intolerance to cold, intolerance to heat, increased hunger, increased thirst, increased urine, unexplained weight gain, unexplained weight loss, other Hematologic/Lymphatic: Denies: anemia, easy bleeding, easy bruising, other Allergies: Coded Allergies: No Known Allergies (Unverified , 08/02/19) Subjective No acute events overnight per nursing. Vitals stable. PICC line placed without issues Right leg cellulitis/Right ischium osteomyelitis: Continues to improve. Did not require any more IV pain meds. No more erythema or warmth. no fevers. Pain is much better. Diarrhea: resolved, no more episodes CAD/HTN: no chest pain, tolerating BP medications. Objective Last 24 Hour Vital Signs Date Time Temp Pulse Resp B/P (MAP) Pulse Ox O2 Delivery O2 Flow Rate FiO2 09/01/19 16:30 97.5 79 19 130/74 (92) 96 09/01/19 15:50 98.1 09/01/19 13:26 98.1 09/01/19 12:00 98.1 86 18 121/73 (89) 95 09/01/19 09:00 Room Air 09/01/19 08:34 130/68 09/01/19 08:00 99.0 79 18 130/68 (88) 96 09/01/19 04:00 98.5 79 18 103/61 (75) 97 09/01/19 00:00 98.0 80 18 125/72 (89) 96 08/31/19 21:00 Room Air 08/31/19 20:00 98.2 89 18 130/78 (95) 97 Intake and Output 08/31/19 09/01/19 19:00 07:00 Intake Total 1530.000 ml 2030.0 ml Output Total 1500 ml 1350 ml Balance 30.000 ml 680.0 ml Intake Oral 800 ml IV Total 630.000 ml 330.0 ml Other 900 ml 900 ml Output Urine Total 1500 ml 1350 ml # Voids 1 # Bowel Movements 1 Laboratory Tests 09/01/19 08:10: White Blood Count 10.4, Red Blood Count 4.25L, Hemoglobin 10.9L, Hematocrit 35.0L, Mean Corpuscular Volume 82, Mean Corpuscular Hemoglobin 25.7L, Mean Corpuscular Hemoglobin Concent 31.2L, Red Cell Distribution Width 16.9H, Platelet Count 345, Mean Platelet Volume 5.8L, Neutrophils (%) (Auto) 52.3, Lymphocytes (%) (Auto) 38.5, Monocytes (%) (Auto) 5.9, Eosinophils (%) (Auto) 2.5, Basophils (%) (Auto) 0.8, Sodium Level 139, Potassium Level 4.6, Chloride Level 103, Carbon Dioxide Level 29, Anion Gap 7, Blood Urea Nitrogen 14, Creatinine 0.5L, Estimat Glomerular Filtration Rate > 60, Glucose Level 95, Calcium Level 8.8 Height (Feet): 5 Height (Inches): 4.00 Weight (Pounds): 152 General Appearance: WD/WN, no apparent distress, alert EENT: PERRL/EOMI, normal ENT inspection Neck: non-tender, normal alignment, supple Cardiovascular: normal peripheral pulses, normal rate, regular rhythm, no JVD Respiratory/Chest: chest wall non-tender, lungs clear, normal breath sounds Abdomen: normal bowel sounds, non tender, soft Extremities: normal range of motion, other - Bilateral AKA, no erythema/ redness or TTP Neurologic: lens hardener II-XII grossly normal, no motor/sensory deficits, alert, oriented x 3, responsive, normal mood/affect Skin: normal pigmentation, warm/dry Jarvis Hall D.O. Sep 01, 2019 18:42
--- NOTE | 2019-09-01 19:45 | NUR ---
NURSE NOTES: Received a report from RUBEN Holt. Pt is in stable condition. AAOX4. Able to make needs known. On room air. C/o lower back pain, rated it 9/10. Will give pain medication later. PICC line 2 lumen noted on the R upper arm, is patent and intact. Has a suprapubic catheter, is draining. Bed in lowest position. Bed alarm is on. Call light within reach. Will continue to monitor.
[2019-09-01 20:00] VITALS: BP 116/75
--- NOTE | 2019-09-01 20:00 | NUR ---
NURSE NOTES: Pt refused the accu check, colace, and heparin despite education provided.
[2019-09-01] MEDS: Atorvastatin 20mg tab ORAL SCH (20:05)
[2019-09-01] MEDS: Dyna-Hex 2% Top Sol 2oz TOPIC SCH (20:06)
[2019-09-02] VITALS: BP 107/53
[2019-09-02] MEDS: LORazepam Inj 2mg/ml 1ml IV PRN ×3 (00:37→10:13)
[2019-09-02] MEDS: HYDROmorphone 2mg tab ORAL PRN ×2 (03:14→07:53)
[2019-09-02 04:00] VITALS: BP 115/63
[2019-09-02] MEDS: Meropenem 1 GM in NS 55 ML IVPB SCH (04:58)
[2019-09-02] MEDS: Heparin 5000 units/ml inj SUBQ SCH (05:29)
[2019-09-02] MEDS: NovoLOG Insulin Flexpen SUBQ SCH (05:31)
--- NOTE | 2019-09-02 07:15 | NUR ---
HAND-OFF: Report given to RUBEN Dumont.
--- NOTE | 2019-09-02 07:20 | NUR ---
NURSE NOTES: Received patient on bed, awake and alert. No SOB or cardiac distress. PICC line on right upper arm intact and patent, no s/s of infiltration. Wound dressing on sacral area dry and intact. For possible discharge today, awaiting MD order. Complaining of lower back pain 8/10, with PRN pain medication. Call light within reach. Head of bed elevated. Bed locked in lowest position. Will continue plan of care.
[2019-09-02 08:00] VITALS: BP 103/67
--- NOTE | 2019-09-02 08:19 | NUR ---
NURSE NOTES: Dr. Kaur came to see the patient, discharge orders being made.
[2019-09-02] MEDS ORDERED: Vanco pharmacy to dose MISC (08:20)
[2019-09-02] MEDS ORDERED: DIFLUCAN100 MG ORAL (08:20)
--- NOTE | 2019-09-02 08:26 | Discharge Instructions ---
Discharge Instructions Discharge Instructions Follow up with: PCP within one week Call MD/Return to Hospital if: fevers, chills, worsening pain Activity: resume normal activities Special Instructions Continue Vancomycin and Merrem until 10/06/19 - Vancomycin per pharmacy - Meropenem 1gm IV q8hr Complete two more days of fluconazole 100mg PO daily (end date 09/03/19) For Surgical Patients Dressing Care: keep dry and clean Jarvis Hall D.O. Sep 02, 2019 08:26
--- NOTE | 2019-09-02 08:27 | Discharge Instructions ---
Discharge Instructions Discharge Instructions Special Instructions Also needs weekly CBC, CMP, ESR, CRP while on antibiotics For Congestive Heart Failure Reminder Report to your physician any weight gain of 5 pounds or more in one week. Jarvis Hall D.O. Sep 02, 2019 08:27
--- NOTE | 2019-09-02 08:30 | Discharge Instructions ---
Discharge Instructions Discharge Instructions Follow up with: PCP Call MD/Return to Hospital if: fevers, chills, worsening pain Resume Normal Activity?: Yes Activity: resume normal activities Special Instructions Continue IV antibiotics until 10/06/19 - IV vancomycin, pharmacy to dose - Merrem 1gm IV q8hr Continue fluconazole 100mg PO daily (09/03/19) Check weekly CBC, CMP, ESR, CRP while on antibiotics Jarvis Hall D.O. Sep 02, 2019 08:30
[2019-09-02] MEDS ORDERED: MEROPENEM1 GM IV (08:34)
--- NOTE | 2019-09-02 08:50 | Urology Progress Note ---
Assessment/Plan Status: stable Assessment/Plan: 1. Urinary retention history with suprapubic tube. 2. Probable neurogenic bladder. 3. Hematuria. 4. Pyuria and probably colonized. 5. Proteinuria. cont SP tube, last exchanged 08/28 hand irrigated and position is satisfactory abx as ordered consider renal imaging cysto at some point, can be done electively Subjective Allergies: Coded Allergies: No Known Allergies (Unverified , 08/02/19) Subjective all noted, new SP tube draining OK Objective Last 24 Hour Vital Signs Date Time Temp Pulse Resp B/P (MAP) Pulse Ox O2 Delivery O2 Flow Rate FiO2 09/02/19 05:28 97.5 09/02/19 04:00 97.5 74 16 115/63 (80) 96 09/02/19 00:00 97.5 83 16 107/53 (71) 97 09/01/19 22:33 97.7 09/01/19 21:00 Room Air 09/01/19 20:00 97.7 85 16 116/75 (89) 98 09/01/19 16:30 97.5 79 19 130/74 (92) 96 09/01/19 12:00 98.1 86 18 121/73 (89) 95 09/01/19 09:00 Room Air Intake and Output 09/01/19 09/02/19 19:00 07:00 Intake Total 330.000 ml 330.000 ml Output Total 800 ml Balance -470.000 ml 330.000 ml IV Total 330.000 ml 330.000 ml Output Urine Total 800 ml Microbiology Date/Time Source Procedure Growth Status 08/26/19 14:15 Blood Blood Culture - Final NO GROWTH AFTER 5 DAYS Complete 08/25/19 00:15 Nasal Nares MRSA Culture - Final Staphylococcus Aureus - Mrsa Complete 08/27/19 18:20 Stool Clostridium difficile Toxin Assay - Final Complete 08/28/19 02:45 Indwelling Cath Urine Culture - Final Haritha Tropicalis Complete 08/25/19 00:15 Rectum - Final NO CARBAPENEM-RESISTANT ENTEROBACTERI... Complete Current Medications Medications (Trade) Dose Ordered Sig/Nayely Route PRN Reason Start Time Stop Time Status Last Admin Dose Admin Acetaminophen (Tylenol) 650 mg Q4H PRN ORAL fever 08/25/19 00:15 09/24/19 00:14 08/25/19 01:41 Acetaminophen (Tylenol) 650 mg Q4H PRN ORAL Mild Pain (Pain Scale 1-3) 08/25/19 00:15 09/24/19 00:14 Al Hydroxide/Mg Hydroxide (Mylanta II) 30 ml Q6H PRN ORAL dyspepsia 08/25/19 00:15 09/24/19 00:14 Atorvastatin Calcium (Lipitor) 20 mg BEDTIME ORAL 08/26/19 21:00 09/25/19 20:59 09/01/19 20:05 Bisacodyl (Dulcolax) 10 mg HSPRN PRN RECTAL Constipation 08/25/19 00:15 09/24/19 00:14 Chlorhexidine Gluconate (Krissy-Hex 2%) 1 applic DAILY@2000 TOPIC 08/30/19 20:00 09/29/19 19:59 09/01/19 20:06 Dextrose (Dextrose 50%) 25 ml Q30M PRN IV Hypoglycemia 08/25/19 00:15 09/24/19 00:14 Dextrose (Dextrose 50%) 50 ml Q30M PRN IV Hypoglycemia 08/25/19 00:15 09/24/19 00:14 Diphenhydramine HCl (Benadryl) 25 mg Q6H PRN ORAL Itching/Pruritis 08/25/19 00:15 09/24/19 00:14 Docusate Sodium (Colace) 100 mg EVERY 12 HOURS ORAL 08/25/19 09:00 09/24/19 08:59 08/30/19 08:25 Fluconazole (Diflucan) 100 mg DAILY ORAL 08/30/19 09:00 09/06/19 08:59 09/01/19 08:34 Heparin Sodium (Porcine) (Heparin 5000 units/ml) 5,000 units EVERY 8 HOURS SUBQ 08/25/19 06:00 09/24/19 05:59 Heparin Sodium/ Sodium Chloride (Heparin 1000 units/500ml Premix) 1,000 unit ONCE PRN IV PICC line placement 08/31/19 11:30 09/02/19 11:30 Hydromorphone HCl (Dilaudid) 2 mg Q4H PRN ORAL Breakthrough Pain 08/30/19 12:30 09/06/19 12:29 09/02/19 07:53 Insulin Aspart (NovoLOG) BEFORE MEALS AND HS SUBQ 08/25/19 06:30 09/24/19 06:29 Lidocaine HCl (Xylocaine 1% 30ml) 30 ml ONCE PRN INJ PICC PLACEMENT 08/31/19 11:30 09/02/19 11:30 Lisinopril (Zestril) 10 mg DAILY ORAL 08/26/19 18:22 09/25/19 18:21 09/01/19 08:34 Lorazepam (Ativan 2mg/ml 1ml) 0.5 mg Q4H PRN IV For Anxiety 08/31/19 12:15 09/07/19 12:14 09/02/19 04:58 Magnesium Hydroxide (Mom) 30 ml HSPRN PRN ORAL Constipation 08/25/19 00:15 09/24/19 00:14 Meropenem 1 gm/ Sodium Chloride 55 ml @ 110 mls/hr Q8HR IVPB 08/25/19 14:00 09/08/19 13:59 09/02/19 04:58 Ondansetron HCl (Zofran) 4 mg Q6H PRN IVP Nausea & Vomiting 08/25/19 00:15 09/24/19 00:14 Oxycodone/ Acetaminophen (Percocet 10/325) 1 tab Q4H PRN ORAL Severe Pain (Pain Scale 7-10) 08/26/19 18:15 09/02/19 18:14 09/02/19 04:58 Oxycodone/ Acetaminophen (Percocet 5-325) 1 tab Q4H PRN ORAL Moderate Pain (Pain Scale 4-6) 08/26/19 18:15 09/02/19 18:14 08/31/19 21:46 Polyethylene Glycol (Miralax) 17 gm HSPRN PRN ORAL Constipation 08/25/19 00:15 09/24/19 00:14 Temazepam (Restoril) 15 mg HSPRN PRN ORAL Insomnia 08/31/19 11:30 09/07/19 11:29 09/01/19 20:46 Vancomycin HCl (Vanco rx to dose) 1 ea DAILY PRN MISC Per rx protocol 08/25/19 00:15 09/24/19 00:14 Vancomycin/Sodium Chloride 275 ml @ 183.333 mls/hr Q12HR@1100,2300 IVPB 08/30/19 23:00 09/04/19 22:59 09/01/19 23:15 Height (Feet): 5 Height (Inches): 4.00 Weight (Pounds): 152 Objective exam stable Reji Barriga MD Sep 02, 2019 08:50
[2019-09-02 09:00] VITALS: BP 103/67
[2019-09-02] MEDS: Lisinopril 10mg tab ORAL SCH (09:00)
--- NOTE | 2019-09-02 09:25 | NUR ---
NURSE NOTES: Patient is for discharge and RN tried to give report to intermediate but the nurses said they need to talk to the admitting before getting report. RN told the nurse that patient was accepted since yesterday to room 203A. RN was on hold for a while, no one answer the phone. RN called CM. Doan is not in yet. Will follow up.
--- NOTE | 2019-09-02 09:46 | NUR ---
*-* INSURANCE *-* UPDATED AVAILABLE CLINICALS AND REVIEWS HAVE BEEN FAXED TO: [facility]: MAX P- [phone] F- [phone]....REVIEW/CLINICAL
[2019-09-02] MEDS: Fluconazole 100mg tab ORAL SCH (10:13)
--- NOTE | 2019-09-02 10:20 | NUR ---
NURSE NOTES: Patient in stable condition. Belongings checked, complete and given to the patient. Skin checked, no new issues noted. To be discharged to [facility], spoke with Kayleen. Discharge instructions given. Urine bag drained. IV fluid disconnected. ID band removed. Discharged in stable condition via ambulance on a wheelchair, accompanied by ambulance personnel.
--- NOTE | 2019-09-02 10:20 | NUR ---
NURSE NOTES: Patient was picked up by ambulance. Patient left with PICC line on right upper arm with double lumens. Both ports were flushed with NS. Dressing intact, no s/s of infection. Wound dressing on sacral intact. picture was obtain earlier. Discharge instruction given to assisted nurses to continue with vancomycin, meropenem and difflucan and monitor labs weekly while on antibiotics. No other skin issue except sacral, supra pubic cath intact. All belongings accounted for.
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
--- NOTE | 2019-09-05 16:24 | NUR ---
*-* INSURANCE *-* DISCHARGE SUMMARY HAS BEEN FAXED TO: [facility]: MAX P- [phone] F- [phone]....REVIEW/CLINICAL
== END 2019-09-02 10:20 | DRG 720 ==
LOC: EDBD 22:00 → EMR 22:20 → 4E 23:58 → EDBEDREQ 08-25 00:12
PROC: 02HV33Z Insertion of Infusion Device into Superior Vena Cava, Percutaneous Approach (ICD-10-PCS; principal; 2019-09-01)
DX: A41.9 Sepsis, unspecified organism (principal); L03.115 Cellulitis of right lower limb; N39.0 Urinary tract infection, site not specified; E43 Unspecified severe protein-calorie malnutrition; G82.20 Paraplegia, unspecified; M86.8X0 Other osteomyelitis, multiple sites; L89.314 Pressure ulcer of right buttock, stage 4; B96.20 Unspecified Escherichia coli [E. coli] as the cause of diseases classified elsewhere; Z16.12 Extended spectrum beta lactamase (ESBL) resistance; J44.9 Chronic obstructive pulmonary disease, unspecified; Z89.612 Acquired absence of left leg above knee; Z89.611 Acquired absence of right leg above knee; D50.9 Iron deficiency anemia, unspecified; M86.8X8 Other osteomyelitis, other site; I25.10 Atherosclerotic heart disease of native coronary artery without angina pectoris; I10 Essential (primary) hypertension; B37.49 Other urogenital candidiasis; R33.9 Retention of urine, unspecified
CPT/HCPCS: 36415; 36569; 72195; 76937; 80048; 80053; 80202; 80307; 81003; 83605; 83735; 84100; 85007; 85025; 85610; 85651; 85730; 86140; 87040; 87081; 87086; 87181; 87324; 96365; 96368; 96375; 96376; 99285; J1815; J8499

== ENCOUNTER 2019-10-17 21:33 | Inpatient (IN) | payer OTHER ==
[~2019-10-17] VITALS: Ht 177.8 cm; Wt 64.4 kg
[~2019-10-17 21:33] MED LIST changes: +DIFLUCAN100 MG ORAL; +Vanco pharmacy to dose MISC
[2019-10-17 21:35] VITALS: BP 125/75
--- NOTE | 2019-10-17 21:57 | Emergency Room Report ---
History of Present Illness General Chief Complaint: Abdominal Pain Source: Patient, EMS Present Illness HPI This is a 59-year-old male with a history of UTI and bilateral AKA. He presents with chief complaint of right kidney pain. This is a similar symptom in the past. When he has infection usually get right kidney pain. Onset for last couple days. Fever 101.8 at the longterm. He received Tylenol. Patient complained of 9 out of 10 pain. No nausea no vomiting. Area. Nothing made it better. Nothing made it worse. Allergies: Coded Allergies: No Known Allergies (Unverified , 08/02/19) Patient History Past Medical History: see triage record, old chart reviewed, HTN Past Surgical History: other - AKA, bilateral Pertinent Family History: none Social History: Denies: smoking Immunizations: other Reviewed Nursing Documentation: PMH: Agreed; PSxH: Agreed Nursing Documentation-PMH Past Medical History: No History, Except For Hx Cardiac Problems: Yes Hx Hypertension: Yes Hx Cancer: No Hx Gastrointestinal Problems: No Hx Neurological Problems: Yes - paraplegia,neurogenic bladder Review of Systems Constitutional: Reports: fever Eye: Denies: eye pain, blurred vision ENT: Denies: ear pain, nose congestion, throat swelling Respiratory: Denies: cough, shortness of breath Cardiovascular: Denies: chest pain, palpitations Gastrointestinal: Denies: abdominal pain, diarrhea, nausea, vomiting Genitourinary: Reports: pain Musculoskeletal: Denies: back pain, joint pain Skin: Denies: rash Neurological: Denies: headache, numbness Endocrine: Denies: increased thirst, increased urine Hematologic/Lymphatic: Denies: easy bruising All Other Systems: negative except mentioned in HPI Physical Exam Vital Signs Date Time Temp Pulse Resp B/P (MAP) Pulse Ox O2 Delivery O2 Flow Rate FiO2 10/17/19 21:27 98.2 92 20 125/75 (92) 96 Room Air Vitals normal Sp02 EP Interpretation: reviewed, normal General Appearance: well appearing, no apparent distress, alert Head: normocephalic, atraumatic Eyes: bilateral eye PERRL, bilateral eye EOMI ENT: hearing grossly normal, normal pharynx Neck: full range of motion, supple, no meningismus Respiratory: chest non-tender, lungs clear, normal breath sounds Cardiovascular #1: regular rate, rhythm, no murmur Gastrointestinal: normal bowel sounds, non tender, no mass, no organomegaly, no bruit, non-distended Musculoskeletal: back normal, normal range of motion Neurologic: no focal defects Psychiatric: mood/affect normal Medical Decision Making Diagnostic Impression: Primary Impression: Sepsis Qualified Codes: A41.9 - Sepsis, unspecified organism Additional Impression: UTI due to extended-spectrum beta lactamase (ESBL) producing Escherichia coli ER Course Patient presents with fever at the longterm and has UTI. He has sepsis secondary to UTI. He grew out ESBL E. coli and Morganella in July. Both of them are sensitive to ertapenem. He will need IV antibiotics. Will admit for IV hydration and antibiotics. I discussed the case with Dr. Lynn Rosario mid for Dr. Tomlinson. Last Vital Signs Date Time Temp Pulse Resp B/P (MAP) Pulse Ox O2 Delivery O2 Flow Rate FiO2 10/17/19 21:27 98.2 92 20 125/75 (92) 96 Room Air Status: improved Disposition: ADMITTED INPATIENT Condition: Serious Edwin Mccullough MD Oct 17, 2019 21:57
[2019-10-17] MEDS ORDERED: HYDROmorphone 1mg/ml Carpuject IVP ONE (22:00)
[2019-10-17 22:19] LABS: APPEARANCE,URINE TURBID; BASOPHILS % (AUTO) 0.4 % (0.0-2.0); BILIRUBIN, URINE NEGATIVE (NEGATIVE); EOSINOPHILS % (AUTO) 0.3 % (0.0-3.0); GLUCOSE, URINE (UA) NEGATIVE (NEGATIVE); HEMATOCRIT 39.6 % (42.0-52.0); HEMOGLOBIN 12.6 G/DL (14.2-18.0); KETONES,URINE 1+ (NEGATIVE); LEUKOCYTE ESTERASE ,URINE 3+ (NEGATIVE); LYMPHOCYTES % (AUTO) 25.2 % (20.0-45.0); MEAN CORPUSCULAR VOLUME 77 FL (80-99); MONOCYTES % (AUTO) 6.8 % (1.0-10.0); NEUTROPHILS % (AUTO) 67.3 % (45.0-75.0); NITRITE,URINE POSITIVE (NEGATIVE); PH,URINE 9 (4.5-8.0); PLATELET COUNT 197 K/UL (150-450); PROTEIN,URINE 3+ (NEGATIVE); RED BLOOD COUNT 5.16 M/UL (4.70-6.10); RED CELL DISTRIBUTION WIDTH 16.5 % (11.6-14.8); UROBILINOGEN,URINE NORMAL MG/DL (0.0-1.0); WHITE BLOOD COUNT 8.3 K/UL (4.8-10.8)
[2019-10-17 22:24] LABS: COLOR,URINE BROWN
[2019-10-17 22:30] VITALS: BP 135/75
[2019-10-17] MEDS ORDERED: Ertapenem 1 GM in NS 55 ML IV ONE (22:30)
[2019-10-17 22:34] LABS: ANION GAP 8 mmol/L (5-15); BLOOD UREA NITROGEN 15 mg/dL (7-18); CALCIUM 8.2 MG/DL (8.5-10.1); CARBON DIOXIDE 29 MMOL/L (21-32); CHLORIDE 99 MMOL/L (98-107); CREATININE 0.9 MG/DL (0.55-1.30); POTASSIUM 3.4 MMOL/L (3.5-5.1); SODIUM 136 MMOL/L (136-145)
[2019-10-17 22:39] LABS: ALANINE AMINOTRANSFERASE 18 U/L (12-78); ALBUMIN 2.8 G/DL (3.4-5.0); ALBUMIN/GLOBULIN RATIO 0.5 (1.0-2.7); ALKALINE PHOSPHATASE 115 U/L (46-116); ASPARTATE AMINO TRANSFERASE 23 U/L (15-37); BILIRUBIN,TOTAL 0.2 MG/DL (0.2-1.0); CREATINE KINASE 19 U/L (26-308)
[2019-10-17 23:30] VITALS: BP 152/77
[2019-10-18] MEDS ORDERED: ROXICODONE15 MG ORAL (00:42)
[2019-10-18] MEDS ORDERED: METOPROLOL TART50 M1 ORAL (00:48)
[2019-10-18] MEDS ORDERED: ZINC SULFATE220 M1 ORAL (00:48)
[2019-10-18] MEDS ORDERED: VITAMIN C500 M1 ORAL (00:48)
[2019-10-18] MEDS: HYDROcodone/Acetamin 10/325 tab ORAL PRN ×5 (01:13→20:32)
[2019-10-18] MEDS ORDERED: GEMFIBROZIL600 MG ORAL (02:06)
[2019-10-18] MEDS: oxyCODONE 15mg IR tab ORAL PRN ×3 (02:31→17:53)
[2019-10-18 04:00] VITALS: BP 118/70
[2019-10-18 08:04] VITALS: BP 136/73
[2019-10-18] MEDS: Metoprolol Tartrate 50mg tab ORAL SCH ×2 (08:42→20:33)
[2019-10-18] MEDS: Lisinopril 20mg tab ORAL SCH (08:43)
[2019-10-18] MEDS: Heparin 5000 units/ml inj SUBQ SCH ×2 (08:43→20:33)
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
[2019-10-18] MEDS: Docusate 100mg cap ORAL SCH (11:15)
[2019-10-18 12:00] VITALS: BP 110/59
[2019-10-18] MEDS: Aspirin Baby 81mg ORAL SCH (12:33)
[2019-10-18] MEDS: Ascorbic Acid 500mg tab ORAL SCH (12:34)
[2019-10-18] MEDS: Zinc Sulfate 220mg cap ORAL SCH (12:34)
[2019-10-18] MEDS ORDERED: Methocarbamol 500mg tab ORAL SCH (13:00)
[2019-10-18] MEDS ORDERED: Methocarbamol 500mg tab ORAL PRN (13:00)
--- NOTE | 2019-10-18 13:59 | Diagnostic Imaging Report ---
EXAM: XR Chest, 1 View CLINICAL HISTORY: Shortness of breath TECHNIQUE: Frontal view of the chest. COMPARISON: No relevant prior studies available. FINDINGS: Lungs: History opacity along the periphery of the right midlung, concerning for pneumonia versus atelectasis. Mild pulmonary vascular congestion. Pleural space: Unremarkable. The costophrenic angles are sharp. No visible pneumothorax. Heart: Unremarkable. No cardiomegaly. Mediastinum: Unremarkable. Bones/joints: Status post median sternotomy. Vasculature: Atherosclerotic calcifications are noted within the aortic arch. IMPRESSION: 1. History opacity along the periphery of the right midlung, concerning for pneumonia versus atelectasis. 2. Mild pulmonary vascular congestion.
[2019-10-18 14:16] LABS: % IRON SATURATION 8 % (15-50); IRON 12 ug/dL (50-175); TOTAL IRON BINDING CAPACITY 159 ug/dL (250-450)
--- NOTE | 2019-10-18 14:35 | Infectious Diseases Prog Note ---
Assessment/Plan Assessment/Plan Full consult dictated: A) 1) uti, pyelonephritis, sepsis, sirs, fevers 2) pmh noted 3) sacral wound 4) ? cap vs atx P) 1) invanz 2) check cultures, labs and chest x-ray 3) thanks Subjective Allergies: Coded Allergies: No Known Allergies (Unverified , 08/02/19) Objective Vital Signs Last 24 Hour Vital Signs Date Time Temp Pulse Resp B/P (MAP) Pulse Ox O2 Delivery O2 Flow Rate FiO2 10/18/19 12:00 98.4 85 18 110/59 (76) 99 10/18/19 10:51 97.9 10/18/19 08:45 Room Air 10/18/19 08:43 136/73 10/18/19 08:42 69 136/73 10/18/19 08:04 97.9 69 18 136/73 (94) 97 10/18/19 04:54 100.1 10/18/19 04:00 101.7 80 20 118/70 (86) 95 10/17/19 23:31 Room Air 10/17/19 23:30 99.5 87 18 152/77 (102) 99 10/17/19 23:00 100.5 90 18 135/75 98 Room Air 10/17/19 22:33 98.2 10/17/19 22:30 100.2 90 18 135/75 98 Room Air 10/17/19 21:35 101.9 92 20 125/75 96 Room Air 10/17/19 21:35 92 20 Room Air 10/17/19 21:27 98.2 92 20 125/75 (92) 96 Room Air Height (Feet): 5 Height (Inches): 10.00 Weight (Pounds): 142 Microbiology Date/Time Source Procedure Growth Status 10/17/19 21:35 Urine,Clean Catch Urine Culture - Preliminary Resulted Laboratory Tests Test 10/17/19 21:35 10/18/19 10:15 White Blood Count 8.3 K/UL (4.8-10.8) Red Blood Count 5.16 M/UL (4.70-6.10) Hemoglobin 12.6 G/DL (14.2-18.0) L Hematocrit 39.6 % (42.0-52.0) L Mean Corpuscular Volume 77 FL (80-99) L Mean Corpuscular Hemoglobin 24.4 PG (27.0-31.0) L Mean Corpuscular Hemoglobin Concent 31.8 G/DL (32.0-36.0) L Red Cell Distribution Width 16.5 % (11.6-14.8) H Platelet Count 197 K/UL (150-450) Mean Platelet Volume 7.4 FL (6.5-10.1) Neutrophils (%) (Auto) 67.3 % (45.0-75.0) Lymphocytes (%) (Auto) 25.2 % (20.0-45.0) Monocytes (%) (Auto) 6.8 % (1.0-10.0) Eosinophils (%) (Auto) 0.3 % (0.0-3.0) Basophils (%) (Auto) 0.4 % (0.0-2.0) Urine Color Brown Urine Appearance Turbid Urine pH 9 (4.5-8.0) Urine Specific [place] 1.010 (1.005-1.035) Urine Protein 3+ (NEGATIVE) H Urine Glucose (UA) Negative (NEGATIVE) Urine Ketones 1+ (NEGATIVE) H Urine Blood 4+ (NEGATIVE) H Urine Nitrite Positive (NEGATIVE) H Urine Bilirubin Negative (NEGATIVE) Urine Urobilinogen Normal MG/DL (0.0-1.0) Urine Leukocyte Esterase 3+ (NEGATIVE) H Urine RBC 5-10 /HPF (0 - 0) H Urine WBC 0-2 /HPF (0 - 0) Urine Squamous Epithelial Cells Occasional /LPF Urine Triple Phosphate Crystals Moderate /LPF (NONE) H Urine Amorphous Sediment Moderate /LPF (NONE) H Urine Bacteria Many /HPF (NONE) H Sodium Level 136 MMOL/L (136-145) Potassium Level 3.4 MMOL/L (3.5-5.1) L Chloride Level 99 MMOL/L (98-107) Carbon Dioxide Level 29 MMOL/L (21-32) Anion Gap 8 mmol/L (5-15) Blood Urea Nitrogen 15 mg/dL (7-18) Creatinine 0.9 MG/DL (0.55-1.30) Estimat Glomerular Filtration Rate > 60 mL/min (>60) Glucose Level 90 MG/DL (74-106) Lactic Acid Level 0.90 mmol/L (0.4-2.0) Calcium Level 8.2 MG/DL (8.5-10.1) L Total Bilirubin 0.2 MG/DL (0.2-1.0) Aspartate Amino Transf (AST/SGOT) 23 U/L (15-37) Alanine Aminotransferase (ALT/SGPT) 18 U/L (12-78) Alkaline Phosphatase 115 U/L (46-116) Total Creatine Kinase 19 U/L (26-308) L Troponin I 0.000 ng/mL (0.000-0.056) Total Protein 8.3 G/DL (6.4-8.2) H Albumin 2.8 G/DL (3.4-5.0) L Globulin 5.5 g/dL Albumin/Globulin Ratio 0.5 (1.0-2.7) L Iron Level 12 ug/dL (50-175) L Total Iron Binding Capacity 159 ug/dL (250-450) L Percent Iron Saturation 8 % (15-50) L Unsaturated Iron Binding 147 ug/dL (112-346) Vitamin B12 Level 207 PG/ML (193-986) Folate 13.0 NG/ML (8.6-58.9) Current Medications Medications (Trade) Dose Ordered Sig/Nayely Route PRN Reason Start Time Stop Time Status Last Admin Dose Admin Acetaminophen (Tylenol) 650 mg Q6H PRN ORAL Mild Pain/Temp > 100.5 10/18/19 01:45 11/17/19 01:44 10/18/19 04:24 Acetaminophen/ Hydrocodone Bitart ([place] 10/325) 1 tab Q4H PRN ORAL Moderate Pain (Pain Scale 4-6) 10/18/19 01:00 10/25/19 00:59 10/18/19 10:21 Ascorbic Acid (Vitamin C) 500 mg DAILY ORAL 10/18/19 11:15 11/17/19 11:14 10/18/19 12:34 Aspirin (ASA) 81 mg DAILY ORAL 10/18/19 11:15 11/17/19 11:14 10/18/19 12:33 Atorvastatin Calcium (Lipitor) 20 mg BEDTIME ORAL 10/18/19 21:00 11/17/19 20:59 Docusate Sodium (Colace) 100 mg DAILY ORAL 10/18/19 11:15 11/17/19 11:14 Ertapenem 1 gm/ Sodium Chloride 55 ml @ 110 mls/hr Q24H IVPB 10/18/19 22:00 10/25/19 21:59 Ferrous Sulfate (Feosol) 325 mg THREE TIMES A DAY ORAL 10/18/19 13:00 11/17/19 12:59 10/18/19 12:33 Heparin Sodium (Porcine) (Heparin 5000 units/ml) 5,000 units EVERY 12 HOURS SUBQ 10/18/19 09:00 11/17/19 08:59 Lisinopril (Prinivil) 20 mg DAILY ORAL 10/18/19 09:00 11/17/19 08:59 10/18/19 08:43 Methocarbamol (Robaxin) 500 mg Q6H PRN ORAL muscle spasm 10/18/19 13:00 11/17/19 12:59 Metoprolol Tartrate (Lopressor) 50 mg EVERY 12 HOURS ORAL 10/18/19 09:00 11/17/19 08:59 10/18/19 08:42 Oxycodone HCl (Roxicodone) 15 mg Q6H PRN ORAL For Pain 10/18/19 01:00 10/25/19 00:59 10/18/19 08:42 Zinc Sulfate (Zinc Sulfate) 220 mg DAILY ORAL 10/18/19 11:15 11/17/19 11:14 10/18/19 12:34 Jose M Gonzales MD Oct 18, 2019 14:35
--- NOTE | 2019-10-18 15:30 | Consultation ---
DATE OF CONSULTATION: 10/18/2019 CONSULTING PHYSICIAN: Reji Barriga M.D. REFERRING PHYSICIAN: Breana Howell D.O. REASON FOR CONSULTATION: Evaluation of suprapubic tube. HISTORY OF PRESENT ILLNESS: This is a 59-year-old male whom I have seen before. He has a history of paraplegia, neurogenic bladder, and chronic suprapubic tube. He has a history of UTIs and colonization. He is resident of a residential. He was brought to the emergency room because of fevers and vague abdominal pain. Apparently, he has had vague right-sided pain which has been intermittent for a number of months. Urology evaluation is requested. The patient changes his own suprapubic catheter and he states that he changed it last about five days ago. He has a 24-[place] catheter. PAST MEDICAL HISTORY: Significant for history of neurogenic bladder, chronic suprapubic tube, coronary artery disease, chronic obstructive pulmonary disease, and bilateral lower extremity amputations. PAST SURGICAL HISTORY: As above. MEDICATIONS: Current medication list in the hospital was reviewed. He is currently on ertapenem. ALLERGIES: No known drug allergies. SOCIAL HISTORY: He is a resident of residential. REVIEW OF SYSTEMS: As above. PHYSICAL EXAMINATION: VITAL SIGNS: Temperature is 97.9 and blood pressure 136/73. ABDOMEN: Soft. GENITOURINARY: No CVA tenderness. A 24-[place] suprapubic tube is in place. SP site looks clean. Urine is yellowish mitesh. LABORATORY DATA: UA showed 3+ protein, 5 to 10 rbc's, many bacteria. White count is 8.3, hemoglobin 12.6, platelets 197,000. BUN is 15, creatinine 0.9, and potassium 3.4. He did have a urine culture, which is pending. DIAGNOSTIC IMAGING STUDIES: Old imaging studies were reviewed. There are no new imaging studies on file. IMPRESSION: 1. Urinary retention history with chronic suprapubic tube. 2. Neurogenic bladder. 3. Proteinuria. 4. Hematuria. 5. Urinary tract infection history. 6. Abdominal pain. PLAN AND DISCUSSION: Again, the patient does have a chronic suprapubic tube. Apparently, it has been changed recently. 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 He is currently on antibiotics and we will follow up on the results of urine cultures. Renal ultrasound has been ordered. Again, this current suprapubic tube is relatively new and I plan on changing it later before he leaves the hospital. Thank you for this consultation. Reji Barriga M.D. DR: SANDRA JOB#: [id number] CC:
[2019-10-18 16:00] VITALS: BP 118/65
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
--- NOTE | 2019-10-18 19:33 | Consultation ---
History of Present Illness General Date patient seen: Oct 18, 2019 Present Illness HPI 59M known to me from prior admission with history of decubitus ulcers, fevers, lower extremity amputations bilaterally, limited mobility, care dependant, presented [facility] of fevers. Given history surgery called to evaluate and assist with care. patient seen, chart reviewed, patient examined. care plan initiated. on abx. labs noted. imaging reviewed. chart reviewed. Allergies: Coded Allergies: No Known Allergies (Unverified , 08/02/19) Medication History Scheduled Ascorbic Acid* (Vitamin C*), 500 MG ORAL DAILY, (Reported) Aspirin* (Aspirin*), 81 MG ORAL DAILY, (Reported) Atorvastatin Calcium* (Atorvastatin Calcium*), 20 MG ORAL BEDTIME, (Reported) Docusate Sodium (Docusate Sodium), 100 MG ORAL DAILY, (Reported) Gemfibrozil (Gemfibrozil*), 600 MG ORAL BIDAC, (Reported) Lisinopril (Lisinopril*), 20 MG ORAL DAILY, (Reported) Metoprolol Tartrate* (Metoprolol Tartrate*), 50 MG ORAL EVERY 12 HOURS, ( Reported) Zinc Sulfate (Zinc Sulfate*), 220 MG ORAL DAILY, (Reported) Scheduled PRN Acetaminophen (Tylenol), 650 MG PO Q6HR PRN for MILD PAIN/TEMP > 101, (Reported) Doxylamine Succinate (Unisom Sleep Aid), 25 MG PO QHS PRN for INSOMNIA, ( Reported) Hydrocodone Bit/Acetaminophen 10-325* ([place] 10-325*), 1 TAB ORAL Q4H PRN for Moderate Pain (Pain Scale 4-6), (Reported) OXYCODONE HCl* (Roxicodone*), 15 MG ORAL Q6H PRN for For Pain, (Reported) Miscellaneous Medications Calcium Carbonate/Vitamin D3 (Calcium + Vitamin D Tablet), 1 EACH PO, (Reported) Cranberry Fruit (Cranberry), 450 MG PO, (Reported) Ferrous Sulfate (Ferrous Sulfate), 325 MG ORAL, (Reported) Discontinued Medications Amino Acids/Protein Hydrolys (Pro-Stat Liquid), 30 ML ORAL TWICE A DAY, ( Reported) Discontinued Reason: Therapy completed Ascorbic Acid (Vitamin C), 250 MG ORAL BID, (Reported) Discontinued Reason: Therapy completed Ascorbic Acid* (Vitamin C*), 500 MG ORAL DAILY, (Reported) Discontinued Reason: Therapy completed Bisacodyl (Dulcolax), 10 MG RC, (Reported) Discontinued Reason: Therapy completed Fluconazole* (Diflucan*), 100 MG ORAL DAILY Discontinued Reason: Therapy completed Loperamide Hcl (Loperamide), 2 MG PO EVERY 6 HOURS PRN for LOOSE BOWEL MOVEMENT, (Reported) Discontinued Reason: Therapy completed Magnesium Hydroxide* (Milk Of Magnesia*), 30 ML ORAL DAILY PRN for Constipation, (Reported) Discontinued Reason: Therapy completed Meropenem (Meropenem), 1 GM IV Q8HR Discontinued Reason: Therapy completed Meropenem (Meropenem), 1 GM IV Q8HR, (Reported) Discontinued Reason: Therapy completed Metoprolol Tartrate* (Metoprolol Tartrate*), 50 MG ORAL EVERY 12 HOURS, ( Reported) Discontinued Reason: Therapy completed Multivitamin With Minerals (Multivitamins With Minerals*), 1 TAB ORAL DAILY, ( Reported) Discontinued Reason: Therapy completed Oxycodone Hcl* (Oxycodone Hcl*), 10 MG ORAL Q4H PRN for MODERATE TO SEVERE PAIN, (Reported) Discontinued Reason: Therapy completed Oxycodone Hcl* (Oxycodone Hcl*), 10 MG ORAL Q4H PRN for Severe Pain (Pain Scale 7-10), (Reported) Discontinued Reason: Therapy completed Pantoprazole* (Pantoprazole*), 40 MG ORAL DAILY, (Reported) Discontinued Reason: Therapy completed [Vanco pharmacy to dose], 1 EA MISC DAILY PRN Discontinued Reason: Therapy completed Patient History Limited by: medical condition History Provided By: Patient, Medical Record, PMD Healthcare decision maker KRISTI TAYLOR LEONARDO Resuscitation status Full Code Advanced Directive on File No Past Medical/Surgical History Past Medical/Surgical History: (1) Cellulitis (2) Osteomyelitis (3) Haritha infection (4) Pyelonephritis (5) Sepsis (6) UTI (urinary tract infection) (7) Coronary artery disease (8) Anemia (9) Stage 4 decubitus ulcer (10) Severe protein-calorie malnutrition (11) UTI due to extended-spectrum beta lactamase (ESBL) producing Escherichia coli Review of Systems Review of Symptoms General ROS: no weight loss or fever Psychological ROS: no depression or mood changes, no memory loss Ophthalmic ROS: no visual changes or eye irritation ENT ROS: no nasal congestion, hearing loss, dizziness Allergy and Immunology ROS: no allergic symptoms or urticaria Hematological and Lymphatic ROS: no swollen glands, unusual bleeding or bruising Endocrine ROS: no polyuria, polydipsia, weight changes, temperature intolerance Respiratory ROS: no cough, shortness of breath, or wheezing Cardiovascular ROS: no chest pain or dyspnea on exertion Gastrointestinal ROS: denies abdominal pain, bright red blood in stool. Musculoskeletal ROS: no myalgias or arthralgias Neurological ROS: no TIA or stroke symptoms Dermatological ROS: no new or changing skin lesions, rashes or pruritis Physical Exam Physical Exam General appearance: alert, cooperative, no distress, appears stated age Head: Normocephalic, without obvious abnormality, atraumatic Eyes: conjunctivae/corneas clear. PERRL, EOM's intact. Fundi benign Throat: Lips, mucosa, and tongue normal. Teeth and gums normal Neck: supple, symmetrical, trachea midline, no adenopathy, thyroid: not enlarged, symmetric, no tenderness/mass/nodules, no carotid bruit and no JVD Lungs: clear to auscultation bilaterally Heart: regular rate and rhythm, S1, S2 normal, no murmur, click, rub or gallop Abdomen: soft, non-tender. Bowel sounds normal. No masses, no organomegaly Extremities: extremities normal, atraumatic, no cyanosis or edema; B/L LE amputation Pulses: 2+ and symmetric Skin: Skin color, texture, turgor normal. No rashes or lesions Neurologic: Grossly normal Last 24 Hour Vital Signs Date Time Temp Pulse Resp B/P (MAP) Pulse Ox O2 Delivery O2 Flow Rate FiO2 10/18/19 16:00 98.3 81 18 118/65 (82) 99 10/18/19 15:06 98.4 10/18/19 12:00 98.4 85 18 110/59 (76) 99 10/18/19 08:45 Room Air 10/18/19 08:43 136/73 10/18/19 08:42 69 136/73 10/18/19 08:04 97.9 69 18 136/73 (94) 97 10/18/19 04:54 100.1 10/18/19 04:00 101.7 80 20 118/70 (86) 95 10/17/19 23:31 Room Air 10/17/19 23:30 99.5 87 18 152/77 (102) 99 10/17/19 23:00 100.5 90 18 135/75 98 Room Air 10/17/19 22:33 98.2 10/17/19 22:30 100.2 90 18 135/75 98 Room Air 10/17/19 21:35 101.9 92 20 125/75 96 Room Air 10/17/19 21:35 92 20 Room Air 10/17/19 21:27 98.2 92 20 125/75 (92) 96 Room Air Intake and Output 10/17/19 10/18/19 19:00 07:00 Intake Total 360 ml Balance 360 ml Intake Oral 360 ml # Bowel Movements 1 Laboratory Tests Test 10/17/19 21:35 10/18/19 10:15 White Blood Count 8.3 K/UL (4.8-10.8) Red Blood Count 5.16 M/UL (4.70-6.10) Hemoglobin 12.6 G/DL (14.2-18.0) L Hematocrit 39.6 % (42.0-52.0) L Mean Corpuscular Volume 77 FL (80-99) L Mean Corpuscular Hemoglobin 24.4 PG (27.0-31.0) L Mean Corpuscular Hemoglobin Concent 31.8 G/DL (32.0-36.0) L Red Cell Distribution Width 16.5 % (11.6-14.8) H Platelet Count 197 K/UL (150-450) Mean Platelet Volume 7.4 FL (6.5-10.1) Neutrophils (%) (Auto) 67.3 % (45.0-75.0) Lymphocytes (%) (Auto) 25.2 % (20.0-45.0) Monocytes (%) (Auto) 6.8 % (1.0-10.0) Eosinophils (%) (Auto) 0.3 % (0.0-3.0) Basophils (%) (Auto) 0.4 % (0.0-2.0) Urine Color Brown Urine Appearance Turbid Urine pH 9 (4.5-8.0) Urine Specific [place] 1.010 (1.005-1.035) Urine Protein 3+ (NEGATIVE) H Urine Glucose (UA) Negative (NEGATIVE) Urine Ketones 1+ (NEGATIVE) H Urine Blood 4+ (NEGATIVE) H Urine Nitrite Positive (NEGATIVE) H Urine Bilirubin Negative (NEGATIVE) Urine Urobilinogen Normal MG/DL (0.0-1.0) Urine Leukocyte Esterase 3+ (NEGATIVE) H Urine RBC 5-10 /HPF (0 - 0) H Urine WBC 0-2 /HPF (0 - 0) Urine Squamous Epithelial Cells Occasional /LPF Urine Triple Phosphate Crystals Moderate /LPF (NONE) H Urine Amorphous Sediment Moderate /LPF (NONE) H Urine Bacteria Many /HPF (NONE) H Sodium Level 136 MMOL/L (136-145) Potassium Level 3.4 MMOL/L (3.5-5.1) L Chloride Level 99 MMOL/L (98-107) Carbon Dioxide Level 29 MMOL/L (21-32) Anion Gap 8 mmol/L (5-15) Blood Urea Nitrogen 15 mg/dL (7-18) Creatinine 0.9 MG/DL (0.55-1.30) Estimat Glomerular Filtration Rate > 60 mL/min (>60) Glucose Level 90 MG/DL (74-106) Lactic Acid Level 0.90 mmol/L (0.4-2.0) Calcium Level 8.2 MG/DL (8.5-10.1) L Total Bilirubin 0.2 MG/DL (0.2-1.0) Aspartate Amino Transf (AST/SGOT) 23 U/L (15-37) Alanine Aminotransferase (ALT/SGPT) 18 U/L (12-78) Alkaline Phosphatase 115 U/L (46-116) Total Creatine Kinase 19 U/L (26-308) L Troponin I 0.000 ng/mL (0.000-0.056) Total Protein 8.3 G/DL (6.4-8.2) H Albumin 2.8 G/DL (3.4-5.0) L Globulin 5.5 g/dL Albumin/Globulin Ratio 0.5 (1.0-2.7) L Iron Level 12 ug/dL (50-175) L Total Iron Binding Capacity 159 ug/dL (250-450) L Percent Iron Saturation 8 % (15-50) L Unsaturated Iron Binding 147 ug/dL (112-346) Vitamin B12 Level 207 PG/ML (193-986) Folate 13.0 NG/ML (8.6-58.9) Microbiology Date/Time Source Procedure Growth Status 10/17/19 21:35 Urine,Clean Catch Urine Culture - Preliminary Resulted Height (Feet): 5 Height (Inches): 10.00 Weight (Pounds): 142 Medications Current Medications Medications (Trade) Dose Ordered Sig/Nayely Route PRN Reason Start Time Stop Time Status Last Admin Dose Admin Acetaminophen (Tylenol) 650 mg Q6H PRN ORAL Mild Pain/Temp > 100.5 10/18/19 01:45 11/17/19 01:44 10/18/19 04:24 Acetaminophen/ Hydrocodone Bitart ([place] 10/325) 1 tab Q4H PRN ORAL Moderate Pain (Pain Scale 4-6) 10/18/19 01:00 10/25/19 00:59 10/18/19 14:36 Ascorbic Acid (Vitamin C) 500 mg DAILY ORAL 10/18/19 11:15 11/17/19 11:14 10/18/19 12:34 Aspirin (ASA) 81 mg DAILY ORAL 10/18/19 11:15 11/17/19 11:14 10/18/19 12:33 Atorvastatin Calcium (Lipitor) 20 mg BEDTIME ORAL 10/18/19 21:00 11/17/19 20:59 Docusate Sodium (Colace) 100 mg DAILY ORAL 10/18/19 11:15 11/17/19 11:14 Ertapenem 1 gm/ Sodium Chloride 55 ml @ 110 mls/hr Q24H IVPB 10/18/19 22:00 10/25/19 21:59 Ferrous Sulfate (Feosol) 325 mg THREE TIMES A DAY ORAL 10/18/19 13:00 11/17/19 12:59 10/18/19 17:00 Heparin Sodium (Porcine) (Heparin 5000 units/ml) 5,000 units EVERY 12 HOURS SUBQ 10/18/19 09:00 11/17/19 08:59 Lisinopril (Prinivil) 20 mg DAILY ORAL 10/18/19 09:00 11/17/19 08:59 10/18/19 08:43 Methocarbamol (Robaxin) 500 mg Q6H PRN ORAL muscle spasm 10/18/19 13:00 11/17/19 12:59 10/18/19 17:00 Metoprolol Tartrate (Lopressor) 50 mg EVERY 12 HOURS ORAL 10/18/19 09:00 12/23/19 08:59 10/18/19 08:42 Oxycodone HCl (Roxicodone) 15 mg Q6H PRN ORAL For Pain 10/18/19 01:00 10/25/19 00:59 10/18/19 17:53 Zinc Sulfate (Zinc Sulfate) 220 mg DAILY ORAL 10/18/19 11:15 11/17/19 11:14 10/18/19 12:34 Assessment/Plan Problem List: (1) Severe protein-calorie malnutrition Assessment & Plan: Nutrition eval needs optimization to help with wound healing encourage oral intake alb low ICD Codes: E43 - Unspecified severe protein-calorie malnutrition SNOMED: 604450813, 172775653, [id number] (2) Stage 4 decubitus ulcer Assessment & Plan: Patient presented on admission with Right BKA, Left AKA prior. Noted to have Stage 4 full thickness pressure injury with undermining R ischium. [place] granulation at base of wound .Bone is palpable. Edges adherent and flat. Erythema periwound. No odor noted Small amt serous exudate. (L)4.5cm x (W)6.5cm x (D)6.3cm, undermining noted. Multiple scarring noted to R trochanter,harvest graft site R thigh. No other skin concerns noted. febrile on admission. wounds unlikely etiology will monitor likely pna Tx.plan: Cleanse wound with Saline. Loosely pack wound with Hydrogel impregnated Kerlix. Apply Cavilon periwound. Cover with Optifoam drsg Daily and prn. Apply Triad Paste to buttocks and groin with each incontinence care. Reposition at least every 2hours or as tolerated.(Encourage pt to frequently reposition self ). ICD Codes: L89.94 - Pressure ulcer of unspecified site, stage 4 SNOMED: 587408662 Qualifiers: Qualified Codes: L89.894 - Pressure ulcer of other site, stage 4 (3) Osteomyelitis Assessment & Plan: Hx prior abx ID input please ICD Codes: M86.9 - Osteomyelitis, unspecified SNOMED: [id number] Baron Crouch Oct 18, 2019 19:33
[2019-10-18 20:00] VITALS: BP 123/75
[2019-10-18] MEDS: Atorvastatin 20mg tab ORAL SCH (20:33)
[2019-10-18] MEDS: Ertapenem 1 GM in NS 55 ML IVPB SCH (22:27)
[2019-10-19] VITALS: BP 116/62
[2019-10-19] MEDS: HYDROcodone/Acetamin 10/325 tab ORAL PRN ×5 (00:49→21:57)
[2019-10-19] MEDS: oxyCODONE 15mg IR tab ORAL PRN ×3 (03:50→16:18)
[2019-10-19 04:00] VITALS: BP 123/63
[2019-10-19 07:17] LABS: BASOPHILS % (AUTO) 0.2 % (0.0-2.0); EOSINOPHILS % (AUTO) 0.8 % (0.0-3.0); HEMATOCRIT 33.7 % (42.0-52.0); HEMOGLOBIN 10.7 G/DL (14.2-18.0); LYMPHOCYTES % (AUTO) 36.8 % (20.0-45.0); MEAN CORPUSCULAR VOLUME 78 FL (80-99); MONOCYTES % (AUTO) 6.5 % (1.0-10.0); NEUTROPHILS % (AUTO) 55.7 % (45.0-75.0); PLATELET COUNT 168 K/UL (150-450); RED BLOOD COUNT 4.33 M/UL (4.70-6.10); RED CELL DISTRIBUTION WIDTH 16.8 % (11.6-14.8); WHITE BLOOD COUNT 6.1 K/UL (4.8-10.8)
[2019-10-19 07:36] LABS: ANION GAP 10 mmol/L (5-15); BLOOD UREA NITROGEN 12 mg/dL (7-18); CALCIUM 7.8 MG/DL (8.5-10.1); CARBON DIOXIDE 23 MMOL/L (21-32); CHLORIDE 102 MMOL/L (98-107); CREATININE 0.6 MG/DL (0.55-1.30); POTASSIUM 3.7 MMOL/L (3.5-5.1); SODIUM 135 MMOL/L (136-145)
[2019-10-19 08:00] VITALS: BP 124/65
[2019-10-19] MEDS: Zinc Sulfate 220mg cap ORAL SCH (08:40)
[2019-10-19] MEDS: Aspirin Baby 81mg ORAL SCH (08:40)
[2019-10-19] MEDS: Metoprolol Tartrate 50mg tab ORAL SCH ×2 (08:41→21:02)
[2019-10-19] MEDS: Lisinopril 20mg tab ORAL SCH (08:41)
[2019-10-19] MEDS: Ascorbic Acid 500mg tab ORAL SCH ×2 (08:41→17:56)
[2019-10-19] MEDS: Heparin 5000 units/ml inj SUBQ SCH ×3 (08:42→21:00)
[2019-10-19] MEDS: Docusate 100mg cap ORAL SCH (08:42)
--- NOTE | 2019-10-19 09:03 | Urology Progress Note ---
Assessment/Plan Assessment/Plan: 1. Urinary retention history with chronic suprapubic tube. 2. Neurogenic bladder. 3. Proteinuria. 4. Hematuria. 5. Urinary tract infection history. 6. Abdominal pain. monitor clinically abx as ordered f/u on cx's maintain SPT hand irrigated and do PRN change cath again soon renal u/s pending, f/u on result Subjective Allergies: Coded Allergies: No Known Allergies (Unverified , 08/02/19) Objective Last 24 Hour Vital Signs Date Time Temp Pulse Resp B/P (MAP) Pulse Ox O2 Delivery O2 Flow Rate FiO2 10/19/19 08:41 67 124/65 10/19/19 08:41 124/65 10/19/19 07:55 97.7 10/19/19 04:00 97.7 65 20 123/63 (83) 97 10/19/19 00:00 97.7 81 17 116/62 (80) 96 10/18/19 21:00 Room Air 10/18/19 20:33 71 146/70 10/18/19 20:00 97.0 72 20 123/75 (91) 100 10/18/19 16:00 98.3 81 18 118/65 (82) 99 10/18/19 12:00 98.4 85 18 110/59 (76) 99 Intake and Output 10/18/19 10/19/19 18:59 06:59 Intake Total 60 ml 55 ml Output Total 1000 ml 275 ml Balance -940 ml -220 ml Intake Oral 60 ml IV Total 55 ml Output Urine Total 1000 ml 275 ml # Bowel Movements 2 Microbiology Date/Time Source Procedure Growth Status 10/17/19 21:50 Blood Blood Culture - Preliminary NO GROWTH AFTER 24 HOURS Resulted 10/17/19 21:35 Urine,Clean Catch Urine Culture - Preliminary Resulted Current Medications Medications (Trade) Dose Ordered Sig/Nayely Route PRN Reason Start Time Stop Time Status Last Admin Dose Admin Acetaminophen (Tylenol) 650 mg Q6H PRN ORAL Mild Pain/Temp > 100.5 10/18/19 01:45 11/17/19 01:44 10/18/19 04:24 Acetaminophen/ Hydrocodone Bitart ([place] 10/325) 1 tab Q4H PRN ORAL Moderate Pain (Pain Scale 4-6) 10/18/19 01:00 10/25/19 00:59 10/19/19 07:25 Ascorbic Acid (Vitamin C) 500 mg DAILY ORAL 10/18/19 11:15 11/17/19 11:14 10/19/19 08:41 Aspirin (ASA) 81 mg DAILY ORAL 10/18/19 11:15 11/17/19 11:14 10/19/19 08:40 Atorvastatin Calcium (Lipitor) 20 mg BEDTIME ORAL 10/18/19 21:00 11/17/19 20:59 10/18/19 20:33 Docusate Sodium (Colace) 100 mg DAILY ORAL 10/18/19 11:15 11/17/19 11:14 Ertapenem 1 gm/ Sodium Chloride 55 ml @ 110 mls/hr Q24H IVPB 10/18/19 22:00 10/25/19 21:59 10/18/19 22:27 Ferrous Sulfate (Feosol) 325 mg THREE TIMES A DAY ORAL 10/18/19 13:00 11/17/19 12:59 10/19/19 08:40 Heparin Sodium (Porcine) (Heparin 5000 units/ml) 5,000 units EVERY 12 HOURS SUBQ 10/18/19 09:00 11/17/19 08:59 Lisinopril (Prinivil) 20 mg DAILY ORAL 10/18/19 09:00 11/17/19 08:59 10/19/19 08:41 Methocarbamol (Robaxin) 500 mg Q6H PRN ORAL muscle spasm 10/18/19 13:00 11/17/19 12:59 10/18/19 17:00 Metoprolol Tartrate (Lopressor) 50 mg EVERY 12 HOURS ORAL 10/18/19 09:00 11/17/19 08:59 10/19/19 08:41 Oxycodone HCl (Roxicodone) 15 mg Q6H PRN ORAL SEVERE PAIN 10/19/19 07:01 10/26/19 07:00 Zinc Sulfate (Zinc Sulfate) 220 mg DAILY ORAL 10/18/19 11:15 11/17/19 11:14 10/19/19 08:40 Laboratory Tests 10/18/19 10:15: Iron Level 12L, Total Iron Binding Capacity 159L, Percent Iron Saturation 8L, Unsaturated Iron Binding 147, Vitamin B12 Level 207, Folate 13.0 10/19/19 06:30: White Blood Count 6.1, Red Blood Count 4.33L, Hemoglobin 10.7L, Hematocrit 33.7L , Mean Corpuscular Volume 78L, Mean Corpuscular Hemoglobin 24.8L, Mean Corpuscular Hemoglobin Concent 31.9L, Red Cell Distribution Width 16.8H, Platelet Count 168, Mean Platelet Volume 8.0, Neutrophils (%) (Auto) 55.7, Lymphocytes (%) (Auto) 36.8, Monocytes (%) (Auto) 6.5, Eosinophils (%) (Auto) 0.8, Basophils (%) (Auto) 0.2, Sodium Level 135L, Potassium Level 3.7, Chloride Level 102, Carbon Dioxide Level 23, Anion Gap 10, Blood Urea Nitrogen 12, Creatinine 0.6, Estimat Glomerular Filtration Rate > 60, Glucose Level 47L, Calcium Level 7.8L Height (Feet): 5 Height (Inches): 10.00 Weight (Pounds): 142 Objective exam stable urine mitesh with debris Reji Barriga MD Oct 19, 2019 09:03
[2019-10-19 12:01] VITALS: BP 126/68
--- NOTE | 2019-10-19 12:35 | Surgery Progress Note ---
Surgery Progress Note Subjective Additional Comments no acute events comfortable wants Dilaudid and asks for it by name Objective Last 24 Hour Vital Signs Date Time Temp Pulse Resp B/P (MAP) Pulse Ox O2 Delivery O2 Flow Rate FiO2 10/19/19 12:01 98.2 66 18 126/68 (87) 96 10/19/19 08:45 Room Air 10/19/19 08:41 67 124/65 10/19/19 08:41 124/65 10/19/19 08:00 97.3 67 20 124/65 (84) 96 10/19/19 07:55 97.7 10/19/19 04:00 97.7 65 20 123/63 (83) 97 10/19/19 00:00 97.7 81 17 116/62 (80) 96 10/18/19 21:00 Room Air 10/18/19 20:33 71 146/70 10/18/19 20:00 97.0 72 20 123/75 (91) 100 10/18/19 16:00 98.3 81 18 118/65 (82) 99 I&O Intake and Output 10/18/19 10/19/19 18:59 06:59 Intake Total 60 ml 55 ml Output Total 1000 ml 275 ml Balance -940 ml -220 ml Intake Oral 60 ml IV Total 55 ml Output Urine Total 1000 ml 275 ml # Bowel Movements 2 Dressing: other Wound: other Drains: other Cardiovascular: RSR Respiratory: decreased breath sounds Abdomen: soft, present bowel sounds, non-distended Extremities: other Laboratory Tests Test 10/19/19 06:30 White Blood Count 6.1 K/UL (4.8-10.8) Red Blood Count 4.33 M/UL (4.70-6.10) L Hemoglobin 10.7 G/DL (14.2-18.0) L Hematocrit 33.7 % (42.0-52.0) L Mean Corpuscular Volume 78 FL (80-99) L Mean Corpuscular Hemoglobin 24.8 PG (27.0-31.0) L Mean Corpuscular Hemoglobin Concent 31.9 G/DL (32.0-36.0) L Red Cell Distribution Width 16.8 % (11.6-14.8) H Platelet Count 168 K/UL (150-450) Mean Platelet Volume 8.0 FL (6.5-10.1) Neutrophils (%) (Auto) 55.7 % (45.0-75.0) Lymphocytes (%) (Auto) 36.8 % (20.0-45.0) Monocytes (%) (Auto) 6.5 % (1.0-10.0) Eosinophils (%) (Auto) 0.8 % (0.0-3.0) Basophils (%) (Auto) 0.2 % (0.0-2.0) Sodium Level 135 MMOL/L (136-145) L Potassium Level 3.7 MMOL/L (3.5-5.1) Chloride Level 102 MMOL/L (98-107) Carbon Dioxide Level 23 MMOL/L (21-32) Anion Gap 10 mmol/L (5-15) Blood Urea Nitrogen 12 mg/dL (7-18) Creatinine 0.6 MG/DL (0.55-1.30) Estimat Glomerular Filtration Rate > 60 mL/min (>60) Glucose Level 47 MG/DL (74-106) L Calcium Level 7.8 MG/DL (8.5-10.1) L Plan Problems: (1) Severe protein-calorie malnutrition Assessment & Plan: DAILY ESTIMATED NEEDS: Needs based on Stage 4 wound, / 63.6kg 30-35 kcals/kg 1908- 2226 total kcals 1.25-2.0 g protein/kg 80- 127 g total protein 25-35 mL/kg 8586-7174 total fluid mLs NUTRITION DIAGNOSIS: Increased kcal/prot/micronutrients needs R/T wound healing as evidenced by pt admitted w/ stage 4 R ischial wound. CURRENT DIET:Regular PO DIET RECOMMENDATIONS: REGULAR DIET, DOUBLE PROTEIN PORTIONS ADDITIONAL RECOMMENDATIONS: * Snacks in b/w meals * Wound healing: add MVI w/ mineral 1 tab qdaily + ZnSO4 220mg QD x 10 days + Vit C 500mg BID + Chay 1pkt BID -> pt refused * Monitor lytes, BG (hypoglycemic this morning BG 47); Rec A1C * Calibrated bed scale wts (2) Stage 4 decubitus ulcer Assessment & Plan: Patient presented on admission with Right BKA, Left AKA prior. Noted to have Stage 4 full thickness pressure injury with undermining R ischium. [place] granulation at base of wound .Bone is palpable. Edges adherent and flat. Erythema periwound. No odor noted Small amt serous exudate. (L)4.5cm x (W)6.5cm x (D)6.3cm, undermining noted. Multiple scarring noted to R trochanter,harvest graft site R thigh. No other skin concerns noted. febrile on admission. wounds unlikely etiology will monitor likely pna Tx.plan: Cleanse wound with Saline. Loosely pack wound with Hydrogel impregnated Kerlix. Apply Cavilon periwound. Cover with Optifoam drsg Daily and prn. Apply Triad Paste to buttocks and groin with each incontinence care. Reposition at least every 2hours or as tolerated.(Encourage pt to frequently reposition self ). (3) Osteomyelitis Assessment & Plan: Hx prior abx ID input please Baron Crouch Oct 19, 2019 12:35
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
[2019-10-19] MEDS: Vitamin B-12 100mcg tab ORAL SCH (13:59)
[2019-10-19 16:04] VITALS: BP 130/73
[2019-10-19 20:00] VITALS: BP 128/69
[2019-10-19] MEDS: Atorvastatin 20mg tab ORAL SCH (20:59)
[2019-10-19] MEDS: Ertapenem 1 GM in NS 55 ML IVPB SCH (21:00)
[2019-10-19] MEDS: Iron Sucrose 100 MG in NS 55 ML IV SCH (21:00)
[2019-10-20] VITALS: BP 117/79
[2019-10-20] MEDS: oxyCODONE 15mg IR tab ORAL PRN ×4 (00:15→22:52)
[2019-10-20] MEDS: HYDROcodone/Acetamin 10/325 tab ORAL PRN ×4 (03:10→20:22)
[2019-10-20 04:00] VITALS: BP 117/79
[2019-10-20 08:00] VITALS: BP 126/68
[2019-10-20 08:23] LABS: BASOPHILS % (AUTO) 0.2 % (0.0-2.0); EOSINOPHILS % (AUTO) 0.9 % (0.0-3.0); HEMATOCRIT 36.3 % (42.0-52.0); HEMOGLOBIN 11.6 G/DL (14.2-18.0); LYMPHOCYTES % (AUTO) 32.8 % (20.0-45.0); MEAN CORPUSCULAR VOLUME 77 FL (80-99); MONOCYTES % (AUTO) 5.7 % (1.0-10.0); NEUTROPHILS % (AUTO) 60.4 % (45.0-75.0); PLATELET COUNT 192 K/UL (150-450); RED BLOOD COUNT 4.71 M/UL (4.70-6.10); RED CELL DISTRIBUTION WIDTH 16.7 % (11.6-14.8); WHITE BLOOD COUNT 6.6 K/UL (4.8-10.8)
[2019-10-20 08:40] LABS: ANION GAP 6 mmol/L (5-15); BLOOD UREA NITROGEN 12 mg/dL (7-18); CALCIUM 8.3 MG/DL (8.5-10.1); CARBON DIOXIDE 27 MMOL/L (21-32); CHLORIDE 101 MMOL/L (98-107); CREATININE 0.6 MG/DL (0.55-1.30); POTASSIUM 3.5 MMOL/L (3.5-5.1); SODIUM 134 MMOL/L (136-145)
--- NOTE | 2019-10-20 09:29 | General Progress Note ---
Subjective Allergies: Coded Allergies: No Known Allergies (Unverified , 08/02/19) Objective Last 24 Hour Vital Signs Date Time Temp Pulse Resp B/P (MAP) Pulse Ox O2 Delivery O2 Flow Rate FiO2 10/20/19 08:00 97.7 75 20 126/68 (87) 98 10/20/19 04:00 97.5 62 19 117/79 (92) 97 10/20/19 00:00 97.5 62 19 117/79 (92) 97 10/19/19 21:02 68 128/69 10/19/19 21:00 Room Air 10/19/19 20:00 98.6 68 18 128/69 (88) 97 10/19/19 18:26 98.5 10/19/19 16:04 98.5 69 18 130/73 (92) 97 10/19/19 12:01 98.2 66 18 126/68 (87) 96 Intake and Output 10/19/19 10/20/19 18:59 06:59 Intake Total 920 ml Balance 920 ml Intake Oral 920 ml Laboratory Tests 10/20/19 08:05: White Blood Count 6.6, Red Blood Count 4.71, Hemoglobin 11.6L, Hematocrit 36.3L , Mean Corpuscular Volume 77L, Mean Corpuscular Hemoglobin 24.6L, Mean Corpuscular Hemoglobin Concent 31.9L, Red Cell Distribution Width 16.7H, Platelet Count 192, Mean Platelet Volume 6.7, Neutrophils (%) (Auto) 60.4, Lymphocytes (%) (Auto) 32.8, Monocytes (%) (Auto) 5.7, Eosinophils (%) (Auto) 0.9, Basophils (%) (Auto) 0.2, Sodium Level 134L, Potassium Level 3.5, Chloride Level 101, Carbon Dioxide Level 27, Anion Gap 6, Blood Urea Nitrogen 12, Creatinine 0.6, Estimat Glomerular Filtration Rate > 60, Glucose Level 76, Calcium Level 8.3L Height (Feet): 5 Height (Inches): 10.00 Weight (Pounds): 142 Frederick Cook M.D. Oct 20, 2019 09:29
--- NOTE | 2019-10-20 09:34 | Urology Progress Note ---
Assessment/Plan Assessment/Plan: 1. Urinary retention history with chronic suprapubic tube. 2. Neurogenic bladder. 3. Proteinuria. 4. Hematuria. 5. Urinary tract infection history. 6. Abdominal pain. monitor clinically abx as ordered f/u on cx's maintain SPT hand irrigated and do PRN change cath again soon f/u on renal u/s I did personally change SPT (at nighttime) new 24f cath placed and irrigated Subjective Allergies: Coded Allergies: No Known Allergies (Unverified , 08/02/19) Objective Last 24 Hour Vital Signs Date Time Temp Pulse Resp B/P (MAP) Pulse Ox O2 Delivery O2 Flow Rate FiO2 10/20/19 08:00 97.7 75 20 126/68 (87) 98 10/20/19 04:00 97.5 62 19 117/79 (92) 97 10/20/19 00:00 97.5 62 19 117/79 (92) 97 10/19/19 21:02 68 128/69 10/19/19 21:00 Room Air 10/19/19 20:00 98.6 68 18 128/69 (88) 97 10/19/19 18:26 98.5 10/19/19 16:04 98.5 69 18 130/73 (92) 97 10/19/19 12:01 98.2 66 18 126/68 (87) 96 Intake and Output 10/19/19 10/20/19 18:59 06:59 Intake Total 920 ml Balance 920 ml Intake Oral 920 ml Microbiology Date/Time Source Procedure Growth Status 10/18/19 10:15 Blood Blood Culture - Preliminary NO GROWTH AFTER 24 HOURS Resulted 10/17/19 21:35 Nasal Nares MRSA Culture - Final Staphylococcus Aureus - Mrsa Complete 10/17/19 21:35 Urine,Clean Catch Urine Culture - Preliminary Proteus Mirabilis Gram Negative Bacillus 1 Resulted 10/17/19 21:35 Rectum VRE Culture - Final Enterococcus Faecium - Vre Enterococcus Faecalis - Vre Complete Current Medications Medications (Trade) Dose Ordered Sig/Nayely Route PRN Reason Start Time Stop Time Status Last Admin Dose Admin Acetaminophen (Tylenol) 650 mg Q6H PRN ORAL Mild Pain/Temp > 100.5 10/18/19 01:45 11/17/19 01:44 10/18/19 04:24 Acetaminophen/ Hydrocodone Bitart ([place] 10/325) 1 tab Q4H PRN ORAL Moderate Pain (Pain Scale 4-6) 10/18/19 01:00 10/25/19 00:59 10/20/19 03:10 Ascorbic Acid (Vitamin C) 500 mg TWICE A DAY ORAL 10/19/19 18:00 11/18/19 17:59 10/19/19 17:56 Aspirin (ASA) 81 mg DAILY ORAL 10/18/19 11:15 11/17/19 11:14 10/19/19 08:40 Atorvastatin Calcium (Lipitor) 20 mg BEDTIME ORAL 10/18/19 21:00 11/17/19 20:59 10/19/19 20:59 Cyanocobalamin (Vitamin B-12 Tab) 100 mcg DAILY ORAL 10/19/19 14:00 11/18/19 13:59 Docusate Sodium (Colace) 100 mg DAILY ORAL 10/18/19 11:15 11/17/19 11:14 Ertapenem 1 gm/ Sodium Chloride 55 ml @ 110 mls/hr Q24H IVPB 10/18/19 22:00 10/25/19 21:59 10/19/19 21:00 Heparin Sodium (Porcine) (Heparin 5000 units/ml) 5,000 units EVERY 12 HOURS SUBQ 10/18/19 09:00 11/17/19 08:59 Iron Sucrose 100 mg/Sodium Chloride 60 ml @ 240 mls/hr BEDTIME IV 10/19/19 21:00 10/23/19 21:14 10/19/19 21:00 Lisinopril (Prinivil) 20 mg DAILY ORAL 10/18/19 09:00 11/17/19 08:59 10/19/19 08:41 Methocarbamol (Robaxin) 500 mg Q6H PRN ORAL muscle spasm 10/18/19 13:00 11/17/19 12:59 10/18/19 17:00 Metoprolol Tartrate (Lopressor) 50 mg EVERY 12 HOURS ORAL 10/18/19 09:00 11/17/19 08:59 10/19/19 21:02 Multivitamins (Multivitamins) 1 tab DAILY ORAL 10/20/19 09:00 11/19/19 08:59 Oxycodone HCl (Roxicodone) 15 mg Q6H PRN ORAL SEVERE PAIN 10/19/19 07:01 10/26/19 07:00 10/20/19 06:37 Zinc Sulfate (Zinc Sulfate) 220 mg DAILY ORAL 10/20/19 09:00 10/30/19 08:59 Laboratory Tests 10/20/19 08:05: White Blood Count 6.6, Red Blood Count 4.71, Hemoglobin 11.6L, Hematocrit 36.3L , Mean Corpuscular Volume 77L, Mean Corpuscular Hemoglobin 24.6L, Mean Corpuscular Hemoglobin Concent 31.9L, Red Cell Distribution Width 16.7H, Platelet Count 192, Mean Platelet Volume 6.7, Neutrophils (%) (Auto) 60.4, Lymphocytes (%) (Auto) 32.8, Monocytes (%) (Auto) 5.7, Eosinophils (%) (Auto) 0.9, Basophils (%) (Auto) 0.2, Sodium Level 134L, Potassium Level 3.5, Chloride Level 101, Carbon Dioxide Level 27, Anion Gap 6, Blood Urea Nitrogen 12, Creatinine 0.6, Estimat Glomerular Filtration Rate > 60, Glucose Level 76, Calcium Level 8.3L Height (Feet): 5 Height (Inches): 10.00 Weight (Pounds): 142 Objective exam stable urine mitesh with debris Reji Barriga MD Oct 20, 2019 09:34
[2019-10-20] MEDS: Lisinopril 20mg tab ORAL SCH (09:37)
[2019-10-20] MEDS: Zinc Sulfate 220mg cap ORAL SCH (09:37)
[2019-10-20] MEDS: Aspirin Baby 81mg ORAL SCH (09:37)
[2019-10-20] MEDS: Metoprolol Tartrate 50mg tab ORAL SCH ×2 (09:37→20:21)
[2019-10-20] MEDS: Vitamin B-12 100mcg tab ORAL SCH (09:37)
[2019-10-20] MEDS: Docusate 100mg cap ORAL SCH (09:37)
[2019-10-20] MEDS: Ascorbic Acid 500mg tab ORAL SCH ×2 (09:37→17:37)
[2019-10-20] MEDS: Heparin 5000 units/ml inj SUBQ SCH ×2 (09:38→20:23)
--- NOTE | 2019-10-20 11:46 | Diagnostic Imaging Report ---
Indication: Dyspnea Comparison: 10/18/2019 A single view chest radiograph was obtained. Findings: Sternotomy noted. Heart size is normal. Lungs are clear. Aorta is mildly enlarged. IMPRESSION: No acute disease
[2019-10-20 12:00] VITALS: BP 138/79
[2019-10-20] MEDS: LORazepam 0.5mg tab ORAL PRN ×2 (12:18→18:26)
--- NOTE | 2019-10-20 13:09 | Diagnostic Imaging Report ---
Indication:Elevated Bun and Creatinine. Technique: Grayscale and duplex Doppler imaging of the kidneys performed. Comparison: None Findings: The size, contour, and echogenicity of both kidneys are within normal limits. There is no hydronephrosis.. The right kidney measures 11.9 cm. in length. The left kidney measures 12.2 cm. in length. There are multiple cysts within both kidneys. For example on the left there is a 4.5 cm cyst in the lower pole and a 3.9 cm cyst in the upper pole. There is a 1.2 cm cyst in the right kidney. The IVC is patent. There is a suprapubic catheter present. IMPRESSION: Bilateral renal cysts. Suprapubic catheter
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
[2019-10-20] MEDS ORDERED: INVANZ1 G1 IVPB (14:21)
--- NOTE | 2019-10-20 14:22 | Discharge Instructions ---
Discharge Instructions Discharge Instructions Special Instructions CBC AND BMP TWICE WEEKLY WHILE ON ANTIBIOTICS MAKE APPT WITH UROLOGY TO CHANGE SUPRAPUBIC CATHETER SOON For Congestive Heart Failure Reminder Report to your physician any weight gain of 5 pounds or more in one week. Frederick Cook M.D. Oct 20, 2019 14:22
[2019-10-20 15:58] VITALS: BP 132/81
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
[2019-10-20] MEDS ORDERED: PRO-STAT LIQUID30 ML ORAL (18:16)
[2019-10-20] MEDS ORDERED: MILK OF MA400 MG/51 ORAL (18:16)
[2019-10-20] MEDS ORDERED: LOPERAMIDE2 MG PO (18:16)
[2019-10-20] MEDS ORDERED: MULTIVITAMINS1 EAC8 ORAL (18:16)
--- NOTE | 2019-10-20 18:48 | Surgery Progress Note ---
Surgery Progress Note Subjective Additional Comments states he is okay but is really wants dialudid and does not know why we will not give it to him in chair otherwise stable Objective Last 24 Hour Vital Signs Date Time Temp Pulse Resp B/P (MAP) Pulse Ox O2 Delivery O2 Flow Rate FiO2 10/20/19 15:58 98.0 79 19 132/81 (98) 98 10/20/19 14:40 98.3 10/20/19 12:00 98.3 66 18 138/79 (98) 97 10/20/19 09:37 75 126/68 10/20/19 09:37 126/68 10/20/19 09:00 Room Air 10/20/19 08:00 97.7 75 20 126/68 (87) 98 10/20/19 04:00 97.5 62 19 117/79 (92) 97 10/20/19 00:00 97.5 62 19 117/79 (92) 97 10/19/19 21:02 68 128/69 10/19/19 21:00 Room Air 10/19/19 20:00 98.6 68 18 128/69 (88) 97 I&O Intake and Output 10/19/19 10/20/19 19:00 07:00 Intake Total 920 ml Balance 920 ml Intake Oral 920 ml Dressing: other Wound: other Drains: other Cardiovascular: RSR Respiratory: decreased breath sounds Abdomen: soft, present bowel sounds Extremities: other Laboratory Tests Test 10/20/19 08:05 10/20/19 15:40 White Blood Count 6.6 K/UL (4.8-10.8) Red Blood Count 4.71 M/UL (4.70-6.10) Hemoglobin 11.6 G/DL (14.2-18.0) L Hematocrit 36.3 % (42.0-52.0) L Mean Corpuscular Volume 77 FL (80-99) L Mean Corpuscular Hemoglobin 24.6 PG (27.0-31.0) L Mean Corpuscular Hemoglobin Concent 31.9 G/DL (32.0-36.0) L Red Cell Distribution Width 16.7 % (11.6-14.8) H Platelet Count 192 K/UL (150-450) Mean Platelet Volume 6.7 FL (6.5-10.1) Neutrophils (%) (Auto) 60.4 % (45.0-75.0) Lymphocytes (%) (Auto) 32.8 % (20.0-45.0) Monocytes (%) (Auto) 5.7 % (1.0-10.0) Eosinophils (%) (Auto) 0.9 % (0.0-3.0) Basophils (%) (Auto) 0.2 % (0.0-2.0) Sodium Level 134 MMOL/L (136-145) L Potassium Level 3.5 MMOL/L (3.5-5.1) Chloride Level 101 MMOL/L (98-107) Carbon Dioxide Level 27 MMOL/L (21-32) Anion Gap 6 mmol/L (5-15) Blood Urea Nitrogen 12 mg/dL (7-18) Creatinine 0.6 MG/DL (0.55-1.30) Estimat Glomerular Filtration Rate > 60 mL/min (>60) Glucose Level 76 MG/DL (74-106) Calcium Level 8.3 MG/DL (8.5-10.1) L Stool Occult Blood Pending Plan Problems: (1) Severe protein-calorie malnutrition Assessment & Plan: DAILY ESTIMATED NEEDS: Needs based on Stage 4 wound, / 63.6kg 30-35 kcals/kg 1908- 2226 total kcals 1.25-2.0 g protein/kg 80- 127 g total protein 25-35 mL/kg 1278-7976 total fluid mLs NUTRITION DIAGNOSIS: Increased kcal/prot/micronutrients needs R/T wound healing as evidenced by pt admitted w/ stage 4 R ischial wound. CURRENT DIET:Regular PO DIET RECOMMENDATIONS: REGULAR DIET, DOUBLE PROTEIN PORTIONS ADDITIONAL RECOMMENDATIONS: * Snacks in b/w meals * Wound healing: add MVI w/ mineral 1 tab qdaily + ZnSO4 220mg QD x 10 days + Vit C 500mg BID + Chay 1pkt BID -> pt refused * Monitor lytes, BG (hypoglycemic this morning BG 47); Rec A1C * Calibrated bed scale wts (2) Stage 4 decubitus ulcer Assessment & Plan: Patient presented on admission with Right BKA, Left AKA prior. Noted to have Stage 4 full thickness pressure injury with undermining R ischium. [place] granulation at base of wound .Bone is palpable. Edges adherent and flat. Erythema periwound. No odor noted Small amt serous exudate. (L)4.5cm x (W)6.5cm x (D)6.3cm, undermining noted. Multiple scarring noted to R trochanter,harvest graft site R thigh. No other skin concerns noted. febrile on admission. wounds unlikely etiology will monitor likely pna Tx.plan: Cleanse wound with Saline. Loosely pack wound with Hydrogel impregnated Kerlix. Apply Cavilon periwound. Cover with Optifoam drsg Daily and prn. Apply Triad Paste to buttocks and groin with each incontinence care. Reposition at least every 2hours or as tolerated.(Encourage pt to frequently reposition self ). (3) Osteomyelitis Assessment & Plan: Hx prior abx ID input please Baron Crouch Oct 20, 2019 18:48
[2019-10-20 20:00] VITALS: BP 140/71
[2019-10-20] MEDS: Atorvastatin 20mg tab ORAL SCH (20:21)
[2019-10-20] MEDS: Iron Sucrose 100 MG in NS 55 ML IV SCH (20:23)
[2019-10-20] MEDS: Ertapenem 1 GM in NS 55 ML IVPB SCH (22:18)
[2019-10-21] VITALS: BP 131/73
[2019-10-21] MEDS: HYDROcodone/Acetamin 10/325 tab ORAL PRN ×3 (01:09→12:07)
[2019-10-21] MEDS: LORazepam 0.5mg tab ORAL PRN ×2 (04:34→10:47)
[2019-10-21 06:23] LABS: BASOPHILS % (AUTO) 0.4 % (0.0-2.0); EOSINOPHILS % (AUTO) 1.5 % (0.0-3.0); HEMATOCRIT 34.2 % (42.0-52.0); LYMPHOCYTES % (AUTO) 42.7 % (20.0-45.0); MEAN CORPUSCULAR VOLUME 77 FL (80-99); MONOCYTES % (AUTO) 6.8 % (1.0-10.0); NEUTROPHILS % (AUTO) 48.7 % (45.0-75.0); PLATELET COUNT 185 K/UL (150-450); RED BLOOD COUNT 4.43 M/UL (4.70-6.10); RED CELL DISTRIBUTION WIDTH 16.8 % (11.6-14.8); WHITE BLOOD COUNT 6.2 K/UL (4.8-10.8)
[2019-10-21 07:13] LABS: ANION GAP 11 mmol/L (5-15); BLOOD UREA NITROGEN 13 mg/dL (7-18); CALCIUM 8.4 MG/DL (8.5-10.1); CARBON DIOXIDE 25 MMOL/L (21-32); CHLORIDE 103 MMOL/L (98-107); CREATININE 0.5 MG/DL (0.55-1.30); POTASSIUM 3.5 MMOL/L (3.5-5.1); SODIUM 139 MMOL/L (136-145)
[2019-10-21 08:00] VITALS: BP 122/72
[2019-10-21] MEDS: Docusate 100mg cap ORAL SCH (09:00)
[2019-10-21] MEDS: Heparin 5000 units/ml inj SUBQ SCH (09:00)
[2019-10-21] MEDS: Metoprolol Tartrate 50mg tab ORAL SCH (09:10)
[2019-10-21] MEDS: Ascorbic Acid 500mg tab ORAL SCH (09:10)
[2019-10-21] MEDS: oxyCODONE 15mg IR tab ORAL PRN (09:10)
[2019-10-21] MEDS: Aspirin Baby 81mg ORAL SCH (09:10)
[2019-10-21] MEDS: Zinc Sulfate 220mg cap ORAL SCH (09:10)
[2019-10-21] MEDS: Lisinopril 20mg tab ORAL SCH (09:10)
[2019-10-21] MEDS: Vitamin B-12 100mcg tab ORAL SCH (09:10)
--- NOTE | 2019-10-21 11:34 | Surgery Progress Note ---
Surgery Progress Note Subjective Additional Comments no acute events using wheelchair to get around comfortably no n/v/f/c labs noted exam stable Objective Last 24 Hour Vital Signs Date Time Temp Pulse Resp B/P (MAP) Pulse Ox O2 Delivery O2 Flow Rate FiO2 10/21/19 09:10 83 122/72 10/21/19 09:10 122/72 10/21/19 09:00 Room Air 10/21/19 08:00 98.3 83 17 122/72 (89) 97 10/21/19 00:00 97.0 73 19 131/73 (92) 98 10/20/19 21:00 Room Air 10/20/19 20:21 80 140/76 10/20/19 20:00 97.2 83 18 140/71 (94) 96 10/20/19 15:58 98.0 79 19 132/81 (98) 98 10/20/19 14:40 98.3 10/20/19 12:00 98.3 66 18 138/79 (98) 97 I&O Intake and Output 10/20/19 10/21/19 19:00 07:00 Intake Total 1000 ml Output Total 250 ml Balance 1000 ml -250 ml Intake Oral 1000 ml Output Urine Total 250 ml Dressing: other Wound: other Drains: other Cardiovascular: RSR Respiratory: decreased breath sounds Abdomen: soft, present bowel sounds Extremities: no cyanosis, other Laboratory Tests Test 10/20/19 15:40 10/21/19 05:12 Stool Occult Blood Negative (NEGATIVE) White Blood Count 6.2 K/UL (4.8-10.8) Red Blood Count 4.43 M/UL (4.70-6.10) L Hemoglobin 11.0 G/DL (14.2-18.0) L Hematocrit 34.2 % (42.0-52.0) L Mean Corpuscular Volume 77 FL (80-99) L Mean Corpuscular Hemoglobin 24.7 PG (27.0-31.0) L Mean Corpuscular Hemoglobin Concent 32.0 G/DL (32.0-36.0) Red Cell Distribution Width 16.8 % (11.6-14.8) H Platelet Count 185 K/UL (150-450) Mean Platelet Volume 6.9 FL (6.5-10.1) Neutrophils (%) (Auto) 48.7 % (45.0-75.0) Lymphocytes (%) (Auto) 42.7 % (20.0-45.0) Monocytes (%) (Auto) 6.8 % (1.0-10.0) Eosinophils (%) (Auto) 1.5 % (0.0-3.0) Basophils (%) (Auto) 0.4 % (0.0-2.0) Sodium Level 139 MMOL/L (136-145) Potassium Level 3.5 MMOL/L (3.5-5.1) Chloride Level 103 MMOL/L (98-107) Carbon Dioxide Level 25 MMOL/L (21-32) Anion Gap 11 mmol/L (5-15) Blood Urea Nitrogen 13 mg/dL (7-18) Creatinine 0.5 MG/DL (0.55-1.30) L Estimat Glomerular Filtration Rate > 60 mL/min (>60) Glucose Level 94 MG/DL (74-106) Calcium Level 8.4 MG/DL (8.5-10.1) L Plan Problems: (1) Severe protein-calorie malnutrition Assessment & Plan: DAILY ESTIMATED NEEDS: Needs based on Stage 4 wound, / 63.6kg 30-35 kcals/kg 1908- 2226 total kcals 1.25-2.0 g protein/kg 80- 127 g total protein 25-35 mL/kg 1108-3161 total fluid mLs NUTRITION DIAGNOSIS: Increased kcal/prot/micronutrients needs R/T wound healing as evidenced by pt admitted w/ stage 4 R ischial wound. CURRENT DIET:Regular PO DIET RECOMMENDATIONS: REGULAR DIET, DOUBLE PROTEIN PORTIONS ADDITIONAL RECOMMENDATIONS: * Snacks in b/w meals * Wound healing: add MVI w/ mineral 1 tab qdaily + ZnSO4 220mg QD x 10 days + Vit C 500mg BID + Chay 1pkt BID -> pt refused * Monitor lytes, BG (hypoglycemic this morning BG 47); Rec A1C * Calibrated bed scale wts (2) Stage 4 decubitus ulcer Assessment & Plan: Patient presented on admission with Right BKA, Left AKA prior. Noted to have Stage 4 full thickness pressure injury with undermining R ischium. [place] granulation at base of wound .Bone is palpable. Edges adherent and flat. Erythema periwound. No odor noted Small amt serous exudate. (L)4.5cm x (W)6.5cm x (D)6.3cm, undermining noted. Multiple scarring noted to R trochanter,harvest graft site R thigh. No other skin concerns noted. febrile on admission. wounds unlikely etiology will monitor likely pna gave patient detailed information about wound and wheelchair use and instructions. Tx.plan: Cleanse wound with Saline. Loosely pack wound with Hydrogel impregnated Kerlix. Apply Cavilon periwound. Cover with Optifoam drsg Daily and prn. Apply Triad Paste to buttocks and groin with each incontinence care. Reposition at least every 2hours or as tolerated.(Encourage pt to frequently reposition self ). (3) Osteomyelitis Assessment & Plan: Hx prior abx ID input please Baron Crouch Oct 21, 2019 11:34
[2019-10-21 12:00] VITALS: BP 116/78
[2019-10-21] MEDS ORDERED: NS 275ml ONE (14:28)
--- NOTE | 2019-10-21 15:43 | Urology Progress Note ---
Assessment/Plan Status: stable Assessment/Plan: 1. Urinary retention history with chronic suprapubic tube. 2. Neurogenic bladder. 3. Proteinuria. 4. Hematuria. 5. Urinary tract infection history. 6. Abdominal pain. 7. Renal cyst. monitor clinically abx as ordered f/u on cx's maintain SPT, last exchanged 10/20 hand irrigated and do PRN rec change SPT q 3 weeks Subjective Allergies: Coded Allergies: No Known Allergies (Unverified , 08/02/19) Subjective all noted, seen earlier, new SPT draining OK Objective Last 24 Hour Vital Signs Date Time Temp Pulse Resp B/P (MAP) Pulse Ox O2 Delivery O2 Flow Rate FiO2 10/21/19 12:37 98.3 10/21/19 12:00 98.6 75 18 116/78 (91) 97 10/21/19 09:10 83 122/72 10/21/19 09:10 122/72 10/21/19 09:00 Room Air 10/21/19 08:00 98.3 83 17 122/72 (89) 97 10/21/19 00:00 97.0 73 19 131/73 (92) 98 10/20/19 21:00 Room Air 10/20/19 20:21 80 140/76 10/20/19 20:00 97.2 83 18 140/71 (94) 96 10/20/19 15:58 98.0 79 19 132/81 (98) 98 Intake and Output 10/20/19 10/21/19 18:59 06:59 Intake Total 1000 ml Output Total 250 ml Balance 1000 ml -250 ml Intake Oral 1000 ml Output Urine Total 250 ml Microbiology Date/Time Source Procedure Growth Status 10/18/19 10:15 Blood Blood Culture - Preliminary NO GROWTH AFTER 48 HOURS Resulted 10/17/19 21:35 Nasal Nares MRSA Culture - Final Staphylococcus Aureus - Mrsa Complete 10/17/19 21:35 Urine,Clean Catch Urine Culture - Preliminary Proteus Mirabilis Gram Negative Bacillus 1 Resulted 10/17/19 21:35 Rectum - Final NO CARBAPENEM-RESISTANT ENTEROBACTERI... Complete Laboratory Tests 10/21/19 05:12: White Blood Count 6.2, Red Blood Count 4.43L, Hemoglobin 11.0L, Hematocrit 34.2L , Mean Corpuscular Volume 77L, Mean Corpuscular Hemoglobin 24.7L, Mean Corpuscular Hemoglobin Concent 32.0, Red Cell Distribution Width 16.8H, Platelet Count 185, Mean Platelet Volume 6.9, Neutrophils (%) (Auto) 48.7, Lymphocytes (%) (Auto) 42.7, Monocytes (%) (Auto) 6.8, Eosinophils (%) (Auto) 1.5, Basophils (%) (Auto) 0.4, Sodium Level 139, Potassium Level 3.5, Chloride Level 103, Carbon Dioxide Level 25, Anion Gap 11, Blood Urea Nitrogen 13, Creatinine 0.5L, Estimat Glomerular Filtration Rate > 60, Glucose Level 94, Calcium Level 8.4L Height (Feet): 5 Height (Inches): 10.00 Weight (Pounds): 142 Objective exam stable urine mitesh with debris renal u/s (10/20) noted Reji Barriga MD Oct 21, 2019 15:43
== END 2019-10-21 14:29 | DRG 720 ==
LOC: EDBD 21:33 → EMR 22:16 → 4E 22:30 → EDBEDREQ 22:49
DX: A41.9 Sepsis, unspecified organism (principal); N39.0 Urinary tract infection, site not specified; E43 Unspecified severe protein-calorie malnutrition; L89.154 Pressure ulcer of sacral region, stage 4; N12 Tubulo-interstitial nephritis, not specified as acute or chronic; D50.9 Iron deficiency anemia, unspecified; I25.10 Atherosclerotic heart disease of native coronary artery without angina pectoris; Z95.5 Presence of coronary angioplasty implant and graft; Z76.5 Malingerer [conscious simulation]; B96.20 Unspecified Escherichia coli [E. coli] as the cause of diseases classified elsewhere; Z16.12 Extended spectrum beta lactamase (ESBL) resistance; G82.20 Paraplegia, unspecified; V89.2XXS Person injured in unspecified motor-vehicle accident, traffic, sequela; J44.9 Chronic obstructive pulmonary disease, unspecified; Z89.612 Acquired absence of left leg above knee; Z89.611 Acquired absence of right leg above knee; I10 Essential (primary) hypertension; E78.5 Hyperlipidemia, unspecified; Z79.82 Long term (current) use of aspirin; L89.894 Pressure ulcer of other site, stage 4; R33.9 Retention of urine, unspecified; Z93.51 Cutaneous-vesicostomy status; R31.9 Hematuria, unspecified; N28.1 Cyst of kidney, acquired; Z68.1 Body mass index [BMI] 19.9 or less, adult
CPT/HCPCS: 36415; 71045; 76770; 80048; 80053; 81003; 82270; 82550; 82607; 82746; 83540; 83550; 83605; 84484; 85025; 87040; 87081; 87086; 87181; 96361; 96365; 96375; 99285; J7030; J8499